=== PATIENT | male | born 1955 | race Caucasian/White ===

== ENCOUNTER → 2016-05-03 | Outpatient (CLI) | payer BC ==
[~2016-05-03] MED LIST: ASP81TEC PO; ATRV10T PO; CATHETER FLUSH 10 ML SYR IV PRN; FINA5TAB6 PO; GEMF600T3 PO; LISI20TA PO; METO-272 PO; MTF500T PO; OMEG1CAP74 PO; PNT40TEC PO; PRAS10TA6 PO; REGADENOSON 0.4 MG/5 ML SYR (LEXISCAN) IV ONE; SILO8CAP PO; meTOprolol 5 MG/5 ML (LOPRESSOR) VIAL ONE
[2016-05-03 12:54] VITALS: BP 159/98
--- NOTE | 2016-05-03 12:56 | ECHOCARDIOGRAPHY REPORT ---
PROCEDURE PHYSICIAN: MOHAMUD WAN DATE OF PROCEDURE: 05/03/2016 TWO DIMENSIONAL ECHOCARDIOGRAM REPORT PRIMARY PHYSICIAN: OTHER PHYSICIAN: REFERRING PHYSICIAN: Dr. Chelsie Lucia ORDERING PHYSICIAN: INDICATION FOR THE PROCEDURE: Congestive heart failure. MEASUREMENTS DERIVED VALUES LV DIAMETER (LAX) NORMALS NORMALS Diastolic 4.9 (3.6-5.2) Eject. Fract. 40 to 45% (60%+/-6%) Systolic (2.3-3.9) Diastolic Vol. % Shortening (0.22-0.42) Systolic Vol. Aortic Root IVS THICKNESS Diastolic 1.3 (0.6-1.1) LVPW THICKNESS Diastolic 1.3 (0.6-1.1) LA DIAMETER Systolic 4.0 (2.1-3.7) FINDINGS: 1. The left ventricle is prominent. There is mild diffuse left ventricular hypokinesia more pronounced at the anterior wall, anterior septum. Systolic function is reduced. Estimated ejection fraction 40 to 45%, improvement compared to the study of 2014. 2. The left atrium is in the upper normal limit in size. No clot or thrombus were seen within the left atrium. 3. The right atrium and right ventricle are normal in size. No clot or thrombus were seen within the right side. 4. Mitral valve is normal in morphology with mild mitral regurgitation noted by color Doppler flow. No mitral valve prolapse. No mitral valve stenosis. 5. Aortic valve is trileaflet with normal opening and closing pattern. No significant aortic stenosis or regurgitation was seen. 6. Tricuspid valve is normal in morphology with mild tricuspid regurgitation noted by color Doppler flow. Doppler across tricuspid valve estimated pulmonary artery pressure of 23+ right atrial pressure. 7. Pulmonic valve is functioning normally. 8. No pericardial effusion. CONCLUSION: 1. Slightly prominent left ventricle with mild diffuse left ventricular hypokinesia more pronounced at the anterior wall, anterior septum. Systolic function is reduced. Estimated ejection fraction 40 to 45%, improvement compared to the study of 2014. 2. Mild mitral and tricuspid regurgitation. 3. Estimated pulmonary artery pressure of 30 mmHg. Job ID: [id number] Dictated Date: 05/03/2016 11:59:52 Plasterer Spray Gun Date: 05/03/2016 12:51:11 / venu
--- NOTE | 2016-05-03 21:00 | STRESS TEST ---
PROCEDURE PHYSICIAN: MOHAMUD WAN DATE OF PROCEDURE: 05/03/2016 LEXISCAN MYOVIEW STRESS TEST REPORT REFERRING PHYSICIAN: Dr. Chelsie Lucia. INDICATION FOR THE PROCEDURE: Coronary artery disease. BASELINE HEART RATE: 100 BASELINE BLOOD PRESSURE: 159/98 BASELINE EKG: Sinus rhythm with no ischemic changes. SUMMARY: The patient was injected with 10.6 mCi of technetium 99 Myoview and the resting images were obtained. Then the patient received 0.4 mg of Lexiscan followed by 29.3 mCi of technetium 99 Myoview. Throughout the test, there were no EKG changes. The resting and stress images were reviewed and compared in the short axis, horizontal long axis, and vertical long axis views. Review of the images showed diaphragmatic attenuation affecting the quality of the images. There is mild apical thinning and decreased uptake at the true apex, and inferoapical segment. No significant ischemia was noted. SSS is 4, SDS 3, TID value 1.01. On the gated images, the left ventricle appeared to be dilated with end-diastolic volume 136 mL end-systolic volume 89 mL, mild diffuse left ventricular hypokinesia with calculated ejection fraction 34%. CONCLUSION: 1. The patient tolerated Lexiscan well. 2. Apical thinning with diaphragmatic attenuation affecting the quality of the images. Overall, there is no significant ischemia or infarction on SPECT images. 3. Prominent left ventricle with diffuse left ventricular hypokinesia. Calculated ejection fraction 34%. Job ID: [id number] Dictated Date: 05/03/2016 16:54:38 Time Analysis Clerk Date: 05/03/2016 20:56:46 / ema
== END ==
LOC: CARD 09:41
PROVIDERS: ATTEND Physician Assistant
DX: I25.10 Atherosclerotic heart disease of native coronary artery without angina pectoris (principal); I10 Essential (primary) hypertension; E78.2 Mixed hyperlipidemia; E11.9 Type 2 diabetes mellitus without complications
CPT/HCPCS: 78452; 93017; 93306

== ENCOUNTER 2016-06-20 06:43 | Outpatient (CLI) | payer BC ==
[~2016-06-20] VITALS: Ht 193 cm; Wt 111.1 kg
[~2016-06-20 06:43] MED LIST changes: -CATHETER FLUSH 10 ML SYR IV PRN; -REGADENOSON 0.4 MG/5 ML SYR (LEXISCAN) IV ONE; -meTOprolol 5 MG/5 ML (LOPRESSOR) VIAL ONE
[2016-06-20] MEDS ORDERED: SITA1TAB6 PO (12:00)
[2016-06-20] MEDS ORDERED: HYDR25TA4 PO (12:00)
== END 2016-06-20 12:02 ==
LOC: PREOP 06:43
PROVIDERS: ATTEND Surgery
DX: Z01.818 Encounter for other preprocedural examination (principal); K92.1 Melena

== ENCOUNTER 2016-06-22 07:18 | Day surgery (SDC) | payer BC ==
[~2016-06-22] VITALS: Ht 193 cm; Wt 111.1 kg
[~2016-06-22 07:18] MED LIST changes: +HYDR25TA4 PO; +SITA1TAB6 PO
[2016-06-22] MEDS ORDERED: LACTATED RINGERS 1,000 ML IV STA (07:31)
[2016-06-22] MEDS ORDERED: MIDAZOLAM 2 MG/2 ML (VERSED) VIAL ONE ×2 (07:34→07:35)
[2016-06-22] MEDS ORDERED: PROPOFOL INJECTION 50 ML IV ONE (07:35)
[2016-06-22 07:57] VITALS: BP 136/74
--- NOTE | 2016-06-22 08:54 | Progress Note-Pre Operative ---
Pre-Operative Progress Note H&P Reviewed The H&P was reviewed, patient examined and no changes noted. Date H&P Reviewed: June 22, 2016 Time H&P Reviewed: 08:51 Pre-Operative Diagnosis: Rectal bleed KASSY DURAN DO June 22, 2016 08:54
--- NOTE | 2016-06-22 09:23 | Progress Note-Post Operative ---
Post-Operative Progess Note Surgeon (s)/Statistician Applied (s) Surgeon KASSY DURAN DO Statistician Applied: none Pre-Operative Diagnosis Rectal bleed Post-Operative Diagnosis Rectal mass Rectal bleed Diverticula Internal Hemorrhoids Procedure & Operative Findings Date of Procedure 06/22/16 Procedure Performed/Findings as above Anesthesia Type IV by HEEL GOUGER Estimated Blood Loss Estimated blood loss (mL): scant Specimens/Packing Specimens Removed biopsy from rectal mass Packing: none KASSY DURAN DO June 22, 2016 09:23
--- NOTE | 2016-06-22 09:25 | Endoscopy Discharge Instruct ---
Endo Procedure/Findings Findings 1.: Other Findings (Rectal mass) 2.: Diverticulosis 3.: Internal Hemorrhoids Discharge Instructions - Activity: You might feel a little sleepy until tomorrow. This is due to the medicine you received to relax you. Until tomorrow, you should: NOT drive a car, operate machinery or power tools. NOT drink any alcoholic beverages. NOT make any important decisions or sign importortant papers. Do not return to work until tomorrow, unless otherwise instructed. Resume previous activities tomorrow. Diet: Start by taking liquids. If you tolerate liquids, advance to solid food. Make appointment for one week, Notify Physician - If you experience excessive bleeding, unusual abdominal pain, fever, or chest pain, contact your doctor immediately. [phone] Follow-Up: - I have received and understand the above instructions and will call my doctor if I have any further questions. Patient Signature Date Nurse Signature Other (Relationship) KASSY DURAN DO June 22, 2016 09:25
[2016-06-22 09:40] VITALS: BP 118/74
[2016-06-22 10:10] VITALS: BP 118/78
[2016-06-22 10:25] VITALS: BP 118/78
--- NOTE | 2016-06-22 12:48 | OPERATIVE REPORT ---
DATE OF SERVICE: 06/22/2016 PREOPERATIVE DIAGNOSIS: Rectal bleed. POSTOPERATIVE DIAGNOSES: 1. Rectal mass. 2. Rectal bleed. 3. Diverticula. 4. Internal hemorrhoids. PROCEDURE: Colonoscopy with hot biopsy. SURGEON: Dr. Salazar HONEY PROCESSOR: None. ANESTHESIA: IV sedation by AGENT LICENSING CLERK. SPECIMEN: Biopsy from rectal mass. BLOOD LOSS: Scant. FLUIDS: Per anesthesia. POSTOPERATIVE CONDITION: Stable. INDICATIONS FOR PROCEDURE: The patient is a 60-year-old male who has been having a little bit of rectal bleeding and needed a workup. FINDINGS: The patient had a rectal mass in about 6 cm from the anal verge. He also had some diverticula and some small internal hemorrhoids. PROCEDURE NOTE: After informed consent was obtained, the patient was brought to the endoscopy suite and placed in the bed in the left lateral decubitus position. He was administered IV sedation and his vitals were monitored by the AGENT LICENSING CLERK the entire time. The scope was inserted. Immediately upon entry noted a rectal mass, took a picture of this and then pushed through into the sigmoid, saw some diverticula, took a picture of this and then pushed all the way to about 150 cm, able to go all the way to the cecum, took a picture of the appendiceal orifice, noted the ileocecal valve and slowly I withdrew the scope insufflating to look circumferentially at the more[place], looking at the cecum, then up the ascending colon to the hepatic flexure, then down the transverse colon to the splenic flexure and then down the descending colon, into the sigmoid and finally into the rectum. I elected to do some hot biopsies of this mass. I did about 3 or 4 biopsies and then retroflexed in the rectal vault, very minimal internal hemorrhoids. This mass felt like it was about 6 cm from the anal verge. It was probably about 4 or 5 cm long, but the base was only about 2 or 3 cm. Did feel like it was kind of deep though; like it went deep into wall of intestine. The scope was removed. The patient tolerated the procedure and he was transferred to the recovery room in stable condition. Job ID: [id number] DocumentID: [id number] Dictated Date: 06/22/2016 09:19:43 Bill Adjuster Date: 06/22/2016 12:48:25 Dictated By: DO BETTY HOLLINGSWORTH
== END 2016-06-22 10:25 | disposition home or self-care (01) ==
LOC: ENDO 07:18
PROVIDERS: ATTEND Surgery
DX: C20 Malignant neoplasm of rectum (principal); K57.30 Diverticulosis of large intestine without perforation or abscess without bleeding; K64.8 Other hemorrhoids; E11.9 Type 2 diabetes mellitus without complications; I10 Essential (primary) hypertension; I25.10 Atherosclerotic heart disease of native coronary artery without angina pectoris; J44.9 Chronic obstructive pulmonary disease, unspecified; Z79.84 Long term (current) use of oral hypoglycemic drugs; Z79.899 Other long term (current) drug therapy
CPT/HCPCS: 82962

== ENCOUNTER → 2016-06-28 | Outpatient (CLI) | payer BC ==
[~2016-06-28] MED LIST changes: +CATHETER FLUSH 10 ML SYR IV PRN; +IOHEXOL 350 MG/ML 100 ML (OMNIPAQUE 350) VIAL IV ONE; +NS 100 ML (IVPB) BAG IV ONE
--- NOTE | 2016-06-28 09:26 | Diagnostic Imaging Report ---
PROCEDURE: CT chest, abdomen, and pelvis with contrast. TECHNIQUE: Multiple contiguous axial images were obtained through the chest, abdomen, and pelvis after the administration of intravenous contrast. INDICATION: Colon cancer. 100 mL of Omnipaque 350 is administered intravenously. FINDINGS: CT chest: There is a pacemaker in the anterior left chest wall with a right ventricular lead. There is suggestion of coronary artery stents. The heart size is not enlarged. No pericardial or pleural effusion. Lymph nodes at the upper limits of normal measuring 9 mm in the right paratracheal and 8 mm in the aortopulmonary window stations are seen. Mildly enlarged lymph node in the right hilum measuring 1.3 cm is noted. There are associated calcified granulomas, however, in the right hilum. No axillary lymphadenopathy seen. The lungs demonstrate a calcified granuloma in the right upper lobe. No pulmonary consolidation, mass, or suspicious nodules. The osseous structures demonstrate mild degenerative changes. CT abdomen and pelvis: There is diffuse thickening in the proximal stomach involving mostly the gastric body and fundus of uncertain etiology. Incidental gastric contraction during the scan is possible versus gastritis. The liver demonstrates punctate calcifications. No hepatic mass is identified. Calcified granulomas in the spleen are also noted. The spleen is mildly enlarged. The pancreas, the adrenal glands, and the gallbladder appear unremarkable. The kidneys have symmetric enhancement and contrast excretion. There is no hydronephrosis. The abdominal aorta is normal in caliber. No para-aortic significantly enlarged lymph node is seen. There is diverticulosis mostly involving the sigmoid colon. No diverticulitis. There is thickening within the mid/ lower rectum involving approximately 5 cm long segment suggestive of rectal cancer presumably correlating with the provided history. There is no obvious extension into the perirectal fat or enlarged adjacent or other pelvic lymph nodes. The tumor distal end is at the level of the levator ani muscle. The tumor does not appear to extend into the sphincter mechanism. It is about 5 cm above the anal verge. No extension to the adjacent organs. No bowel obstruction. No free fluid or fluid collection in the abdomen or pelvis. The osseous structures demonstrate degenerative changes in the lower lumbar spine and fusion of the right SI joint. Mild/ moderate degenerative changes in the hip joints also seen. IMPRESSION: CT chest: No evidence of metastasis. CT abdomen and pelvis: There is a tumor involving the lower rectum terminating at the level of the levator ani muscle. No evidence of extension into the mesorectal fat or adjacent organs. No evidence of metastasis. Dictated by: Dictated on workstation # [id number]
== END ==
LOC: RAD 07:20
PROVIDERS: ATTEND Surgery
DX: C20 Malignant neoplasm of rectum (principal)
CPT/HCPCS: 71260; 74177

== ENCOUNTER 2016-09-12 08:08 | Outpatient (RCR) | payer BC ==
[2016-07-13 10:35] LABS: BASOPHILS % (AUTO) 0 % (0-10); EOSINOPHILS # (AUTO) 0.1 10^3/uL (0.0-0.3); EOSINOPHILS % (AUTO) 1 % (0-10); LYMPHOCYTES # (AUTO) 2.2 X 10^3 (1.0-4.0); LYMPHOCYTES % (AUTO) 23 % (12-44); MEAN CORPUSCULAR HEMOGLOBIN 29 PG (25-34); MEAN CORPUSCULAR HGB CONC 35 G/DL (32-36); MEAN CORPUSCULAR VOLUME 84 FL (80-99); MEAN PLATELET VOLUME 9.6 FL (7.4-10.4); MONOCYTES # (AUTO) 0.5 X 10^3 (0.0-1.0); MONOCYTES % (AUTO) 5 % (0-12); NEUTROPHILS # (AUTO) 6.9 X 10^3 (1.8-7.8); NEUTROPHILS % (AUTO) 71 % (42-75); PLATELET COUNT 176 10^3/uL (130-400); RED CELL DISTRIBUTION WIDTH 13.2 % (10.0-14.5); WHITE BLOOD COUNT 9.7 10^3/uL (4.3-11.0)
[2016-07-13 11:12] LABS: ALANINE AMINOTRANSFERASE 35 U/L (0-55); ALBUMIN 4.3 G/DL (3.2-4.5); ANION GAP 10 MMOL/L (5-14); ASPARTATE AMINO TRANSFERASE 23 U/L (5-34); BILIRUBIN,TOTAL 0.7 MG/DL (0.1-1.0); BLOOD UREA NITROGEN 18 MG/DL (7-18); BUN/CREATININE RATIO 19; CALCIUM 9.8 MG/DL (8.5-10.1); CARBON DIOXIDE 27 MMOL/L (21-32); CHLORIDE 100 MMOL/L (98-107); CREATININE SERUM 0.96 MG/DL (0.60-1.30); GFR ESTIMATED > 60; GLUCOSE 190 MG/DL (70-105); POTASSIUM 4.4 MMOL/L (3.6-5.0); SODIUM 137 MMOL/L (135-145); TOTAL PROTEIN 7.8 G/DL (6.4-8.2)
[2016-08-24 08:48] LABS: BASOPHILS % (AUTO) 0 % (0-10); EOSINOPHILS # (AUTO) 0.1 10^3/uL (0.0-0.3); EOSINOPHILS % (AUTO) 1 % (0-10); LYMPHOCYTES # (AUTO) 0.9 X 10^3 (1.0-4.0); LYMPHOCYTES % (AUTO) 23 % (12-44); MEAN CORPUSCULAR HEMOGLOBIN 29 PG (25-34); MEAN CORPUSCULAR HGB CONC 35 G/DL (32-36); MEAN CORPUSCULAR VOLUME 85 FL (80-99); MEAN PLATELET VOLUME 8.9 FL (7.4-10.4); MONOCYTES # (AUTO) 0.3 X 10^3 (0.0-1.0); MONOCYTES % (AUTO) 7 % (0-12); NEUTROPHILS # (AUTO) 2.5 X 10^3 (1.8-7.8); NEUTROPHILS % (AUTO) 68 % (42-75); PLATELET COUNT 87 10^3/uL (130-400); RED BLOOD COUNT 4.52 10^6/uL (4.35-5.85); RED CELL DISTRIBUTION WIDTH 14.2 % (10.0-14.5); WHITE BLOOD COUNT 3.6 10^3/uL (4.3-11.0)
[2016-08-24 09:31] LABS: ALANINE AMINOTRANSFERASE 39 U/L (0-55); ALBUMIN 3.8 GM/DL (3.2-4.5); ANION GAP 11 MMOL/L (5-14); ASPARTATE AMINO TRANSFERASE 26 U/L (5-34); BILIRUBIN,TOTAL 0.7 MG/DL (0.1-1.0); BLOOD UREA NITROGEN 15 MG/DL (7-18); BUN/CREATININE RATIO 17; CARBON DIOXIDE 23 MMOL/L (21-32); CHLORIDE 101 MMOL/L (98-107); GFR ESTIMATED > 60; GLUCOSE 308 MG/DL (70-105); POTASSIUM 4.2 MMOL/L (3.6-5.0); SODIUM 135 MMOL/L (135-145); TOTAL PROTEIN 6.9 GM/DL (6.4-8.2)
[2016-08-31 08:59] LABS: BASOPHILS % (AUTO) 0 % (0-10); EOSINOPHILS % (AUTO) 1 % (0-10); LYMPHOCYTES # (AUTO) 0.7 X 10^3 (1.0-4.0); LYMPHOCYTES % (AUTO) 17 % (12-44); MEAN CORPUSCULAR HEMOGLOBIN 30 PG (25-34); MEAN CORPUSCULAR HGB CONC 35 G/DL (32-36); MEAN CORPUSCULAR VOLUME 86 FL (80-99); MEAN PLATELET VOLUME 9.1 FL (7.4-10.4); MONOCYTES # (AUTO) 0.4 X 10^3 (0.0-1.0); MONOCYTES % (AUTO) 8 % (0-12); NEUTROPHILS # (AUTO) 3.1 X 10^3 (1.8-7.8); NEUTROPHILS % (AUTO) 74 % (42-75); PLATELET COUNT 101 10^3/uL (130-400); RED BLOOD COUNT 4.44 10^6/uL (4.35-5.85); RED CELL DISTRIBUTION WIDTH 14.9 % (10.0-14.5); WHITE BLOOD COUNT 4.2 10^3/uL (4.3-11.0)
[2016-08-31 09:25] LABS: ANION GAP 14 MMOL/L (5-14); BLOOD UREA NITROGEN 19 MG/DL (7-18); BUN/CREATININE RATIO 20; CALCIUM 9.1 MG/DL (8.5-10.1); CARBON DIOXIDE 22 MMOL/L (21-32); CHLORIDE 99 MMOL/L (98-107); CREATININE SERUM 0.93 MG/DL (0.60-1.30); GFR ESTIMATED > 60; GLUCOSE 329 MG/DL (70-105); POTASSIUM 4.2 MMOL/L (3.6-5.0); SODIUM 135 MMOL/L (135-145)
[2016-09-07 08:48] LABS: BASOPHILS % (AUTO) 0 % (0-10); EOSINOPHILS # (AUTO) 0.1 10^3/uL (0.0-0.3); EOSINOPHILS % (AUTO) 1 % (0-10); LYMPHOCYTES # (AUTO) 0.7 X 10^3 (1.0-4.0); LYMPHOCYTES % (AUTO) 17 % (12-44); MEAN CORPUSCULAR HEMOGLOBIN 31 PG (25-34); MEAN CORPUSCULAR HGB CONC 36 G/DL (32-36); MEAN CORPUSCULAR VOLUME 86 FL (80-99); MEAN PLATELET VOLUME 8.8 FL (7.4-10.4); MONOCYTES # (AUTO) 0.4 X 10^3 (0.0-1.0); MONOCYTES % (AUTO) 9 % (0-12); NEUTROPHILS # (AUTO) 3.1 X 10^3 (1.8-7.8); NEUTROPHILS % (AUTO) 72 % (42-75); PLATELET COUNT 127 10^3/uL (130-400); RED BLOOD COUNT 4.44 10^6/uL (4.35-5.85); WHITE BLOOD COUNT 4.3 10^3/uL (4.3-11.0)
[2016-09-07 09:33] LABS: ANION GAP 10 MMOL/L (5-14); BLOOD UREA NITROGEN 18 MG/DL (7-18); BUN/CREATININE RATIO 20; CALCIUM 9.3 MG/DL (8.5-10.1); CARBON DIOXIDE 24 MMOL/L (21-32); CHLORIDE 101 MMOL/L (98-107); CREATININE SERUM 0.88 MG/DL (0.60-1.30); GFR ESTIMATED > 60; GLUCOSE 327 MG/DL (70-105); POTASSIUM 4.4 MMOL/L (3.6-5.0); SODIUM 135 MMOL/L (135-145)
[~2016-09-12 08:08] MED LIST changes: -CATHETER FLUSH 10 ML SYR IV PRN; -IOHEXOL 350 MG/ML 100 ML (OMNIPAQUE 350) VIAL IV ONE; -NS 100 ML (IVPB) BAG IV ONE
== END 2016-10-11 | disposition home or self-care (01) ==
LOC: ONC 08:08
PROVIDERS: ATTEND Internal Medicine Hematology & Oncology
DX: Z51.0 Encounter for antineoplastic radiation therapy (principal); C20 Malignant neoplasm of rectum; E11.9 Type 2 diabetes mellitus without complications; I10 Essential (primary) hypertension; I25.10 Atherosclerotic heart disease of native coronary artery without angina pectoris; J44.9 Chronic obstructive pulmonary disease, unspecified; Z79.84 Long term (current) use of oral hypoglycemic drugs; Z79.899 Other long term (current) drug therapy
CPT/HCPCS: 36415; 77300; 77301; 77334; 77336; 77338; 77386; 77470; 80048; 80053; 82378; 85025; 99213; 99214

== ENCOUNTER 2016-11-21 17:08 | Emergency (ER) | payer BC ==
[~2016-11-21] VITALS: Ht 190.5 cm; Wt 107.5 kg
--- OUTSIDE RECORDS SUMMARY | 2016-11-21 17:13 | XMS REPORT | Clinical Summary ---
Author Author [facility] Organization [facility] Address Unknown Phone Unavailable Care Team Providers Care Production Tester Name Role Phone PCP Unavailable Source Comments Some departments are not documenting in the electronic medical record. If you do not see the information that you expected, contact Release of Information in the Health Information Management department at [phone] for further assistance in locating additional records.[facility] Allergies Active Allergy Reactions Severity Noted Date Comments Atorvastatin MUSCLE PAIN 12/11/2012 Current Medications Prescription Sig. Disp. Refills Start End Date Status Date silodosin(+) (RAPAFLO) 8 Take 8 mg by mouth daily. Active mg capsule prasugrel (EFFIENT) 10 mg Take 10 mg by mouth Active tab tablet daily. Pantoprazole (PROTONIX) Take by mouth. Active 40 mg grps Aspirin 81 mg tab Take 1 Tab by mouth Active daily. lisinopril (PRINIVIL; Take 20 mg by mouth twice Active ZESTRIL) 20 mg tablet daily. metFORMIN (GLUCOPHAGE) Take 500 mg by mouth Active 500 mg tablet daily. gemfibrozil (LOPID) 600 Take 600 mg by mouth Active mg tablet daily. Sitagliptin-Metformin Take 1 Tab by mouth Active (JANUMET) 50-1,000 mg tab daily. metoprolol XL (TOPROL XL) Take 3.5 Tabs by mouth 90 Tab 07/09/19 Active 100 mg tablet daily. 14 Active Problems Problem Noted Date Cardiomyopathy, ischemic 12/23/2012 Overview: EF 30% 12/23/12 ICD implanted ICD (implantable cardiac defibrillator), dual, in situ 12/23/2012 Overview: 12/23/12 dual-chamber ICD implant for primary prevention of SCD DM2 (diabetes mellitus, type 2) (HCC) 12/23/2012 Overview: Metformin Ischemic cardiomyopathy 12/23/2012 CAD (coronary artery disease) 12/06/2012 Overview: A. 08/19/12. Abnormal Myoview Treadmill Stress Test, [facility]. Left ventricular hypokinesis, EF 22%. Document sent to OP medical records to be scanned to patient record. B. 08/27/12. [facility], ANA MARÍA to LAD. C. 12/03/12. Echocardiogram-EF 30% Dilated LV with diffuse LV hypokinesia, anterior wall, anterior septum. Mild mitral and tricuspid regurgitation. Insufficient doppler signal to evaluate pulmonary artery pressure. COPD (chronic obstructive pulmonary disease) ([facility]) 12/06/2012 CHF (congestive heart failure) ([facility]) 12/06/2012 SADA (obstructive sleep apnea) 12/06/2012 S/P coronary artery stent placement 12/06/2012 Overview: 08/27/12. [facility], [address] [place], [place]. 95% proximal LAD stenosis. Successful balloon angioplasty and ANA MARÍA placed. Dilated cardiomyopathy, EF 30%. Document sent to OP medical records to be scanned to patient record. Social History Tobacco Use Types Packs/Day Years Used Date Never Assessed Smokeless Tobacco: Never Used Alcohol Use Drinks/Week oz/Week Comments No Sex Assigned at Date Recorded Not on file Last Filed Vital Signs Vital Sign Reading Time Taken Blood Pressure 160/100 07/08/2013 10:44 AM CDT Pulse 77 07/08/2013 10:33 AM CDT Temperature 36.3 C (97.4 F) 12/24/2012 8:20 AM MBA INTERN Respiratory Rate - - Oxygen Saturation 96% 12/24/2012 8:20 AM MBA INTERN Inhaled Oxygen - - Concentration Weight 116.3 kg (256 lb 8 oz) 07/08/2013 10:33 AM CDT Height 193 cm (6' 4") 07/08/2013 10:33 AM CDT Body Mass Index 31.22 07/08/2013 10:33 AM CDT Plan of Treatment Health Maintenance Due Date Last Done Comments HEPATITIS C SCREENING 1953 PHYSICAL (COMPREHENSIVE) 1960 EXAM PERTUSSIS VACCINE 1964 TETANUS VACCINE 1970 COLORECTAL CANCER 09/09/2003 SCREENING SHINGLES VACCINE 2013 INFLUENZA VACCINE 09/05/2016 Results Not on filefrom Last 3 Months
--- OUTSIDE RECORDS SUMMARY | 2016-11-21 17:14 | XMS REPORT | Continuity of Care Document ---
Author Author [facility] Organization [facility] Address Unknown Phone Unavailable Allergies Active Description Code Type Severity Reaction Onset Reported/Identified Relationship to Patient Clinical Status Yes NKANo Known Allergies NKA Miscellaneous Allergy Unknown N/ A 03/07/2005 Medications Problems Date Dx Coded Attending Type Code Diagnosis Diagnosed By 09/03/2014 MALLORY CASIANO DO Ot 715.36 09/03/2014 MALLORY CASIANO DO Ot V57.1 09/04/2014 MALLORY CASIANO DO Ot 715.36 LOC OSTEOARTH NOS-L/LEG 09/04/2014 MALLORY CASIANO DO Ot V57.1 PHYSICAL THERAPY NEC 10/14/2014 SHERYL WASHINGTON, KAI K Ot 272.4 10/14/2014 SHERYL PA, KAI K Ot 401.9 10/14/2014 SHERYL PA, KAI K Ot 414.00 10/14/2014 SHERYL PA, KAI K Ot 424.0 10/14/2014 SHERYL PA, KAI K Ot 428.0 10/14/2014 SHERYL PA, KAI K Ot 496 10/14/2014 SHERYL PA, KAI K Ot 250.00 10/14/2014 SHERYL PA, KAI K Ot 272.4 10/14/2014 SHERYL PA, KAI K Ot 278.00 10/14/2014 SHERYL PA, KAI K Ot 327.23 10/14/2014 SHERYL PA, KAI K Ot 401.9 10/14/2014 SHERYL PA, KAI K Ot 414.00 10/14/2014 SHERYL PA, KAI K Ot 428.0 10/14/2014 SHERYL PA, KAI K Ot 496 10/14/2014 SHERYL PA, KAI K Ot 786.05 10/14/2014 KAI HAGER Ot V85.31 10/14/2014 SAVAGE NIEVES, MOHAMUD Jaquez Ot 272.4 10/14/2014 SAVAGE NIEVES, MOHAMUD Jaquez Ot 401.9 10/14/2014 SAVAGE NIEVES, MOHAMUD Jaquez Ot 414.00 10/14/2014 SAVAGE NIEVES, MOHAMUD Jaquez Ot 428.0 10/14/2014 SAVAGE NIEVES, MOHAMUD Jaquez Ot 793.5 10/14/2014 SAVAGE NIEVES, MOHAMUD Jaquez Ot 272.4 10/14/2014 SAVAGE NIEVES, MOHAMUD Jaquez Ot 397.0 10/14/2014 SAVAGE NIEVES, MOHAMUD Jaquez Ot 401.9 10/14/2014 SAVAGE NIEVES, MOHAMUD Jaquez Ot 414.00 10/14/2014 SAVAGE NIEVES, MOHAMUD Jaquez Ot 424.0 10/14/2014 SAVAGE NIEVES, MOHAMUD Jaquez Ot 428.0 10/29/2014 SAVAGE NIEVES, MOHAMUD Jaquez Ot 272.4 10/29/2014 SAVAGE NIEVES, MOHAMUD Jaquez Ot 401.9 10/29/2014 SAVAGE NIEVES, MOHAMUD Jaquez Ot 414.00 10/29/2014 SAVAGE NIEVES, MOHAMUD Jaquez Ot 786.05 01/04/2016 KAI HAGER Ot 272.4 HYPERLIPIDEMIA NEC/NOS 01/04/2016 KAI HAGER Ot 401.9 HYPERTENSION NOS 01/04/2016 KAI HAGER Ot 414.00 CORON ATHEROSCLER NOS TYPE VESSEL, NATIV 01/04/2016 KAI HAGER Ot 424.0 MITRAL VALVE DISORDER 01/04/2016 KAI HAGER Ot 428.0 CONGESTIVE HEART FAILURE NOS 01/04/2016 KAI HAGER Ot 496 CHR AIRWAY OBSTRUCT NEC 01/04/2016 KAI HAGER Ot 250.00 DIAB LEELA WO COMPL, TYPE II OR UNSPEC TY 01/04/2016 KAI HAGER Ot 272.4 HYPERLIPIDEMIA NEC/NOS 01/04/2016 KAI HAGER Ot 278.00 OBESITY, NOS 01/04/2016 KAI HAGER Ot 327.23 OBSTRUCTIVE SLEEP APNEA (ADULT ) (PEDIATR 01/04/2016 KAI HAGER Ot 401.9 HYPERTENSION NOS 01/04/2016 KAI HAGER Ot 414.00 CORON ATHEROSCLER NOS TYPE VESSEL, NATIV 01/04/2016 KAI HAGER Ot 428.0 CONGESTIVE HEART FAILURE NOS 01/04/2016 KAI HAGER Ot 496 CHR AIRWAY OBSTRUCT NEC 01/04/2016 KAI HAGER Ot 786.05 SHORTNESS OF BREATH 01/04/2016 KAI HAGER Ot V85.31 BODY MASS INDEX 31.0-31.9, ADULT 01/04/2016 MOHAMUD WAN MD Ot 272.4 HYPERLIPIDEMIA NEC/NOS 01/04/2016 MOHAMUD WAN MD Ot 401.9 HYPERTENSION NOS 01/04/2016 MOHAMUD WAN MD Ot 414.00 CORON ATHEROSCLER NOS TYPE VESSEL, NATIV 01/04/2016 MOHAMUD WAN MD Ot 428.0 CONGESTIVE HEART FAILURE NOS 01/04/2016 MOHAMUD WAN MD Ot 793.5 NOSP (ABN) FINDINGS ON RADIOLOGICAL OT 01/04/2016 MOHAMUD WAN MD Ot 272.4 HYPERLIPIDEMIA NEC/NOS 01/04/2016 MOHAMUD WAN MD J Ot 397.0 TRICUSPID VALVE DISEASE 01/04/2016 MOHAMUD WAN MD J Ot 401.9 HYPERTENSION NOS 01/04/2016 MOHAUMD WAN MD J Ot 414.00 CORON ATHEROSCLER NOS TYPE VESSEL, NATIV 01/04/2016 MOHAMUD WAN MD J Ot 424.0 MITRAL VALVE DISORDER 01/04/2016 MOHAMUD WAN MD J Ot 428.0 CONGESTIVE HEART FAILURE NOS 01/04/2016 MOHAMUD WAN MD Ot 272.4 HYPERLIPIDEMIA NEC/NOS 01/04/2016 MOHAMUD WAN MD J Ot 401.9 HYPERTENSION NOS 01/04/2016 MOHAMUD WAN MD J Ot 414.00 CORON ATHEROSCLER NOS TYPE VESSEL, NATIV 01/04/2016 MOHAMUD WAN MD Ot 786.05 SHORTNESS OF BREATH 04/19/2016 KAI HAGER Ot 272.4 HYPERLIPIDEMIA NEC/NOS 04/19/2016 KAI HAGER Ot 401.9 HYPERTENSION NOS 04/19/2016 SHERYL WASHINGTON KAI K Ot 414.00 CORON ATHEROSCLER NOS TYPE VESSEL, NATIV 04/19/2016 SHERYL WASHINGTON KAI K Ot 424.0 MITRAL VALVE DISORDER 04/19/2016 SHERYL WASHINGTON KAI K Ot 428.0 CONGESTIVE HEART FAILURE NOS 04/19/2016 SHERYL WASHINGTON KAI K Ot 496 CHR AIRWAY OBSTRUCT NEC 04/19/2016 SHERYL WASHINGTON KAI K Ot 250.00 DIAB LEELA WO COMPL, TYPE II OR UNSPEC TY 04/19/2016 SHERYL WASHINGTON KAI K Ot 272.4 HYPERLIPIDEMIA NEC/NOS 04/19/2016 SHERYL WASHINGTON KAI K Ot 278.00 OBESITY, NOS 04/19/2016 SHERYL WASHINGTON KAI K Ot 327.23 OBSTRUCTIVE SLEEP APNEA (ADULT ) (PEDIATR 04/19/2016 SHERYL WASHINGTON KAI K Ot 401.9 HYPERTENSION NOS 04/19/2016 SHERYL WASHINGTON KAI K Ot 414.00 CORON ATHEROSCLER NOS TYPE VESSEL, NATIV 04/19/2016 SHERYL WASHINGTON KAI K Ot 428.0 CONGESTIVE HEART FAILURE NOS 04/19/2016 SHERYL WASHINGTON KAI K Ot 496 CHR AIRWAY OBSTRUCT NEC 04/19/2016 SHERYL WASHINGTON KAI K Ot 786.05 SHORTNESS OF BREATH 04/19/2016 SHERYL WASHINGTON KAI [employer] Ot V85.31 BODY MASS INDEX 31.0-31.9, ADULT 04/19/2016 MOHAMUD WAN MD Ot 272.4 HYPERLIPIDEMIA NEC/NOS 04/19/2016 MOHAMUD WAN MD Ot 401.9 HYPERTENSION NOS 04/19/2016 MOHAMUD WAN MD Ot 414.00 CORON ATHEROSCLER NOS TYPE VESSEL, NATIV 04/19/2016 MOHAMUD WAN MD Ot 428.0 CONGESTIVE HEART FAILURE NOS 04/19/2016 MOHAMUD WAN MD Ot 793.5 NOSP (ABN) FINDINGS ON RADIOLOGICAL OT 04/19/2016 MOHAMUD WAN MD Ot 272.4 HYPERLIPIDEMIA NEC/NOS 04/19/2016 MOHAMUD WAN MD Ot 397.0 TRICUSPID VALVE DISEASE 04/19/2016 MOHAMUD WAN MD Ot 401.9 HYPERTENSION NOS 04/19/2016 MOHAMUD WAN MD Ot 414.00 CORON ATHEROSCLER NOS TYPE VESSEL, NATIV 04/19/2016 MOHAMUD WAN MD Ot 424.0 MITRAL VALVE DISORDER 04/19/2016 MOHAMUD WAN MD Ot 428.0 CONGESTIVE HEART FAILURE NOS 04/19/2016 MOHAMUD WAN MD Ot 272.4 HYPERLIPIDEMIA NEC/NOS 04/19/2016 MOHAMUD WAN MD Ot 401.9 HYPERTENSION NOS 04/19/2016 MOHAMUD WAN MD Ot 414.00 CORON ATHEROSCLER NOS TYPE VESSEL, NATIV 04/19/2016 MOHAMUD WAN MD Ot 786.05 SHORTNESS OF BREATH 05/04/2016 KAI HAGER Ot E11.9 TYPE 2 DIABETES MELLITUS WITHOUT COMPLIC 05/04/2016 KAI HAGER Ot E78.2 MIXED HYPERLIPIDEMIA 05/04/2016 KAI HAGER Ot I10 ESSENTIAL (PRIMARY) HYPERTENSION 05/04/2016 KAI HAGER Ot I25.10 ATHSCL HEART DISEASE OF [place] CORONARY 05/19/2016 KAI HAGER Ot E11.9 TYPE 2 DIABETES MELLITUS WITHOUT COMPLIC 05/19/2016 KAI HAGER Ot E78.2 MIXED HYPERLIPIDEMIA 05/19/2016 KAI HAGER Ot I10 ESSENTIAL (PRIMARY) HYPERTENSION 05/19/2016 KAI HAGER Ot I25.10 ATHSCL HEART DISEASE OF [place] CORONARY 06/20/2016 KASSY DURAN DO Ot K92.1 MELENA 06/20/2016 KASSY DURAN DO Ot Z01.818 ENCOUNTER FOR OTHER PREPROCEDURAL EXAMIN 06/22/2016 KASSY DURAN DO Ot C20 MALIGNANT NEOPLASM OF RECTUM 06/22/2016 KASSY DURAN DO, Ot E11.9 TYPE 2 DIABETES MELLITUS WITHOUT COMPLIC 06/22/2016 KASSY DURAN DO Ot I10 ESSENTIAL (PRIMARY) HYPERTENSION 06/22/2016 KASSY DURAN DO Ot I25.10 ATHSCL HEART DISEASE OF [place] CORONARY 06/22/2016 KASSY DURAN DO, Ot J44.9 CHRONIC OBSTRUCTIVE PULMONARY DISEASE, U 06/22/2016 KARUNA DURAN DOIC B Ot K57.30 DVRTCLOS OF LG INT W/O PERFORATION OR AB 06/22/2016 KARUNA DURAN DOIC B Ot K64.8 OTHER HEMORRHOIDS 06/22/2016 KARUNA DURAN DOIC B Ot Z79.84 JAIL (CURRENT) USE OF ORAL HYPOGLYC 06/22/2016 KARUNA DURNA DOIC B Ot Z79.899 OTHER RADIO BROADCASTER (CURRENT) DRUG THERAPY 06/26/2016 RENEE APARICIO KASSY B Ot C20 MALIGNANT NEOPLASM OF RECTUM 06/26/2016 RENEE APARICIO KASSY B Ot E11.9 TYPE 2 DIABETES MELLITUS WITHOUT COMPLIC 06/26/2016 RENEE DO, KASSY B Ot I10 ESSENTIAL (PRIMARY) HYPERTENSION 06/26/2016 KARUNA DURAN DOIC B Ot I25.10 ATHSCL HEART DISEASE OF [place] CORONARY 06/26/2016 RENEE APARICIO KASSY B Ot J44.9 CHRONIC OBSTRUCTIVE PULMONARY DISEASE, U 06/26/2016 KARUNA DURAN DOIC B Ot K57.30 DVRTCLOS OF LG INT W/O PERFORATION OR AB 06/26/2016 KARUNA DURAN DOIC B Ot K64.8 OTHER HEMORRHOIDS 06/26/2016 KARUNA DURAN DOIC B Ot Z79.84 RADIO BROADCASTER (CURRENT) USE OF ORAL HYPOGLYC 06/26/2016 KARUNA DURAN DOIC B Ot Z79.899 OTHER RADIO BROADCASTER (CURRENT) DRUG THERAPY 06/28/2016 KAI HAGER Ot E11.9 TYPE 2 DIABETES MELLITUS WITHOUT COMPLIC 06/28/2016 KAI HAGER Ot E78.2 MIXED HYPERLIPIDEMIA 06/28/2016 KAI HAGER Ot I10 ESSENTIAL (PRIMARY) HYPERTENSION 06/28/2016 KAI HAGER Ot I25.10 ATHSCL HEART DISEASE OF [place] CORONARY 07/10/2016 KARUNA DURAN DOIC B Ot C20 MALIGNANT NEOPLASM OF RECTUM 07/14/2016 ADELAIDE AGUAYO Ot C20 MALIGNANT NEOPLASM OF RECTUM 07/14/2016 ADELAIDE AGUAYO Ot E11.9 TYPE 2 DIABETES MELLITUS WITHOUT COMPLIC 07/14/2016 ADELAIDE AGUAYO Ot I10 ESSENTIAL (PRIMARY) HYPERTENSION 07/14/2016 DEDESIMEON LACYAN N Ot I25.10 ATHSCL HEART DISEASE OF [place] CORONARY 07/14/2016 DEDESIMEONAN N Ot J44.9 CHRONIC OBSTRUCTIVE PULMONARY DISEASE, U 07/14/2016 DEDESIMEONAN N Ot Z79.84 JAIL (CURRENT) USE OF ORAL HYPOGLYC 07/14/2016 DEDE BOBAN N Ot Z79.899 OTHER JAIL (CURRENT) DRUG THERAPY 08/23/2016 DEDE BOBAN N Ot C20 MALIGNANT NEOPLASM OF RECTUM 08/23/2016 DEDE, BOBAN N Ot E11.9 TYPE 2 DIABETES MELLITUS WITHOUT COMPLIC 08/23/2016 DEDE, BOBAN N Ot I10 ESSENTIAL (PRIMARY) HYPERTENSION 08/23/2016 DEDE BOBAN N Ot I25.10 ATHSCL HEART DISEASE OF [place] CORONARY 08/23/2016 DEDE BOBAN N Ot J44.9 CHRONIC OBSTRUCTIVE PULMONARY DISEASE, U 08/23/2016 DEDE BOBAN N Ot Z79.84 JAIL (CURRENT) USE OF ORAL HYPOGLYC 08/23/2016 DEDE BOBAN N Ot Z79.899 OTHER RADIO BROADCASTER (CURRENT) DRUG THERAPY 09/26/2016 DEDE BOBAN N Ot C20 MALIGNANT NEOPLASM OF RECTUM 09/26/2016 DEDE BOBAN N Ot E11.9 TYPE 2 DIABETES MELLITUS WITHOUT COMPLIC 09/26/2016 DEDE BOBAN N Ot I10 ESSENTIAL (PRIMARY) HYPERTENSION 09/26/2016 DEDE BOBAN N Ot I25.10 ATHSCL HEART DISEASE OF [place] CORONARY 09/26/2016 DEDESIMEONAN N Ot J44.9 CHRONIC OBSTRUCTIVE PULMONARY DISEASE, U 09/26/2016 DEDESIMEONAN N Ot Z79.84 JAIL (CURRENT) USE OF ORAL HYPOGLYC 09/26/2016 DEDE BOBAN N Ot Z79.899 OTHER RADIO BROADCASTER (CURRENT) DRUG THERAPY 10/11/2016 DEDE SIMEONAN N Ot C20 MALIGNANT NEOPLASM OF RECTUM 10/11/2016 DEDE BOBAN N Ot E11.9 TYPE 2 DIABETES MELLITUS WITHOUT COMPLIC 10/11/2016 DEDE BOBAN N Ot I10 ESSENTIAL (PRIMARY) HYPERTENSION 10/11/2016 DEDE BOBAN N Ot I25.10 ATHSCL HEART DISEASE OF [place] CORONARY 10/11/2016 ADELAIDE AGUAYO Ot J44.9 CHRONIC OBSTRUCTIVE PULMONARY DISEASE, U 10/11/2016 ADELAIDE AGUAYO Ot Z51.0 ENCOUNTER FOR ANTINEOPLASTIC RADIATION T 10/11/2016 ADELAIDE AGUAYO Ot Z79.84 RADIO BROADCASTER (CURRENT) USE OF ORAL HYPOGLYC 10/11/2016 ADELAIDE AGUAYO Ot Z79.899 OTHER RADIO BROADCASTER (CURRENT) DRUG THERAPY Procedures Results Test Result Range Capillary blood glucose measurement by glucometer (mass/volume) - 06/22/16 07: 41 Capillary blood glucose measurement by glucometer (mass/volume) 137 mg/dL 70-110 Encounters ACCT No. Visit Date/Time Discharge Status Pt. Type Provider Facility Loc./Unit Complaint [id number] 10/12/2016 00:13:00 2016 23:59:59 CLS Preadmit ADELAIDE AGUAYO Shubham [facility] ONC [id number] 09/12/2016 08:08:00 2016 00:01:00 DIS Outpatient ADELAIDE AGUAYO Shubham [facility] ONC [id number] 06/28/2016 07:20:00 2016 23:59:59 CLS Outpatient KASSY DURAN DO [facility] RAD COLON CA [id number] 06/22/2016 07:18:00 2016 10:25:00 DIS Outpatient KASSY DURAN DO [facility] ENDO BLOOD IN STOOLS [id number] 06/20/2016 06:43:00 2016 12:02:00 DIS Outpatient KASSY DURAN DO [facility] PREOP COLONOSCOPY [id number] 05/03/2016 09:41:00 2016 23:59:59 CLS Outpatient KAI HAGER [facility] CARD CAD,HTN,HLP,NIDDM [id number] 10/14/2014 09:06:00 2014 23:59:59 CLS Outpatient SAVAGE NIEVES, MOHAMUD Jaquez [facility] CARD CAD,HTN,HYPERLIPADEMA,SOA [id number] 09/04/2014 15:15:00 2014 15:51:00 DIS Outpatient MALLORY CASIANO DO [facility] REHAB DJD PATELLOFEMORAL JOINT B KNEE [id number] 10/15/2013 09:03:00 2013 23:59:59 CLS Outpatient MOHAMUD WAN MD [facility] CARD CHF,CAD,HTN,HLP [id number] 07/25/2013 08:24:00 2013 23:59:59 CLS Outpatient MOHAMUD WAN MD [facility] RAD HTN,CHF,CAD,HLP [id number] 04/30/2013 07:37:00 2013 23:59:59 CLS Outpatient KAI HAGER [facility] RAD CAD,CHF,COPD [id number] 04/29/2013 10:50:00 2013 23:59:59 CLS Outpatient KAI HAGER [facility] CARD CAD,CHF,COPD [id number] 12/03/2012 10:27:00 2012 23:59:59 CLS Outpatient [id number] 10/25/2012 11:59:00 2012 09:15:00 DIS Outpatient [id number] 10/21/2012 08:42:00 2012 23:59:59 CLS Outpatient [id number] 08/27/2012 10:43:00 2012 12:30:00 DIS Outpatient [id number] 08/19/2012 07:32:00 2012 23:59:59 CLS Outpatient [id number] 08/14/2012 07:47:00 2012 23:59:59 CLS Outpatient
[2016-11-21 17:31] LABS: BILIRUBIN,URINE NEGATIVE (NEGATIVE); KETONES,URINE NEGATIVE (NEGATIVE); LEUKOCYTE ESTERASE ,URINE NEGATIVE (NEGATIVE); NITRITE,URINE NEGATIVE (NEGATIVE); PH,URINE 5 (5-9); PROTEIN,URINE NEGATIVE (NEGATIVE); UROBILINOGEN,URINE NORMAL (NORMAL)
--- NOTE | 2016-11-21 17:35 | ED GU-Male ---
General Chief Complaint: -Male Stated Complaint: POST SURG DIFFICULTY URINATING Source: patient Exam Limitations: no limitations History of Present Illness Time seen by provider: 17:10 Initial Comments Here with report of urinary retention. Postop day 5 diverting colostomy due to colorectal cancer. Had Norton catheter for a few days and then had it out before discharge yesterday. States he is able to urinate on his own but was difficult. After getting home he's had increasing difficulty and has not been unable to get urine stream today. Complaining of suprapubic fullness. Denies fevers, chills, nausea, vomiting or problems with the colostomy bag. Timing/Duration: yesterday, getting worse Severity/Quality: moderate, cramping, other (fullness) Location: suprapubic Radiation: none Activities at Onset: none Associated Symptoms: abdominal pain, dysuria, No fever/chills, No lower back pain, No nausea/vomiting, No urinary frequency Allergies and Home Medications Allergies Coded Allergies: No Known Allergies (Verified Allergy, Unknown, 03/07/05) Home Medications Aspirin 81 Mg Tabec, 81 MG PO DAILY, (Reported) Atorvastatin Calcium 10 Mg Tablet, 10 MG PO DAILY, (Reported) Gemfibrozil 600 Mg Tablet, 600 MG PO DAILY, (Reported) Hydrochlorothiazide 25 Mg Tablet, 25 MG PO DAILY, (Reported) Lisinopril 20 Mg Tablet, 20 MG PO DAILY, (Reported) Metformin Hcl 500 Mg Tablet, 500 MG PO BID WITH MEALS, (Reported) Metoprolol Succinate 50 Mg Tab.sr.24h, 50 MG PO DAILY, (Reported) Pantoprazole Sodium 40 Mg Tablet.dr, 40 MG PO DAILY, (Reported) Sitagliptin Phos/Metformin HCl 1 Each Tablet, 1 EACH PO DAILY, (Reported) Constitutional: see HPI, No chills, No fever Respiratory: no symptoms reported Cardiovascular: no symptoms reported Gastrointestinal: see HPI Genitourinary: see HPI Musculoskeletal: no symptoms reported All Other Systemes Reviewed Negative Unless Noted: Yes Past Rpbjdle-Ogxyvk-Ictibz Hx Patient Social History Alcohol Use: Denies Use Recreational Drug Use: No Smoking Status: Never a Smoker Recent Foreign Travel: No Contact w/Someone Who Travel: No Recent Hopitalizations: No Seasonal Allergies Seasonal Allergies: No Surgeries History of Surgeries: Yes Surgeries: Abdominal, Appendectomy, Bowel Surgery, Coronary Stent, Pacemaker Respiratory History of Respiratory Disorde: Yes Respiratory Disorders: Sleep Apnea Currently Using CPAP: No (unable to tolerate) Currently Using BIPAP: No Cardiovascular History of Cardiac Disorders: Yes Cardiac Disorders: Coronary Artery Disease, Hypertension Cancer History of Cancer: Yes Cancer: Colon Reviewed Nursing Assessment Reviewed/Agree w Nursing PMH: Yes Family Medical History Significant Family History: No Pertinent Family Hx Physical Exam Vital Signs Vital Sign - Last 12Hours 11/21/16 17:20 Temp 98.9 Pulse 72 Resp 16 B/P (MAP) 148/83 Pulse Ox 98 Capillary Refill : General Appearance: WD/WN, no apparent distress HEENT: PERRL/EOMI, pharynx normal Neck: full range of motion, supple Cardiovascular: regular rate, rhythm, no murmur Respiratory: lungs clear, normal breath sounds Gastrointestinal: soft, tenderness (suprapubic with suprapubic fullness noted) Male: normal genitalia Back: normal inspection, no CVA tenderness, no vertebral tenderness Neurologic/Psychiatric: alert, oriented x 3 Skin: normal color, warm/dry Progress/Results/Core Measures Results/Orders Lab Results Laboratory Tests Test 11/21/16 17:25 Range/Units Urine Color YELLOW Urine Clarity CLEAR Urine pH 5 5-9 Urine Specific [place] 1.010 L 1.016-1.022 Urine Protein NEGATIVE NEGATIVE Urine Glucose (UA) NEGATIVE NEGATIVE Urine Ketones NEGATIVE NEGATIVE Urine Nitrite NEGATIVE NEGATIVE Urine Bilirubin NEGATIVE NEGATIVE Urine Urobilinogen NORMAL NORMAL MG/DL Urine Leukocyte Esterase NEGATIVE NEGATIVE Urine RBC (Auto) 1+ H NEGATIVE Urine RBC 0-2 /HPF Urine WBC NONE /HPF Urine Squamous Epithelial Cells RARE /HPF Urine Crystals NONE /LPF Urine Bacteria NONE /HPF Urine Casts NONE /LPF Urine Mucus NEGATIVE /LPF Urine Culture Indicated NO My Orders Orders - NARAYAN AMEZCUA MD Ua Culture If Indicated (11/21/16 17:27) Catheter(Urinary) Insert & Ass 03,15 (11/21/16 17:29) Vital Signs/I&O Vital Sign - Last 12Hours 11/21/16 17:20 Temp 98.9 Pulse 72 Resp 16 B/P (MAP) 148/83 Pulse Ox 98 Progress Note : Progress Note Seen and evaluated. Norton catheter placed by nursing. Did get good urine flow after placement of catheter. Sample sent. No UTI noted. Patient little better afterwards. Discharged home with return precautions. We will keep the Norton in place for a few days. He has follow-up with Dr. Lee on . Patient verbalize understanding instructions and agreement with plan. Departure Impression Impression: Primary Impression: Urinary retention Disposition: HOME, SELF-CARE Condition: Stable Departure-Patient Inst. Decision time for Depature: 17:37 Referrals: SYED LEE DO (PCP/Family) Primary Care Physician CAM MENDOZA MD Patient Instructions: Norton Catheter, Male, Urinary Retention (DC) Add. Discharge Instructions: All discharge instructions reviewed with patient and/or family. Voiced understanding. Follow-up with your Dr. in a few days for recheck and further evaluation. You may follow-up with the urologist as well. Continue home medications as directed. Follow-up with your surgeon for recheck and further evaluation as indicated. Return for worsening, fever, vomiting, weakness, breathing problems or other concerns as needed. Copy Copies To 1: SYED LEE TIMOTHY D MD Nov 21, 2016 17:35
[2016-11-21 17:40] LABS: SQUAMOUS EPITHELIAL CELL,UR RARE /HPF
[2016-11-21 17:57] VITALS: BP 148/83
== END 2016-11-21 17:57 ==
LOC: EDUNIT# 17:08 → ER 17:10
DX: R33.9 Retention of urine, unspecified (principal); C18.9 Malignant neoplasm of colon, unspecified; Z93.3 Colostomy status; Z95.0 Presence of cardiac pacemaker; Z95.5 Presence of coronary angioplasty implant and graft; I25.10 Atherosclerotic heart disease of native coronary artery without angina pectoris; I10 Essential (primary) hypertension
CPT/HCPCS: 51702; 81000

== ENCOUNTER 2016-12-29 08:25 | Emergency (ER) | payer BC ==
[~2016-12-29] VITALS: Ht 193 cm; Wt 103.0 kg
--- OUTSIDE RECORDS SUMMARY | 2016-12-29 08:30 | XMS REPORT | Clinical Summary ---
Author Author [facility] Organization [facility] Address Unknown Phone Unavailable Care Team Providers Care Manager Small Business Name Role Phone PCP Unavailable Source Comments Some departments are not documenting in the electronic medical record. If you do not see the information that you expected, contact Release of Information in the Health Information Management department at [phone] for further assistance in locating additional records.[facility] Allergies Active Allergy Reactions Severity Noted Date [...] 08/19/12. Abnormal Myoview Treadmill Stress Test, [facility]. Left ventricular hypokinesis, EF 22%. Document sent to OP medical records to be scanned to patient record. B. 08/27/12. [facility], ANA MARÍA to LAD. C. 12/03/12. Echocardiogram-EF 30% Dilated LV with diffuse LV hypokinesia, anterior wall, anterior septum. Mild mitral and tricuspid regurgitation. Insufficient doppler signal to evaluate pulmonary artery pressure. COPD (chronic obstructive pulmonary disease) ([facility]) 12/06/2012 CHF (congestive heart failure) ([facility]) 12/06/2012 SADA (obstructive sleep apnea) 12/06/2012 S/P coronary artery stent placement 12/06/2012 Overview: 08/27/12. [facility], [place], [place]. 95% proximal LAD stenosis. 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
[2016-12-29] MEDS ORDERED: TAMS0.4C98 PO (08:54)
[2016-12-29] MEDS ORDERED: ONDANSETRON 4 MG/2 ML (SDV) Z0FRAN IVP ONE ×2 (09:00→11:30)
[2016-12-29] MEDS ORDERED: fentaNYL INJECTION 100 MCG/2 ML AMP IVP STA (09:11)
[2016-12-29 09:56] LABS: BASOPHILS % (AUTO) 0 % (0-10); EOSINOPHILS # (AUTO) 0.1 10^3/uL (0.0-0.3); EOSINOPHILS % (AUTO) 1 % (0-10); LYMPHOCYTES # (AUTO) 0.6 X 10^3 (1.0-4.0); LYMPHOCYTES % (AUTO) 9 % (12-44); MEAN CORPUSCULAR HEMOGLOBIN 30 PG (25-34); MEAN CORPUSCULAR HGB CONC 34 G/DL (32-36); MEAN CORPUSCULAR VOLUME 88 FL (80-99); MEAN PLATELET VOLUME 8.8 FL (7.4-10.4); MONOCYTES # (AUTO) 0.3 X 10^3 (0.0-1.0); MONOCYTES % (AUTO) 4 % (0-12); NEUTROPHILS # (AUTO) 5.2 X 10^3 (1.8-7.8); NEUTROPHILS % (AUTO) 86 % (42-75); PLATELET COUNT 127 10^3/uL (130-400); RED BLOOD COUNT 3.62 10^6/uL (4.35-5.85); RED CELL DISTRIBUTION WIDTH 12.8 % (10.0-14.5); WHITE BLOOD COUNT 6.1 10^3/uL (4.3-11.0)
[2016-12-29 10:22] LABS: ALBUMIN 4.1 GM/DL (3.2-4.5); BILIRUBIN,TOTAL 0.3 MG/DL (0.1-1.0); CALCIUM 9.8 MG/DL (8.5-10.1); CREATININE SERUM 1.31 MG/DL (0.60-1.30); TOTAL PROTEIN 7.6 GM/DL (6.4-8.2)
--- NOTE | 2016-12-29 10:25 | Diagnostic Imaging Report ---
Indication: Abdominal pain. Findings: Heart size is normal. Lungs are clear. Pacemaker overlies the left hemithorax. Bowel gas pattern is nonspecific. There is no free air. There are no abnormal abdominal calcifications. Impression: No acute cardiopulmonary abnormality. Nonspecific bowel gas pattern. Dictated by: Dictated on workstation # [id number]
[2016-12-29 10:29] LABS: BAND NEUTROPHILS 1 %; BASOPHILS % (MANUAL) 1 %; EOSINOPHILS % (MANUAL) 0 %; LYMPHOCYTES % (MANUAL) 11 %; NEUTROPHILS % (MANUAL) 83 %; POIKILOCYTOSIS SLIGHT; REACTIVE LYMPHOCYTES 1 %; STOMATOCYTES SLIGHT
[2016-12-29 10:30] LABS: ROULEAUX SLIGHT
--- NOTE | 2016-12-29 10:40 | Diagnostic Imaging Report ---
PROCEDURE: CT abdomen and pelvis without contrast. TECHNIQUE: Multiple contiguous axial images were obtained through the abdomen and pelvis without the use of intravenous contrast. INDICATION: Abdominal pain. COMPARISON: 11/29/2016. FINDINGS: Evaluation of the abdominal viscera is mildly limited without contrast. Lower chest: The lung bases are clear. No pericardial or pleural effusion. Peritoneum: No free intraperitoneal air. The presacral soft tissue thickening and low-attenuation fluid has decreased in size. This is greatest along the posterior left hemipelvic sidewall with the collection now measuring 3.0 x 2.8 cm (previously 5.9 x 3.0 cm). No new intraperitoneal fluid collection. Liver and biliary system: Unenhanced liver is normal. The gallbladder is normal. No biliary duct dilation. Spleen and Pancreas: Spleen is normal. Unenhanced pancreas is grossly normal. Adrenals: Normal. tract: No renal or ureteral calculi. No obstructive uropathy. Prostate is not enlarged. GI tract: Stomach is partially distended with fluid and food debris. No bowel obstruction. Right lower quadrant ostomy is in place. There are surgical changes from rectal resection with reanastomosis. Appendix is absent. Vasculature and Lymph nodes: Normal caliber aorta with atherosclerotic plaquing. No abdominal or pelvic lymphadenopathy. Musculoskeletal: No concerning osseous lesion. IMPRESSION: 1. No bowel obstruction. Right lower quadrant ostomy in place without parastomal hernia. 2. The presacral fluid and thickening has decreased compatible with resolving post treatment change. 3. No urinary tract calculi or obstructive uropathy. Dictated by: Dictated on workstation # [id number]
[2016-12-29 11:23] LABS: BILIRUBIN,URINE NEGATIVE (NEGATIVE); KETONES,URINE NEGATIVE (NEGATIVE); LEUKOCYTE ESTERASE ,URINE NEGATIVE (NEGATIVE); NITRITE,URINE NEGATIVE (NEGATIVE); PH,URINE 5 (5-9); PROTEIN,URINE 1+ (NEGATIVE); UROBILINOGEN,URINE NORMAL (NORMAL)
[2016-12-29] MEDS ORDERED: HYOSCYAMINE 0.125 MG (LEVSIN) TAB PO ONE (11:30)
[2016-12-29] MEDS ORDERED: fentaNYL INJECTION 100 MCG/2 ML AMP IVP ONE (11:30)
[2016-12-29 11:49] LABS: SQUAMOUS EPITHELIAL CELL,UR 0-2 /HPF; URIC ACID CRYSTALS,URINE MODERATE /LPF; WBC,URINE 0-2 /HPF
[2016-12-29] MEDS ORDERED: LACTATED RINGERS 1,000 ML IV ONE (12:00)
[2016-12-29] MEDS ORDERED: ONDA4TAB8 PO (13:01)
[2016-12-29] MEDS ORDERED: DICY10CA59 PO (13:01)
[2016-12-29] MEDS ORDERED: TRAM-42 PO (13:01)
[2016-12-29] MEDS ORDERED: HYOS0.1283 SL (13:01)
--- NOTE | 2016-12-29 13:01 | ED Abdominal Pain ---
General Chief Complaint: Abdominal/GI Problems Stated Complaint: ELIOSTOMY BLOCKED POSSIBLY Nursing Triage Note: c/o abd pain. Onset 6 hours ago. Hx of ileostomy secondary to colon cancer. Sepsis Screen: No Definite Risk Allergies and Home Medications Allergies Coded Allergies: No Known Allergies (Verified Allergy, Unknown, 03/07/05) Home Medications Aspirin 81 Mg Tabec, 81 MG PO DAILY, (Reported) Atorvastatin Calcium 10 Mg Tablet, 10 MG PO DAILY, (Reported) Gemfibrozil 600 Mg Tablet, 600 MG PO DAILY, (Reported) Hydrochlorothiazide 25 Mg Tablet, 25 MG PO DAILY, (Reported) Lisinopril 20 Mg Tablet, 20 MG PO DAILY, (Reported) Metformin Hcl 500 Mg Tablet, 500 MG PO BID WITH MEALS, (Reported) Metoprolol Succinate 50 Mg Tab.sr.24h, 50 MG PO DAILY, (Reported) Pantoprazole Sodium 40 Mg Tablet.dr, 40 MG PO DAILY, (Reported) Sitagliptin Phos/Metformin HCl 1 Each Tablet, 1 EACH PO DAILY, (Reported) Tamsulosin HCl 0.4 Mg Cap, 0.4 MG PO DAILY, (Reported) Past Yfmceti-Qsocyx-[id number] Hx Patient Social History Alcohol Use: Denies Use Recreational Drug Use: No Smoking Status: Never a Smoker 2nd Hand Smoke Exposure: No Recent Foreign Travel: No Contact w/Someone Who Travel: No Recent Infectious Disease Expo: No Recent Hopitalizations: No Seasonal Allergies Seasonal Allergies: No Surgeries History of Surgeries: Yes Surgeries: Abdominal, Appendectomy, Bowel Surgery, Coronary Stent, Pacemaker Respiratory History of Respiratory Disorde: Yes Respiratory Disorders: Sleep Apnea Currently Using CPAP: No (unable to tolerate) Currently Using BIPAP: No Cardiovascular History of Cardiac Disorders: Yes Cardiac Disorders: Coronary Artery Disease, Hypertension Neurological History of Neurological Disord: No Gastrointestinal History of Gastrointestinal Di: No (rectal bleeding) Musculoskeletal History of Musculoskeletal Dis: No Endocrine History of Endocrine Disorders: Yes Cancer History of Cancer: Yes Cancer: Colon Psychosocial History of Psychiatric Problem: No Integumentary History of Skin or Integumenta: No Blood Transfusions History of Blood Disorders: No Family Medical History Significant Family History: No Pertinent Family Hx Physical Exam Vital Signs VS - Last 72 Hours, by Label 12/29/16 12/29/16 12/29/16 08:41 09:40 12:14 Temp 96.8 96.8 96.8 Pulse 100 Resp 20 B/P (MAP) 138/78 O2 Delivery Room Air Capillary Refill : Less Than 3 Seconds Progress/Results/Core Measures Results/Orders Lab Results Laboratory Tests Test 12/29/16 09:45 12/29/16 11:15 Range/Units White Blood Count 6.1 4.3-11.0 10^3/uL Red Blood Count 3.62 L 4.35-5.85 10^6/uL Hemoglobin 10.7 L 13.3-17.7 G/DL Hematocrit 32 L 40-54 % Mean Corpuscular Volume 88 80-99 FL Mean Corpuscular Hemoglobin 30 25-34 PG Mean Corpuscular Hemoglobin Concent 34 32-36 G/DL Red Cell Distribution Width 12.8 10.0-14.5 % Platelet Count 127 L 130-400 10^3/uL Mean Platelet Volume 8.8 7.4-10.4 FL Neutrophils (%) (Auto) 86 H 42-75 % Lymphocytes (%) (Auto) 9 L 12-44 % Monocytes (%) (Auto) 4 0-12 % Eosinophils (%) (Auto) 1 0-10 % Basophils (%) (Auto) 0 0-10 % Neutrophils # (Auto) 5.2 1.8-7.8 X 10^3 Lymphocytes # (Auto) 0.6 L 1.0-4.0 X 10^3 Monocytes # (Auto) 0.3 0.0-1.0 X 10^3 Eosinophils # (Auto) 0.1 0.0-0.3 10^3/uL Basophils # (Auto) 0.0 0.0-0.1 10^3/uL Neutrophils % (Manual) 83 % Lymphocytes % (Manual) 11 % Monocytes % (Manual) 3 % Eosinophils % (Manual) 0 % Basophils % (Manual) 1 % Band Neutrophils 1 % Reactive Lymphocytes 1 % Toxic Granulation 2+ Clumped Platelets SLIGHT Poikilocytosis SLIGHT Stomatocytes SLIGHT Elliptocytes SLIGHT Rouleau SLIGHT Sodium Level 138 135-145 MMOL/L Potassium Level 5.0 3.6-5.0 MMOL/L Chloride Level 105 98-107 MMOL/L Carbon Dioxide Level 22 21-32 MMOL/L Anion Gap 11 5-14 MMOL/L Blood Urea Nitrogen 25 H 7-18 MG/DL Creatinine 1.31 H 0.60-1.30 MG/DL Estimat Glomerular Filtration Rate 55 BUN/Creatinine Ratio 19 Glucose Level 204 H 70-105 MG/DL Calcium Level 9.8 8.5-10.1 MG/DL Total Bilirubin 0.3 0.1-1.0 MG/DL Aspartate Amino Transf (AST/SGOT) 27 5-34 U/L Alanine Aminotransferase (ALT/SGPT) 44 0-55 U/L Alkaline Phosphatase 159 H 40-136 U/L Total Protein 7.6 6.4-8.2 GM/DL Albumin 4.1 3.2-4.5 GM/DL Amylase Level 60 25-125 U/L Lipase 35 8-78 U/L Urine Color YELLOW Urine Clarity CLEAR Urine pH 5 5-9 Urine Specific [place] 1.025 H 1.016-1.022 Urine Protein 1+ H NEGATIVE Urine Glucose (UA) 2+ H NEGATIVE Urine Ketones NEGATIVE NEGATIVE Urine Nitrite NEGATIVE NEGATIVE Urine Bilirubin NEGATIVE NEGATIVE Urine Urobilinogen NORMAL NORMAL MG/DL Urine Leukocyte Esterase NEGATIVE NEGATIVE Urine RBC (Auto) NEGATIVE NEGATIVE Urine RBC RARE /HPF Urine WBC 0-2 /HPF Urine Squamous Epithelial Cells 0-2 /HPF Urine Renal Epithelial Cells NONE /HPF Urine Crystals PRESENT H /LPF Urine Uric Acid Crystals MODERATE H /LPF Urine Bacteria TRACE /HPF Urine Casts PRESENT /LPF Urine Hyaline Casts 10-25 H /LPF Urine Mucus SMALL H /LPF Urine Culture Indicated NO My Orders Orders - MELONY BETANCOURT DO Saline Lock/Iv-Start (12/29/16 08:57) Amylase (12/29/16 08:57) Cbc With Automated Diff (12/29/16 08:57) Comprehensive Metabolic Panel (12/29/16 08:57) Lipase (12/29/16 08:57) Ua Culture If Indicated (12/29/16 08:57) Ct Abdomen/Pelvis Wo (12/29/16 08:57) Ondansetron Injection (Zofran Injectio (12/29/16 09:00) Acute Abd Series (12/29/16 08:57) Fentanyl Injection (Sublimaze Injection (12/29/16 09:11) Manual Differential (12/29/16 09:45) Fentanyl Injection (Sublimaze Injection (12/29/16 11:30) Hyoscyamine Sl Tablet (Levsin Sl Tablet) (12/29/16 11:30) Ondansetron Injection (Zofran Injectio (12/29/16 11:30) Saline Lock/Iv-Start (12/29/16 12:00) Lactated Ringers (Lr 1000 Ml Iv Solution (12/29/16 12:00) Medications Given in ED Current Medications Medications Dose Ordered Sig/Marie Route Start Time Stop Time Status Last Admin Dose Admin Fentanyl Citrate 50 mcg ONCE ONCE IVP 12/29/16 11:30 12/29/16 11:31 DC 12/29/16 12:14 50 MCG Hyoscyamine Sulfate 0.25 mg ONCE ONCE PO 12/29/16 11:30 12/29/16 11:31 DC 12/29/16 11:49 0.25 MG Lactated Ringer's 1,000 ml @ 0 mls/hr Q0M ONCE IV 12/29/16 12:00 12/29/16 12:01 DC 12/29/16 12:14 0 MLS/HR Ondansetron HCl 4 mg ONCE ONCE IVP 12/29/16 09:00 12/29/16 09:01 DC 12/29/16 09:40 4 MG Ondansetron HCl 4 mg ONCE ONCE IVP 12/29/16 11:30 12/29/16 11:31 DC 12/29/16 12:14 4 MG Vital Signs/I&O Vital Sign - Last 12Hours 12/29/16 12/29/16 12/29/16 08:41 09:40 12:14 Temp 96.8 96.8 96.8 Pulse 100 Resp 20 B/P (MAP) 138/78 O2 Delivery Room Air Blood Pressure Mean: 98 Departure Impression Impression: Primary Impression: ABDOMINAL PAIN Additional Impressions: S/P ileostomy Colorectal cancer Dehydration Anemia Disposition: 01 HOME, SELF-CARE Condition: Improved Departure-Patient Inst. Referrals: SYED LEE DO (PCP/Family) Primary Care Physician Patient Instructions: Acute Abdomen (Belly Pain), Adult (DC), Anemia Caused by Low Iron, Adult (DC), Anemia of Chronic Disease (DC), Dehydration, Adult (DC) Add. Discharge Instructions: CLEAR LIQUIDS TODAY, NO FOOD TODAY--WATER, BROTH, JELLO, GATORADE TOMORROW IF YOU ARE BETTER, ADD BRATS DIET TO CLEAR LIQUIDS--BANANAS, RICE, APPLESAUCE, TOAST, SALTINES FOLLOW UP WITH YOUR ON SUNDAY FOR FURTHER CARE RETURN TO ER IF WORSE All discharge instructions reviewed with patient and/or family. Voiced understanding. Scripts Tramadol HCl (Ultram) 50 Mg Tablet 50 MG PO Q4H, #20 TAB Prov: MELONY BETANCOURT DO 12/29/16 Dicyclomine HCl (Bentyl) 10 Mg Capsule 10 MG PO Q6H Y for ABDOMINAL PAIN, #15 CAP Prov: MELONY BETANCOURT DO 12/29/16 Ondansetron (Zofran Odt) 4 Mg Tab.rapdis 4 MG PO Q4H for Nausea/Vomiting, #10 TAB Prov: MELONY BETANCOURT DO 12/29/16 Hyoscyamine Sulfate (Levsin-Sl) 0.125 Mg Tab.subl 1-2 TAB SL Q4H for Abdominal Pain, #15 TAB Prov: MELONY BETANCOURT DO 12/29/16 MELONY BETANCOURT DO Dec 29, 2016 13:01
[2016-12-29 13:50] VITALS: BP 132/70
== END 2016-12-29 13:49 | disposition home or self-care (01) ==
LOC: EDUNIT# 08:25 → ER 08:26
DX: C18.9 Malignant neoplasm of colon, unspecified (principal); E86.0 Dehydration; D64.9 Anemia, unspecified; G47.30 Sleep apnea, unspecified; I25.10 Atherosclerotic heart disease of native coronary artery without angina pectoris; I10 Essential (primary) hypertension; Z87.19 Personal history of other diseases of the digestive system; Z93.2 Ileostomy status; Z79.82 Long term (current) use of aspirin; Z79.84 Long term (current) use of oral hypoglycemic drugs; Z90.89 Acquired absence of other organs; Z95.5 Presence of coronary angioplasty implant and graft; Z95.0 Presence of cardiac pacemaker
CPT/HCPCS: 36415; 74022; 74176; 80053; 81000; 82150; 83690; 85007; 85027

== ENCOUNTER 2017-01-01 06:42 | Emergency (ER) | payer BC ==
[~2017-01-01] VITALS: Ht 193 cm; Wt 103.0 kg
[~2017-01-01 06:42] MED LIST changes: +DICY10CA59 PO; +HYOS0.1283 SL; +ONDA4TAB8 PO; +TAMS0.4C98 PO; +TRAM-42 PO
[2017-01-01] MEDS ORDERED: NS IV 1000 ML 1,000 ML IV ONE (06:55)
[2017-01-01] MEDS ORDERED: ONDANSETRON 4 MG/2 ML (SDV) Z0FRAN IVP ONE (07:00)
[2017-01-01] MEDS ORDERED: fentaNYL INJECTION 100 MCG/2 ML AMP IVP ONE ×3 (07:00→09:30)
--- NOTE | 2017-01-01 07:13 | ED Abdominal Pain ---
General Chief Complaint: Abdominal/GI Problems Stated Complaint: GALLBLADDER ISSUES Nursing Triage Note: PT TO ED 5 W/ FOR C/O ABD PAIN RADIATING THROUGH TO BACK. DOES REPORT NAUSEA, DENIES VOMITING. REPORTS RECENT HX OF COLORECTAL CA W/ ORAL CHEMO TX. STATES WAS SEEN X3 DAYS AGO FOR SAME C/O ET TREATED IN THIS ED. REPORTED IMPROVED SYMPTOMS AT THAT TIME BUT SYMPTOMS RETURNED AFTER EATING FRIED CHICKEN FROM [facility]. NO OTHER C/O VOICED Sepsis Screen: No Definite Risk Source of Information: Patient Exam Limitations: No Limitations History of Present Illness Time Seen By Provider: 06:43 Initial Comments This 61 year old gentleman presents to the ER with generalized abdominal pain since 19:00. He has history of colon resection and ileostomy November 16 in [place] for treatment of colorectal cancer. He has had chemotherapy in the past and anticipate starting chemotherapy again this week. He was seen in this ER on December 29 for abdominal pain. Evaluation at that time included x-rays, labs, and CT imaging. No specific cause for his pain was identified. Symptoms eventually resolved but then rebounded last night. Patient is suspicious that his pain is partially due to eating fried chicken yesterday afternoon, and he wonders about his gallbladder. He had not eaten any solids on December 29 or . He reports normal ostomy output. He has had nausea without vomiting. Urine has been darker than usual. He has chills without fever. The oral medications he had been prescribed were not helpful for his pain last night. Pain seems to be constant. He has been nothing by mouth since 02:00 and his last medication use was also 02:00. Allergies and Home Medications Allergies Coded Allergies: No Known Allergies (Verified Allergy, Unknown, 03/07/05) Home Medications Aspirin 81 Mg Tabec, 81 MG PO DAILY, (Reported) Atorvastatin Calcium 10 Mg Tablet, 10 MG PO DAILY, (Reported) Dicyclomine HCl 10 Mg Capsule, 10 MG PO Q6H PRN for ABDOMINAL PAIN, #15 Prescribed by: MELONY BETANCOURT on 12/29/16 1301 Gemfibrozil 600 Mg Tablet, 600 MG PO DAILY, (Reported) Hydrochlorothiazide 25 Mg Tablet, 25 MG PO DAILY, (Reported) Hyoscyamine Sulfate 0.125 Mg Tab.subl, 1-2 TAB SL Q4H, #15 Prescribed by: MELONY BETANCOURT on 12/29/16 1301 Lisinopril 20 Mg Tablet, 20 MG PO DAILY, (Reported) Metformin Hcl 500 Mg Tablet, 500 MG PO BID WITH MEALS, (Reported) Metoprolol Succinate 50 Mg Tab.sr.24h, 50 MG PO DAILY, (Reported) Ondansetron 4 Mg Tab.rapdis, 4 MG PO Q4H, #10 Prescribed by: MELONY BETANCOURT on 12/29/16 1301 Pantoprazole Sodium 40 Mg Tablet.dr, 40 MG PO DAILY, (Reported) Sitagliptin Phos/Metformin HCl 1 Each Tablet, 1 EACH PO DAILY, (Reported) Tamsulosin HCl 0.4 Mg Cap, 0.4 MG PO DAILY, (Reported) Tramadol HCl 50 Mg Tablet, 50 MG PO Q4H, #20 Prescribed by: MELONY BETANCOURT on 12/29/16 1301 Review of Systems Constitutional: see HPI EENTM: No Symptoms Reported Respiratory: No Symptoms Reported Cardiovascular: No Symptoms Reported Gastrointestinal: See HPI Genitourinary: See HPI Musculoskeletal: no symptoms reported Skin: no symptoms reported Psychiatric/Neurological: No Symptoms Reported Endocrine: No Symptoms Reported Past Mtaikhe-Dogwyi-Njvhud Hx Patient Social History Alcohol Use: Denies Use Recreational Drug Use: No Smoking Status: Never a Smoker 2nd Hand Smoke Exposure: No Recent Foreign Travel: No Contact w/Someone Who Travel: No Recent Infectious Disease Expo: No Recent Hopitalizations: No Physical Abuse: No Sexual Abuse: No Mistreated: No Fear: No Seasonal Allergies Seasonal Allergies: No Surgeries History of Surgeries: Yes (ILEOSTOMY, PARTIAL COLON REMOVAL) Surgeries: Abdominal, Appendectomy, Bowel Surgery, Coronary Stent, Pacemaker Respiratory History of Respiratory Disorde: Yes Respiratory Disorders: Sleep Apnea Currently Using CPAP: No (unable to tolerate) Currently Using BIPAP: No Cardiovascular History of Cardiac Disorders: Yes (PACEMAKER/DEFIB, CHF, STENT ) Cardiac Disorders: Coronary Artery Disease, High Cholesterol, Hypertension Neurological History of Neurological Disord: No Reproductive System Hx Reproductive Disorders: No Genitourinary History of Genitourinary Disor: Yes (urinary retention) Gastrointestinal History of Gastrointestinal Di: Yes (rectal bleeding) Musculoskeletal History of Musculoskeletal Dis: Yes Musculoskeletal Disorders: Arthritis Endocrine History of Endocrine Disorders: Yes Endocrine Disorders: Diabetes, Non-Insulin dep Cancer History of Cancer: Yes Cancer: Rectal, Colon Psychosocial History of Psychiatric Problem: No Suicide Risk Score: 0 Integumentary History of Skin or Integumenta: No Blood Transfusions History of Blood Disorders: No Family Medical History Significant Family History: No Pertinent Family Hx Physical Exam Vital Signs VS - Last 72 Hours, by Label 01/01/17 06:47 Temp 97.7 Pulse 90 Resp 20 B/P (MAP) 180/98 Pulse Ox 100 O2 Delivery Room Air Capillary Refill : Less Than 3 Seconds General Appearance: WD/WN, no apparent distress HEENT: PERRL/EOMI, normal ENT inspection, other (oropharynx dry) Neck: normal inspection Respiratory: lungs clear, normal breath sounds, no respiratory distress, no accessory muscle use Cardiovascular: regular rate, rhythm, no edema, no murmur Gastrointestinal: normal bowel sounds, soft, No distended, No guarding, No rebound, tenderness (generalized the most intense in the periumbilical region. No focal tenderness in the right upper quadrant), other (normal-appearing ostomy ) Extremities: normal inspection, no pedal edema Neurologic/Psychiatric: charter representative II-XII nml as tested, no motor/sensory deficits, alert, normal mood/affect, oriented x 3 Skin: normal color, warm/dry Progress/Results/Core Measures Results/Orders Lab Results Laboratory Tests Test 01/01/17 07:05 01/01/17 07:08 01/01/17 08:18 Range/Units White Blood Count 6.3 4.3-11.0 10^3/uL Red Blood Count 3.62 L 4.35-5.85 10^6/uL Hemoglobin 10.6 L 13.3-17.7 G/DL Hematocrit 31 L 40-54 % Mean Corpuscular Volume 86 80-99 FL Mean Corpuscular Hemoglobin 29 25-34 PG Mean Corpuscular Hemoglobin Concent 34 32-36 G/DL Red Cell Distribution Width 12.8 10.0-14.5 % Platelet Count 123 L 130-400 10^3/uL Mean Platelet Volume 9.2 7.4-10.4 FL Neutrophils (%) (Auto) 87 H 42-75 % Lymphocytes (%) (Auto) 7 L 12-44 % Monocytes (%) (Auto) 6 0-12 % Eosinophils (%) (Auto) 0 0-10 % Basophils (%) (Auto) 0 0-10 % Neutrophils # (Auto) 5.5 1.8-7.8 X 10^3 Lymphocytes # (Auto) 0.4 L 1.0-4.0 X 10^3 Monocytes # (Auto) 0.4 0.0-1.0 X 10^3 Eosinophils # (Auto) 0.0 0.0-0.3 10^3/uL Basophils # (Auto) 0.0 0.0-0.1 10^3/uL Neutrophils % (Manual) 86 % Lymphocytes % (Manual) 5 % Monocytes % (Manual) 8 % Eosinophils % (Manual) 1 % Basophils % (Manual) 0 % Band Neutrophils 0 % Blood Morphology Comment NORMAL Sodium Level 130 L 135-145 MMOL/L Potassium Level 4.6 3.6-5.0 MMOL/L Chloride Level 96 L 98-107 MMOL/L Carbon Dioxide Level 23 21-32 MMOL/L Anion Gap 11 5-14 MMOL/L Blood Urea Nitrogen 24 H 7-18 MG/DL Creatinine 1.19 0.60-1.30 MG/DL Estimat Glomerular Filtration Rate > 60 BUN/Creatinine Ratio 20 Glucose Level 231 H 70-105 MG/DL Calcium Level 9.2 8.5-10.1 MG/DL Total Bilirubin 1.2 H 0.1-1.0 MG/DL Aspartate Amino Transf (AST/SGOT) 44 H 5-34 U/L Alanine Aminotransferase (ALT/SGPT) 111 H 0-55 U/L Alkaline Phosphatase 206 H 40-136 U/L Lactate Dehydrogenase 140 125-220 U/L Troponin I < 0.30 <0.30 NG/ML C-Reactive Protein High Sensitivity 6.83 H 0.00-0.50 MG/DL Total Protein 7.7 6.4-8.2 GM/DL Albumin 3.8 3.2-4.5 GM/DL Lipase 16 8-78 U/L Urine Color YELLOW Urine Clarity CLEAR Urine pH 5 5-9 Urine Specific [place] 1.020 1.016-1.022 Urine Protein NEGATIVE NEGATIVE Urine Glucose (UA) 2+ H NEGATIVE Urine Ketones NEGATIVE NEGATIVE Urine Nitrite NEGATIVE NEGATIVE Urine Bilirubin NEGATIVE NEGATIVE Urine Urobilinogen NORMAL NORMAL MG/DL Urine Leukocyte Esterase NEGATIVE NEGATIVE Urine RBC (Auto) NEGATIVE NEGATIVE Urine RBC NONE /HPF Urine WBC NONE /HPF Urine Squamous Epithelial Cells NONE /HPF Urine Crystals PRESENT H /LPF Urine Uric Acid Crystals LARGE H /LPF Urine Bacteria NEGATIVE /HPF Urine Casts NONE /LPF Urine Mucus NEGATIVE /LPF Urine Culture Indicated NO My Orders Orders - LUPE BRANDT MD Cbc With Automated Diff (01/01/17 06:55) Comprehensive Metabolic Panel (01/01/17 06:55) Hs C Reactive Protein (01/01/17 06:55) Ua Culture If Indicated (01/01/17 06:55) Saline Lock/Iv-Start (01/01/17 06:55) Ns Iv 1000 Ml (Sodium Chloride 0.9%) (01/01/17 06:55) Abdomen, Flat & Upright/Decub (01/01/17 06:55) Ondansetron Injection (Zofran Injectio (01/01/17 07:00) Fentanyl Injection (Sublimaze Injection (01/01/17 07:00) LDH (01/01/17 07:06) Manual Differential (01/01/17 07:05) Fentanyl Injection (Sublimaze Injection (01/01/17 08:00) Lipase (01/01/17 07:49) Us Gallbladder [id number] (01/01/17 08:03) Fentanyl Injection (Sublimaze Injection (01/01/17 09:30) Oxycodone/Apap 5/325mg Tablet (Percocet (01/01/17 09:30) Ekg Tracing (01/01/17 10:40) Monitor-Rhythm Ecg Trace Only (01/01/17 10:40) Troponin I (01/01/17 10:40) Medications Given in ED Current Medications Medications Dose Ordered Sig/Marie Route Start Time Stop Time Status Last Admin Dose Admin Fentanyl Citrate 75 mcg ONCE ONCE IVP 01/01/17 07:00 01/01/17 07:01 DC 01/01/17 07:10 75 MCG Fentanyl Citrate 75 mcg ONCE ONCE IVP 01/01/17 09:30 01/01/17 09:31 DC 01/01/17 09:28 75 MCG Fentanyl Citrate 100 mcg ONCE ONCE IVP 01/01/17 08:00 01/01/17 08:01 DC 01/01/17 07:54 100 MCG Ondansetron HCl 4 mg ONCE ONCE IVP 01/01/17 07:00 01/01/17 07:01 DC 01/01/17 07:08 4 MG Oxycodone/ Acetaminophen 2 tab ONCE ONCE PO 01/01/17 09:30 01/01/17 09:31 DC 01/01/17 09:29 2 TAB Sodium Chloride 1,000 ml @ 0 mls/hr Q0M ONCE IV 01/01/17 06:55 01/01/17 06:57 DC 01/01/17 07:10 1,000 MLS/HR Vital Signs/I&O Vital Sign - Last 12Hours 01/01/17 06:47 Temp 97.7 Pulse 90 Resp 20 B/P (MAP) 180/98 Pulse Ox 100 O2 Delivery Room Air Blood Pressure Mean: 125 Progress Note #1: Time: 07:20 Progress Note Patient was seen and examined. Workup is underway. Patient received Zofran and fentanyl for treatment of symptoms. IV fluids are infusing. Progress Note #2: Time: 08:04 Progress Note Fentanyl was initially effective for pain. However, pain rebounded and a second dose was required. Patient was reexamined and now found to have tenderness in the right upper quadrant and right flank. Gallbladder ultrasound has been ordered. UA is still pending. Labs have been reviewed. Transaminases are elevated above his prior. Lipase was added for additional evaluation. X-ray interpretation is pending. Progress Note #3: Time: 09:23 Progress Note Patient's pain is rebounding again. Case was reviewed with Dr. Mills including results of today's workup. Gallstones are likely etiology for his symptoms. Outpatient management was recommended with a recommendation to have cholecystectomy when his anastomosis is performed. Patient states this is not anticipated for another 6 months and he is hesitant to wait that long to dress his gallbladder. For now, we will provide another dose of fentanyl and some oral Percocet. If this does not control his pain within one hour, we will consider other options. Progress Note #4: Time: 10:41 Progress Note Abdominal pain is significantly improved. He is tolerating oral water. However , he now states he has had some chest pain over the past couple of days, none today. He does have a history of coronary artery disease. A troponin and EKG have been ordered. Progress Note #5: Time: 11:18 Progress Note EKG and troponin were okay. Pain is well controlled at this time. Plan again reviewed with patient and his . ECG Initial ECG Impression Date: Jan 01, 2017 Initial ECG Impression Time: 10:48 Initial ECG Rate: 85 Initial ECG Rhythm: Normal Sinus Initial ECG Intervals: Normal Comment Normal sinus rhythm with a PAC. No ST elevation or depression. No abnormal intervals or axis deviation. There is some artifact in V1 and V2. Diagnostic Imaging Diagonstic Imaging: Xray Plain Films/CT/US/NM/MRI: abdomen, pelvis Comments KUB and upright abdominal x-rays reviewed by me and report reviewed. See report below: NAME: HAI DOLL [facility] REC#: [id number] PT STATUS: REG ER : 1955 PHYSICIAN: LUPE BRANDT MD ADMIT DATE: 01/01/17/ER Draft Date of Exam:01/01/17 ABDOMEN, FLAT & UPRIGHT/DECUB INDICATION: Lower abdominal pain radiating to the back. Nausea.. TECHNIQUE: Supine and upright view of the abdomen at 7:59 AM. CORRELATION STUDY: 12/29/2016. FINDINGS: A few gas-filled loops of small bowel are noted in the left mid abdomen. There is gas within the colon. No findings to suggest a high degree bowel obstruction. There are surgical changes with a suture line in the midline of the pelvis. No free intraperitoneal air. No evidence for large fecal impaction. A few air/fluid levels are noted. IMPRESSION: Nonobstructive appearing bowel gas pattern. A mild ileus pattern is not excluded. Dictated on workstation # [id number] Dict: 01/01/17 0750 Trans: 01/01/17 0842 [id number] Interpreted by: SHANELLE ROSS DO Diagonstic Imaging: Ultrasound Plain Films/CT/US/NM/MRI: abdomen Comments Gallbladder ultrasound report reviewed. See report below: NAME: HAI DOLL [facility] REC#: [id number] PT STATUS: REG ER : 1955 PHYSICIAN: LUPE BRANDT MD ADMIT DATE: 01/01/17/ER Draft Date of Exam:01/01/17 US GALLBLADDER [id number] PROCEDURE: US Gallbladder. TECHNIQUE: Multiple real-time grayscale images were obtained over the right upper quadrant in various projections. INDICATION: Abdominal pain. COMPARISON: None. FINDINGS: There is diffuse hepatic steatosis. No focal hepatic mass is seen. There is no biliary dilatation demonstrated although the common bile duct is not well seen. Doppler imaging demonstrates normal hepatopetal flow in the main portal vein. There are multiple stones in the gallbladder. These are somewhat immobile seen within the gallbladder neck. No gallbladder wall thickening or pericholecystic fluid is seen. There is no sonographic Miguel sign. The pancreas is not well demonstrated. The right kidney measures 12.5 cm in length and appears normal. There is no ascites. IMPRESSION: 1. Cholelithiasis without evidence of cholecystitis. 2. Diffuse hepatic steatosis. 3. No additional abnormality is demonstrated. The pancreas and common bile duct are not well seen. Dictated on workstation # [id number] Dict: 01/01/17 0854 Trans: 01/01/17 0859 [id number] Interpreted by: BROOKLYN BLAKE DO Departure Impression Impression: Primary Impression: Generalized abdominal pain Additional Impressions: Cholelithiasis Qualified Codes: K80.20 - Calculus of gallbladder without cholecystitis without obstruction Chest pain Qualified Codes: R07.9 - Chest pain, unspecified Disposition: 01 HOME, SELF-CARE Condition: Improved Departure-Patient Inst. Decision time for Depature: 11:18 Referrals: SYED LEE DO (PCP/Family) Primary Care Physician Patient Instructions: Gallstones (DC), Acute Abdomen (Belly Pain), Adult (DC) Add. Discharge Instructions: Consume primarily a clear liquid diet today. Gradually advance your diet with small quantities of bland food as tolerated. Eat and extremely low-fat diet restricting fats, oils, and grease. Contact your surgeon in [place] as soon as possible to discuss a plan regarding your gallstones. Follow-up with your primary care provider and your oncologist as soon as possible. Return to the ER if symptoms worsen. Use your pain medicine and nausea medicine as prescribed. It is advisable to take a stool softener such as Colace once or twice daily while using narcotic pain medicine. All discharge instructions reviewed with patient and/or family. Voiced understanding. Scripts Oxycodone HCl/Acetaminophen (Percocet 5-325 mg Tablet) 1 Each Tablet 1-2 EACH PO Q4H Y for PAIN-MODERATE TO SEVERE, #20 TAB Prov: LUPE BRANDT MD 01/01/17 Ondansetron (Zofran Odt) 4 Mg Tab.rapdis 4 MG SL Q4H Y for NAUSEA/VOMITING-1ST LINE, #10 TAB 1 Refill Prov: LUPE BRANDT MD 01/01/17 Copy Copies To 1: SYED LEE JOSHUA T MD Jan 01, 2017 07:13
[2017-01-01 07:20] LABS: BASOPHILS % (AUTO) 0 % (0-10); EOSINOPHILS % (AUTO) 0 % (0-10); LYMPHOCYTES # (AUTO) 0.4 X 10^3 (1.0-4.0); LYMPHOCYTES % (AUTO) 7 % (12-44); MEAN CORPUSCULAR HEMOGLOBIN 29 PG (25-34); MEAN CORPUSCULAR HGB CONC 34 G/DL (32-36); MEAN CORPUSCULAR VOLUME 86 FL (80-99); MEAN PLATELET VOLUME 9.2 FL (7.4-10.4); MONOCYTES # (AUTO) 0.4 X 10^3 (0.0-1.0); MONOCYTES % (AUTO) 6 % (0-12); NEUTROPHILS # (AUTO) 5.5 X 10^3 (1.8-7.8); NEUTROPHILS % (AUTO) 87 % (42-75); PLATELET COUNT 123 10^3/uL (130-400); RED BLOOD COUNT 3.62 10^6/uL (4.35-5.85); RED CELL DISTRIBUTION WIDTH 12.8 % (10.0-14.5); WHITE BLOOD COUNT 6.3 10^3/uL (4.3-11.0)
[2017-01-01 07:32] LABS: ALANINE AMINOTRANSFERASE 111 U/L (0-55); ALBUMIN 3.8 GM/DL (3.2-4.5); ANION GAP 11 MMOL/L (5-14); ASPARTATE AMINO TRANSFERASE 44 U/L (5-34); BILIRUBIN,TOTAL 1.2 MG/DL (0.1-1.0); BLOOD UREA NITROGEN 24 MG/DL (7-18); BUN/CREATININE RATIO 20; CALCIUM 9.2 MG/DL (8.5-10.1); CARBON DIOXIDE 23 MMOL/L (21-32); CHLORIDE 96 MMOL/L (98-107); CREATININE SERUM 1.19 MG/DL (0.60-1.30); GFR ESTIMATED > 60; GLUCOSE 231 MG/DL (70-105); LACTATE DEHYDROGENASE 140 U/L (125-220); POTASSIUM 4.6 MMOL/L (3.6-5.0); SODIUM 130 MMOL/L (135-145); TOTAL PROTEIN 7.7 GM/DL (6.4-8.2); hs C REACTIVE PROTEIN 6.83 MG/DL (0.00-0.50)
[2017-01-01 07:41] LABS: BAND NEUTROPHILS 0 %; BASOPHILS % (MANUAL) 0 %; EOSINOPHILS % (MANUAL) 1 %; LYMPHOCYTES % (MANUAL) 5 %; NEUTROPHILS % (MANUAL) 86 %
[2017-01-01 08:24] LABS: BILIRUBIN,URINE NEGATIVE (NEGATIVE); KETONES,URINE NEGATIVE (NEGATIVE); LEUKOCYTE ESTERASE ,URINE NEGATIVE (NEGATIVE); NITRITE,URINE NEGATIVE (NEGATIVE); PH,URINE 5 (5-9); PROTEIN,URINE NEGATIVE (NEGATIVE); UROBILINOGEN,URINE NORMAL (NORMAL)
--- NOTE | 2017-01-01 08:43 | Diagnostic Imaging Report ---
INDICATION: Lower abdominal pain radiating to the back. Nausea.. TECHNIQUE: Supine and upright view of the abdomen at 7:59 AM. CORRELATION STUDY: 12/29/2016. FINDINGS: A few gas-filled loops of small bowel are noted in the left mid abdomen. There is gas within the colon. No findings to suggest a high degree bowel obstruction. There are surgical changes with a suture line in the midline of the pelvis. No free intraperitoneal air. No evidence for large fecal impaction. A few air/fluid levels are noted. IMPRESSION: Nonobstructive appearing bowel gas pattern. A mild ileus pattern is not excluded. Dictated by: Dictated on workstation # [id number]
[2017-01-01 08:55] LABS: URIC ACID CRYSTALS,URINE LARGE /LPF
--- NOTE | 2017-01-01 09:00 | Diagnostic Imaging Report ---
PROCEDURE: US Gallbladder. TECHNIQUE: Multiple real-time grayscale images were obtained over the right upper quadrant in various projections. INDICATION: Abdominal pain. COMPARISON: None. FINDINGS: There is diffuse hepatic steatosis. No focal hepatic mass is seen. There is no biliary dilatation demonstrated although the common bile duct is not well seen. Doppler imaging demonstrates normal hepatopetal flow in the main portal vein. There are multiple stones in the gallbladder. These are somewhat immobile seen within the gallbladder neck. No gallbladder wall thickening or pericholecystic fluid is seen. There is no sonographic Miguel sign. The pancreas is not well demonstrated. The right kidney measures 12.5 cm in length and appears normal. There is no ascites. IMPRESSION: 1. Cholelithiasis without evidence of cholecystitis. 2. Diffuse hepatic steatosis. 3. No additional abnormality is demonstrated. The pancreas and common bile duct are not well seen. Dictated by: Dictated on workstation # [id number]
[2017-01-01] MEDS ORDERED: oxyCODONE/APAP 5/325MG (PERCOCET 5) TABLET PO ONE (09:30)
[2017-01-01] MEDS ORDERED: OXYC-197 PO (11:21)
[2017-01-01] MEDS ORDERED: ONDA4TAB8 SL (11:21)
[2017-01-01 11:29] VITALS: BP 156/86
== END 2017-01-01 11:32 | disposition home or self-care (01) ==
LOC: EDUNIT# 06:42 → ER 06:44
DX: K80.20 Calculus of gallbladder without cholecystitis without obstruction (principal); C19 Malignant neoplasm of rectosigmoid junction; G47.30 Sleep apnea, unspecified; I25.10 Atherosclerotic heart disease of native coronary artery without angina pectoris; I11.0 Hypertensive heart disease with heart failure; I50.9 Heart failure, unspecified; E78.00 Pure hypercholesterolemia, unspecified; E11.9 Type 2 diabetes mellitus without complications; Z87.19 Personal history of other diseases of the digestive system; Z93.2 Ileostomy status; Z79.82 Long term (current) use of aspirin; Z79.84 Long term (current) use of oral hypoglycemic drugs; Z95.5 Presence of coronary angioplasty implant and graft; Z95.810 Presence of automatic (implantable) cardiac defibrillator
CPT/HCPCS: 36415; 74020; 76705; 80053; 81000; 83615; 83690; 84484; 85007; 85027; 86141; 93005; 96361; 96374; 96375; 96376

== ENCOUNTER → 2017-02-08 | Outpatient (CLI) | payer BC ==
[~2017-02-08] MED LIST changes: +ONDA4TAB8 SL; +OXYC-197 PO
[2017-02-08 11:13] LABS: BASOPHILS % (AUTO) 0 % (0-10); EOSINOPHILS # (AUTO) 0.2 10^3/uL (0.0-0.3); EOSINOPHILS % (AUTO) 2 % (0-10); HEMATOCRIT 30 % (40-54); HEMOGLOBIN 11.5 G/DL (13.3-17.7); LYMPHOCYTES % (AUTO) 15 % (12-44); MEAN CORPUSCULAR HEMOGLOBIN 29 PG (25-34); MEAN CORPUSCULAR HGB CONC 38 G/DL (32-36); MEAN CORPUSCULAR VOLUME 76 FL (80-99); MEAN PLATELET VOLUME 8.7 FL (7.4-10.4); MONOCYTES # (AUTO) 0.4 X 10^3 (0.0-1.0); MONOCYTES % (AUTO) 6 % (0-12); NEUTROPHILS # (AUTO) 5.1 X 10^3 (1.8-7.8); NEUTROPHILS % (AUTO) 77 % (42-75); PLATELET COUNT 150 10^3/uL (130-400); RED BLOOD COUNT 3.98 10^6/uL (4.35-5.85); RED CELL DISTRIBUTION WIDTH 14.5 % (10.0-14.5); WHITE BLOOD COUNT 6.6 10^3/uL (4.3-11.0)
[2017-02-08 11:45] LABS: ALBUMIN 4.2 GM/DL (3.2-4.5); BILIRUBIN,TOTAL 0.6 MG/DL (0.1-1.0); CALCIUM 9.8 MG/DL (8.5-10.1); CREATININE SERUM 1.31 MG/DL (0.60-1.30); TOTAL PROTEIN 7.6 GM/DL (6.4-8.2)
[2017-02-08 11:59] LABS: CHOLESTEROL 148 MG/DL (< 200); HDL CHOLESTEROL 37 MG/DL (40-60); TRIGLYCERIDES 211 MG/DL (<150); VLDL CHOLESTEROL 42 MG/DL (5-40)
== END ==
LOC: LAB 10:57
PROVIDERS: ATTEND Internal Medicine
DX: Z00.00 Encounter for general adult medical examination without abnormal findings (principal); E78.00 Pure hypercholesterolemia, unspecified; E78.1 Pure hyperglyceridemia; E11.9 Type 2 diabetes mellitus without complications
CPT/HCPCS: 36415; 80053; 80061; 82378; 83036; 85025

== ENCOUNTER 2017-02-14 05:39 | Outpatient (CLI) | payer BC ==
[~2017-02-14] VITALS: Ht 193 cm; Wt 103.0 kg
[2017-02-14] MEDS ORDERED: ASPI-999 PO (13:44)
[2017-02-14] MEDS ORDERED: PANT40TA3 PO (13:44)
[2017-02-14] MEDS ORDERED: GLIP2.5T15 PO (13:44)
[2017-02-14] MEDS ORDERED: METO200T48 PO (13:44)
[2017-02-14] MEDS ORDERED: METF500T4 PO (13:44)
== END 2017-02-14 15:22 ==
LOC: PREOP 05:39
PROVIDERS: ATTEND Surgery
DX: Z01.818 Encounter for other preprocedural examination (principal); C20 Malignant neoplasm of rectum

== ENCOUNTER 2017-02-15 08:41 | Day surgery (SDC) | payer BC ==
[~2017-02-15] VITALS: Ht 193 cm; Wt 103.0 kg
[~2017-02-15 08:41] MED LIST changes: +ASPI-999 PO; +GLIP2.5T15 PO; +METF500T4 PO; +METO200T48 PO; +PANT40TA3 PO
[2017-02-15] MEDS ORDERED: ceFAZolin 2 GM/NS 50 ML IV ONE (09:15)
[2017-02-15 09:38] VITALS: BP 139/82
[2017-02-15] MEDS ORDERED: ceFAZolin 2 GM/50 ML NS 50 ML IV ONE (09:45)
[2017-02-15] MEDS ORDERED: LACTATED RINGERS 1,000 ML IV PRN (09:53)
[2017-02-15] MEDS ORDERED: 0.9% SODIUM CHLORIDE PF INJ 20 ML VIAL ONE (10:59)
[2017-02-15] MEDS ORDERED: HEParin (CENTRAL IV FLUSH) 500 UNIT/5 ML SYR ONE (10:59)
[2017-02-15] MEDS ORDERED: LIDOCAINE/EPI 1%-1:200,000 (XYLOCAINE) 10 ML VIAL ONE (10:59)
--- NOTE | 2017-02-15 11:43 | Progress Note-Pre Operative ---
Pre-Operative Progress Note H&P Reviewed The H&P was reviewed, patient examined and no changes noted. Time Seen by Provider: 11:37 Date H&P Reviewed: Feb 15, 2017 Time H&P Reviewed: 11:42 Pre-Operative Diagnosis: Colon CA, Venous insufficiency KASSY DURAN DO Feb 15, 2017 11:43
[2017-02-15] MEDS ORDERED: MIDAZOLAM 2 MG/2 ML (VERSED) VIAL ONE (12:01)
[2017-02-15] MEDS ORDERED: PROPOFOL INJECTION 50 ML IV ONE (12:01)
[2017-02-15] MEDS ORDERED: fentaNYL INJECTION 100 MCG/2 ML AMP ONE (12:02)
[2017-02-15 13:15] VITALS: BP 110/77
--- NOTE | 2017-02-15 13:15 | Progress Note-Post Operative ---
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
--- NOTE | 2017-02-15 13:17 | Discharge Inst-Surgical ---
Discharge Inst-Surgical Depart Medication/Instructions New, Converted or Re-Newed RX: Other (No Rx given) Patient Instructions Follow up Appt: Make appointment for 1 week. Instructions: No lifting greater than 10 pounds. No strenuous activity. May shower in 24 hours, no tub bath or soaking. Use incentive spirometer at home as directed. No Smoking Skin/Wound Care: May remove bandages. You need to leave the white strips over incision on they will fall off on their own. Symptoms to Report: Appetite Changes, Extremity Discoloration, Numbness/Tingling, Swelling Increased , Bleeding Excessive, Eyesight Changes, Pain Increased, Urine Color Change, Constipation(Persistent), Fever over 101 degree F, Pain/Pressure in chest, Urinating Difficulty, Cough Up/Vomit Blood, Heart Beat Irreg/Pounding, Pain/ Pressure in jaw, Cramps in feet or legs, Lightheadedness, Pain/Pressure in shoulder, Diarrhea(Persistent), Memory Changes Suddenly, Questions/Concerns, Weight gain consecutive days, Dizziness/Fainting, Nausea/Vomiting, Shortness of Breath, Weight gain over 2 pounds If questions or concerns contact your physician Or seek help at emergency department. Activity Activity as Tolerated: Yes Activity Instructions: Avoid Stress to Incision Diet Discharge Diet: No Restrictions Diet After 24 Hours: Clear Liquid if Nauseous If Any Problems/Questions/Issu: Contact Your Physician, Go to Emergency Room Skin/Wound Care Infection Signs and Symptoms: Increased Redness, Increased Drainage, Increased Swelling, Temperature Above 101 F Bathing Instructions: Shower Stitches/Marj/Dermabond Dis: KASSY Kemp DO Feb 15, 2017 13:17
--- NOTE | 2017-02-15 13:22 | Diagnostic Imaging Report ---
INDICATION: Undergoing port placement. TECHNIQUE: 2 intraoperative fluoroscopic images, right upper chest. CORRELATION STUDY: None FINDINGS: Fluoroscopy utilized by Dr. Salazar for placement of a right-sided Infusaport catheter. Two intraprocedure images demonstrate a right subclavian Infusaport catheter to be present. The tip cannot be well identified on this examination but appears to be likely over the lower SVC. Additional left-sided pacemaker is present. Mediastinum does appear to be prominent. Fluoroscopic time: 15 seconds IMPRESSION: 1. Fluoroscopy utilized for placement of a right subclavian port. If further assessment is desired, a post procedure chest radiograph recommended. Dictated by: Dictated on workstation # [id number]
[2017-02-15 13:45] VITALS: BP 111/78
[2017-02-15 14:10] VITALS: BP 111/78
--- OUTSIDE RECORDS SUMMARY | 2017-02-15 20:11 | XMS REPORT | Clinical Summary ---
Author Author [facility] Organization [facility] Address Unknown Phone Unavailable Care Team Providers Care Senior Environmental Technician Name Role Phone PCP Unavailable Source Comments Some departments are not documenting in the electronic medical record. If you do not see the information that you expected, contact Release of Information in the Health Information Management department at [phone] for further assistance in locating additional records.[facility] Allergies Active Allergy Reactions Severity Noted Date [...] 08/19/12. Abnormal Myoview Treadmill Stress Test, Via [facility]. Left ventricular hypokinesis, EF 22%. Document sent to OP medical records to be scanned to patient record. B. 08/27/12. [facility], AN [place]A to LAD. C. 12/03/12. Echocardiogram-EF 30% Dilated LV with diffuse LV hypokinesia, anterior wall, anterior septum. Mild mitral and tricuspid regurgitation. Insufficient doppler signal to evaluate pulmonary artery pressure. COPD (chronic obstructive pulmonary disease) ([facility]) 12/06/2012 CHF (congestive heart failure) ([facility]) 12/06/2012 SADA (obstructive sleep apnea) 12/06/2012 S/P coronary artery stent placement 12/06/2012 Overview: 08/27/12. [facility], [place], [place]. 95% proximal LAD stenosis. 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
--- OUTSIDE RECORDS SUMMARY | 2017-02-15 20:12 | XMS REPORT | Continuity of Care Document ---
Author Author [facility] Organization [facility] Address Unknown Phone Unavailable Allergies Active Description Code Type Severity Reaction Onset Reported/Identified Relationship to Patient Clinical Status Yes NKANo Known Allergies NKA Miscellaneous Allergy Unknown N/A 03/07/2005 Yes No Known Drug Allergies [id number] Drug Allergy Unknown N/A 02/14/2017 Medications There is no data. Problems Date Dx Coded Attending Type Code Diagnosis Diagnosed By 09/03/2014 MALLORY CASIANO DO Ot 715.36 09/03/2014 MALLORY CASIANO DO Ot V57.1 09/04/2014 MALLORY CASIANO DO Ot 715.36 LOC OSTEOARTH NOS-L/LEG 09/04/2014 MALLORY CASIANO DO Ot V57.1 PHYSICAL THERAPY NEC 10/14/2014 KAI HAGER Ot 272.4 10/14/2014 KAI HAGER Ot 401.9 10/14/2014 KAI HAGER Ot 414.00 10/14/2014 KAI HAGER Ot 424.0 10/14/2014 KAI HAGER Ot 428.0 10/14/2014 KAI HAGER Ot 496 10/14/2014 SHERYL PA, KAI K Ot 250.00 10/14/2014 KAI HAGER K Ot 272.4 10/14/2014 SHERYL PAKAI Ot 278.00 10/14/2014 KAI HAGER Ot 327.23 10/14/2014 KAI HAGER K Ot 401.9 10/14/2014 KAI HAGER Ot 414.00 10/14/2014 SHERYL PAKAI Ot 428.0 10/14/2014 KAI HAGER Ot 496 10/14/2014 KAI HAGER Ot 786.05 10/14/2014 KAI HAGER Ot V85.31 10/14/2014 SAVAGE NIEVES, MOHAMUD Jaquez Ot 272.4 10/14/2014 SAVAGE NIEVES, MOHAMUD Jaquez Ot 401.9 10/14/2014 SAVAGE NIEVES, MOHAMUD J Ot 414.00 10/14/2014 SAVAGE NIEVES, MOHAMUD J Ot 428.0 10/14/2014 SAVAGE NIEVES, MOHAMUD J Ot 793.5 10/14/2014 SAVAGE NIEVES, MOHAMUD J Ot 272.4 10/14/2014 SAVAGE NIEVES, MOHAMUD J Ot 397.0 10/14/2014 SAVAGE NIEVES, MOHAMUD J Ot 401.9 10/14/2014 SAVAGE NIEVES, MOHAMUD J Ot 414.00 10/14/2014 SAVAGE NIEVES, MOHAMUD J Ot 424.0 10/14/2014 SAVAGE NIEVES, MOHAMUD Jaquez Ot 428.0 10/29/2014 SAVAGE NIEVES, MOHAMUD Jaquez Ot 272.4 10/29/2014 SAVAGE NIEVES, MOHAMUD J Ot 401.9 10/29/2014 SAVAGE NIEVES, MOHAMUD J Ot 414.00 10/29/2014 SAVAGE NIEVES, MOHAMUD Jaquez [...] KAI HAGER Ot 327.23 OBSTRUCTIVE SLEEP APNEA (ADULT) (PEDIATR 01/04/2016 KAI HAGER Ot 401.9 HYPERTENSION [...] MD Ot 401.9 HYPERTENSION NOS 01/04/2016 MOHAMUD WNA MD Ot 414.00 CORON ATHEROSCLER NOS TYPE VESSEL, NATIV 01/04/2016 MOHAMUD WAN MD Ot 428.0 CONGESTIVE HEART FAILURE NOS 01/04/2016 MOHAMUD WAN MD Ot 793.5 NOSP (ABN) FINDINGS ON RADIOLOGICAL OT 01/04/2016 MOHAMUD WAN MD Ot 272.4 HYPERLIPIDEMIA NEC/NOS 01/04/2016 MOHAMUD WAN MD Ot 397.0 TRICUSPID VALVE DISEASE 01/04/2016 MOHAMUD WAN MD Ot 401.9 HYPERTENSION NOS 01/04/2016 MOHAMUD WAN MD Ot 414.00 CORON ATHEROSCLER NOS TYPE VESSEL, NATIV 01/04/2016 MOHAMUD WAN MD Ot 424.0 MITRAL VALVE DISORDER 01/04/2016 MOHAMUD WAN MD Ot 428.0 CONGESTIVE HEART FAILURE NOS 01/04/2016 MOHAMUD WAN MD Ot 272.4 HYPERLIPIDEMIA NEC/NOS 01/04/2016 MOHAMUD WAN MD Ot 401.9 HYPERTENSION NOS 01/04/2016 MOHAMUD WAN MD Ot 414.00 CORON ATHEROSCLER NOS TYPE VESSEL, NATIV 01/04/2016 MOHAMUD WAN MD Ot 786.05 SHORTNESS OF BREATH 04/19/2016 MARTINEZ-HUI PA, KAI K Ot 272.4 HYPERLIPIDEMIA NEC/NOS 04/19/2016 KAI HAGER Ot 401.9 HYPERTENSION NOS 04/19/2016 SHERYL [place] KAI K Ot 414.00 CORON ATHEROSCLER NOS TYPE VESSEL, NATIV 04/19/2016 KAI HAGER Ot 424.0 MITRAL VALVE DISORDER 04/19/2016 KAI HAGER K Ot 428.0 CONGESTIVE HEART FAILURE NOS 04/19/2016 SHERYL [place] KAI K Ot 496 CHR AIRWAY OBSTRUCT NEC 04/19/2016 KAI HAGER Ot 250.00 DIAB LEELA WO COMPL, TYPE II OR UNSPEC TY 04/19/2016 SHERYL [place] KAI K Ot 272.4 HYPERLIPIDEMIA NEC/NOS 04/19/2016 SHERYL [place] KAI K Ot 278.00 OBESITY, NOS 04/19/2016 SHERYL [place] KAI K Ot 327.23 OBSTRUCTIVE SLEEP APNEA (ADULT) (PEDIATR 04/19/2016 KAI HAGER Ot 401.9 HYPERTENSION NOS 04/19/2016 KAI HAGER Ot 414.00 CORON ATHEROSCLER NOS TYPE VESSEL, NATIV 04/19/2016 KAI HAGER Ot 428.0 CONGESTIVE HEART FAILURE NOS 04/19/2016 SHREYL [place] KAI K Ot 496 CHR AIRWAY OBSTRUCT NEC 04/19/2016 SHERYL [place] KAI K Ot 786.05 SHORTNESS OF BREATH 04/19/2016 SHERYL [place] KAI K Ot V85.31 BODY MASS INDEX 31.0-31.9, ADULT 04/19/2016 SAVAGE NIEVES, MOHAMUD Jaquez Ot 272.4 HYPERLIPIDEMIA NEC/NOS 04/19/2016 SAVAGE NIEVES, MOHAMUD J Ot 401.9 HYPERTENSION NOS 04/19/2016 SAVAGE NIEVES, MOHAMUD J Ot 414.00 CORON ATHEROSCLER NOS TYPE VESSEL, NATIV 04/19/2016 SAVAGE NIEVES, MOHAMUD J Ot 428.0 CONGESTIVE HEART FAILURE NOS 04/19/2016 [...] HAGER Ot I25.10 ATHSCL HEART DISEASE OF [place] CORONARY 05/19/2016 KAI HAGER Ot E11.9 TYPE 2 DIABETES MELLITUS WITHOUT COMPLIC 05/19/2016 KAI HAGER Ot E78.2 MIXED HYPERLIPIDEMIA 05/19/2016 KAI HAGER Ot I10 ESSENTIAL (PRIMARY) HYPERTENSION 05/19/2016 KAI HAGER Ot I25.10 ATHSCL HEART DISEASE OF [place] CORONARY 06/20/2016 KASSY DURAN DO Ot K92.1 MELENA 06/20/2016 KASSY DURAN DO, Ot Z01.818 ENCOUNTER FOR OTHER PREPROCEDURAL EXAMIN 06/22/2016 KASSY DURAN DO Ot C20 MALIGNANT NEOPLASM OF RECTUM 06/22/2016 KASSY DURAN DO Ot E11.9 TYPE 2 DIABETES MELLITUS WITHOUT COMPLIC 06/22/2016 KASSY DURAN DO Ot I10 ESSENTIAL (PRIMARY) HYPERTENSION 06/22/2016 DELMAN DO, KASSY B Ot I25.10 ATHSCL HEART DISEASE OF [place] CORONARY 06/22/2016 RENEE APARICIO KASSY B Ot J44.9 CHRONIC OBSTRUCTIVE PULMONARY DISEASE, U 06/22/2016 KARUNA DURAN DOIC B Ot K57.30 DVRTCLOS OF LG INT W/O PERFORATION OR AB 06/22/2016 RENEE APARICIO KASSY B Ot K64.8 OTHER HEMORRHOIDS 06/22/2016 RENEE APARICIO KASSY B Ot Z79.84 DETENTION (CURRENT) USE OF ORAL HYPOGLYC 06/22/2016 RENEE DO, KASSY B Ot Z79.899 OTHER AUTHORIZATION REPRESENTATIVE (CURRENT) DRUG THERAPY 06/26/2016 RENEE DO, KASSY B Ot C20 MALIGNANT NEOPLASM OF RECTUM 06/26/2016 RENEE DO KASSY B Ot E11.9 TYPE 2 DIABETES MELLITUS WITHOUT COMPLIC 06/26/2016 RENEE DO, KASSY B Ot I10 ESSENTIAL (PRIMARY) HYPERTENSION 06/26/2016 RENEE DO KASSY B Ot I25.10 ATHSCL HEART DISEASE OF [place] CORONARY 06/26/2016 RENEE APARICIOKARUNAIC B Ot J44.9 CHRONIC OBSTRUCTIVE PULMONARY DISEASE, U 06/26/2016 RENEE APARICIO, KASSY B Ot K57.30 DVRTCLOS OF LG INT W/O PERFORATION OR AB 06/26/2016 RENEE APARICIO KASSY B Ot K64.8 OTHER HEMORRHOIDS 06/26/2016 RENEE APARICIO KASSY B Ot Z79.84 DETENTION (CURRENT) USE OF ORAL HYPOGLYC 06/26/2016 RENEE APARICIO KASSY B Ot Z79.899 OTHER AUTHORIZATION REPRESENTATIVE (CURRENT) DRUG THERAPY 06/28/2016 KAI HAGER Ot E11.9 TYPE 2 DIABETES MELLITUS WITHOUT COMPLIC 06/28/2016 KAI HAGER Ot E78.2 MIXED HYPERLIPIDEMIA 06/28/2016 KAI HAGER Ot I10 ESSENTIAL (PRIMARY) HYPERTENSION 06/28/2016 KAI HAGER Ot I25.10 ATHSCL HEART DISEASE OF [place] CORONARY 07/10/2016 KARUNA DURAN DOIC B Ot C20 MALIGNANT NEOPLASM OF RECTUM 07/14/2016 ADELAIDE AGUAYO Ot C20 MALIGNANT NEOPLASM OF RECTUM 07/14/2016 DEDE, BOBAN N Ot E11.9 TYPE 2 DIABETES MELLITUS WITHOUT COMPLIC 07/14/2016 DEDE BOBAN N Ot I10 ESSENTIAL (PRIMARY) HYPERTENSION 07/14/2016 DEDE SIMEONAN N Ot I25.10 ATHSCL HEART DISEASE OF [place] CORONARY 07/14/2016 DEDESIMEON LACYAN N Ot J44.9 CHRONIC OBSTRUCTIVE PULMONARY DISEASE, U 07/14/2016 DEDESIMEONAN N Ot Z79.84 AUTHORIZATION REPRESENTATIVE (CURRENT) USE OF ORAL HYPOGLYC 07/14/2016 DEDE SIMEONAN N Ot Z79.899 OTHER DETENTION (CURRENT) DRUG THERAPY 08/23/2016 DEDE, SIMEONAN N Ot C20 MALIGNANT NEOPLASM OF RECTUM 08/23/2016 DEDE SIMEONAN N Ot E11.9 TYPE 2 DIABETES MELLITUS WITHOUT COMPLIC 08/23/2016 DEDE BOBAN N Ot I10 ESSENTIAL (PRIMARY) HYPERTENSION 08/23/2016 DEDE BOBAN N Ot I25.10 ATHSCL HEART DISEASE OF [place] CORONARY 08/23/2016 DEDE, ADELAIDE N Ot J44.9 CHRONIC OBSTRUCTIVE PULMONARY DISEASE, U 08/23/2016 DEED SIMEONAN N Ot Z79.84 AUTHORIZATION REPRESENTATIVE (CURRENT) USE OF ORAL HYPOGLYC 08/23/2016 DEDE BOBAN N Ot Z79.899 OTHER DETENTION (CURRENT) DRUG THERAPY 09/26/2016 DEDE, SIMEONAN N Ot C20 MALIGNANT NEOPLASM OF RECTUM 09/26/2016 DEDESIMEONAN N Ot E11.9 TYPE 2 DIABETES MELLITUS WITHOUT COMPLIC 09/26/2016 DEDE BOBAN N Ot I10 ESSENTIAL (PRIMARY) HYPERTENSION 09/26/2016 DEDEADELAIDE N Ot I25.10 ATHSCL HEART DISEASE OF [place] CORONARY 09/26/2016 DEDE SIMEONAN N Ot J44.9 CHRONIC OBSTRUCTIVE PULMONARY DISEASE, U 09/26/2016 DEDE BOBAN N Ot Z79.84 AUTHORIZATION REPRESENTATIVE (CURRENT) USE OF ORAL HYPOGLYC 09/26/2016 DEDE BOBAN N Ot Z79.899 OTHER DETENTION (CURRENT) DRUG THERAPY 10/11/2016 SIMEON AGUAYOAN N Ot C20 MALIGNANT NEOPLASM OF RECTUM 10/11/2016 DEDE BOBAN N Ot E11.9 TYPE 2 DIABETES MELLITUS WITHOUT COMPLIC 10/11/2016 DEDE BOBAN N Ot I10 ESSENTIAL (PRIMARY) HYPERTENSION 10/11/2016 DEDE, BOBAN N Ot I25.10 ATHSCL HEART DISEASE OF [place] CORONARY 10/11/2016 ADELAIDE AGUAYO Ot J44.9 CHRONIC OBSTRUCTIVE PULMONARY DISEASE, U 10/11/2016 ADELAIDE AGUAYO Ot Z51.0 ENCOUNTER FOR ANTINEOPLASTIC RADIATION T 10/11/2016 ADELAIDE AGUAYO N Ot Z79.84 DETENTION (CURRENT) USE OF ORAL HYPOGLYC 10/11/2016 ADELAIDE AGUAYO N Ot Z79.899 OTHER AUTHORIZATION REPRESENTATIVE (CURRENT) DRUG THERAPY 11/21/2016 NARAYAN AMEZCUA MD Ot C18.9 MALIGNANT NEOPLASM OF COLON, UNSPECIFIED 11/21/2016 NARAYAN AMEZCUA MD Ot I10 ESSENTIAL (PRIMARY) HYPERTENSION 11/21/2016 NARAYAN AMEZCUA MD Ot I25.10 ATHSCL HEART DISEASE OF [place] CORONARY 11/21/2016 NARAYAN AMEZCUA MD Ot R33.9 RETENTION OF URINE, UNSPECIFIED 11/21/2016 NARAYAN AMEZCUA MD Ot Z93.3 COLOSTOMY STATUS 11/21/2016 NARAYAN AMEZCUA MD Ot Z95.0 PRESENCE OF CARDIAC PACEMAKER 11/21/2016 NARAYAN AMEZCUA MD Ot Z95.5 PRESENCE OF CORONARY ANGIOPLASTY IMPLANT 11/23/2016 ADELAIDE AGUAYO Ot C20 MALIGNANT NEOPLASM OF RECTUM 11/23/2016 ADELAIDE AGUAYO Ot E11.9 TYPE 2 DIABETES MELLITUS WITHOUT COMPLIC 11/23/2016 ADELAIDE AGUAYO N Ot I10 ESSENTIAL (PRIMARY) HYPERTENSION 11/23/2016 ADELAIDE AGUAYO Ot I25.10 ATHSCL HEART DISEASE OF [place] CORONARY 11/23/2016 ADELAIDE AGUAYO Ot J44.9 CHRONIC OBSTRUCTIVE PULMONARY DISEASE, U 11/23/2016 ADELAIDE AGUAYO N Ot Z79.84 DETENTION (CURRENT) USE OF ORAL HYPOGLYC 11/23/2016 ADELAIDE AGUAYO N Ot Z79.899 OTHER DETENTION (CURRENT) DRUG THERAPY 11/23/2016 ADELAIDE AGUAYO N Ot C20 MALIGNANT NEOPLASM OF RECTUM 11/23/2016 ADELAIDE AGUAYO N Ot E11.9 TYPE 2 DIABETES MELLITUS WITHOUT COMPLIC 11/23/2016 ADELAIDE AGUAYO N Ot I10 ESSENTIAL (PRIMARY) HYPERTENSION 11/23/2016 ADELAIDE AGUAYO N Ot I25.10 ATHSCL HEART DISEASE OF [place] CORONARY 11/23/2016 DEDE ADELAIDE N Ot J44.9 CHRONIC OBSTRUCTIVE PULMONARY DISEASE, U 11/23/2016 DEDE ADELAIDE N Ot Z79.84 AUTHORIZATION REPRESENTATIVE (CURRENT) USE OF ORAL HYPOGLYC 11/23/2016 DEDE, BOBAN N Ot Z79.899 OTHER AUTHORIZATION REPRESENTATIVE (CURRENT) DRUG THERAPY 11/23/2016 DEDE, ADELAIDE N Ot C20 MALIGNANT NEOPLASM OF RECTUM 11/23/2016 DEDEADELAIDE N Ot E11.9 TYPE 2 DIABETES MELLITUS WITHOUT COMPLIC 11/23/2016 DEDE BOBKYLE N Ot I10 ESSENTIAL (PRIMARY) HYPERTENSION 11/23/2016 DEDEADELAIDE N Ot I25.10 ATHSCL HEART DISEASE OF [place] CORONARY 11/23/2016 DEDEADELAIDE N Ot J44.9 CHRONIC OBSTRUCTIVE PULMONARY DISEASE, U 11/23/2016 DEDEADELAIDE N Ot Z79.84 DETENTION (CURRENT) USE OF ORAL HYPOGLYC 11/23/2016 ADELAIDE AGUAYO N Ot Z79.899 OTHER AUTHORIZATION REPRESENTATIVE (CURRENT) DRUG THERAPY 11/23/2016 KAI HAGER Ot E11.9 TYPE 2 DIABETES MELLITUS WITHOUT COMPLIC 11/23/2016 KAI HAGER Ot E78.2 MIXED HYPERLIPIDEMIA 11/23/2016 KAI HAGER Ot I10 ESSENTIAL (PRIMARY) HYPERTENSION 11/23/2016 KAI HAGER Ot I25.10 ATHSCL HEART DISEASE OF [place] CORONARY 11/23/2016 KASSY DURAN DO Ot C20 MALIGNANT NEOPLASM OF RECTUM 11/23/2016 DEDEADELAIDE N Ot C20 MALIGNANT NEOPLASM OF RECTUM 11/23/2016 DEDEADELAIDE N Ot E11.9 TYPE 2 DIABETES MELLITUS WITHOUT COMPLIC 11/23/2016 DEDE BOBKYLE N Ot I10 ESSENTIAL (PRIMARY) HYPERTENSION 11/23/2016 DEDE BOBKYLE N Ot I25.10 ATHSCL HEART DISEASE OF [place] CORONARY 11/23/2016 DEDEADELAIDE N Ot J44.9 CHRONIC OBSTRUCTIVE PULMONARY DISEASE, U 11/23/2016 DEDEADELAIDE N Ot Z79.84 AUTHORIZATION REPRESENTATIVE (CURRENT) USE OF ORAL HYPOGLYC 11/23/2016 DEDE BOBAN N Ot Z79.899 OTHER AUTHORIZATION REPRESENTATIVE (CURRENT) DRUG THERAPY 12/12/2016 DEDE, ADELAIDE N Ot C20 MALIGNANT NEOPLASM OF RECTUM 12/12/2016 DEDEADELAIDE N Ot E11.9 TYPE 2 DIABETES MELLITUS WITHOUT COMPLIC 12/12/2016 DEDEADELAIDE N Ot I10 ESSENTIAL (PRIMARY) HYPERTENSION 12/12/2016 DEDEADELAIDE N Ot I25.10 ATHSCL HEART DISEASE OF [place] CORONARY 12/12/2016 ADELAIDE AGUAYO N Ot J44.9 CHRONIC OBSTRUCTIVE PULMONARY DISEASE, U 12/12/2016 DEDEADELAIDE N Ot Z79.84 DETENTION (CURRENT) USE OF ORAL HYPOGLYC 12/12/2016 ADELAIDE AGUAYO N Ot Z79.899 OTHER AUTHORIZATION REPRESENTATIVE (CURRENT) DRUG THERAPY 12/12/2016 KAI HAGER Ot E11.9 TYPE 2 DIABETES MELLITUS WITHOUT COMPLIC 12/12/2016 KAI HAGER Ot E78.2 MIXED HYPERLIPIDEMIA 12/12/2016 KAI HAGER Ot I10 ESSENTIAL (PRIMARY) HYPERTENSION 12/12/2016 KAI HAGER Ot I25.10 ATHSCL HEART DISEASE OF [place] CORONARY 12/12/2016 KASSY DURAN DO Ot C20 MALIGNANT NEOPLASM OF RECTUM 12/12/2016 ADELAIDE AGUAYO Ot C20 MALIGNANT NEOPLASM OF RECTUM 12/12/2016 ADELAIDE AGUAYO N Ot E11.9 TYPE 2 DIABETES MELLITUS WITHOUT COMPLIC 12/12/2016 ADELAIDE AGUAYO N Ot I10 ESSENTIAL (PRIMARY) HYPERTENSION 12/12/2016 ADELAIDE AGUAYO N Ot I25.10 ATHSCL HEART DISEASE OF [place] CORONARY 12/12/2016 DEDEADELAIDE N Ot J44.9 CHRONIC OBSTRUCTIVE PULMONARY DISEASE, U 12/12/2016 DEDEADELAIDE N Ot Z79.84 DETENTION (CURRENT) USE OF ORAL HYPOGLYC 12/12/2016 ADELAIDE AGUAYO N Ot Z79.899 OTHER DETENTION (CURRENT) DRUG THERAPY 12/22/2016 DEDEADELAIDE N Ot C20 MALIGNANT NEOPLASM OF RECTUM 12/22/2016 DEDEADELAIDE N Ot E11.9 TYPE 2 DIABETES MELLITUS WITHOUT COMPLIC 12/22/2016 DEDEADELAIDE N Ot I10 ESSENTIAL (PRIMARY) HYPERTENSION 12/22/2016 ADELAIDE AGUAYO Ot I25.10 ATHSCL HEART DISEASE OF [place] CORONARY 12/22/2016 ADELAIDE AGUAYO Ot J44.9 CHRONIC OBSTRUCTIVE PULMONARY DISEASE, U 12/22/2016 ADELAIDE AGUAYO Ot Z79.84 DETENTION (CURRENT) USE OF ORAL HYPOGLYC 12/22/2016 ADELAIDE AGUAYO Ot Z79.899 OTHER AUTHORIZATION REPRESENTATIVE (CURRENT) DRUG THERAPY 12/27/2016 KAI HAGER Ot E11.9 TYPE 2 DIABETES MELLITUS WITHOUT COMPLIC 12/27/2016 KAI HAGER Ot E78.2 MIXED HYPERLIPIDEMIA 12/27/2016 KAI HAGER Ot I10 ESSENTIAL (PRIMARY) HYPERTENSION 12/27/2016 KAI HAGER Ot I25.10 ATHSCL HEART DISEASE OF [place] CORONARY 12/27/2016 RENEE APARICIO, KASSY B Ot C20 MALIGNANT NEOPLASM OF RECTUM 12/27/2016 ADELAIDE AGUAYO Ot C20 MALIGNANT NEOPLASM OF RECTUM 12/27/2016 ADELAIDE AGUAYO Ot E11.9 TYPE 2 DIABETES MELLITUS WITHOUT COMPLIC 12/27/2016 ADELAIDE AGUAYO Ot I10 ESSENTIAL (PRIMARY) HYPERTENSION 12/27/2016 ADELAIDE AGUAYO Ot I25.10 ATHSCL HEART DISEASE OF [place] CORONARY 12/27/2016 ADELAIDE AGUAYO Ot J44.9 CHRONIC OBSTRUCTIVE PULMONARY DISEASE, U 12/27/2016 ADELAIDE AGUAYO Ot Z79.84 AUTHORIZATION REPRESENTATIVE (CURRENT) USE OF ORAL HYPOGLYC 12/27/2016 ADELAIDE AGUAYO Ot Z79.899 OTHER DETENTION (CURRENT) DRUG THERAPY 12/29/2016 KAI HAGER Ot E11.9 TYPE 2 DIABETES MELLITUS WITHOUT COMPLIC 12/29/2016 KAI HAGER Ot E78.2 MIXED HYPERLIPIDEMIA 12/29/2016 KAI HAGER Ot I10 ESSENTIAL (PRIMARY) HYPERTENSION 12/29/2016 KAI HAGER Ot I25.10 ATHSCL HEART DISEASE OF [place] CORONARY 12/29/2016 DELMAN DO, KASSY B Ot C20 MALIGNANT NEOPLASM OF RECTUM 12/29/2016 ADELAIDE AGUAYO Ot C20 MALIGNANT NEOPLASM OF RECTUM 12/29/2016 ADELAIDE AGUAYO Shubham Ot E11.9 TYPE 2 DIABETES MELLITUS WITHOUT COMPLIC 12/29/2016 ADELAIDE AGUAYO Shubham Ot I10 ESSENTIAL (PRIMARY) HYPERTENSION 12/29/2016 ADELAIDE AGUAYO Shubham Ot I25.10 ATHSCL HEART DISEASE OF [place] CORONARY 12/29/2016 ADELAIDE AGUAYO Shubham Ot J44.9 CHRONIC OBSTRUCTIVE PULMONARY DISEASE, U 12/29/2016 ADELAIDE AGUAYO Shubham Ot Z79.84 AUTHORIZATION REPRESENTATIVE (CURRENT) USE OF ORAL HYPOGLYC 12/29/2016 ADELAIDE AGUAYO Shubham Ot Z79.899 OTHER AUTHORIZATION REPRESENTATIVE (CURRENT) DRUG THERAPY 12/29/2016 ASIA DO, MELONY K Ot C18.9 MALIGNANT NEOPLASM OF COLON, UNSPECIFIED 12/29/2016 ASIA DO, MELONY K Ot D64.9 ANEMIA, UNSPECIFIED 12/29/2016 ASIA DO, MELONY K Ot E86.0 DEHYDRATION 12/29/2016 ASIA DO MELONY K Ot G47.30 SLEEP APNEA, UNSPECIFIED 12/29/2016 ASIA DO, MELONY K Ot I10 ESSENTIAL (PRIMARY) HYPERTENSION 12/29/2016 ASIA DO, MELONY K Ot I25.10 ATHSCL HEART DISEASE OF [place] CORONARY 12/29/2016 ASIA DO MELONY K Ot R10.9 UNSPECIFIED ABDOMINAL PAIN 12/29/2016 ASIA DO MELONY K Ot Z79.82 DETENTION (CURRENT) USE OF ASPIRIN 12/29/2016 ASIA DO MELONY K Ot Z79.84 DETENTION (CURRENT) USE OF ORAL HYPOGLYC 12/29/2016 ASIA DO MELONY K Ot Z87.19 PERSONAL HISTORY OF OTHER DISEASES OF TH 12/29/2016 ASIA DO, MELONY K Ot Z90.89 ACQUIRED ABSENCE OF OTHER ORGANS 12/29/2016 ASIA DO, MELONY K Ot Z93.2 ILEOSTOMY STATUS 12/29/2016 ASIA DO, MELONY K Ot Z95.0 PRESENCE OF CARDIAC PACEMAKER 12/29/2016 ASIA DO, MELONY K Ot Z95.5 PRESENCE OF CORONARY ANGIOPLASTY IMPLANT 01/01/2017 ASIA DO, MELONY K Ot C18.9 MALIGNANT NEOPLASM OF COLON, UNSPECIFIED 01/01/2017 ASIA DO, MELONY K Ot D64.9 ANEMIA, UNSPECIFIED 01/01/2017 ASIA DO, MELONY K Ot E86.0 DEHYDRATION 01/01/2017 MELONY BETANCOURT DO Ot G47.30 SLEEP APNEA, UNSPECIFIED 01/01/2017 MELONY BETANCOURT DO Ot I10 ESSENTIAL (PRIMARY) HYPERTENSION 01/01/2017 MELONY BETANCOURT DO Ot I25.10 ATHSCL HEART DISEASE OF [place] CORONARY 01/01/2017 MELONY BETANCOURT DO Ot R10.9 UNSPECIFIED ABDOMINAL PAIN 01/01/2017 MELONY BETANCOURT DO Ot Z79.82 DETENTION (CURRENT) USE OF ASPIRIN 01/01/2017 MELONY BETANCOURT DO Ot Z79.84 DETENTION (CURRENT) USE OF ORAL HYPOGLYC 01/01/2017 MELONY BETANCOURT DO Ot Z87.19 PERSONAL HISTORY OF OTHER DISEASES OF TH 01/01/2017 MELONY BETANCOURT DO Ot Z90.89 ACQUIRED ABSENCE OF OTHER ORGANS 01/01/2017 MELONY BETANCOURT DO Ot Z93.2 ILEOSTOMY STATUS 01/01/2017 MELONY BETANCOURT DO Ot Z95.0 PRESENCE OF CARDIAC PACEMAKER 01/01/2017 ASIA APARICIO MELONY Boyd Ot Z95.5 PRESENCE OF CORONARY ANGIOPLASTY IMPLANT 01/01/2017 LUPE BRANDT MD Ot 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 MALIGNANT NEOPLASM OF RECTOSIGMOID JUNCT 01/01/2017 LUPE BRANDT MD Ot E11.9 TYPE 2 DIABETES MELLITUS WITHOUT COMPLIC 01/01/2017 LUPE BRANDT MD Ot E78.00 PURE HYPERCHOLESTEROLEMIA, UNSPECIFIED 01/01/2017 LUPE BRANDT MD, Ot G47.30 SLEEP APNEA, UNSPECIFIED 01/01/2017 LUPE BRANDT MD Ot I11.0 HYPERTENSIVE HEART DISEASE WITH HEART FA 01/01/2017 LUPE BRANDT MD, Ot I25.10 ATHSCL HEART DISEASE OF [place] CORONARY 01/01/2017 LUPE BRANDT MD Ot I50.9 HEART FAILURE, UNSPECIFIED 01/01/2017 LUPE BRANDT MD, Ot K80.20 CALCULUS OF GALLBLADDER W/O CHOLECYSTITI 01/01/2017 LUPE BRANDT MD Ot R10.84 GENERALIZED ABDOMINAL PAIN 01/01/2017 LUPE BRANDT MD, Ot Z79.82 AUTHORIZATION REPRESENTATIVE (CURRENT) USE OF ASPIRIN 01/01/2017 LUPE BRANDT MD, Ot Z79.84 DETENTION (CURRENT) USE OF ORAL HYPOGLYC 01/01/2017 LUPE BRANDT MD, Ot Z87.19 PERSONAL HISTORY OF OTHER DISEASES OF 01/01/2017 LUPE BRANDT MD, Ot Z93.2 ILEOSTOMY STATUS 01/01/2017 LUPE BRANDT MD, Ot Z95.5 PRESENCE OF CORONARY ANGIOPLASTY IMPLANT 01/01/2017 LUPE BRANDT MD, Ot Z95.810 PRESENCE OF AUTOMATIC (IMPLANTABLE) CARD 01/07/2017 LUPE BRANDT MD, Ot C19 MALIGNANT NEOPLASM OF RECTOSIGMOID JUNCT 01/07/2017 LUPE BRANDT MD Ot E11.9 TYPE 2 DIABETES MELLITUS WITHOUT COMPLIC 01/07/2017 LUPE BRANDT MD, Ot E78.00 PURE HYPERCHOLESTEROLEMIA, UNSPECIFIED 01/07/2017 LUPE BRANDT MD, Ot G47.30 SLEEP APNEA, UNSPECIFIED 01/07/2017 LUPE BRANDT MD, Ot I11.0 HYPERTENSIVE HEART DISEASE WITH HEART FA 01/07/2017 LUPE BRANDT MD, Ot I25.10 ATHSCL HEART DISEASE OF [place] CORONARY 01/07/2017 LUPE BRANDT MD, Ot I50.9 HEART FAILURE, UNSPECIFIED 01/07/2017 LUPE BRANDT MD Ot K80.20 CALCULUS OF GALLBLADDER W/O CHOLECYSTITI 01/07/2017 LUPE BRANDT MD, Ot R10.84 GENERALIZED ABDOMINAL PAIN 01/07/2017 LUPE BRANDT MD, Ot Z79.82 AUTHORIZATION REPRESENTATIVE (CURRENT) USE OF ASPIRIN 01/07/2017 LUPE BRANDT MD, Ot Z79.84 AUTHORIZATION REPRESENTATIVE (CURRENT) USE OF ORAL HYPOGLYC 01/07/2017 LUPE BRANDT MD, Ot Z87.19 PERSONAL HISTORY OF OTHER DISEASES OF 01/07/2017 LUPE BRANDT MD, Ot Z93.2 ILEOSTOMY STATUS 01/07/2017 KARLY NIEVES LUPE Eduardo Ot Z95.5 PRESENCE OF CORONARY ANGIOPLASTY IMPLANT 01/07/2017 LUPE BRANDT MD Ot Z95.810 PRESENCE OF AUTOMATIC (IMPLANTABLE) CARD 01/08/2017 KAI HAGER Ot E11.9 TYPE 2 DIABETES MELLITUS WITHOUT COMPLIC 01/08/2017 KAI HAGER Ot E78.2 MIXED HYPERLIPIDEMIA 01/08/2017 KAI HAGER Ot I10 ESSENTIAL (PRIMARY) HYPERTENSION 01/08/2017 KAI HAGER Ot I25.10 ATHSCL HEART DISEASE OF [place] CORONARY 01/08/2017 KASSY DURAN DO Ot C20 MALIGNANT NEOPLASM OF RECTUM 01/08/2017 ADELAIDE AGUAYO Ot C20 MALIGNANT NEOPLASM OF RECTUM 01/08/2017 ADELAIDE AGUAYO Ot E11.9 TYPE 2 DIABETES MELLITUS WITHOUT COMPLIC 01/08/2017 ADELAIDE AGUAYO N Ot I10 ESSENTIAL (PRIMARY) HYPERTENSION 01/08/2017 ADELAIDE AGUAYO Ot I25.10 ATHSCL HEART DISEASE OF [place] CORONARY 01/08/2017 DEDEADELAIDE LACY N Ot J44.9 CHRONIC OBSTRUCTIVE PULMONARY DISEASE, U 01/08/2017 DEDEADELAIDE LACY N Ot Z79.84 DETENTION (CURRENT) USE OF ORAL HYPOGLYC 01/08/2017 DEDEADELAIDE N Ot Z79.899 OTHER DETENTION (CURRENT) DRUG THERAPY 01/18/2017 DEDEADELAIDE LACY N Ot C20 MALIGNANT NEOPLASM OF RECTUM 01/18/2017 ADELAIDE AGUAYO N Ot E11.9 TYPE 2 DIABETES MELLITUS WITHOUT COMPLIC 01/18/2017 DEDEADELAIDE N Ot I10 ESSENTIAL (PRIMARY) HYPERTENSION 01/18/2017 DEDEADELAIDE LACY N Ot I25.10 ATHSCL HEART DISEASE OF [place] CORONARY 01/18/2017 ADELAIDE AGUAYO N Ot J44.9 CHRONIC OBSTRUCTIVE PULMONARY DISEASE, U 01/18/2017 DEDEADELAIDE N Ot Z79.84 DETENTION (CURRENT) USE OF ORAL HYPOGLYC 01/18/2017 ADELAIDE AGUAYO N Ot Z79.899 OTHER DETENTION (CURRENT) DRUG THERAPY 01/18/2017 KAI HAGER Ot E11.9 TYPE 2 DIABETES MELLITUS WITHOUT COMPLIC 01/18/2017 KAI HAGER Ot E78.2 MIXED HYPERLIPIDEMIA 01/18/2017 KAI HAGER Ot I10 ESSENTIAL (PRIMARY) HYPERTENSION 01/18/2017 KAI HAGER Ot I25.10 ATHSCL HEART DISEASE OF [place] CORONARY 01/18/2017 KASSY DURAN DO B Ot C20 MALIGNANT NEOPLASM OF RECTUM 01/18/2017 DEDEADELAIDE N Ot C20 MALIGNANT NEOPLASM OF RECTUM 01/18/2017 DEDE, BOBKYLE N Ot E11.9 TYPE 2 DIABETES MELLITUS WITHOUT COMPLIC 01/18/2017 DEDE BOBAN N Ot I10 ESSENTIAL (PRIMARY) HYPERTENSION 01/18/2017 DEDEADELAIDE N Ot I25.10 ATHSCL HEART DISEASE OF [place] CORONARY 01/18/2017 DEDE BOBAN N Ot J44.9 CHRONIC OBSTRUCTIVE PULMONARY DISEASE, U 01/18/2017 DEDE, BOBAN N Ot Z79.84 DETENTION (CURRENT) USE OF ORAL HYPOGLYC 01/18/2017 DEDE BOBAN N Ot Z79.899 OTHER DETENTION (CURRENT) DRUG THERAPY 02/09/2017 DEDE BOBKYLE N Ot C20 MALIGNANT NEOPLASM OF RECTUM 02/09/2017 DEDE BOBAN N Ot E11.9 TYPE 2 DIABETES MELLITUS WITHOUT COMPLIC 02/09/2017 DEDE, BOBAN N Ot I10 ESSENTIAL (PRIMARY) HYPERTENSION 02/09/2017 DEDE BOBAN N Ot I25.10 ATHSCL HEART DISEASE OF [place] CORONARY 02/09/2017 DEDE, SIMEONAN N Ot J44.9 CHRONIC OBSTRUCTIVE PULMONARY DISEASE, U 02/09/2017 DEDE BOBAN N Ot Z79.84 AUTHORIZATION REPRESENTATIVE (CURRENT) USE OF ORAL HYPOGLYC 02/09/2017 DEDE BOBAN N Ot Z79.899 OTHER DETENTION (CURRENT) DRUG THERAPY 02/09/2017 LEE DO SYED Ot E11.9 TYPE 2 DIABETES MELLITUS WITHOUT COMPLIC 02/09/2017 JESUS APARICIO SYED Ot E78.00 PURE HYPERCHOLESTEROLEMIA, UNSPECIFIED 02/09/2017 LEE DO SYED Ot E78.1 PURE HYPERGLYCERIDEMIA 02/09/2017 LEEDREW APARICIO SYED Ot Z00.00 ENCNTR FOR GENERAL ADULT MEDICAL EXAM W/ 02/13/2017 KAI HAGER Ot E11.9 TYPE 2 DIABETES MELLITUS WITHOUT COMPLIC 02/13/2017 KAI HAGER Ot E78.2 MIXED HYPERLIPIDEMIA 02/13/2017 KAI HAGER Ot I10 ESSENTIAL (PRIMARY) HYPERTENSION 02/13/2017 KAI HAGER Ot I25.10 ATHSCL HEART DISEASE OF [place] CORONARY 02/13/2017 KASSY DURAN DO Ot C20 MALIGNANT NEOPLASM OF RECTUM 02/13/2017 ADELAIDE AGUAYO Ot C20 MALIGNANT NEOPLASM OF RECTUM 02/13/2017 ADELAIDE AGUAYO Ot E11.9 TYPE 2 DIABETES MELLITUS WITHOUT COMPLIC 02/13/2017 ADELAIDE AGUAYO Ot I10 ESSENTIAL (PRIMARY) HYPERTENSION 02/13/2017 ADELAIDE AGUAYO Ot I25.10 ATHSCL HEART DISEASE OF [place] CORONARY 02/13/2017 ADELAIDE AGUAYO Ot J44.9 CHRONIC OBSTRUCTIVE PULMONARY DISEASE, U 02/13/2017 ADELAIDE AGUAYO Ot Z79.84 AUTHORIZATION REPRESENTATIVE (CURRENT) USE OF ORAL HYPOGLYC 02/13/2017 ADELAIDE AGUAYO Ot Z79.899 OTHER AUTHORIZATION REPRESENTATIVE (CURRENT) DRUG THERAPY 02/13/2017 JESUS APARICIO SYED Ot E11.9 TYPE 2 DIABETES MELLITUS WITHOUT COMPLIC 02/13/2017 JESUS DO SYED Ot E78.00 PURE HYPERCHOLESTEROLEMIA, UNSPECIFIED 02/13/2017 JESUS DO SYED Ot E78.1 PURE HYPERGLYCERIDEMIA 02/13/2017 JESUS APARICIO SYED Ot Z00.00 ENCNTR FOR GENERAL ADULT MEDICAL EXAM W/ 02/14/2017 JESUS APARICIO SYED Ot E11.9 TYPE 2 DIABETES MELLITUS WITHOUT COMPLIC 02/14/2017 JESUS APARICIO SYED Ot E78.00 PURE HYPERCHOLESTEROLEMIA, UNSPECIFIED 02/14/2017 LEE DO SYED Ot E78.1 PURE HYPERGLYCERIDEMIA 02/14/2017 JESUS APARICIO SYED Ot Z00.00 ENCNTR FOR GENERAL ADULT MEDICAL EXAM W/ Procedures There is no data. Results Test Result Range Capillary blood glucose measurement by glucometer (mass/volume) - 06/22/16 07: 41 Capillary blood glucose measurement by glucometer (mass/volume) 137 mg/dL 70-110 Complete urinalysis with reflex to culture - 11/21/16 17:25 Urine color determination YELLOW NRG Urine clarity determination CLEAR NRG Urine pH measurement by test strip 5 5-9 Specific gravity of urine by test strip 1.010 1.016- 1.022 Urine protein assay by test strip, semi-quantitative NEGATIVE NEGATIVE Urine glucose detection by automated test strip NEGATIVE NEGATIVE Erythrocytes detection in urine sediment by light microscopy 1+ NEGATIVE Urine ketones detection by automated test strip NEGATIVE NEGATIVE Urine nitrite detection by test strip NEGATIVE NEGATIVE Urine total bilirubin detection by test strip NEGATIVE NEGATIVE Urine urobilinogen measurement by automated test strip (mass/volume) NORMAL NORMAL Urine leukocyte esterase detection by dipstick NEGATIVE NEGATIVE Automated urine sediment erythrocyte count by microscopy (number/high power field) [HPF] NRG Automated urine sediment leukocyte count by microscopy (number/high power field ) NONE NRG Bacteria detection in urine sediment by light microscopy NONE NRG Squamous epithelial cells detection in urine sediment by light microscopy RARE NRG Crystals detection in urine sediment by light microscopy NONE NRG Casts detection in urine sediment by light microscopy NONE NRG Mucus detection in urine sediment by light microscopy NEGATIVE NRG Complete urinalysis with reflex to culture NO NRG Complete blood count (CBC) with automated white blood cell (WBC) differential - 12/29/16 09:45 Blood leukocytes automated count (number/volume) 6.1 10*3/uL 4.3-11.0 Blood erythrocytes automated count (number/volume) 3.62 10*6/uL 4.35-5.85 Venous blood hemoglobin measurement (mass/volume) 10.7 g/dL 13.3-17.7 Blood hematocrit (volume fraction) 32 % 40-54 Automated erythrocyte mean corpuscular volume 88 [foz_us] 80-99 Automated erythrocyte mean corpuscular hemoglobin (mass per erythrocyte) 30 pg 25-34 Automated erythrocyte mean corpuscular hemoglobin concentration measurement ( mass/volume) 34 g/dL 32-36 Automated erythrocyte distribution width ratio 12.8 % 10.0-14.5 Automated blood platelet count (count/volume) 127 10*3/uL 130-400 Automated blood platelet mean volume measurement 8.8 [foz_us] 7.4-10.4 Automated blood neutrophils/100 leukocytes 86 % 42-75 Automated blood lymphocytes/100 leukocytes 9 % 12-44 Blood monocytes/100 leukocytes 4 % 0-12 Automated blood eosinophils/100 leukocytes 1 % 0-10 Automated blood basophils/100 leukocytes 0 % 0-10 Blood neutrophils automated count (number/volume) 5.2 10*3 1.8-7.8 Blood lymphocytes automated count (number/volume) 0.6 10*3 1.0-4.0 Blood monocytes automated count (number/volume) 0.3 10*3 0.0-1.0 Automated eosinophil count 0.1 10*3/uL 0.0-0.3 Automated blood basophil count (count/volume) 0.0 10*3/uL 0.0-0.1 Comprehensive metabolic panel - 12/29/16 09:45 Serum or plasma sodium measurement (moles/volume) 138 mmol/L 135-145 Serum or plasma potassium measurement (moles/volume) 5.0 mmol/L 3.6-5.0 Serum or plasma chloride measurement (moles/volume) 105 mmol/L 98-107 Carbon dioxide 22 mmol/L 21-32 Serum or plasma anion gap determination (moles/volume) 11 mmol/L 5-14 Serum or plasma urea nitrogen measurement (mass/volume) 25 mg/dL 7-18 Serum or plasma creatinine measurement (mass/volume) 1.31 mg/dL 0.60-1.30 Serum or plasma urea nitrogen/creatinine mass ratio 19 NRG Serum or plasma creatinine measurement with calculation of estimated glomerular filtration rate 55 NRG Serum or plasma glucose measurement (mass/volume) 204 mg/dL 70-105 Serum or plasma calcium measurement (mass/volume) 9.8 mg/dL 8.5-10.1 Serum or plasma total bilirubin measurement (mass/volume) 0.3 mg/dL 0.1-1.0 Serum or plasma alkaline phosphatase measurement (enzymatic activity/volume) 159 U/L 40-136 Serum or plasma aspartate aminotransferase measurement (enzymatic activity/ volume) 27 U/L 5-34 Serum or plasma alanine aminotransferase measurement (enzymatic activity/volume ) 44 U/L 0-55 Serum or plasma protein measurement (mass/volume) 7.6 g/dL 6.4-8.2 Serum or plasma albumin measurement (mass/volume) 4.1 g/dL 3.2-4.5 Serum or plasma amylase measurement (enzymatic activity/volume) - 12/29/16 09: 45 Serum or plasma amylase measurement (enzymatic activity/volume) 60 U /L 25-125 Lipase - 12/29/16 09:45 Lipase 35 U/L 8-78 Blood manual differential performed detection - 12/29/16 09:45 Blood monocytes/100 leukocytes 3 % NRG Manual blood segmented neutrophils/100 leukocytes 83 % NRG Blood band neutrophils/100 leukocytes 1 % NRG Manual blood lymphocytes/100 leukocytes 11 % NRG Manual eosinophils/100 leukocytes in nose 0 % NRG Manual blood basophils/100 leukocytes 1 % NRG Blood lymphocytes variant/100 leukocytes 1 % NRG Blood ovalocytes detection by light microscopy SLIGHT NRG Blood toxic granules detection by light microscopy 2+ NRG Blood poikilocytosis detection by light microscopy SLIGHT NRG Blood rouleaux detection by light microscopy SLIGHT NRG Blood stomatocytes detection by light microscopy SLIGHT NRG Blood platelet clump detection by light microscopy SLIGHT NRG Complete urinalysis with reflex to culture - 12/29/16 11:15 Urine color determination YELLOW NRG Urine clarity determination CLEAR NRG Urine pH measurement by test strip 5 5-9 Specific gravity of urine by test strip 1.025 1.016- 1.022 Urine protein assay by test strip, semi-quantitative 1+ NEGATIVE Urine glucose detection by automated test strip 2+ NEGATIVE Erythrocytes detection in urine sediment by light microscopy NEGATIVE NEGATIVE Urine ketones detection by automated test strip NEGATIVE NEGATIVE Urine nitrite detection by test strip NEGATIVE NEGATIVE Urine total bilirubin detection by test strip NEGATIVE NEGATIVE Urine urobilinogen measurement by automated test strip (mass/volume) NORMAL NORMAL Urine leukocyte esterase detection by dipstick NEGATIVE NEGATIVE Automated urine sediment erythrocyte count by microscopy (number/high power field) RARE NRG Automated urine sediment leukocyte count by microscopy (number/high power field ) [HPF] NRG Bacteria detection in urine sediment by light microscopy TRACE NRG Squamous epithelial cells detection in urine sediment by light microscopy 0-2 NRG Crystals detection in urine sediment by light microscopy PRESENT NRG Casts detection in urine sediment by light microscopy PRESENT NRG Mucus detection in urine sediment by light microscopy SMALL NRG Complete urinalysis with reflex to culture NO NRG Hyaline casts detection in urine sediment by light microscopy 10-25 NRG Renal epithelial cells detection in urine sediment by light microscopy NONE NRG Uric acid crystals detection in urine sediment by light microscopy MODERATE NRG Complete blood count (CBC) with automated white blood cell (WBC) differential - 01/01/17 07:05 Blood leukocytes automated count (number/volume) 6.3 10*3/uL 4.3-11.0 Blood erythrocytes automated count (number/volume) 3.62 10*6/uL 4.35-5.85 Venous blood hemoglobin measurement (mass/volume) 10.6 g/dL 13.3-17.7 Blood hematocrit (volume fraction) 31 % 40-54 Automated erythrocyte mean corpuscular volume 86 [foz_us] 80-99 Automated erythrocyte mean corpuscular hemoglobin (mass per erythrocyte) 29 pg 25-34 Automated erythrocyte mean corpuscular hemoglobin concentration measurement ( mass/volume) 34 g/dL 32-36 Automated erythrocyte distribution width ratio 12.8 % 10.0-14.5 Automated blood platelet count (count/volume) 123 10*3/uL 130-400 Automated blood platelet mean volume measurement 9.2 [foz_us] 7.4-10.4 Automated blood neutrophils/100 leukocytes 87 % 42-75 Automated blood lymphocytes/100 leukocytes 7 % 12-44 Blood monocytes/100 leukocytes 6 % 0-12 Automated blood eosinophils/100 leukocytes 0 % 0-10 Automated blood basophils/100 leukocytes 0 % 0-10 Blood neutrophils automated count (number/volume) 5.5 10*3 1.8-7.8 Blood lymphocytes automated count (number/volume) 0.4 10*3 1.0-4.0 Blood monocytes automated count (number/volume) 0.4 10*3 0.0-1.0 Automated eosinophil count 0.0 10*3/uL 0.0-0.3 Automated blood basophil count (count/volume) 0.0 10*3/uL 0.0-0.1 Comprehensive metabolic panel - 01/01/17 07:05 Serum or plasma sodium measurement (moles/volume) 130 mmol/L 135-145 Serum or plasma potassium measurement (moles/volume) 4.6 mmol/L 3.6-5.0 Serum or plasma chloride measurement (moles/volume) 96 mmol/L 98-107 Carbon dioxide 23 mmol/L 21-32 Serum or plasma anion gap determination (moles/volume) 11 mmol/L 5-14 Serum or plasma urea nitrogen measurement (mass/volume) 24 mg/dL 7-18 Serum or plasma creatinine measurement (mass/volume) 1.19 mg/dL 0.60-1.30 Serum or plasma urea nitrogen/creatinine mass ratio 20 NRG Serum or plasma creatinine measurement with calculation of estimated glomerular filtration rate > NRG Serum or plasma glucose measurement (mass/volume) 231 mg/dL 70-105 Serum or plasma calcium measurement (mass/volume) 9.2 mg/dL 8.5-10.1 Serum or plasma total bilirubin measurement (mass/volume) 1.2 mg/dL 0.1-1.0 Serum or plasma alkaline phosphatase measurement (enzymatic activity/volume) 206 U/L 40-136 Serum or plasma aspartate aminotransferase measurement (enzymatic activity/ volume) 44 U/L 5-34 Serum or plasma alanine aminotransferase measurement (enzymatic activity/volume ) 111 U/L 0-55 Serum or plasma protein measurement (mass/volume) 7.7 g/dL 6.4-8.2 Serum or plasma albumin measurement (mass/volume) 3.8 g/dL 3.2-4.5 Lactate dehydrogenase 1 [enzymatic activity/volume] in serum or plasma - 07:05 Lactate dehydrogenase 1 [enzymatic activity/volume] in serum or plasma 140 U/L 125-220 Serum or plasma C reactive protein measurement (mass/volume) - 01/01/17 07:05 Serum or plasma C reactive protein measurement (mass/volume) 6.83 mg /dL 0.00-0.50 Blood manual differential performed detection - 01/01/17 07:05 Blood monocytes/100 leukocytes 8 % NRG Manual blood segmented neutrophils/100 leukocytes 86 % NRG Blood band neutrophils/100 leukocytes 0 % NRG Manual blood lymphocytes/100 leukocytes 5 % NRG Manual eosinophils/100 leukocytes in nose 1 % NRG Manual blood basophils/100 leukocytes 0 % NRG Blood erythrocyte morphology finding identification NORMAL NRG Serum or plasma troponin i.cardiac measurement (mass/volume) - 01/01/17 07:05 Serum or plasma troponin i.cardiac measurement (mass/volume) < ng/ mL <0.30 Lipase - 01/01/17 07:08 Lipase 16 U/L 8-78 Complete urinalysis with reflex to culture - 01/01/17 08:18 Urine color determination YELLOW NRG Urine clarity determination CLEAR NRG Urine pH measurement by test strip 5 5-9 Specific gravity of urine by test strip 1.020 1.016- 1.022 Urine protein assay by test strip, semi-quantitative NEGATIVE NEGATIVE Urine glucose detection by automated test strip 2+ NEGATIVE Erythrocytes detection in urine sediment by light microscopy NEGATIVE NEGATIVE Urine ketones detection by automated test strip NEGATIVE NEGATIVE Urine nitrite detection by test strip NEGATIVE NEGATIVE Urine total bilirubin detection by test strip NEGATIVE NEGATIVE Urine urobilinogen measurement by automated test strip (mass/volume) NORMAL NORMAL Urine leukocyte esterase detection by dipstick NEGATIVE NEGATIVE Automated urine sediment erythrocyte count by microscopy (number/high power field) NONE NRG Automated urine sediment leukocyte count by microscopy (number/high power field ) NONE NRG Bacteria detection in urine sediment by light microscopy NEGATIVE NRG Squamous epithelial cells detection in urine sediment by light microscopy NONE NRG Crystals detection in urine sediment by light microscopy PRESENT NRG Casts detection in urine sediment by light microscopy NONE NRG Mucus detection in urine sediment by light microscopy NEGATIVE NRG Complete urinalysis with reflex to culture NO NRG Uric acid crystals detection in urine sediment by light microscopy LARGE NRG Hemoglobin A1c - 02/08/17 11:00 Hemoglobin A1c 7.0 % 4.5-6.2 Lipid 1996 panel - 02/08/17 11:00 Serum or plasma triglyceride measurement (mass/volume) 211 mg/dL <150 Serum or plasma cholesterol measurement (mass/volume) 148 mg/dL < 200 Serum or plasma cholesterol in HDL measurement (mass/volume) 37 mg/ dL 40-60 Cholesterol in LDL [mass/volume] in serum or plasma by direct assay 78 mg/dL 1-129 Serum or plasma cholesterol in VLDL measurement (mass/volume) 42 mg/ dL 5-40 Capillary blood glucose measurement by glucometer (mass/volume) - 02/15/17 08: 59 Capillary blood glucose measurement by glucometer (mass/volume) 179 mg/dL 70-110 Encounters ACCT No. Visit Date/Time Discharge Status Pt. Type Provider Facility Loc./Unit Complaint [id number] 02/14/2017 05:39:00 02/14/2017 15:22:00 DIS Outpatient KASSY DURAN DO [facility] PREOP RECTAL CANCER [id number] 02/08/2017 10:57:00 02/08/2017 23:59:59 CLS Outpatient SYED LEE DO [facility] LAB [id number] 02/08/2017 10:52:00 02/08/2017 23:59:59 CLS Outpatient ADELAIDE AGUAYO [facility] ONC [id number] 01/01/2017 06:44:00 01/01/2017 11:32:00 DIS Emergency KARLY NIEVES, LUPE Jayce [facility] ER GALLBLADDER ISSUES [id number] 12/29/2016 08:26:00 12/29/2016 13:49:00 DIS Emergency MELONY BETANCOURT DO [facility] ER ELIOSTOMY BLOCKED POSSIBLY [id number] 11/21/2016 17:10:00 11/21/2016 17:57:00 DIS Emergency GOLDIE NIEVES, NARAYAN Ruby [facility] ER POST SURG DIFFICULTY URINATING [id number] 09/12/2016 08:08:00 10/11/2016 00:01:00 DIS Outpatient DEDE ADELAIDE Shubham [facility] ONC [id number] 06/28/2016 07:20:00 06/28/2016 23:59:59 CLS Outpatient KASSY DURAN DO [facility] RAD COLON CA [id number] 06/22/2016 07:18:00 06/22/2016 10:25:00 DIS Outpatient KASSY DURAN DO [facility] ENDO BLOOD IN STOOLS [id number] 06/20/2016 06:43:00 06/20/2016 12:02:00 DIS Outpatient KASSY DURAN DO [facility] PREOP COLONOSCOPY [id number] 05/03/2016 09:41:00 05/03/2016 23:59:59 CLS Outpatient KAI HAGER [facility] CARD CAD,HTN,HLP, NIDDM [id number] 10/14/2014 09:06:00 10/14/2014 23:59:59 CLS Outpatient MOHAMUD WAN MD [facility] CARD CAD,HTN,HYPERLIPADEMA, SOA [id number] 09/04/2014 15:15:00 09/04/2014 15:51:00 DIS Outpatient MALLORY CASIANO DO [facility] REHAB DJD PATELLOFEMORAL JOINT B KNEE [id number] 10/15/2013 09:03:00 10/15/2013 23:59:59 CLS Outpatient MOHAMUD WAN MD [facility] CARD CHF,CAD,HTN,HLP [id number] 07/25/2013 08:24:00 07/25/2013 23:59:59 CLS Outpatient SAVAGE NIEVES, MOHAMUD Jaquez [facility] RAD HTN,CHF,CAD,HLP [id number] 04/30/2013 07:37:00 04/30/2013 23:59:59 CLS Outpatient KAI HAGER [facility] RAD CAD,CHF,COPD [id number] 04/29/2013 10:50:00 04/29/2013 23:59:59 CLS Outpatient KAI HAGER [facility] CARD CAD,CHF, COPD [id number] 12/03/2012 10:27:00 12/03/2012 23:59:59 CLS Outpatient [id number] 10/25/2012 11:59:00 11/04/2012 09:15:00 DIS Outpatient [id number] 10/21/2012 08:42:00 10/21/2012 23:59:59 CLS Outpatient [id number] 08/27/2012 10:43:00 08/28/2012 12:30:00 DIS Outpatient [id number] 08/19/2012 07:32:00 08/19/2012 23:59:59 CLS Outpatient [id number] 08/14/2012 07:47:00 08/14/2012 23:59:59 CLS Outpatient [id number] 02/15/2017 10:15:00 KASSY Tejada DO [facility] RECTAL CANCER
--- NOTE | 2017-02-17 01:28 | OPERATIVE REPORT ---
DATE OF SERVICE: 02/15/2017 PREOPERATIVE DIAGNOSES: 1. Colon cancer. 2. Venous insufficiency. POSTOPERATIVE DIAGNOSES: 1. Colon cancer. 2. Venous insufficiency. PROCEDURE PERFORMED: Port placement with fluoroscopy. SURGEON: Amado Salazar DO. QUARRY BOSS: None. ANESTHESIA: IV sedation by METAL PRECISION MACHINE ASSEMBLER. BLOOD LOSS: Scant. SPECIMENS: None. FLUIDS: Per Anesthesia. POSTOPERATIVE CONDITION: Stable. INDICATION FOR PROCEDURE: The patient is a 61-year-old male, who unfortunately has colon cancer and now need THE chemotherapy fci and he has a little bit of venous insufficiency, once again the port was placed. He does not need multiple IVs and/or PICC line which hangs out. FINDINGS: The patient had a Port-A-Cath placed, right anterior chest wall, right subclavian vein without any difficulty. PROCEDURE NOTE: After informed consent was obtained, the patient was brought to the operating room, placed on the operating table in supine position. He was sterilely prepped and draped in normal fashion. Local lidocaine was used to infiltrate the skin in the right anterior chest wall and then towards the clavicle. The patient was placed slight Trendelenburg and then able to advance the 18-gauge fine needle under negative inspiration and cannulated the subclavian vein on the first attempt with good flash of blood, removed the syringe and then placed a guidewire down the needle using the Seldinger technique, it went in easily, checked with fluoroscopy, it went down into the superior vena cava, removed the needle and then made an incision in right anterior chest wall #11 blade down through the skin into the subcutaneous tissue, then deepened down to subcutaneous tissue with Bovie electrocautery down to the fascia of the pectoralis major muscle and then created a pocket bluntly. Next, I made a stab incision at the guidewire using a #11 blade and then tunneled the catheter from the stab incision into the pocket just created. Then over the guidewire using the Seldinger technique, placed the dilator, it went in easily, checked with fluoroscopy, it was in good position. Removed the inner portion of the dilator as well as the guidewire and then placed the catheter down the dilator using the Seldinger technique, it went in easily, checked with fluoroscopy, it was in good position. Removed the dilator and then backed up the catheter just a little bit. Then cut the catheter, attached it to the port and then attached the locking mechanism. Placed the port in the pocket previously created on the right anterior chest wall, sutured this in place to the pectoralis major fascia with a 3-0 Prolene suture. Then accessed the port with the Estevez needle, good flash of blood and then easily flushed with saline and then flushed with 2 mL of heparinized saline. Then, closed this incision and then checked with fluoroscopy, again catheter appeared to be in good position. There were no kinks or severe angles to the catheter and the port. Then closed the incision closing the subcutaneous tissue with 3-0 Vicryl, 2 interrupted sutures and closed the skin with 4-0 undyed Monocryl with 3 interrupted subcuticular stitches and closed the stab incision with a single interrupted 4-0 undyed Monocryl subcuticular stitch. Area was cleaned and dried. Dermabond was placed as well as bandage. The patient was then transferred to recovery room in stable condition. Sponge, instrument and needle count correct at the end of the case. Job ID: [id number] DocumentID: [id number] Dictated Date: 02/16/2017 15:46:44 Science Analyst Date: 02/17/2017 01:27:52 Dictated By: AMADO SALAZAR DO
== END 2017-02-15 12:10 | disposition home or self-care (01) ==
LOC: SDC 08:41
PROVIDERS: ATTEND Surgery
DX: C20 Malignant neoplasm of rectum (principal); I87.2 Venous insufficiency (chronic) (peripheral); I25.10 Atherosclerotic heart disease of native coronary artery without angina pectoris; I11.0 Hypertensive heart disease with heart failure; I50.9 Heart failure, unspecified; J44.9 Chronic obstructive pulmonary disease, unspecified; E78.5 Hyperlipidemia, unspecified; E11.9 Type 2 diabetes mellitus without complications; G47.33 Obstructive sleep apnea (adult) (pediatric); Z79.84 Long term (current) use of oral hypoglycemic drugs; Z79.899 Other long term (current) drug therapy; Z95.0 Presence of cardiac pacemaker; Z95.5 Presence of coronary angioplasty implant and graft
CPT/HCPCS: 82962; 87081

== ENCOUNTER 2017-03-06 15:00 | Inpatient (IN) | payer BC ==
[~2017-03-06] VITALS: Ht 193 cm; Wt 101.9 kg
[~2017-03-06 15:00] MED LIST changes: -AMLO5TAB2 PO; -CAPE500T14 PO; -GLYB2.5T4 PO; -LISI40TA PO; -ONDA4TAB11 PO; -TAMS0.4C2 PO
[2017-03-06] MEDS ORDERED: KETOROLAC 30 MG/ML VIAL IVP PRN (15:45)
[2017-03-06] MEDS ORDERED: morphine INJ 10 MG/ML 1ML (SYR OR VIAL) IVP PRN (15:45)
[2017-03-06] MEDS ORDERED: ENOXAPARIN 40 MG/0.4 ML (LOVENOX) SYR SC SCH ×2 (15:45→17:00)
[2017-03-06 16:09] VITALS: BP 123/67
--- OUTSIDE RECORDS SUMMARY | 2017-03-06 16:18 | XMS REPORT | Clinical Summary ---
Author Author [facility] Organization [facility] Address Unknown Phone Unavailable Care Team Providers Care Hot Cell Technician Name Role Phone Sara Tee Unavailable Unavailable Viraj Calles MD PCP Enriqueta Martino RN Unavailable Unavailable Source Comments Some departments are not documenting in the electronic medical record. If you do not see the information that you expected, contact Release of Information in the Health Information Management department at [phone] for further assistance in locating additional records.[facility] Allergies Active Allergy Reactions Severity Noted Date [...] of SCD DM2 (diabetes mellitus, type 2) ([facility]) 12/23/2012 Overview: Metformin Ischemic cardiomyopathy 12/23/2012 CAD (coronary artery disease) 12/06/2012 Overview: A. 08/19/12. Abnormal Myoview Treadmill Stress Test, [facility]. Left ventricular hypokinesis, EF 22%. Document sent to OP medical records to be scanned to patient record. B. 08/27/12. [facility] [place], ANA MARÍA to LAD. C. 12/03/12. Echocardiogram-EF 30% Dilated LV with diffuse LV hypokinesia, anterior wall, anterior septum. Mild mitral and tricuspid regurgitation. Insufficient doppler signal to evaluate pulmonary artery pressure. COPD (chronic obstructive pulmonary disease) ([facility]) 12/06/2012 CHF (congestive heart failure) ([facility]) 12/06/2012 SADA (obstructive sleep apnea) 12/06/2012 S/P coronary artery stent placement 12/06/2012 Overview: 08/27/12. [facility] [place], [address] [place], [place]. 95% proximal LAD stenosis. Successful balloon [...] 36.3 C (97.4 F) 12/24/2012 8:20 AM [facility] Respiratory Rate - - Oxygen Saturation 96% 12/24/2012 8:20 AM [facility] Inhaled Oxygen - - Concentration Weight 116.3 [...]
--- OUTSIDE RECORDS SUMMARY | 2017-03-06 16:20 | XMS REPORT | Continuity of Care Document ---
Author Author [facility] Organization [facility] Address Unknown Phone Unavailable Allergies Active Description Code Type Severity Reaction Onset Reported/Identified Relationship to Patient Clinical Status Yes NKANo Known Allergies NKA Miscellaneous Allergy Unknown N/A 03/07/2005 Yes No Known Drug Allergies [id number] Drug Allergy Unknown N/A 02/14/2017 Medications There [...] MOHAMUD Jaquez Ot 272.4 10/14/2014 SAVAGE NIEVES, OMHAMUD Jaquez Ot 401.9 10/14/2014 SAVAGE NIEVES, MOHAMUD [...] COMPL, TYPE II OR UNSPEC TY 04/19/2016 SHEYRL [place] KAI K Ot 272.4 HYPERLIPIDEMIA NEC/NOS [...] HAGER Ot I25.10 ATHSCL HEART DISEASE OF [place] CORONARY 05/19/2016 KAI HAGER Ot E11.9 TYPE 2 DIABETES MELLITUS WITHOUT COMPLIC 05/19/2016 KAI HAGER Ot E78.2 MIXED HYPERLIPIDEMIA 05/19/2016 KAI HAGER Ot I10 ESSENTIAL (PRIMARY) HYPERTENSION 05/19/2016 KAI HAGER Ot I25.10 ATHSCL HEART DISEASE OF [place] CORONARY 06/20/2016 KASSY DURAN DO Ot K92.1 MELENA 06/20/2016 KASSY DURAN DO, Ot Z01.818 ENCOUNTER FOR OTHER PREPROCEDURAL EXAMIN 06/22/2016 KASSY DURAN DO Ot C20 MALIGNANT NEOPLASM OF RECTUM 06/22/2016 KASSY DURAN DO Ot E11.9 TYPE 2 DIABETES MELLITUS WITHOUT COMPLIC 06/22/2016 KASSY DURAN DO Ot I10 ESSENTIAL (PRIMARY) HYPERTENSION 06/22/2016 DELMAN DO, KASSY B Ot I25.10 ATHSCL HEART DISEASE OF [place] CORONARY 06/22/2016 RENEE APARICIO KASSY B Ot J44.9 CHRONIC OBSTRUCTIVE PULMONARY DISEASE, U 06/22/2016 KARUNA DURAN DOIC B Ot K57.30 DVRTCLOS OF LG INT W/O PERFORATION OR AB 06/22/2016 RENEE APARICIO KASSY B Ot K64.8 OTHER HEMORRHOIDS 06/22/2016 RENEE APARICIO KASSY B Ot Z79.84 JAIL (CURRENT) USE OF ORAL HYPOGLYC 06/22/2016 RENEE DO, KASSY B Ot Z79.899 OTHER PATIENT OFFICE REP (CURRENT) DRUG THERAPY 06/26/2016 RENEE DO, KASSY B Ot C20 MALIGNANT NEOPLASM OF RECTUM 06/26/2016 RENEE DO KASSY B Ot E11.9 TYPE 2 DIABETES MELLITUS WITHOUT COMPLIC 06/26/2016 RENEE DO, KASSY B Ot I10 ESSENTIAL (PRIMARY) HYPERTENSION 06/26/2016 RENEE DO KASSY B Ot I25.10 ATHSCL HEART DISEASE OF [place] CORONARY 06/26/2016 RENEE APARICIOKARUNAIC B Ot J44.9 CHRONIC OBSTRUCTIVE PULMONARY DISEASE, U 06/26/2016 RENEE APARICIO, KASSY B Ot K57.30 DVRTCLOS OF LG INT W/O PERFORATION OR AB 06/26/2016 RENEE APARICIO KASSY B Ot K64.8 OTHER HEMORRHOIDS 06/26/2016 RENEE APARICIO KASSY B Ot Z79.84 JAIL (CURRENT) USE OF ORAL HYPOGLYC 06/26/2016 RENEE APARICIO KASSY B Ot Z79.899 OTHER PATIENT OFFICE REP (CURRENT) DRUG THERAPY 06/28/2016 KAI HAGER Ot E11.9 TYPE 2 DIABETES MELLITUS WITHOUT COMPLIC 06/28/2016 KAI HAGER Ot E78.2 MIXED HYPERLIPIDEMIA 06/28/2016 KAI HAGER Ot I10 ESSENTIAL (PRIMARY) HYPERTENSION 06/28/2016 KAI HAGER Ot I25.10 ATHSCL HEART DISEASE OF [place] CORONARY 07/10/2016 KARUNA DURAN DOIC B Ot C20 MALIGNANT NEOPLASM OF RECTUM 07/14/2016 A[place] AGUAYO Ot C20 MALIGNANT NEOPLASM OF RECTUM 07/14/2016 DEDE, BOBAN N Ot E11.9 TYPE 2 DIABETES MELLITUS WITHOUT COMPLIC 07/14/2016 DEDE BOBAN N Ot I10 ESSENTIAL (PRIMARY) HYPERTENSION 07/14/2016 DDEE SIMEONAN N Ot I25.10 ATHSCL HEART DISEASE OF [place] CORONARY 07/14/2016 DEDESIMEON LACYAN N Ot J44.9 CHRONIC OBSTRUCTIVE PULMONARY DISEASE, U 07/14/2016 DEDESIMEONAN N Ot Z79.84 PATIENT OFFICE REP (CURRENT) USE OF ORAL HYPOGLYC 07/14/2016 DEDE SIMEONAN N Ot Z79.899 OTHER JAIL (CURRENT) DRUG THERAPY 08/23/2016 DEDE, SIMEONAN N Ot C20 MALIGNANT NEOPLASM OF RECTUM 08/23/2016 DEDE SIMEONAN N Ot E11.9 TYPE 2 DIABETES MELLITUS WITHOUT COMPLIC 08/23/2016 DEDE BOBAN N Ot I10 ESSENTIAL (PRIMARY) HYPERTENSION 08/23/2016 DEDE BOBAN N Ot I25.10 ATHSCL HEART DISEASE OF [place] CORONARY 08/23/2016 DEDE, ADELAIDE N Ot J44.9 CHRONIC OBSTRUCTIVE PULMONARY DISEASE, U 08/23/2016 DEDE SIMEONAN N Ot Z79.84 PATIENT OFFICE REP (CURRENT) USE OF ORAL HYPOGLYC 08/23/2016 DEDE BOBAN N Ot Z79.899 OTHER JAIL (CURRENT) DRUG THERAPY 09/26/2016 DEDE, SIMEONAN N Ot C20 MALIGNANT NEOPLASM OF RECTUM 09/26/2016 DEDESIMEONAN N Ot E11.9 TYPE 2 DIABETES MELLITUS WITHOUT COMPLIC 09/26/2016 DEDE BOBAN N Ot I10 ESSENTIAL (PRIMARY) HYPERTENSION 09/26/2016 DEDEADELAIDE N Ot I25.10 ATHSCL HEART DISEASE OF [place] CORONARY 09/26/2016 DEDE SIMEONAN N Ot J44.9 CHRONIC OBSTRUCTIVE PULMONARY DISEASE, U 09/26/2016 DEDE BOBAN N Ot Z79.84 PATIENT OFFICE REP (CURRENT) USE OF ORAL HYPOGLYC 09/26/2016 DEDE BOBAN N Ot Z79.899 OTHER JAIL (CURRENT) DRUG THERAPY 10/11/2016 SIMEON AGUAYOAN N Ot C20 MALIGNANT NEOPLASM OF RECTUM 10/11/2016 DEDE BOBAN N Ot E11.9 TYPE 2 DIABETES MELLITUS WITHOUT COMPLIC 10/11/2016 DEDE BOBAN N Ot I10 ESSENTIAL (PRIMARY) HYPERTENSION 10/11/2016 DEDE, BOBAN N Ot I25.10 ATHSCL HEART DISEASE OF [place] CORONARY 10/11/2016 [place] AGUAYO Ot J44.9 CHRONIC OBSTRUCTIVE PULMONARY DISEASE, U 10/11/2016 [place] AGUAYO Ot Z51.0 ENCOUNTER FOR ANTINEOPLASTIC RADIATION T 10/11/2016 [place] AGUAYO N Ot Z79.84 JAIL (CURRENT) USE OF ORAL HYPOGLYC 10/11/2016 [place] AGUAYO N Ot Z79.899 OTHER PATIENT OFFICE REP (CURRENT) DRUG THERAPY 11/21/2016 NARAYAN AMEZCUA MD Ot C18.9 MALIGNANT NEOPLASM OF COLON, UNSPECIFIED 11/21/2016 NARAYAN AMEZCUA MD Ot I10 ESSENTIAL (PRIMARY) HYPERTENSION 11/21/2016 NARAYAN AMEZCUA MD Ot I25.10 ATHSCL HEART DISEASE OF [place] CORONARY 11/21/2016 NARAYAN AMEZCUA MD Ot R33.9 [...] AGUAYO Ot I25.10 ATHSCL HEART DISEASE OF [place] CORONARY 11/23/2016 [place] AGUAYO Ot J44.9 CHRONIC OBSTRUCTIVE PULMONARY DISEASE, U 11/23/2016 [place] AGUAYO N Ot Z79.84 JAIL (CURRENT) USE OF ORAL HYPOGLYC 11/23/2016 [place] AGUAYO N Ot Z79.899 OTHER JAIL (CURRENT) DRUG THERAPY 11/23/2016 [place] AGUAYO N Ot C20 MALIGNANT NEOPLASM OF RECTUM 11/23/2016 [place] AGUAYO N Ot E11.9 TYPE 2 DIABETES MELLITUS WITHOUT COMPLIC 11/23/2016 [place] AGUAYO N Ot I10 ESSENTIAL (PRIMARY) HYPERTENSION 11/23/2016 [place] AGUAYO N Ot I25.10 ATHSCL HEART DISEASE OF [place] CORONARY 11/23/2016 DEDE ADELAIDE N Ot J44.9 CHRONIC OBSTRUCTIVE PULMONARY DISEASE, U 11/23/2016 DEDE [place] N Ot Z79.84 PATIENT OFFICE REP (CURRENT) USE OF ORAL HYPOGLYC 11/23/2016 DEDE, BOBAN N Ot Z79.899 OTHER PATIENT OFFICE REP (CURRENT) DRUG THERAPY 11/23/2016 DEDE, [place] N Ot C20 MALIGNANT NEOPLASM OF RECTUM 11/23/2016 DEDEADELAIDE N Ot E11.9 TYPE 2 DIABETES MELLITUS WITHOUT COMPLIC 11/23/2016 DEDE BOBKYLE N Ot I10 ESSENTIAL (PRIMARY) HYPERTENSION 11/23/2016 DEDEADELAIDE N Ot I25.10 ATHSCL HEART DISEASE OF [place] CORONARY 11/23/2016 DEDEADELAIDE N Ot J44.9 CHRONIC OBSTRUCTIVE PULMONARY DISEASE, U 11/23/2016 DEDEADELAIDE N Ot Z79.84 JAIL (CURRENT) USE OF ORAL HYPOGLYC 11/23/2016 [place] AGUAYO N Ot Z79.899 OTHER PATIENT OFFICE REP (CURRENT) DRUG THERAPY 11/23/2016 KAI HAGER Ot E11.9 TYPE 2 DIABETES MELLITUS WITHOUT COMPLIC 11/23/2016 KAI HAGER Ot E78.2 MIXED HYPERLIPIDEMIA 11/23/2016 KAI HAGER Ot I10 ESSENTIAL (PRIMARY) HYPERTENSION 11/23/2016 KAI HAGER Ot I25.10 ATHSCL HEART DISEASE OF [place] CORONARY 11/23/2016 KASSY DURAN DO Ot C20 MALIGNANT NEOPLASM OF RECTUM 11/23/2016 DEDEADELAIDE N Ot C20 MALIGNANT NEOPLASM OF RECTUM 11/23/2016 DEDEADELAIDE N Ot E11.9 TYPE 2 DIABETES MELLITUS WITHOUT COMPLIC 11/23/2016 DEDE BOBKYLE N Ot I10 ESSENTIAL (PRIMARY) HYPERTENSION 11/23/2016 EDDE BOBKYLE N Ot I25.10 ATHSCL HEART DISEASE OF [place] CORONARY 11/23/2016 DEDEADELAIDE N Ot J44.9 CHRONIC OBSTRUCTIVE PULMONARY DISEASE, U 11/23/2016 DEDEADELAIDE N Ot Z79.84 PATIENT OFFICE REP (CURRENT) USE OF ORAL HYPOGLYC 11/23/2016 DEDE BOBAN N Ot Z79.899 OTHER PATIENT OFFICE REP (CURRENT) DRUG THERAPY 12/12/2016 DEDE, A[place] N Ot C20 MALIGNANT NEOPLASM OF RECTUM 12/12/2016 DEDEADELAIDE N Ot E11.9 TYPE 2 DIABETES MELLITUS WITHOUT COMPLIC 12/12/2016 DEDEADELAIDE N Ot I10 ESSENTIAL (PRIMARY) HYPERTENSION 12/12/2016 DEDEADELAIDE N Ot I25.10 ATHSCL HEART DISEASE OF [place] CORONARY 12/12/2016 A[place] AGUAYO N Ot J44.9 CHRONIC OBSTRUCTIVE PULMONARY DISEASE, U 12/12/2016 DEDEADELAIDE N Ot Z79.84 JAIL (CURRENT) USE OF ORAL HYPOGLYC 12/12/2016 A[place]LA[place] AGUAYO N Ot Z79.899 OTHER PATIENT OFFICE REP (CURRENT) DRUG THERAPY 12/12/2016 KAI HAGER Ot E11.9 TYPE 2 DIABETES MELLITUS WITHOUT COMPLIC 12/12/2016 KAI HAGER Ot E78.2 MIXED HYPERLIPIDEMIA 12/12/2016 KAI HAGER Ot I10 ESSENTIAL (PRIMARY) HYPERTENSION 12/12/2016 KAI HAGER Ot I25.10 ATHSCL HEART DISEASE OF [place] CORONARY 12/12/2016 KASSY DURAN DO Ot C20 MALIGNANT NEOPLASM OF RECTUM 12/12/2016 ADELAIDE AGUAYO Ot C20 MALIGNANT NEOPLASM OF RECTUM 12/12/2016 A[place]LA[place] AGUAYO N Ot E11.9 TYPE 2 DIABETES MELLITUS WITHOUT COMPLIC 12/12/2016 A[place] AGUAYO N Ot I10 ESSENTIAL (PRIMARY) HYPERTENSION 12/12/2016 A[place] AGUAYO N Ot I25.10 ATHSCL HEART DISEASE OF [place] CORONARY 12/12/2016 DEDEADELAIDE N Ot J44.9 CHRONIC OBSTRUCTIVE PULMONARY DISEASE, U 12/12/2016 DEDEADELAIDE N Ot Z79.84 JAIL (CURRENT) USE OF ORAL HYPOGLYC 12/12/2016 ADELA[place] AGUAYO N Ot Z79.899 OTHER JAIL (CURRENT) DRUG THERAPY 12/22/2016 DEDEADELAIDE N Ot C20 MALIGNANT NEOPLASM OF RECTUM 12/22/2016 DEDEADELAIDE N Ot E11.9 TYPE 2 DIABETES MELLITUS WITHOUT COMPLIC 12/22/2016 DEDEADELAIDE N Ot I10 ESSENTIAL (PRIMARY) HYPERTENSION 12/22/2016 A[place]LAIDE AGUAYO Ot I25.10 ATHSCL HEART DISEASE OF [place] CORONARY 12/22/2016 ADELAIDE AGUAYO Ot J44.9 CHRONIC OBSTRUCTIVE PULMONARY DISEASE, U 12/22/2016 ADELAIDE AGUAYO Ot Z79.84 JAIL (CURRENT) USE OF ORAL HYPOGLYC 12/22/2016 ADELAIDE AGUAYO Ot Z79.899 OTHER PATIENT OFFICE REP (CURRENT) DRUG THERAPY 12/27/2016 KAI HAGER Ot E11.9 TYPE 2 DIABETES MELLITUS WITHOUT COMPLIC 12/27/2016 KAI HAGER Ot E78.2 MIXED HYPERLIPIDEMIA 12/27/2016 KAI HAGER Ot I10 ESSENTIAL (PRIMARY) HYPERTENSION 12/27/2016 KAI HAGER Ot I25.10 ATHSCL HEART DISEASE OF [place] CORONARY 12/27/2016 RENEE APARICIO, KASSY B Ot C20 MALIGNANT NEOPLASM OF RECTUM 12/27/2016 ADELA[place] AGUAYO Ot C20 MALIGNANT NEOPLASM OF RECTUM 12/27/2016 A[place] AGUAYO Ot E11.9 TYPE 2 DIABETES MELLITUS WITHOUT COMPLIC 12/27/2016 A[place] AGUAYO Ot I10 ESSENTIAL (PRIMARY) HYPERTENSION 12/27/2016 ADELAIDE AGUAYO Ot I25.10 ATHSCL HEART DISEASE OF [place] CORONARY 12/27/2016 ADELAIDE AGUAYO Ot J44.9 CHRONIC OBSTRUCTIVE PULMONARY DISEASE, U 12/27/2016 ADELAIDE AGUAYO Ot Z79.84 PATIENT OFFICE REP (CURRENT) USE OF ORAL HYPOGLYC 12/27/2016 ADELAIDE AGUAYO Ot Z79.899 OTHER JAIL (CURRENT) DRUG THERAPY 12/29/2016 KAI HAGER Ot E11.9 TYPE 2 DIABETES MELLITUS WITHOUT COMPLIC 12/29/2016 KAI HAGER Ot E78.2 MIXED HYPERLIPIDEMIA 12/29/2016 KAI HAGER Ot I10 ESSENTIAL (PRIMARY) HYPERTENSION 12/29/2016 KAI HAGER Ot I25.10 ATHSCL HEART DISEASE OF [place] CORONARY 12/29/2016 DELMAN DO, KASSY B Ot C20 MALIGNANT NEOPLASM OF RECTUM 12/29/2016 A[place]LA[place] AGUAYO Ot C20 MALIGNANT NEOPLASM OF RECTUM 12/29/2016 [place] AGUAYO Shubham Ot E11.9 TYPE 2 DIABETES MELLITUS WITHOUT COMPLIC 12/29/2016 [place] AGUAYO Shubham Ot I10 ESSENTIAL (PRIMARY) HYPERTENSION 12/29/2016 [place] AGUAYO Shubham Ot I25.10 ATHSCL HEART DISEASE OF [place] CORONARY 12/29/2016 [place] AGUAYO Shubham Ot J44.9 CHRONIC OBSTRUCTIVE PULMONARY DISEASE, U 12/29/2016 A[place] AGUAYO Shubham Ot Z79.84 PATIENT OFFICE REP (CURRENT) USE OF ORAL HYPOGLYC 12/29/2016 A[place]LA[place] AGUAYO Shubham Ot Z79.899 OTHER PATIENT OFFICE REP (CURRENT) DRUG THERAPY 12/29/2016 ASIA DO, MELONY K Ot C18.9 MALIGNANT NEOPLASM OF COLON, UNSPECIFIED 12/29/2016 ASIA DO, MELONY K Ot D64.9 ANEMIA, UNSPECIFIED 12/29/2016 ASIA DO, MELONY K Ot E86.0 DEHYDRATION 12/29/2016 ASIA DO MELONY K Ot G47.30 SLEEP APNEA, UNSPECIFIED 12/29/2016 ASIA DO, MELONY K Ot I10 ESSENTIAL (PRIMARY) HYPERTENSION 12/29/2016 ASIA DO, MELONY K Ot I25.10 ATHSCL HEART DISEASE OF [place] CORONARY 12/29/2016 ASIA DO MELONY K Ot R10.9 UNSPECIFIED ABDOMINAL PAIN 12/29/2016 ASIA DO MELONY K Ot Z79.82 PATIENT OFFICE REP (CURRENT) USE OF ASPIRIN 12/29/2016 ASIA DO MELONY K Ot Z79.84 JAIL (CURRENT) USE OF ORAL HYPOGLYC 12/29/2016 ASIA [...] DO Ot I25.10 ATHSCL HEART DISEASE OF [place] CORONARY 01/01/2017 MELONY BETANCOURT DO Ot R10.9 UNSPECIFIED ABDOMINAL PAIN 01/01/2017 MELONY BETANCOURT DO Ot Z79.82 JAIL (CURRENT) USE OF ASPIRIN 01/01/2017 MELONY BETANCOURT DO Ot Z79.84 JAIL (CURRENT) USE OF ORAL HYPOGLYC 01/01/2017 MELONY [...] MD, Ot I25.10 ATHSCL HEART DISEASE OF [place] CORONARY 01/01/2017 LUPE BRANDT MD Ot I50.9 HEART FAILURE, UNSPECIFIED 01/01/2017 LUPE BRANDT MD, Ot K80.20 CALCULUS OF GALLBLADDER W/O CHOLECYSTITI 01/01/2017 LUPE BRANDT MD Ot R10.84 GENERALIZED ABDOMINAL PAIN 01/01/2017 LUPE BRANDT MD, Ot Z79.82 PATIENT OFFICE REP (CURRENT) USE OF ASPIRIN 01/01/2017 LUPE BRANDT MD, Ot Z79.84 JAIL (CURRENT) USE OF ORAL HYPOGLYC 01/01/2017 LUPE [...] MD, Ot I25.10 ATHSCL HEART DISEASE OF [place] CORONARY 01/07/2017 LUPE BRANDT MD, Ot I50.9 HEART FAILURE, UNSPECIFIED 01/07/2017 LUPE BRANDT MD Ot K80.20 CALCULUS OF GALLBLADDER W/O CHOLECYSTITI 01/07/2017 LUPE BRANDT MD, Ot R10.84 GENERALIZED ABDOMINAL PAIN 01/07/2017 LUPE BRANDT MD, Ot Z79.82 PATIENT OFFICE REP (CURRENT) USE OF ASPIRIN 01/07/2017 LUPE BRANDT MD, Ot Z79.84 PATIENT OFFICE REP (CURRENT) USE OF ORAL HYPOGLYC 01/07/2017 LUPE [...] HAGER Ot I25.10 ATHSCL HEART DISEASE OF [place] CORONARY 01/08/2017 KASSY DURAN DO Ot C20 MALIGNANT NEOPLASM OF RECTUM 01/08/2017 ADELAIDE AGUAYO Ot C20 MALIGNANT NEOPLASM OF RECTUM 01/08/2017 [place] AGUAYO Ot E11.9 TYPE 2 DIABETES MELLITUS WITHOUT COMPLIC 01/08/2017 [place] AGUAYO N Ot I10 ESSENTIAL (PRIMARY) HYPERTENSION 01/08/2017 [place] AGUAYO Ot I25.10 ATHSCL HEART DISEASE OF [place] CORONARY 01/08/2017 DEDEADELAIDE LACY N Ot J44.9 CHRONIC OBSTRUCTIVE PULMONARY DISEASE, U 01/08/2017 DEDEADELAIDE LACY N Ot Z79.84 JAIL (CURRENT) USE OF ORAL HYPOGLYC 01/08/2017 DEDEADELAIDE N Ot Z79.899 OTHER JAIL (CURRENT) DRUG THERAPY 01/18/2017 DEDEADELAIDE LACY N Ot C20 MALIGNANT NEOPLASM OF RECTUM 01/18/2017 A[place] AGUAYO N Ot E11.9 TYPE 2 DIABETES MELLITUS WITHOUT COMPLIC 01/18/2017 DEDEADELAIDE N Ot I10 ESSENTIAL (PRIMARY) HYPERTENSION 01/18/2017 DEDEADELAIDE LACY N Ot I25.10 ATHSCL HEART DISEASE OF [place] CORONARY 01/18/2017 A[place] AGUAYO N Ot J44.9 CHRONIC OBSTRUCTIVE PULMONARY DISEASE, U 01/18/2017 DEDEADELAIDE N Ot Z79.84 JAIL (CURRENT) USE OF ORAL HYPOGLYC 01/18/2017 [place] AGUAYO N Ot Z79.899 OTHER JAIL (CURRENT) DRUG THERAPY 01/18/2017 KAI HAGER Ot E11.9 TYPE 2 DIABETES MELLITUS WITHOUT COMPLIC 01/18/2017 KAI HAGER Ot E78.2 MIXED HYPERLIPIDEMIA 01/18/2017 KAI HAGER Ot I10 ESSENTIAL (PRIMARY) HYPERTENSION 01/18/2017 KAI HAGER Ot I25.10 ATHSCL HEART DISEASE OF [place] CORONARY 01/18/2017 KASSY DURAN DO B Ot C20 MALIGNANT NEOPLASM OF RECTUM 01/18/2017 DEDEADELAIDE N Ot C20 MALIGNANT NEOPLASM OF RECTUM 01/18/2017 DEDE, BOBKYLE N Ot E11.9 TYPE 2 DIABETES MELLITUS WITHOUT COMPLIC 01/18/2017 DEDE BOBAN N Ot I10 ESSENTIAL (PRIMARY) HYPERTENSION 01/18/2017 DEDEADELAIDE N Ot I25.10 ATHSCL HEART DISEASE OF [place] CORONARY 01/18/2017 DEDE BOBAN N Ot J44.9 CHRONIC OBSTRUCTIVE PULMONARY DISEASE, U 01/18/2017 DEDE, BOBAN N Ot Z79.84 JAIL (CURRENT) USE OF ORAL HYPOGLYC 01/18/2017 DEDE BOBAN N Ot Z79.899 OTHER JAIL (CURRENT) DRUG THERAPY 02/09/2017 DEDE BOBKYLE N Ot C20 MALIGNANT NEOPLASM OF RECTUM 02/09/2017 DEDE BOBAN N Ot E11.9 TYPE 2 DIABETES MELLITUS WITHOUT COMPLIC 02/09/2017 DEDE, BOBAN N Ot I10 ESSENTIAL (PRIMARY) HYPERTENSION 02/09/2017 DEDE BOBAN N Ot I25.10 ATHSCL HEART DISEASE OF [place] CORONARY 02/09/2017 DEDE, SIMEONAN N Ot J44.9 CHRONIC OBSTRUCTIVE PULMONARY DISEASE, U 02/09/2017 DEDE BOBAN N Ot Z79.84 PATIENT OFFICE REP (CURRENT) USE OF ORAL HYPOGLYC 02/09/2017 DEDE BOBAN N Ot Z79.899 OTHER JAIL (CURRENT) DRUG THERAPY 02/09/2017 LEE DO SYED [...] HAGER Ot I25.10 ATHSCL HEART DISEASE OF [place] CORONARY 02/13/2017 DELMAN DO, KASSY B Ot C20 MALIGNANT NEOPLASM OF RECTUM 02/13/2017 ADELAIDE AGUAYO Ot C20 MALIGNANT NEOPLASM OF RECTUM 02/13/2017 ADELAIDE AGUAYO Ot E11.9 TYPE 2 DIABETES MELLITUS WITHOUT COMPLIC 02/13/2017 ADELAIDE AGUAYO Ot I10 ESSENTIAL (PRIMARY) HYPERTENSION 02/13/2017 ADELAIDE AGUAYO Ot I25.10 ATHSCL HEART DISEASE OF [place] CORONARY 02/13/2017 ADELAIDE AGUAYO Ot J44.9 CHRONIC OBSTRUCTIVE PULMONARY DISEASE, U 02/13/2017 ADELAIDE AGUAYO Ot Z79.84 PATIENT OFFICE REP (CURRENT) USE OF ORAL HYPOGLYC 02/13/2017 ADELAIDE AGUAYO Ot Z79.899 OTHER PATIENT OFFICE REP (CURRENT) DRUG THERAPY 02/13/2017 LEE DO, SYED Ot E11.9 TYPE 2 DIABETES MELLITUS WITHOUT COMPLIC 02/13/2017 LEE DO, SYED Ot E78.00 PURE HYPERCHOLESTEROLEMIA, UNSPECIFIED 02/13/2017 LEE DO, SYED Ot E78.1 PURE HYPERGLYCERIDEMIA 02/13/2017 LEE DO, SYED Ot Z00.00 ENCNTR FOR GENERAL ADULT MEDICAL EXAM W02/14/2017 LEE DO, SYED Ot E11.9 TYPE 2 DIABETES MELLITUS WITHOUT COMPLIC 02/14/2017 LEE DO, SYED Ot E78.00 PURE HYPERCHOLESTEROLEMIA, UNSPECIFIED 02/14/2017 LEE DO, SYED Ot E78.1 PURE HYPERGLYCERIDEMIA 02/14/2017 LEE DO, SYED Ot Z00.00 ENCNTR FOR GENERAL ADULT MEDICAL EXAM W02/15/2017 DELMAN DO, KASSY B Ot C20 MALIGNANT NEOPLASM OF RECTUM 02/15/2017 DELMAN DO, KASSY B Ot E11.9 TYPE 2 DIABETES MELLITUS WITHOUT COMPLIC 02/15/2017 DELMAN DO, KASSY B Ot E78.5 HYPERLIPIDEMIA, UNSPECIFIED 02/15/2017 KARUNA DURAN DOIC B Ot G47.33 OBSTRUCTIVE SLEEP APNEA (ADULT) (PEDIATR 02/15/2017 KARUNA DURAN DOIC B Ot I11.0 HYPERTENSIVE HEART DISEASE WITH HEART FA 02/15/2017 KARUNA DURAN DOIC B Ot I25.10 ATHSCL HEART DISEASE OF [place] CORONARY 02/15/2017 KARUNA DURAN DOIC B Ot I50.9 HEART FAILURE, UNSPECIFIED 02/15/2017 KARUNA DURAN DOIC B Ot I87.2 VENOUS INSUFFICIENCY (CHRONIC) (PERIPHER 02/15/2017 KARUNA DURAN DOIC B Ot J44.9 CHRONIC OBSTRUCTIVE PULMONARY DISEASE, U 02/15/2017 KASSY DURAN DO B Ot Z79.84 PATIENT OFFICE REP (CURRENT) USE OF ORAL HYPOGLYC 02/15/2017 KARUNA DURAN DOIC B Ot Z79.899 OTHER JAIL (CURRENT) DRUG THERAPY 02/15/2017 KASSY DURAN DO B Ot Z95.0 PRESENCE OF CARDIAC PACEMAKER 02/15/2017 KASSY DURAN DO B Ot Z95.5 PRESENCE OF CORONARY ANGIOPLASTY IMPLANT 02/15/2017 KAI HAGER Ot E11.9 TYPE 2 DIABETES MELLITUS WITHOUT COMPLIC 02/15/2017 KAI HAGER Ot E78.2 MIXED HYPERLIPIDEMIA 02/15/2017 KAI HAGER Ot I10 ESSENTIAL (PRIMARY) HYPERTENSION 02/15/2017 KAI HAGER Ot I25.10 ATHSCL HEART DISEASE OF [place] CORONARY 02/15/2017 KARUNA DURAN DOIC B Ot C20 MALIGNANT NEOPLASM OF RECTUM 02/15/2017 ADELAIDE AGUAYO Ot C20 MALIGNANT NEOPLASM OF RECTUM 02/15/2017 ADELAIDE AGUAYO Ot E11.9 TYPE 2 DIABETES MELLITUS WITHOUT COMPLIC 02/15/2017 ADELAIDE AGUAYO Ot I10 ESSENTIAL (PRIMARY) HYPERTENSION 02/15/2017 ADELAIDE AGUAYO Ot I25.10 ATHSCL HEART DISEASE OF [place] CORONARY 02/15/2017 ADELAIDE AGUAYO N Ot J44.9 CHRONIC OBSTRUCTIVE PULMONARY DISEASE, U 02/15/2017 ADELAIDE AGUAYO Ot Z79.84 PATIENT OFFICE REP (CURRENT) USE OF ORAL HYPOGLYC 02/15/2017 ADELAIDE AGUAYO Ot Z79.899 OTHER PATIENT OFFICE REP (CURRENT) DRUG THERAPY 02/15/2017 LEE DO, SYED Ot E11.9 TYPE 2 DIABETES MELLITUS WITHOUT COMPLIC 02/15/2017 LEE DO, SYED Ot E78.00 PURE HYPERCHOLESTEROLEMIA, UNSPECIFIED 02/15/2017 LEE DO, SYED Ot E78.1 PURE HYPERGLYCERIDEMIA 02/15/2017 LEE DO, SYED Ot Z00.00 ENCNTR FOR GENERAL ADULT MEDICAL EXAM W/ 02/19/2017 KARUNA DURAN DOIC B Ot C20 MALIGNANT NEOPLASM OF RECTUM 02/19/2017 RENEE DOKARUNAIC B Ot E11.9 TYPE 2 DIABETES MELLITUS WITHOUT COMPLIC 02/19/2017 RENEE DOKARUNAIC B Ot E78.5 HYPERLIPIDEMIA, UNSPECIFIED 02/19/2017 KARUNA DURAN DOIC B Ot G47.33 OBSTRUCTIVE SLEEP APNEA (ADULT) (PEDIATR 02/19/2017 KARUNA DURAN DOIC B Ot I11.0 HYPERTENSIVE HEART DISEASE WITH HEART FA 02/19/2017 KASSY DURAN DO B Ot I25.10 ATHSCL HEART DISEASE OF [place] CORONARY 02/19/2017 KARUNA DURAN DOIC B Ot I50.9 HEART FAILURE, UNSPECIFIED 02/19/2017 KARUNA DURAN DOIC B Ot I87.2 VENOUS INSUFFICIENCY (CHRONIC) (PERIPHER 02/19/2017 KARUNA DURAN DOIC B Ot J44.9 CHRONIC OBSTRUCTIVE PULMONARY DISEASE, U 02/19/2017 KARUNA DURAN DOIC B Ot Z79.84 PATIENT OFFICE REP (CURRENT) USE OF ORAL HYPOGLYC 02/19/2017 KASSY DURAN DO B Ot Z79.899 OTHER PATIENT OFFICE REP (CURRENT) DRUG THERAPY 02/19/2017 KARUNA DURAN DOIC B Ot Z95.0 PRESENCE OF CARDIAC PACEMAKER 02/19/2017 KARUNA DURAN DOIC B Ot Z95.5 PRESENCE OF CORONARY ANGIOPLASTY IMPLANT 02/19/2017 ADELAIDE AGUAYO Ot C20 MALIGNANT NEOPLASM OF RECTUM 02/19/2017 ADELAIDE AGUAYO Ot E11.9 TYPE 2 DIABETES MELLITUS WITHOUT COMPLIC 02/19/2017 ADELAIDE AGUAYO Ot I10 ESSENTIAL (PRIMARY) HYPERTENSION 02/19/2017 ADELAIDE AGUAYO Ot I25.10 ATHSCL HEART DISEASE OF [place] CORONARY 02/19/2017 ADELAIDE AGUAYO Ot J44.9 CHRONIC OBSTRUCTIVE PULMONARY DISEASE, U 02/19/2017 ADELAIDE AGUAYO Ot Z79.84 JAIL (CURRENT) USE OF ORAL HYPOGLYC 02/19/2017 ADELAIDE AGUAYO Ot Z79.899 OTHER JAIL (CURRENT) DRUG THERAPY 02/19/2017 ADELAIDE AGUAYO Ot C20 MALIGNANT NEOPLASM OF RECTUM 02/19/2017 ADELAIDE AGUAYO Ot E11.9 TYPE 2 DIABETES MELLITUS WITHOUT COMPLIC 02/19/2017 ADELAIDE AGUAYO Ot I10 ESSENTIAL (PRIMARY) HYPERTENSION 02/19/2017 ADELAIDE AGUAYO Ot I25.10 ATHSCL HEART DISEASE OF [place] CORONARY 02/19/2017 ADELAIDE AGUAYO Ot J44.9 CHRONIC OBSTRUCTIVE PULMONARY DISEASE, U 02/19/2017 ADELAIDE GAUAYO Ot Z79.84 JAIL (CURRENT) USE OF ORAL HYPOGLYC 02/19/2017 ADELAIDE AGUAYO Ot Z79.899 OTHER PATIENT OFFICE REP (CURRENT) DRUG THERAPY 02/22/2017 SYED LEE DO Ot E11.9 TYPE 2 DIABETES MELLITUS WITHOUT COMPLIC 02/22/2017 JESUS APARICIO SYED Ot E78.00 PURE HYPERCHOLESTEROLEMIA, UNSPECIFIED 02/22/2017 JESUS DO SYED Ot E78.1 PURE HYPERGLYCERIDEMIA 02/22/2017 SYED LEE DO Ot Z00.00 ENCNTR FOR GENERAL ADULT MEDICAL [...] measurement by glucometer (mass/volume) 179 mg/dL 70-110 Methicillin resistant Staphylococcus aureus (MRSA) screening culture - 09:00 Methicillin resistant Staphylococcus aureus (MRSA) screening culture NEG NRG Encounters ACCT No. Visit Date/Time Discharge Status Pt. Type Provider Facility Loc./Unit Complaint [id number] 02/28/2017 14:16:00 02/28/2017 23:59:59 CLS Outpatient DEDE ADELAIDE Jalloh [facility] ONC [id number] 02/15/2017 08:41:00 02/15/2017 12:10:00 DIS Outpatient KASSY DURAN DO [facility] SDC RECTAL CANCER [id number] 02/14/2017 05:39:00 02/14/2017 15:22:00 DIS Outpatient KASSY DURAN DO [facility] PREOP RECTAL CANCER [id number] 02/08/2017 10:57:00 02/08/2017 23:59:59 CLS Outpatient SYED LEE DO [facility] LAB [id number] 01/01/2017 06:44:00 01/01/2017 11:32:00 DIS Emergency LUPE BRANDT MD [facility] ER GALLBLADDER ISSUES [id number] 12/29/2016 08:26:00 12/29/2016 13:49:00 DIS Emergency MELONY BETANCOURT DO [facility] ER ELIOSTOMY BLOCKED POSSIBLY [id number] 11/21/2016 17:10:00 11/21/2016 17:57:00 DIS Emergency NARAYAN AMEZCUA MD [facility] ER POST SURG DIFFICULTY URINATING [id number] 09/12/2016 08:08:00 10/11/2016 00:01:00 DIS Outpatient ADELAIDE AGUAYO [facility] ONC [id number] 06/28/2016 07:20:00 06/28/2016 23:59:59 CLS Outpatient KASSY DURAN DO [facility] RAD COLON CA [id number] 06/22/2016 07:18:00 06/22/2016 10:25:00 DIS Outpatient KASSY DURAN DO [facility] ENDO BLOOD IN STOOLS [id number] 06/20/2016 06:43:00 06/20/2016 12:02:00 DIS Outpatient KASSY DURAN DO [facility] PREOP COLONOSCOPY [id number] 05/03/2016 09:41:00 05/03/2016 23:59:59 CLS Outpatient KAI HAGER [facility] CARD CAD,HTN,HLP, NIDDM [id number] 10/14/2014 09:06:00 10/14/2014 23:59:59 CLS Outpatient MOHAMUD WAN MD [facility] CARD CAD,HTN,HYPERLIPADEMA, SOA [id number] 09/04/2014 15:15:00 09/04/2014 15:51:00 DIS Outpatient MALLORY CASIANO DO [facility] REHAB DJD PATELLOFEMORAL JOINT B KNEE [id number] 10/15/2013 09:03:00 10/15/2013 23:59:59 CLS Outpatient MOHAMUD WAN MD [facility] CARD CHF,CAD,HTN,HLP [id number] 07/25/2013 08:24:00 07/25/2013 23:59:59 CLS Outpatient MOHAMUD WAN MD [facility] RAD HTN,CHF,CAD,HLP [id number] 04/30/2013 07:37:00 04/30/2013 23:59:59 CLS Outpatient KAI HAGER [facility] RAD CAD,CHF,COPD [id number] 04/29/2013 10:50:00 04/29/2013 23:59:59 CLS Outpatient KAI HAGER [facility] CARD CAD,CHF, COPD [id number] 12/03/2012 10:27:00 12/03/2012 23:59:59 CLS Outpatient [id number] 10/25/2012 11:59:00 11/04/2012 09:15:00 DIS Outpatient [id number] 10/21/2012 08:42:00 10/21/2012 23:59:59 CLS Outpatient [id number] 08/27/2012 10:43:00 08/28/2012 12:30:00 DIS Outpatient [id number] 08/19/2012 07:32:00 08/19/2012 23:59:59 CLS Outpatient [id number] 08/14/2012 07:47:00 08/14/2012 23:59:59 CLS Outpatient
[2017-03-06] MEDS ORDERED: CAPE500T14 PO (16:31)
[2017-03-06] MEDS ORDERED: ONDA4TAB11 PO (16:31)
[2017-03-06] MEDS ORDERED: GLYB2.5T4 PO (16:31)
[2017-03-06] MEDS ORDERED: TAMS0.4C2 PO (16:31)
[2017-03-06] MEDS ORDERED: LISI40TA PO (16:31)
[2017-03-06] MEDS ORDERED: AMLO5TAB2 PO (16:31)
[2017-03-06] MEDS: NS IV 1000 ML 1,000 ML IV SCH (16:42)
[2017-03-06] MEDS ORDERED: CATHETER FLUSH 10 ML SYR IV PRN (17:00)
[2017-03-06] MEDS ORDERED: INFLUENZA TRIvalent 2017-2018 0.5 ML/45 MCG SYR IM ONE (18:30)
[2017-03-06 20:11] VITALS: BP 128/70
[2017-03-07 00:38] VITALS: BP 137/69
[2017-03-07] MEDS: NS IV 1000 ML 1,000 ML IV SCH ×2 (02:47→11:50)
[2017-03-07 04:05] VITALS: BP 113/73
[2017-03-07 08:00] VITALS: BP 126/63
--- NOTE | 2017-03-07 08:25 | Diagnostic Imaging Report ---
Indication: Left-sided flank pain. Time of exam 7:28 AM The bowel gas pattern is nonobstructed. No free air is identified. No definite radiopaque urinary tract calculi are seen. Impression: No acute abnormality is detected. Dictated by: Dictated on workstation # [id number]
--- NOTE | 2017-03-07 10:02 | Short Stay Summary-Hospitalist ---
HPI History of Present Illness: HPI/Chief Complaint CC: New onset kidney stones HPI: This is a 61 yoWM clinic pt of [facility] with hx of rectal cancer, status post resection in [place] and is undergoing chemo. Pt presented to Dr. Goncalves's office with severe abdominal pain. CT obtained revealing kidney stones, so was admitted for pain control and urology consult. Pt Interview: RN was in the room during interview: Pt had KUB today and Dr. Salazar is okay with everything. Dr. Salazar is okay with the pt seeing him out-pt. Pt was informed that I will be in contact with Dr. Salazar if he is needing abx. Pt confirms having enough pain meds at home. Pt states he sees Dr. Cadet next week to start his next round of chemo. Physical exam stable. Lungs sound perfect. Pt denies pain and denies having had kidney stones before. Pt states he was drinking tomato juice when the pain started yesterday. Pt states he has been able to urinate. RN states the pt had about 16 mg of Morphine yesterday before he left the cancer center. Pt confirms [facility] as pharmacy. Pt asked if he will continue to get kidney stones. This was discussed and I informed the pt that Dr. Salazar will check into this more. Source: patient, family Exam Limitations: no limitations Date Seen 03/07/17 Time Seen by Provider: 09:45 Attending Physician Tae Camejo MD PCP Chelsie Lee DO Referring Physician Date of Admission Mar 06, 2017 at 16:00 Home Medications & Allergies Home Medications Reviewed patient Home Medication Reconciliation Form Allergies Allergies Coded Allergies No Known Drug Allergies (Unverified02/14/17) Past Relicji-Uxdnic-Hhtkvh Hx Patient Social History Marrital Status: Employed/Student: retired Smoking Status: Never a Smoker 2nd Hand Smoke Exposure: No Recent Foreign Travel: No Contact w/other who traveled: No Recent Hopitalizations: Yes (Dec-GALLBLADDER, NOV 29 BLADDER INFECTION) Recent Infectious Disease Expo: No Immunizations Up To Date Pediatric: No Seasonal Allergies Seasonal Allergies: No Surgeries Yes (ILEOSTOMY/COLECTOMY 11/16/16 IN [place] FOR RECTAL CANCER) Abdominal, Appendectomy, Bowel Surgery, Cardiac, Coronary Stent, Gallbladder, Pacemaker Respiratory Yes Asthma Currently Using CPAP: No (unable to tolerate) Currently Using BIPAP: No Cardiovascular Yes (CARDIAC CATH--STENT) Coronary Artery Disease, High Cholesterol, Hypertension Neurological Yes Neuropathy Reproductive System Hx Reproductive Disorders: No Sexually Transmitted Disease: No HIV/AIDS: No Genitourinary Yes (urinary retention following colon surgery) Bladder Infection, Kidney Stones Gastrointestinal Yes (RECTAL CANCER--S/P COLECTOMY AND ILEOSTOMY) Musculoskeletal Yes Arthritis Endocrine History of Endocrine Disorders: Yes Endocrine Disorders: Diabetes, Non-Insulin dep Are Your Blood Sugars Over 250: No HEENT History of HEENT Disorders: No Loss of Vision: Bilateral Hearing Impairment: Denies Cancer Yes Rectal, Colon Did You Recieve Any Treatments: Yes Type of Treatment: Chemotherapy, Radiation, Surgical Intervention Psychosocial History of Psychiatric Problem: No Integumentary History of Skin or Integumenta: No Blood Transfusions History of Blood Disorders: No Adverse Reaction to a Blood Tr: No (N/A) Family Medical History Significant Family History: No Pertinent Family Hx Family Hx: Alzheimer's disease 19 FATHER ( at 89) 19 MOTHER ( 93) Review of Systems Constitutional: see HPI EENTM: no symptoms reported Respiratory: no symptoms reported Cardiovascular: no symptoms reported Gastrointestinal: nausea, vomiting Genitourinary: no symptoms reported Musculoskeletal: back pain Skin: no symptoms reported Psychiatric/Neurological: No Symptoms Reported All Other Systems Reviewed Negative Unless Noted: Yes Physical Exam Physical Exam Vital Signs Vital Sign - Last 12Hours 03/06/17 03/07/17 16:09 08:00 Temp 98.0 Pulse 94 Resp 18 B/P (MAP) 123/67 (85) Pulse Ox 96 O2 Delivery Room Air O2 Flow Rate 0.00 Capillary Refill : General Appearance: No Apparent Distress, WD/WN, Chronically ill, Obese Eyes: Bilateral Eye Normal Inspection, Bilateral Eye PERRL HEENT: PERRL/EOMI, Normal ENT Inspection, Pharynx Normal Neck: Full Range of Motion, Normal Inspection, Non Tender, Supple, Carotid Bruit Respiratory: Chest Non Tender, Lungs Clear, Normal Breath Sounds, No Accessory Muscle Use, No Respiratory Distress Cardiovascular: Regular Rate, Rhythm, No Edema, No Gallop, No JVD, No Murmur, Normal Peripheral Pulses Gastrointestinal: Normal Bowel Sounds, No Organomegaly, No Pulsatile Mass, Non Tender, Soft Back: Normal Inspection, No CVA Tenderness, No Vertebral Tenderness Extremity: Normal Capillary Refill, Normal Inspection, Normal Range of Motion, Non Tender, No Calf Tenderness, No Pedal Edema Neurologic/Psychiatric: Alert, Oriented x3, No Motor/Sensory Deficits, Normal Mood/Affect Skin: Normal Color, Warm/Dry Lymphatic: No Adenopathy Short Stay Diagnosis Discharge Diagnosis-Short Stay Admission Diagnosis Severe renal colic refractory to pain medication requiring admission to hospital New onset kidney stones Congestive heart failure Pacemaker defibrillator managed by Dr. Ravi Recent rectal carcinoma status post resection with colostomy bag in [place] undergoing chemotherapy by Dr. Villalba Diabetes mellitus Chronic renal insufficiency mild creatinine 1.35 normal baseline Hypertension but recent orthostasis so minimizing blood pressure medicine Hyperlipidemia Final Discharge Diagnosis Severe renal colic refractory to pain medication requiring admission to hospital now resolved all awaiting passage of kidney stones sent to lab for analysis New onset kidney stones Congestive heart failure Pacemaker defibrillator managed by Dr. Ravi Recent rectal carcinoma status post resection with colostomy bag in [place] undergoing chemotherapy by Dr. Villalba Diabetes mellitus Chronic renal insufficiency mild creatinine 1.35 normal baseline Hypertension but recent orthostasis so minimizing blood pressure medicine Hyperlipidemia Conclusion Plan Plan: Follow up with Dr. Salazar in [address] Salazar if pt needs abx upon DC but he stated not necessary prior to DC so no abx was sent in Keep scheduled appointments with cancer center [facility] in meantime and call me office in 2 weeks with BP log Clinical Quality Measures DVT/VTE Risk/Contraindication: Risk Factor Score Per Nursin RFS Level Per Nursing on Admit: 4+=Very High CHELSIE LEE DO Mar 07, 2017 10:01
[2017-03-07] MEDS ORDERED: CAPECITABINE 1500 MG PO SCH (11:00)
[2017-03-07] MEDS ORDERED: ONDANSETRON 4 MG (ZOFRAN) ORAL DISSOLVE TAB PO PRN (11:00)
[2017-03-07 11:27] VITALS: BP 126/63
--- NOTE | 2017-03-07 13:52 | CONSULTATION REPORT ---
DATE OF SERVICE: ATTENDING PHYSICIAN: Dr. Khari Camejo. SUMMARY: A 61-year-old white man admitted with left-sided pain and was found to have a small stone at the left UVJ. Overnight, the patient passed a couple of stones and became free of pain. He also has some stone in the kidney. IMPRESSION: Left ureteral stone probably passed. PLAN: I had a discussion with the patient and his , told them that the only way to make sure that was a stone that was in the ureter, we either repeat noncontrast CT or do ureteroscopy, which will be really invasive at this point and expensive. I think just observing the patient is best at this time. He can go home if he wishes so and we are going to feed him this morning. Job ID: [id number] DocumentID: [id number] Dictated Date: 03/07/2017 10:16:51 Director Of Health Education Date: 03/07/2017 13:51:56 Dictated By: CAM MENDOZA MD
[2017-03-07] MEDS ORDERED: glyBURIDE 2.5 MG (MICRONASE) TAB PO SCH (16:30)
[2017-03-07] MEDS ORDERED: ASPIRIN 81 MG CHEW (CHILDREN'S ASA) PO SCH (21:00)
[2017-03-07] MEDS ORDERED: metFORMIN 500 MG (GLUCOPHAGE) TAB PO SCH (21:00)
[2017-03-08] MEDS ORDERED: sitaGLIPtin/METFORMIN 50/1000 MG (JANUMET) NON FORM PO SCH (09:00)
[2017-03-08] MEDS ORDERED: HYDROCHLOROTHIAZIDE 25 MG (HCTZ) TAB PO SCH (09:00)
[2017-03-08] MEDS ORDERED: NON-FORMULARY MEDICATION 1 EA EA (Lisinopril 40 MG) PO SCH (09:00)
[2017-03-08] MEDS ORDERED: PANTOPRAZOLE 40 MG (PROTONIX) TAB PO SCH (09:00)
[2017-03-08] MEDS ORDERED: NON-FORMULARY MEDICATION 1 EA EA (Metoprolol Succinate 200 MG) PO SCH (09:00)
[2017-03-08] MEDS ORDERED: TAMSULOSIN 0.4 MG (FLOMAX) CAP PO SCH (09:00)
== END 2017-03-07 11:50 | disposition home or self-care (01) | DRG 694 ==
LOC: 4TH 16:00
PROVIDERS: ADMIT Internal Medicine; ATTEND Internal Medicine
DX: N20.2 Calculus of kidney with calculus of ureter (principal); C20 Malignant neoplasm of rectum; I13.0 Hypertensive heart and chronic kidney disease with heart failure and stage 1 through stage 4 chronic kidney disease, or unspecified chronic kidney disease; I50.9 Heart failure, unspecified; N18.9 Chronic kidney disease, unspecified; I25.10 Atherosclerotic heart disease of native coronary artery without angina pectoris; E78.5 Hyperlipidemia, unspecified; E11.43 Type 2 diabetes mellitus with diabetic autonomic (poly)neuropathy; Z95.0 Presence of cardiac pacemaker; Z93.3 Colostomy status
CPT/HCPCS: 74019

== ENCOUNTER → 2017-03-06 | Outpatient (CLI) | payer BC ==
[~2017-03-06] MED LIST changes: +AMLO5TAB2 PO; +CAPE500T14 PO; +GLYB2.5T4 PO; +LISI40TA PO; +ONDA4TAB11 PO; +TAMS0.4C2 PO
--- NOTE | 2017-03-06 14:41 | Diagnostic Imaging Report ---
PROCEDURE: CT abdomen and pelvis without contrast. TECHNIQUE: Multiple contiguous axial images were obtained through the abdomen and pelvis without the use of intravenous contrast. INDICATION: Severe left lower quadrant pain. COMPARISON: Comparison is made with prior CT from 12/29/2016. FINDINGS: The lung bases are clear. No discrete liver mass is identified. The pancreas and spleen are unremarkable. No adrenal mass is detected. There are several nonobstructing calculi within the left kidney. There is a left-sided hydroureteronephrosis. The dilated left ureter is traced into the pelvis to the urinary bladder. There is a tiny calcific density near the UVJ approximately 2 mm in size, suggestive of a small calculus. There is mild stranding in the left hemipelvis. The area of soft tissue thickening in the left posterolateral pelvis continues to show improvement when compared with prior exam. No recurrent or residual pelvic fluid collection is identified. The bladder is unremarkable. Aorta is calcified but nonaneurysmal. The bowel loops appear nonobstructed. Right lower quadrant ostomy is again noted. IMPRESSION: Nonobstructing left renal calculi. There is moderate left hydroureteronephrosis, trace to the urinary bladder. There appears to be a tiny left UVJ calculus present. No other significant abnormality is seen. Report given to Dr. Goncalves & faxed at 2:47 p.m. 03/06/2017/rob Dictated by: Dictated on workstation # [id number]
== END ==
LOC: RAD 14:09
PROVIDERS: ATTEND Internal Medicine Hematology & Oncology
DX: N13.2 Hydronephrosis with renal and ureteral calculous obstruction (principal); M54.5 Low back pain; R11.10 Vomiting, unspecified
CPT/HCPCS: 74176

== ENCOUNTER 2017-03-14 08:46 | Outpatient (RCR) | payer BC ==
[2017-02-21 14:39] LABS: EOSINOPHILS % (AUTO) 1 % (0-10); HEMATOCRIT 34 % (40-54); HEMOGLOBIN 11.8 G/DL (13.3-17.7); LYMPHOCYTES % (AUTO) 16 % (12-44); MEAN CORPUSCULAR HEMOGLOBIN 30 PG (25-34); MEAN CORPUSCULAR HGB CONC 35 G/DL (32-36); MEAN CORPUSCULAR VOLUME 85 FL (80-99); MEAN PLATELET VOLUME 9.3 FL (7.4-10.4); MONOCYTES % (AUTO) 6 % (0-12); NEUTROPHILS % (AUTO) 77 % (42-75); PLATELET COUNT 162 10^3/uL (130-400); RED BLOOD COUNT 3.97 10^6/uL (4.35-5.85); RED CELL DISTRIBUTION WIDTH 14.4 % (10.0-14.5); WHITE BLOOD COUNT 6.1 10^3/uL (4.3-11.0)
[2017-02-21 14:40] LABS: BASOPHILS % (AUTO) 0 % (0-10); EOSINOPHILS # (AUTO) 0.1 10^3/uL (0.0-0.3); MONOCYTES # (AUTO) 0.4 X 10^3 (0.0-1.0); NEUTROPHILS # (AUTO) 4.7 X 10^3 (1.8-7.8)
[2017-02-21 15:03] LABS: BILIRUBIN,TOTAL 0.4 MG/DL (0.1-1.0); CALCIUM 9.3 MG/DL (8.5-10.1); CREATININE SERUM 1.51 MG/DL (0.60-1.30); POTASSIUM 4.9 MMOL/L (3.6-5.0); TOTAL PROTEIN 7.3 GM/DL (6.4-8.2)
[2017-02-28 15:00] LABS: BASOPHILS % (AUTO) 0 % (0-10); EOSINOPHILS # (AUTO) 0.1 10^3/uL (0.0-0.3); EOSINOPHILS % (AUTO) 1 % (0-10); HEMATOCRIT 34 % (40-54); HEMOGLOBIN 12.1 G/DL (13.3-17.7); LYMPHOCYTES # (AUTO) 0.9 X 10^3 (1.0-4.0); LYMPHOCYTES % (AUTO) 14 % (12-44); MEAN CORPUSCULAR HEMOGLOBIN 30 PG (25-34); MEAN CORPUSCULAR HGB CONC 36 G/DL (32-36); MEAN CORPUSCULAR VOLUME 85 FL (80-99); MEAN PLATELET VOLUME 9.3 FL (7.4-10.4); MONOCYTES # (AUTO) 0.4 X 10^3 (0.0-1.0); MONOCYTES % (AUTO) 5 % (0-12); NEUTROPHILS # (AUTO) 5.5 X 10^3 (1.8-7.8); NEUTROPHILS % (AUTO) 80 % (42-75); PLATELET COUNT 161 10^3/uL (130-400); RED BLOOD COUNT 4.02 10^6/uL (4.35-5.85); RED CELL DISTRIBUTION WIDTH 13.9 % (10.0-14.5); WHITE BLOOD COUNT 6.8 10^3/uL (4.3-11.0)
[2017-02-28 15:15] LABS: CALCIUM 9.2 MG/DL (8.5-10.1); CREATININE SERUM 1.42 MG/DL (0.60-1.30); POTASSIUM 4.8 MMOL/L (3.6-5.0)
[2017-03-06 13:23] LABS: BASOPHILS % (AUTO) 0 % (0-10); EOSINOPHILS # (AUTO) 0.1 10^3/uL (0.0-0.3); EOSINOPHILS % (AUTO) 1 % (0-10); HEMATOCRIT 34 % (40-54); HEMOGLOBIN 12.1 G/DL (13.3-17.7); LYMPHOCYTES # (AUTO) 1.7 X 10^3 (1.0-4.0); LYMPHOCYTES % (AUTO) 19 % (12-44); MEAN CORPUSCULAR HEMOGLOBIN 31 PG (25-34); MEAN CORPUSCULAR HGB CONC 36 G/DL (32-36); MEAN CORPUSCULAR VOLUME 85 FL (80-99); MEAN PLATELET VOLUME 9.1 FL (7.4-10.4); MONOCYTES # (AUTO) 0.6 X 10^3 (0.0-1.0); MONOCYTES % (AUTO) 6 % (0-12); NEUTROPHILS # (AUTO) 6.7 X 10^3 (1.8-7.8); NEUTROPHILS % (AUTO) 74 % (42-75); PLATELET COUNT 177 10^3/uL (130-400); RED BLOOD COUNT 3.97 10^6/uL (4.35-5.85); RED CELL DISTRIBUTION WIDTH 14.3 % (10.0-14.5); WHITE BLOOD COUNT 9.1 10^3/uL (4.3-11.0)
[2017-03-06 13:29] LABS: BILIRUBIN,URINE NEGATIVE (NEGATIVE); CLARITY,URINE CLEAR; COLOR,URINE YELLOW; GLUCOSE, URINE (UA) 4+ (NEGATIVE); KETONES,URINE NEGATIVE (NEGATIVE); LEUKOCYTE ESTERASE ,URINE NEGATIVE (NEGATIVE); NITRITE,URINE NEGATIVE (NEGATIVE); PH,URINE 5 (5-9); PROTEIN,URINE NEGATIVE (NEGATIVE); UROBILINOGEN,URINE NORMAL (NORMAL)
[2017-03-06 13:38] LABS: BACTERIA,URINE NEGATIVE /HPF; SQUAMOUS EPITHELIAL CELL,UR RARE /HPF
[2017-03-06 13:39] LABS: CALCIUM 9.2 MG/DL (8.5-10.1); CREATININE SERUM 1.38 MG/DL (0.60-1.30); POTASSIUM 4.9 MMOL/L (3.6-5.0)
[~2017-03-14] VITALS: Ht 191.8 cm; Wt 102.1 kg
[~2017-03-14 08:46] MED LIST changes: +AMLO5TAB2 PO; +CAPE500T14 PO; +D5W 500 ML IV (CANCER CTR) 500 ML IV SCH; +FOSAPREPITANT DIMEGLUMINE 150 MG in NS (IVPB) CANCER CENTER ONLY 150 ML IV SCH; +GLYB2.5T4 PO; +LISI40TA PO; +NS IV 1000 ML (CANCER CTR) 1,000 ML ONE; +ONDA4TAB11 PO; +ONDANSETRON 8 MG, DEXAMETHASONE 4 MG/NS 50 ML IVPB (Cancer Ctr) IV ONE; +OXALIPLATIN 260 MG in D5W 250 ML IVPB (CANCER CTR) 250 ML IV SCH; +PALONOSETRON 0.25 MG, DEXAMETHASONE 10 MG/NS 50 ML IVPB IV PRN; +TAMS0.4C2 PO; +morphine INJ 4 MG/ML 1 ML (CANCER CTR) IV PRN
[2017-03-14 09:06] LABS: BASOPHILS % (AUTO) 0 % (0-10); EOSINOPHILS # (AUTO) 0.1 10^3/uL (0.0-0.3); EOSINOPHILS % (AUTO) 1 % (0-10); HEMATOCRIT 34 % (40-54); HEMOGLOBIN 11.9 G/DL (13.3-17.7); LYMPHOCYTES % (AUTO) 16 % (12-44); MEAN CORPUSCULAR HEMOGLOBIN 30 PG (25-34); MEAN CORPUSCULAR HGB CONC 35 G/DL (32-36); MEAN CORPUSCULAR VOLUME 87 FL (80-99); MONOCYTES # (AUTO) 0.6 X 10^3 (0.0-1.0); MONOCYTES % (AUTO) 9 % (0-12); NEUTROPHILS % (AUTO) 74 % (42-75); PLATELET COUNT 135 10^3/uL (130-400); RED BLOOD COUNT 3.95 10^6/uL (4.35-5.85); RED CELL DISTRIBUTION WIDTH 15.7 % (10.0-14.5); WHITE BLOOD COUNT 6.7 10^3/uL (4.3-11.0)
[2017-03-14 09:38] LABS: BILIRUBIN,TOTAL 0.5 MG/DL (0.1-1.0); CALCIUM 9.4 MG/DL (8.5-10.1); CREATININE SERUM 1.41 MG/DL (0.60-1.30); MAGNESIUM 1.5 MG/DL (1.8-2.4); POTASSIUM 4.7 MMOL/L (3.6-5.0); TOTAL PROTEIN 7.5 GM/DL (6.4-8.2)
[2017-03-14] MEDS ORDERED: D5W IV SCH (09:45)
[2017-03-14] MEDS ORDERED: OXALIPLATIN IV SCH (09:45)
== END 2017-03-21 | disposition home or self-care (01) ==
LOC: ONC 08:46
PROVIDERS: ATTEND Internal Medicine Hematology & Oncology
DX: Z51.11 Encounter for antineoplastic chemotherapy (principal); C20 Malignant neoplasm of rectum; E11.9 Type 2 diabetes mellitus without complications; I10 Essential (primary) hypertension; I25.10 Atherosclerotic heart disease of native coronary artery without angina pectoris; J44.9 Chronic obstructive pulmonary disease, unspecified; Z79.84 Long term (current) use of oral hypoglycemic drugs; Z79.899 Other long term (current) drug therapy
CPT/HCPCS: 36591; 80048; 80053; 81000; 83735; 85025; 96367; 96375; 96376; 96413; 96415; 99213

== ENCOUNTER → 2017-04-10 | Outpatient (CLI) | payer BC ==
[~2017-04-10] MED LIST changes: -D5W 500 ML IV (CANCER CTR) 500 ML IV SCH; -FOSAPREPITANT DIMEGLUMINE 150 MG in NS (IVPB) CANCER CENTER ONLY 150 ML IV SCH; -NS IV 1000 ML (CANCER CTR) 1,000 ML ONE; -ONDANSETRON 8 MG, DEXAMETHASONE 4 MG/NS 50 ML IVPB (Cancer Ctr) IV ONE; -OXALIPLATIN 260 MG in D5W 250 ML IVPB (CANCER CTR) 250 ML IV SCH; -PALONOSETRON 0.25 MG, DEXAMETHASONE 10 MG/NS 50 ML IVPB IV PRN; -morphine INJ 4 MG/ML 1 ML (CANCER CTR) IV PRN
== END ==
LOC: CARD 08:40
PROVIDERS: ATTEND Internal Medicine Cardiovascular Disease
DX: I25.10 Atherosclerotic heart disease of native coronary artery without angina pectoris (principal); I11.0 Hypertensive heart disease with heart failure; I50.22 Chronic systolic (congestive) heart failure; R07.89 Other chest pain; R06.09 Other forms of dyspnea
CPT/HCPCS: 93306

== ENCOUNTER 2017-04-27 14:00 | Inpatient (IN) | payer BC ==
[~2017-04-27] VITALS: Ht 193 cm; Wt 98.1 kg
--- OUTSIDE RECORDS SUMMARY | 2017-04-27 14:18 | XMS REPORT | Clinical Summary ---
Author Author [facility] Organization [facility] Address Unknown Phone Unavailable Care Team Providers Care Lab Asst Name Role Phone Sara Tee Unavailable Unavailable Viraj Calles MD PCP Enriqueta Martino RN Unavailable Unavailable Source Comments Some departments are not documenting in the electronic medical record. If you do not see the information that you expected, contact Release of Information in the Health Information Management department at [phone] for further assistance in locating additional records.[facility] Allergies Active Allergy Reactions Severity Noted [...] of SCD DM2 (diabetes mellitus, type 2) ([facility]) 12/23/2012 Overview: Metformin Ischemic cardiomyopathy 12/23/2012 CAD (coronary artery disease) 12/06/2012 Overview: A. 08/19/12. Abnormal Myoview Treadmill Stress Test, Via [facility]. Left ventricular hypokinesis, EF 22%. Document sent to OP medical records to be scanned to patient record. B. 08/27/12. [facility], ANA MARÍA to LAD. C. 12/03/12. Echocardiogram-EF 30% Dilated LV with diffuse LV hypokinesia, anterior wall, anterior septum. Mild mitral and tricuspid regurgitation. Insufficient doppler signal to evaluate pulmonary artery pressure. COPD (chronic obstructive pulmonary disease) ([facility]) 12/06/2012 CHF (congestive heart failure) ([facility]) 12/06/2012 SADA (obstructive sleep apnea) 12/06/2012 S/P coronary artery stent placement 12/06/2012 Overview: 08/27/12. [facility], [address] [place], [place]. 95% proximal LAD stenosis. 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
[2017-04-27] MEDS ORDERED: fentaNYL INJECTION 100 MCG/2 ML AMP IVP PRN (14:30)
[2017-04-27] MEDS ORDERED: VANCOMYCIN INJECTION 1,000 MG in NS (IVPB) 250 ML IV SCH (14:30)
[2017-04-27] MEDS ORDERED: ALPRAZolam 0.25 MG (XANAX) TAB PO PRN (14:30)
[2017-04-27] MEDS ORDERED: ONDANSETRON 4 MG/2 ML (SDV) Z0FRAN IVP PRN (14:30)
[2017-04-27] MEDS ORDERED: ACETAMINOPHEN 500 MG TAB (TYLENOL) PO PRN (14:30)
[2017-04-27] MEDS ORDERED: SILV25CR21 TOP (14:54)
[2017-04-27 15:10] LABS: BASOPHILS % (AUTO) 0 % (0-10); EOSINOPHILS # (AUTO) 0.1 10^3/uL (0.0-0.3); EOSINOPHILS % (AUTO) 1 % (0-10); HEMATOCRIT 28 % (40-54); HEMOGLOBIN 9.8 G/DL (13.3-17.7); LYMPHOCYTES # (AUTO) 0.7 X 10^3 (1.0-4.0); LYMPHOCYTES % (AUTO) 12 % (12-44); MEAN CORPUSCULAR HEMOGLOBIN 32 PG (25-34); MEAN CORPUSCULAR HGB CONC 35 G/DL (32-36); MEAN CORPUSCULAR VOLUME 92 FL (80-99); MEAN PLATELET VOLUME 8.7 FL (7.4-10.4); MONOCYTES # (AUTO) 0.4 X 10^3 (0.0-1.0); MONOCYTES % (AUTO) 6 % (0-12); NEUTROPHILS # (AUTO) 5.1 X 10^3 (1.8-7.8); NEUTROPHILS % (AUTO) 82 % (42-75); PLATELET COUNT 140 10^3/uL (130-400); RED BLOOD COUNT 3.05 10^6/uL (4.35-5.85); WHITE BLOOD COUNT 6.2 10^3/uL (4.3-11.0)
[2017-04-27] MEDS ORDERED: PIPERACILLIN SODIUM/TAZOBACTAM 4.5 GM in NS (IVPB) 100 ML IV NR (15:18)
[2017-04-27] MEDS: ENOXAPARIN 40 MG/0.4 ML (LOVENOX) SYR SC SCH (15:19)
[2017-04-27] MEDS: NS IV 1000 ML 1,000 ML IV SCH (15:19)
[2017-04-27 15:29] LABS: ALBUMIN 3.5 GM/DL (3.2-4.5); BILIRUBIN,TOTAL 0.5 MG/DL (0.1-1.0); CALCIUM 8.8 MG/DL (8.5-10.1); CREATININE SERUM 1.27 MG/DL (0.60-1.30); ERYTHROCYTE SEDIMENTATION RATE 97 MM/HR (0-30); POTASSIUM 4.8 MMOL/L (3.6-5.0); TOTAL PROTEIN 6.6 GM/DL (6.4-8.2)
[2017-04-27] MEDS: VANCOMYCIN 1500 MG/NS 500 ML IVPB IV SCH ×2 (16:19)
[2017-04-27] MEDS: inSUlin ASPART (NovoLOG) 1 UNIT/0.01 ML (CHARGE PER UNIT) SC SCH ×2 (16:20→21:35)
[2017-04-27 16:37] VITALS: BP 121/66
--- NOTE | 2017-04-27 17:19 | Diagnostic Imaging Report ---
PROCEDURE: US Bilateral lower extremity arterial. TECHNIQUE: Multiple real-time grayscale images are obtained through both lower extremity arterial systems with color Doppler imaging and color Doppler spectral analysis. INDICATION: Right foot ulcer. FINDINGS: There are normal high resistive triphasic waveforms throughout both common femorals, superficial femorals, and popliteals. The femoropopliteal levels show normal velocities without evidence of hemodynamically significant stenosis. There is antegrade flow in the ankles bilaterally at the dorsalis pedis and posterior tibials; however, there is a monophasic waveform at the right ankle and biphasicity of the waveforms at the left ankle. IMPRESSION: No arterial obstruction or hemodynamically significant focal stenosis. Proximally and throughout the thigh normal high resistive waveforms are present. In the ankles, there are monophasic waveforms on the right and biphasic waveforms on the left. Dictated by: Dictated on workstation # [id number]
--- NOTE | 2017-04-27 17:20 | Wound Care Assessment ---
Wound Care Assessment Date Seen by Provider: Apr 27, 2017 Time Seen by Provider: 17:15 Chief Complaint Ulcer R great toe. HPI The patient is a 61 year old male with the acute onset of chills and rigors 48 hours ago, associated with increased redness and swelling the R great toe. He has had the wound for 2 weeks, has received debridement, completed a course of Bactrim, and received chemotherapy for colon cancer two weeks ago. He has erythema of the dorsal part of the great toe and lymphangitis streaking up the dorsal foot. He has been admitted for care and IV Zosyn and Vancomycin, awaiting culture results. Past Medical History: Admits Diabetes Type II, Admits Heart Disease, Admits Myocardial Infarction, Admits Peripheral Artery Disease, Admits Cancer, Treaments (Undergoing consolidation chemotherapy per Dr. 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 Review of Systems General: Chills, Malaise HEENT: No Head Aches, No Visual Changes Pulmonary: No Dyspnea, No Cough Cardiovascular: Edema, No: Chest Pain, Palpitations Gastrointestinal: Other (Gall bladder removed 6 months ago.), No: Nausea, Vomiting, Abdominal Pain Genitourinary: Dysuria, Retention (Hx post op), Other (States that he passed kidney stones last night.) Musculoskeletal: other (bilateral mild Charcot deformity of ankles.), foot pain Neurological: Weakness, Numbness Other systems endocrine -- Diabetes, on oral meds, does no routinely check blood glucose levels. Psych - denies problem Exam Vital Signs Date Time Temp Pulse Resp B/P (MAP) Pulse Ox O2 Delivery O2 Flow Rate FiO2 04/27/17 16:37 98.6 90 17 121/66 (84) 98 Room Air Capillary Refill : General Appearance: WD/WN, no apparent distress HEENT: normal ENT inspection Neck: full range of motion, normal inspection Cardiovascular: regular rate, rhythm, no gallop Respiratory: normal breath sounds, no respiratory distress, no accessory muscle use Gastrointestinal: normal bowel sounds, non tender, soft Extremities: normal range of motion, pedal edema (mild) Neurologic/Psychiatric: alert, normal mood/affect, oriented x 3, other ( diminished sensation in feet.) Skin: other Skin Character: erythema (dorsum of R great toe), lesion (Plantar, R great toe , ulcer, 0.8 x 1.2 x 1.3 cm, purulent drainage, probes to bone, deep space involvement) Results Laboratory Tests 04/27/17 14:48: White Blood Count 6.2, Red Blood Count 3.05L, Hemoglobin 9.8L, Hematocrit 28L, Mean Corpuscular Volume 92, Mean Corpuscular Hemoglobin 32, Mean Corpuscular Hemoglobin Concent 35, Red Cell Distribution Width 17.0H, Platelet Count 140, Mean Platelet Volume 8.7, Neutrophils (%) (Auto) 82H, Lymphocytes (%) (Auto) 12 , Monocytes (%) (Auto) 6, Eosinophils (%) (Auto) 1, Basophils (%) (Auto) 0, Neutrophils # (Auto) 5.1, Lymphocytes # (Auto) 0.7L, Monocytes # (Auto) 0.4, Eosinophils # (Auto) 0.1, Basophils # (Auto) 0.0, Erythrocyte Sedimentation Rate 97H, Sodium Level 134L, Potassium Level 4.8, Chloride Level 107, Carbon Dioxide Level 22, Anion Gap 5, Blood Urea Nitrogen 24H, Creatinine 1.27, Estimat Glomerular Filtration Rate 57, BUN/Creatinine Ratio 19, Glucose Level 204H, Lactic Acid Level 1.14, Calcium Level 8.8, Total Bilirubin 0.5, Aspartate Amino Transf (AST/SGOT) 27, Alanine Aminotransferase (ALT/SGPT) 36, Alkaline Phosphatase 142H, C-Reactive Protein High Sensitivity 6.03H, Total Protein 6.6, Albumin 3.5 04/27/17 15:28: Glucometer 185H Assessment/Plan/Dx 1. Diabetic foot ulcer, R great toe, Merida Grade 3, based on the presence of a deep space infection, with [id number] and lymphangitis. 2. Probable osteomyelitis of R great toe. 3. Peripheral arterial disease, with diminished pulses R foot. 4. Diabetic neuropathy. 5. Chronic renal failure, Stage 3. 6. CAD, previous [place], Hx of congestive heart failure. We will begin work-up for osteomyelitis and arterial insufficiency. There is pus expressible from the deep space of the wound, and it probes to bone. A culture of the deep space is taken. Begin Dakin's dressings. Plain films, review arterial studies. Not a candidate for MRI due to the presence of pacemaker. CECELIA MILLER MD Apr 27, 2017 17:20
--- NOTE | 2017-04-27 19:13 | Diagnostic Imaging Report ---
INDICATION: Infected, draining wound of the right great toe. Left foot ulcer. TECHNIQUE: Three views of the bilateral feet. CORRELATION STUDY: None. FINDINGS: Right foot: Surgical changes of the first metatarsal and proximal phalanx with fixation pins are present. There is deformity at the first MTP joint with joint space narrowing, marginal osteophyte formation and loss of the normal rounded configuration and contour. No acute bony abnormality. No bony destructive type change. Prominent calcaneal spur formation. Soft tissue swelling, particularly of the great toe. Left foot: There is marked deformity about the first MTP joint with the essentially absence of the joint. The expanded flattened appearance but the metatarsal head and proximal phalanx with large bulky osteophytes. Right-sided transverse line is noted. Plantar joint are narrowed. No definitive acute bony matter niels erosive type change. Prominent calcaneal spur formation. IMPRESSION: Negative acute abdomen about the foot. The prior surgical change the of the right great toe with markedly advanced and destructive appearance about the first MTP joint of the left foot. Dictated by: Dictated on workstation # [id number]
[2017-04-27 19:30] VITALS: BP 124/63
[2017-04-27] MEDS: DAKIN'S 1/4 STRENGTH (0.125%) 473 ML BTL TOP SCH (21:34)
[2017-04-27] MEDS: PIPERACILLIN SODIUM/TAZOBACTAM 4.5 GM in NS (IVPB) 100 ML IV SCH (21:48)
[2017-04-28] VITALS: BP 131/68
[2017-04-28] MEDS: NS IV 1000 ML 1,000 ML IV SCH ×3 (00:59→17:27)
[2017-04-28 03:53] VITALS: BP 131/61
[2017-04-28] MEDS: VANCOMYCIN 1500 MG/NS 500 ML IVPB IV SCH ×4 (04:28→16:16)
[2017-04-28 04:46] LABS: BASOPHILS % (AUTO) 0 % (0-10); EOSINOPHILS # (AUTO) 0.1 10^3/uL (0.0-0.3); EOSINOPHILS % (AUTO) 2 % (0-10); HEMATOCRIT 26 % (40-54); LYMPHOCYTES # (AUTO) 0.7 X 10^3 (1.0-4.0); LYMPHOCYTES % (AUTO) 15 % (12-44); MEAN CORPUSCULAR HEMOGLOBIN 32 PG (25-34); MEAN CORPUSCULAR HGB CONC 35 G/DL (32-36); MEAN CORPUSCULAR VOLUME 92 FL (80-99); MEAN PLATELET VOLUME 8.6 FL (7.4-10.4); MONOCYTES # (AUTO) 0.4 X 10^3 (0.0-1.0); MONOCYTES % (AUTO) 8 % (0-12); NEUTROPHILS # (AUTO) 3.5 X 10^3 (1.8-7.8); NEUTROPHILS % (AUTO) 74 % (42-75); PLATELET COUNT 125 10^3/uL (130-400); RED BLOOD COUNT 2.83 10^6/uL (4.35-5.85); RED CELL DISTRIBUTION WIDTH 16.5 % (10.0-14.5); WHITE BLOOD COUNT 4.8 10^3/uL (4.3-11.0)
[2017-04-28 05:02] LABS: ALBUMIN 3.3 GM/DL (3.2-4.5); BILIRUBIN,TOTAL 0.4 MG/DL (0.1-1.0); CALCIUM 8.8 MG/DL (8.5-10.1); CREATININE SERUM 1.23 MG/DL (0.60-1.30); POTASSIUM 4.5 MMOL/L (3.6-5.0); TOTAL PROTEIN 6.1 GM/DL (6.4-8.2)
[2017-04-28] MEDS: inSUlin ASPART (NovoLOG) 1 UNIT/0.01 ML (CHARGE PER UNIT) SC SCH ×4 (05:10→21:28)
[2017-04-28] MEDS: PIPERACILLIN SODIUM/TAZOBACTAM 4.5 GM in NS (IVPB) 100 ML IV SCH ×3 (06:58→21:46)
[2017-04-28 07:28] VITALS: BP 148/72
[2017-04-28] MEDS: DAKIN'S 1/4 STRENGTH (0.125%) 473 ML BTL TOP SCH ×2 (08:04→21:29)
[2017-04-28] MEDS ORDERED: DAKIN'S 1/4 STRENGTH (0.125%) 473 ML BTL TOP SCH (09:00)
[2017-04-28] MEDS ORDERED: ONDANSETRON 4 MG (ZOFRAN) ORAL DISSOLVE TAB PO PRN (10:30)
--- NOTE | 2017-04-28 11:05 | Wound Care Assessment ---
Wound Care Assessment Date Seen by Provider: Apr 28, 2017 Time Seen by Provider: 10:59 Chief Complaint Ulcer R great toe. HPI The patient is a 61 year old male with R great toe wound, with deep space infection that has been cultured. Plain films are negative. Arterial duplex shows no significant stenoses. Segmental pressures are pending. He is currently receiving IV Vancomycin and Zosyn. He states that the foot feels better today. No debridement today. Past Medical History: Admits Diabetes Type II, Admits Heart Disease, Admits Myocardial Infarction, Admits Peripheral Artery Disease Smoking Status: Never a Smoker Recreational Drug Use: No Alcohol Use: Denies Use Other Social Hx Retired, , with 2 children. Review of Systems General: No Chills Pulmonary: No Dyspnea Cardiovascular: No: Chest Pain Exam Vital Signs Date Time Temp Pulse Resp B/P (MAP) Pulse Ox O2 Delivery O2 Flow Rate FiO2 04/28/17 07:28 97.9 83 17 148/72 (97) 98 Room Air Capillary Refill : General Appearance: no apparent distress HEENT: normal ENT inspection Neck: normal inspection Cardiovascular: no edema (He is elevating his legs.) Respiratory: no respiratory distress Skin: other (R great toe -- 0.7 x 1.1 x 0.8 cm, base 100% slough, able to express pus from deep tissues.) Results Laboratory Tests 04/27/17 14:48: White Blood Count 6.2, Red Blood Count 3.05L, Hemoglobin 9.8L, Hematocrit 28L, Mean Corpuscular Volume 92, Mean Corpuscular Hemoglobin 32, Mean Corpuscular Hemoglobin Concent 35, Red Cell Distribution Width 17.0H, Platelet Count 140, Mean Platelet Volume 8.7, Neutrophils (%) (Auto) 82H, Lymphocytes (%) (Auto) 12 , Monocytes (%) (Auto) 6, Eosinophils (%) (Auto) 1, Basophils (%) (Auto) 0, Neutrophils # (Auto) 5.1, Lymphocytes # (Auto) 0.7L, Monocytes # (Auto) 0.4, Eosinophils # (Auto) 0.1, Basophils # (Auto) 0.0, Erythrocyte Sedimentation Rate 97H, Sodium Level 134L, Potassium Level 4.8, Chloride Level 107, Carbon Dioxide Level 22, Anion Gap 5, Blood Urea Nitrogen 24H, Creatinine 1.27, Estimat Glomerular Filtration Rate 57, BUN/Creatinine Ratio 19, Glucose Level 204H, Lactic Acid Level 1.14, Calcium Level 8.8, Total Bilirubin 0.5, Aspartate Amino Transf (AST/SGOT) 27, Alanine Aminotransferase (ALT/SGPT) 36, Alkaline Phosphatase 142H, C-Reactive Protein High Sensitivity 6.03H, Total Protein 6.6, Albumin 3.5 04/27/17 15:28: Glucometer 185H 04/27/17 20:15: Glucometer 135H 04/28/17 04:35: White Blood Count 4.8, Red Blood Count 2.83L, Hemoglobin 9.0L, Hematocrit 26L, Mean Corpuscular Volume 92, Mean Corpuscular Hemoglobin 32, Mean Corpuscular Hemoglobin Concent 35, Red Cell Distribution Width 16.5H, Platelet Count 125L, Mean Platelet Volume 8.6, Neutrophils (%) (Auto) 74, Lymphocytes (%) (Auto) 15, Monocytes (%) (Auto) 8, Eosinophils (%) (Auto) 2, Basophils (%) (Auto) 0, Neutrophils # (Auto) 3.5, Lymphocytes # (Auto) 0.7L, Monocytes # (Auto) 0.4, Eosinophils # (Auto) 0.1, Basophils # (Auto) 0.0, Sodium Level 138, Potassium Level 4.5, Chloride Level 110H, Carbon Dioxide Level 21, Anion Gap 7, Blood Urea Nitrogen 21H, Creatinine 1.23, Estimat Glomerular Filtration Rate 59, BUN/ Creatinine Ratio 17, Glucose Level 93, Calcium Level 8.8, Total Bilirubin 0.4, Aspartate Amino Transf (AST/SGOT) 23, Alanine Aminotransferase (ALT/SGPT) 30, Alkaline Phosphatase 134, Total Protein 6.1L, Albumin 3.3 04/28/17 05:48: Glucometer 90 Microbiology 04/27/17 Gram Stain - Final, Resulted 04/27/17 Wound Culture - Preliminary, Resulted Staphylococcus aureus Strep Or Related Genus Microbiology 04/27/17 Gram Stain - Final, Resulted 04/27/17 Wound Culture - Preliminary, Resulted Staphylococcus aureus Strep Or Related Genus Assessment/Plan/Dx 1. Diabetic foot ulcer, R great toe, Merida Grade 3, based on the presence of a deep space infection, with [id number] and lymphangitis. 2. Probable osteomyelitis of R great toe. 3. Peripheral arterial disease, with absent pulses R foot. 4. Diabetic neuropathy. 5. Chronic renal failure, Stage 3. 6. CAD, previous [place], Hx of congestive heart failure. Plan: Continue Zosyn/Vancomycin, await culture results. Segmental arterial pressures ordered; triple phase bone scan ordered. Not a candidate for MRI due to the presence of pacemaker. CECELIA MILLER MD Apr 28, 2017 11:05
[2017-04-28 11:30] VITALS: BP 155/73
--- NOTE | 2017-04-28 12:41 | History & Physical ---
History of Present Illness History of Present Illness Reason for visit/HPI CC: Right great toe DM ulcer with acute cellulitis HPI: This is a 61-year-old white male clinic patient of mine that I just saw Sunday for 2 month follow-up for his diabetes with a history of rectal carcinoma diagnosed last summer status post diverting colostomy after resection currently on chemotherapy by Dr. Villalba, CAD with ischemic cardiomyopathy managed by Dr. Ravi and diabetes mellitus, hypertension, hyperlipidemia along with renal insufficiency who presents to my walk-in clinic yesterday with complaints of worsened right toe pain with redness. I assessed the area and my clinic to have a diabetic ulcer that Dr. Briseno podiatry was managing but I told him if anything worsened he was reported in and that is what he did I assessed the right great toe to have acute cellulitis and in need of inpatient therapy. I consulted wound care Dr. Arvizu who graciously evaluated the patient and has initiated treatment and told me that it goes to the bone and bone scan will be completed on Sunday for presumed osteomyelitis. I reviewed all of his admission labs and noted he had not received chemotherapy on Sunday due to weakened state from a stoma issue that required which time admission 2 weeks prior. I have initiated empiric treatment with Zosyn and vancomycin Dr. Arvizu did obtain culture so that will be completed by Sunday along with bone scan results to evaluate if we need to have long-term IV antibiotics or short-term oral antibiotics. I updated the patient and his family regarding the plan and they were agreeable to all of the protocol set out. Date of Admission Apr 27, 2017 at 14:00 Date Seen by Provider: Apr 28, 2017 Time Seen by Provider: 11:00 I consulted on this patient on 04/28/17 12:36 Attending Physician Chelsie Lee DO Admitting Physician Chelsie Lee DO Consult Allergies and Home Medications Allergies Coded Allergies: No Known Drug Allergies (Unverified , 02/14/17) Home Medications Aspirin 81 Mg Tab.chew, 81 MG PO HS, (Reported) Capecitabine 500 Mg Tablet, PO UD, (Reported) TAKES 2 (500MG) TABS IN THE AM AND 3 (500MG) TABS IN PM X 2 WEEKS, THEN OFF 1 WEEK AND REPEAT. Glyburide 2.5 Mg Tablet, 2.5 MG PO BID, (Reported) Lisinopril 40 Mg Tablet, 40 MG PO DAILY, (Reported) Metoprolol Succinate 200 Mg Tab.er.24h, 200 MG PO HS, (Reported) Ondansetron 4 Mg Tab.rapdis, 4 MG PO Q4H PRN for NAUSEA/VOMITING-1ST LINE, ( Reported) Pantoprazole Sodium 40 Mg Tablet.dr, 40 MG PO DAILY, (Reported) Silver Sulfadiazine 25 Gm Cream..g., TOP BID, (Reported) APPLY TO TOE Tamsulosin HCl 0.4 Mg Cap.er.24h, 0.4 MG PO DAILY, (Reported) Patient Home Medication List Home Medication List Reviewed: Yes Past Fbmzljp-Wqohba-Jxbxuq Hx Past Med/Social Hx: Reviewed Nursing Past Med/Soc Hx, Reviewed and Corrections made Patient Social History Marrital Status: Employed/Student: retired ([employer] in [place]) Alcohol Use: Denies Use Recreational Drug Use: No Smoking Status: Never a Smoker 2nd Hand Smoke Exposure: No Physical Abuse Screen: No Sexual Abuse: No Recent Foreign Travel: No Contact w/other who traveled: No Recent Hopitalizations: Yes (Dec-GALLBLADDER, NOV 29 BLADDER INFECTION) Recent Infectious Disease Expo: No Immunizations Up To Date Pediatric: No Seasonal Allergies Seasonal Allergies: No Past Medical History Surgeries: Abdominal, Appendectomy, Bowel Surgery, Cardiac, Coronary Stent, Gallbladder, Pacemaker Respiratory: Asthma Currently Using CPAP: No (unable to tolerate) Currently Using BIPAP: No Cardiac: Coronary Artery Disease, High Cholesterol, Hypertension Neurological: Neuropathy Reproductive: No Sexually Transmitted Disease: No HIV/AIDS: No Genitourinary: Bladder Infection, Kidney Stones Musculoskeletal: Arthritis Endocrine: Diabetes, Non-Insulin dep Loss of Vision: Bilateral Hearing Impairment: Denies Cancer: Rectal, Colon Did You Recieve Any Treatments: Yes What Type of Treatment Did You: Chemotherapy, Radiation, Surgical Intervention Psychosocial: Depression Skin/Integumentary: Recent Skin Changes History of Blood Disorders: No Adverse Reaction to Blood Bergeron: No (N/A) Family History Reviewed and Corrections made Alzheimer's disease 19 FATHER ( at 89) 19 MOTHER ( 93) No Pertinent Family Hx, CAD Over 55 Years Old, Diabetes, Hypertension Constitutional: see HPI, chills, dizziness, fever, weakness EENTM: no symptoms reported Respiratory: no symptoms reported Cardiovascular: no symptoms reported Gastrointestinal: loss of appetite, nausea Genitourinary: no symptoms reported Musculoskeletal: joint pain (right foot) Skin: see HPI Psychiatric/Neurological: Depressed All Other Systems Reviewed Negative Unless Noted: Yes Physical Exam Vital Signs Vital Signs - First Documented 04/27/17 16:37 Temp 98.6 Pulse 90 Resp 17 B/P (MAP) 121/66 (84) Pulse Ox 98 O2 Delivery Room Air Capillary Refill : General Appearance: No Apparent Distress, WD/WN, Chronically ill Eyes: Bilateral Eye Normal Inspection, Bilateral Eye PERRL, Bilateral Eye EOMI HEENT: PERRL/EOMI, TMs Normal, Normal ENT Inspection, Pharynx Normal Neck: Full Range of Motion, Normal Inspection, Non Tender, Supple, Carotid Bruit Respiratory: Chest Non Tender, Lungs Clear, Normal Breath Sounds, No Accessory Muscle Use, No Respiratory Distress Cardiovascular: Regular Rate, Rhythm, No Edema, No Gallop, No JVD, No Murmur, Normal Peripheral Pulses Gastrointestinal: Normal Bowel Sounds, No Organomegaly, No Pulsatile Mass, Non Tender, Soft Back: Normal Inspection, No CVA Tenderness, No Vertebral Tenderness Extremity: Normal Capillary Refill, Normal Inspection, Normal Range of Motion, Non Tender, No Calf Tenderness, No Pedal Edema Neurologic/Psychiatric: Alert, Oriented x3, No Motor/Sensory Deficits, Normal Mood/Affect Skin: Normal Color, Warm/Dry, Other (right great toe with erythema and drainage on plantar surface proximal great toe) Lymphatic: No Adenopathy Assessment/Plan Assessment and Plan Assessment: Right great toe acute cellulitis with presumed osteomyelitis failed outpatient wound care placed on IV antibiotics empirically culture pending Rectal carcinoma s/p colostomy status and post radiation and currently on chemotherapy did not have chemotherapy on Sunday due to weakened state Stoma dysfunction status post [place] admission 2 weeks ago currently doing well Diabetes mellitus last hemoglobin A1c was 8.2 Peripheral vascular disease CAD previous stents Ischemic cardiomyopathy status post defibrillator pacemaker managed by Dr. Ravi History of kidney stones new onset 2018 managed by urology Hypertension Hyperlipidemia Plan: Empiric antibiotics until wound culture returns Home medications reconciled and restarted Monitor blood sugars Maintain gentle IV fluids Check labs in a.m. DVT prophylaxis with Lovenox Problems: (1) Cellulitis and abscess of foot Status: Acute Assessment & Plan: IV abx Zosyn and Vanc (2) Renal insufficiency Status: Chronic (3) Rectal carcinoma Status: Chronic (4) Colostomy in place Status: Chronic (5) Diabetes mellitus Status: Chronic (6) Hypertension Status: Chronic (7) Hyperlipidemia Status: Chronic (8) Renal stones Status: Chronic Admission Diagnosis Admission Status: Inpatient Order (span 2 midnights) Reason for Inpatient Admission: IV abx for presumed osteomyelitis and severe diabetes with cehmo for rectal carcinoma Clinical Quality Measures DVT/VTE Risk/Contraindication: Risk Factor Score Per Nursin RFS Level Per Nursing on Admit: 4+=Very High Problem Qualifiers (1) Diabetes mellitus: Diabetes mellitus type: type 2 Diabetes mellitus complication status: with circulatory complication Diabetes mellitus complication detail: with other circulatory complications 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
--- NOTE | 2017-04-28 12:51 | Diagnostic Imaging Report ---
INDICATION: Nonhealing infection of the right foot. Peripheral arterial disease. ABIs of the lower extremities was performed which shows an CHRISTINA of 1.48 on the right and 1.39 on the left. IMPRESSION: Normal ABIs. Dictated by: Dictated on workstation # [id number]
--- NOTE | 2017-04-28 13:54 | Consultation-Cardiology ---
HPI-Cardiology Cardiology Consultation: Date of Consultation 04/28/17 Date of Admission Attending Physician Chelsie Lucia DO Admitting Physician Chelsie Lucia DO Consulting Physician Paola MANZANARES MD HPI: Time Seen by Provider: 11:15 Chief Complaint: Nonhealing ulcer This is a 61-year-old patient of Dr. Lucia and Dr. Ravi. He has history of diabetes, rectal carcinoma with colostomy after resection and currently on chemotherapy. Patient has history of ischemic cardiomyopathy with most recent EF of 45 percent. Patient also has history of hypertension, hyperlipidemia, chronic kidney disease. Patient presented to Dr. Lucia's office with worsening right lower extremity pain and redness. Diabetic ulcer with acute cellulitis. Patient denies shortness of breath, chest pain, near-syncope, syncope, palpitation. Review of Systems-Cardiology Review of Systems Constitutional: As described under HPI Eyes: No As described under HPI, No no symptoms reported, No blindness, No blurred vision, No contact lenses, No drainage, No decreased acuity, No foreign body sensation, No glasses, No inflammation, No pain, No photophobia, No previous injury, No shadows, No tunnel vision, No other, No vision change Ears/Nose/Throat: No As described under HPI, No no symptoms reported, No chronic hearing loss, No epistaxis, No ear discharge, No ear pain, No loose teeth, No mouth pain, No mouth swelling, No nasal drainage, No nose pain, No recent hearing loss, No throat pain, No throat swelling, No ulcerations, No other Respiratory: No no symptoms reported, No As described under HPI, No cough, No orthopnea, No shortness of breath, No SOB with excertion, No SOB at rest, No stridor, No wheezing, No other Cardiovascular: No no symptoms reported, No As described under HPI, No chest pain, No edema, No irregular heart rate, No lightheadedness, No palpitations, No syncope, No other Gastrointestinal: No no symptoms reported, No As described under HPI, No abdomen distended, No abdominal pain, No blood streaked bowels, No constipation , No diarrhea, No difficulty swallowing, No nausea, No poor appetite, No poor fluid intake, No rectal bleeding, No vomiting, No other, No nausea/vomiting/ diarrhea, No stool coloration changes Genitourinary: No no symptoms reported, No As described under HPI, No burning, No dysuria, No discharge, No frequency, No flank pain, No hematuria, No incontinence, No pain, No urgency, No other, No urine frequency changes, No urine coloration changes Musculoskeletal: No no symptoms reported, No As describe under HPI, No back pain, No gout, No joint pain, No joint swelling, No muscle pain, No muscle stiffness, No neck pain, No other Skin: No no symptoms reported, No As described under HPI, No change in color, No change in hair/nails, No dryness, No lesions, No lumps, No rash, No other, No skin related problems, ulcerations, No rash on exposed areas, No ulcerations on exposed areas Psychiatric/Neurological: No no symptoms reported, No As described under HPI, No anxiety, No depression, No emotional problems, No headache, No numbness, No pre-existing deficit, No seizure, No tingling, No tremors, No weakness, No other , No focal weakness, No syncope Hematologic: No no symptoms reported, No As described under HPI, No anemia, No blood clots, No easy bleeding, No easy bruising, No swollen glands, No other, No bleeding abnormalities All Other Systems Reviewed Negative Unless Noted: Yes DAA-Lgucnb-Hsqlsf Hx Patient Social History Marrital Status: Employed/Student: retired ([employer] in [place]) Alcohol Use: Denies Use Recreational Drug Use: No Smoking Status: Never a Smoker 2nd Hand Smoke Exposure: No Recent Foreign Travel: No Recent Infectious Disease Expo: No Physical Abuse Screen: No Sexual Abuse: No Past Medical History PMH As described under Assessment. Family Medical History Family History: Alzheimer's disease 19 FATHER ( at 89) 19 MOTHER ( 93) Allergies and Home Medications Allergies Coded Allergies: No Known Drug Allergies (Unverified , 02/14/17) Home Medications Aspirin 81 Mg Tab.chew, 81 MG PO HS, (Reported) Capecitabine 500 Mg Tablet, PO UD, (Reported) TAKES 2 (500MG) TABS IN THE AM AND 3 (500MG) TABS IN PM X 2 WEEKS, THEN OFF 1 WEEK AND REPEAT. Glyburide 2.5 Mg Tablet, 2.5 MG PO BID, (Reported) Lisinopril 40 Mg Tablet, 40 MG PO DAILY, (Reported) Metoprolol Succinate 200 Mg Tab.er.24h, 200 MG PO HS, (Reported) Ondansetron 4 Mg Tab.rapdis, 4 MG PO Q4H PRN for NAUSEA/VOMITING-1ST LINE, ( Reported) Pantoprazole Sodium 40 Mg Tablet.dr, 40 MG PO DAILY, (Reported) Silver Sulfadiazine 25 Gm Cream..g., TOP BID, (Reported) APPLY TO TOE Tamsulosin HCl 0.4 Mg Cap.er.24h, 0.4 MG PO DAILY, (Reported) Patient Home Medication List Home Medication List Reviewed: Yes Physical Exam-Cardiology Physical Exam Vital Signs/I&O Vital Sign - Last 12Hours 04/28/17 04/28/17 04/28/17 11:30 16:19 20:00 Temp 96.7 97.0 97.3 Pulse 83 81 68 Resp 17 17 18 B/P (MAP) 155/73 (100) 155/74 (101) 157/79 (105) Pulse Ox 97 99 100 O2 Delivery Room Air Room Air Room Air Intake and Output 04/28/17 00:00 Intake Total 650 ml Balance 650 ml Capillary Refill : Constitutional: No appears stated age, AAO x 3, No apparent distress, No PERRL , No well-developed, No well-nourished, No other HEENT: PERRL, No normal ENT inspection, No TMs normal, No pharynx normal, No scleral icterus (R), No scleral icterus (L), No pale conjunctivae (R), No pale conjunctivae (L), No photophobia, No TM abnormal (R), No TM abnormal (L), No pharyngeal erythema, No tonsillar exudate, No other, No discharge, No EOMI, hearing is well preserved, No hard of hearing, oral hygience is good, No ulceration, No xanthelasmas are seen Neck: No non-tender, No full range of motion, No supple, No normal inspection, No carotid bruit, No limited range of motion, No lymphadenopathy (R), No lymphadenopathy (L), No tender lateral, No tender midline, No thyromegaly, No other, carotid pulses are 2 + bilaterally, No with good upstrokes Respiratory: No accessory muscle use, No respiratory distress, No chest tender , No chest expansion is symmetric, chest is bilaterally symmetric, No lungs clear to percussion, lungs clear to auscultation, No crackles, No rhonchi, No rales, No stridor, No wheezing, No pleural rub, No other Cardiovascular: regular rate-rhythm, No irregularly irregular, No extra beats, No parasternal heave is noted, No JVD, No edema, No bradycardia, No tachycardia , No point of maximal impulse, No cardiac thrills are palpable, S1 and S2, No gallop/S3, No gallop/S4, No diastolic murmur, No systolic murmur, No friction rub, No click, No other Gastrointestinal: No tender, No soft, No round, No distended, No pulsatile mass , No organomegaly, No guarding, No rebound, No tenderness, No hernia, No mass, No audible bowel sounds, No abnormal bowel sounds, No abdominal bruits, No spleenomegaly, No other Rectal: deferred Extremities: No normal range of motion, No non-tender, No normal inspection, No pedal edema, No calf tenderness, No normal capillary refill, No pelvis stable , No calf tenderness, No inflammation, No pedal edema, No slow capillary refill , No swelling, No other, No abrasion, No clubbing, No cyanosis, No ecchymosis, No laceration, No no lower extremity edema bilateral, No significant edema, No tenderness, wound (Right foot) Neurologic/Psychiatric: No 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 II-XII nml as tested, No no motor/sensory deficits, alert, normal mood/affect, oriented x 3, No abnormal cerebellar tests , No abnormal 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 II-XII, No abnormal gait, No aphasia, No EOM palsy, No facial droop, No motor weakness, No sensory deficit, No depressed affect, No disoriented x 3, No other, No grossly intact, No power is 5/5 both on sides Skin: No normal color, No warm/dry, No cyanosis, No cool, No diaphoresis, No damp, No ecchymosis, No jaundice, No mottled, No pallor, No rash, No tattoos/ piercings, No ulcerations, No rash on exposed areas, No ulcerations on exposed areas, No other Lymphatic: No no adenopathy, No axilla node tender (R), No axilla node tender ( L), No inguinal node tender (R), No inguinal node tender (L), No other Data Review Labs Laboratory Tests 04/28/17 04:35: White Blood Count 4.8, Red Blood Count 2.83L, Hemoglobin 9.0L, Hematocrit 26L, Mean Corpuscular Volume 92, Mean Corpuscular Hemoglobin 32, Mean Corpuscular Hemoglobin Concent 35, Red Cell Distribution Width 16.5H, Platelet Count 125L, Mean Platelet Volume 8.6, Neutrophils (%) (Auto) 74, Lymphocytes (%) (Auto) 15, Monocytes (%) (Auto) 8, Eosinophils (%) (Auto) 2, Basophils (%) (Auto) 0, Neutrophils # (Auto) 3.5, Lymphocytes # (Auto) 0.7L, Monocytes # (Auto) 0.4, Eosinophils # (Auto) 0.1, Basophils # (Auto) 0.0, Sodium Level 138, Potassium Level 4.5, Chloride Level 110H, Carbon Dioxide Level 21, Anion Gap 7, Blood Urea Nitrogen 21H, Creatinine 1.23, Estimat Glomerular Filtration Rate 59, BUN/ Creatinine Ratio 17, Glucose Level 93, Calcium Level 8.8, Total Bilirubin 0.4, Aspartate Amino Transf (AST/SGOT) 23, Alanine Aminotransferase (ALT/SGPT) 30, Alkaline Phosphatase 134, Total Protein 6.1L, Albumin 3.3 04/28/17 05:48: Glucometer 90 04/28/17 11:12: Glucometer 128H 04/28/17 15:20: Vancomycin Level Trough 16.3 04/28/17 16:45: Glucometer 144H 04/28/17 20:53: Glucometer 157H Microbiology 04/27/17 Blood Culture - Preliminary, Resulted No growth 04/27/17 Gram Stain - Final, Resulted 04/27/17 Wound Culture - Preliminary, Resulted Staphylococcus aureus Strep Or Related Genus A/P-Cardiology Assessment/Admission Diagnosis Right lower extremity nonhealing ulcer, Rule out PAD, Diabetes, History of rectal carcinoma, CAD, history of PCI to the LAD, Ischemic cardiomyopathy, Chronic systolic congestive heart failure, Chronic kidney disease stage III. Plan Right lower extremity nonhealing ulcer, infectious in origin on broad-spectrum antibiotics. Wound care as per Dr. Arvizu. Rule out PAD, supra normal bilateral CHRISTINA. Bilateral lower extremity arterial duplex does not show any significant large vessel stenosis. Distal disease cannot be ruled out. Diabetes, deferred to Dr. Lucia. History of rectal carcinoma, deferred to Dr. Carlos. CAD, history of PCI to the LAD, continue aspirin, beta yoav, MARQUITA inhibitor. Ischemic cardiomyopathy, continue beta yoav and MARQUITA inhibitor. Chronic systolic congestive heart failure, currently euvolemic and not in overt congestive heart failure. Thank you for your consultation. Please call me if you have any questions. Dean Manzanares MD, FACP, FACC, FSCAI, FHRS, CCDS Interventional Cardiology Cardiac Electrophysiology Vascular Medicine and Endovascular Interventions Clinical Quality Measures DVT/VTE Risk/Contraindication: Risk Factor Score Per Nursin RFS Level Per Nursing on Admit: 4+=Very High Paola MANZANARES MD Apr 28, 2017 1:54 pm
[2017-04-28] MEDS ORDERED: TROUGH ORDER-PHARMACY XX ONE (15:00)
[2017-04-28] MEDS: ENOXAPARIN 40 MG/0.4 ML (LOVENOX) SYR SC SCH (16:04)
[2017-04-28 16:19] VITALS: BP 155/74
[2017-04-28] MEDS: glyBURIDE 2.5 MG (MICRONASE) TAB PO SCH (17:27)
[2017-04-28 20:00] VITALS: BP 157/79
[2017-04-28] MEDS: meTOprolol SUCCINATE 100 MG (TOPROL XL) TAB PO SCH (21:29)
[2017-04-28] MEDS: ASPIRIN 81 MG CHEW (CHILDREN'S ASA) PO SCH (21:29)
[2017-04-29] VITALS: BP 137/65
[2017-04-29] MEDS: VANCOMYCIN 1500 MG/NS 500 ML IVPB IV SCH ×4 (03:56→15:23)
[2017-04-29 04:00] VITALS: BP 152/78
[2017-04-29] MEDS: NS IV 1000 ML 1,000 ML IV SCH (04:09)
[2017-04-29] MEDS: inSUlin ASPART (NovoLOG) 1 UNIT/0.01 ML (CHARGE PER UNIT) SC SCH ×4 (06:20→21:07)
[2017-04-29] MEDS: glyBURIDE 2.5 MG (MICRONASE) TAB PO SCH ×2 (06:24→19:15)
[2017-04-29] MEDS: PIPERACILLIN SODIUM/TAZOBACTAM 4.5 GM in NS (IVPB) 100 ML IV SCH ×3 (06:24→21:14)
[2017-04-29] MEDS: PANTOPRAZOLE 40 MG (PROTONIX) TAB PO SCH (07:41)
[2017-04-29] MEDS: lisINopril 40 MG (PRINIVIL) TABLET PO SCH (07:41)
[2017-04-29] MEDS: TAMSULOSIN 0.4 MG (FLOMAX) CAP PO SCH (07:41)
[2017-04-29] MEDS: DAKIN'S 1/4 STRENGTH (0.125%) 473 ML BTL TOP SCH ×2 (07:42→21:14)
[2017-04-29 08:49] LABS: BASOPHILS % (AUTO) 0 % (0-10); EOSINOPHILS # (AUTO) 0.1 10^3/uL (0.0-0.3); EOSINOPHILS % (AUTO) 2 % (0-10); HEMATOCRIT 25 % (40-54); HEMOGLOBIN 8.9 G/DL (13.3-17.7); LYMPHOCYTES # (AUTO) 0.7 X 10^3 (1.0-4.0); LYMPHOCYTES % (AUTO) 18 % (12-44); MEAN CORPUSCULAR HEMOGLOBIN 32 PG (25-34); MEAN CORPUSCULAR HGB CONC 35 G/DL (32-36); MEAN CORPUSCULAR VOLUME 92 FL (80-99); MEAN PLATELET VOLUME 8.6 FL (7.4-10.4); MONOCYTES # (AUTO) 0.3 X 10^3 (0.0-1.0); MONOCYTES % (AUTO) 7 % (0-12); NEUTROPHILS # (AUTO) 2.7 X 10^3 (1.8-7.8); NEUTROPHILS % (AUTO) 72 % (42-75); PLATELET COUNT 114 10^3/uL (130-400); RED BLOOD COUNT 2.76 10^6/uL (4.35-5.85); RED CELL DISTRIBUTION WIDTH 16.4 % (10.0-14.5); WHITE BLOOD COUNT 3.7 10^3/uL (4.3-11.0)
[2017-04-29 08:56] VITALS: BP 148/67
[2017-04-29 09:07] LABS: ALANINE AMINOTRANSFERASE 29 U/L (0-55); ALBUMIN 3.1 GM/DL (3.2-4.5); ALKALINE PHOSPHATASE 131 U/L (40-136); BILIRUBIN,TOTAL 0.4 MG/DL (0.1-1.0); BUN/CREATININE RATIO 15; CALCIUM 8.6 MG/DL (8.5-10.1); CARBON DIOXIDE 20 MMOL/L (21-32); CHLORIDE 114 MMOL/L (98-107); CREATININE SERUM 0.99 MG/DL (0.60-1.30); GFR ESTIMATED > 60; GLUCOSE 70 MG/DL (70-105); POTASSIUM 4.5 MMOL/L (3.6-5.0); SODIUM 141 MMOL/L (135-145); TOTAL PROTEIN 5.9 GM/DL (6.4-8.2)
--- NOTE | 2017-04-29 10:32 | Cardiology Progress Note ---
Cardiology SOAP Progress Note Subjective: No significant cardiac symptoms. Objective: I&O/Vital Signs Vital Sign - Last 12Hours 04/29/17 04/29/17 04/29/17 11:59 16:21 20:07 Temp 97.1 97.0 97.0 Pulse 82 71 62 Resp 14 18 18 B/P (MAP) 132/66 (88) 157/70 (99) 157/72 (100) Pulse Ox 100 99 98 O2 Delivery Room Air Room Air Room Air Intake and Output 04/29/17 00:00 Intake Total 1690 ml Balance 1690 ml Weight (Pounds): 216 Weight (Ounces): 6.0 Weight (Calculated Kilograms): [id number] Constitutional: No appears stated age, AAO x 3, No apparent distress, No PERRL , No well-developed, No well-nourished, No other Respiratory: No accessory muscle use, No respiratory distress, No chest tender , No chest expansion is symmetric, chest is bilaterally symmetric, No lungs clear to percussion, lungs clear to auscultation, No crackles, No rhonchi, No rales, No stridor, No wheezing, No pleural rub, No other Cardiovascular: regular rate-rhythm, No irregularly irregular, No extra beats, No parasternal heave is noted, No JVD, No edema, No bradycardia, No tachycardia , No point of maximal impulse, No cardiac thrills are palpable, S1 and S2, No gallop/S3, No gallop/S4, No diastolic murmur, No systolic murmur, No friction rub, No click, No other Gastrointestional: No tender, No soft, No round, No distended, No pulsatile mass, No organomegaly, No guarding, No rebound, No tenderness, No hernia, No mass, No audible bowel sounds, No abnormal bowel sounds, No abdominal bruits, No spleenomegaly, No other Extremities: No normal range of motion, No non-tender, No normal inspection, No pedal edema, No calf tenderness, No normal capillary refill, No pelvis stable , No calf tenderness, No inflammation, No pedal edema, No slow capillary refill , No swelling, No other, No abrasion, No clubbing, No cyanosis, No ecchymosis, No laceration, No no lower extremity edema bilateral, No significant edema, No tenderness, wound (Right foot) Neurologic/Psychiatric: No paedodontist II-XII nml as tested, No no motor/sensory deficits, alert, normal mood/affect, oriented x 3, No abnormal cerebellar tests , No abnormal paedodontist II-XII, No abnormal gait, No aphasia, No EOM palsy, No facial droop, No motor weakness, No sensory deficit, No depressed affect, No disoriented x 3, No other, No grossly intact, No power is 5/5 both on sides Skin: No normal color, No warm/dry, No cyanosis, No cool, No diaphoresis, No damp, No ecchymosis, No jaundice, No mottled, No pallor, No rash, No tattoos/ piercings, No ulcerations, No rash on exposed areas, No ulcerations on exposed areas, No other Results/Procedures: Labs Laboratory Tests 04/29/17 06:06: Glucometer 90 04/29/17 08:35: White Blood Count 3.7L, Red Blood Count 2.76L, Hemoglobin 8.9L, Hematocrit 25L, Mean Corpuscular Volume 92, Mean Corpuscular Hemoglobin 32, Mean Corpuscular Hemoglobin Concent 35, Red Cell Distribution Width 16.4H, Platelet Count 114L, Mean Platelet Volume 8.6, Neutrophils (%) (Auto) 72, Lymphocytes (%) (Auto) 18, Monocytes (%) (Auto) 7, Eosinophils (%) (Auto) 2, Basophils (%) (Auto) 0, Neutrophils # (Auto) 2.7, Lymphocytes # (Auto) 0.7L, Monocytes # (Auto) 0.3, Eosinophils # (Auto) 0.1, Basophils # (Auto) 0.0, Sodium Level 141, Potassium Level 4.5, Chloride Level 114H, Carbon Dioxide Level 20L, Anion Gap 7, Blood Urea Nitrogen 15, Creatinine 0.99, Estimat Glomerular Filtration Rate > 60, BUN/ Creatinine Ratio 15, Glucose Level 70, Calcium Level 8.6, Total Bilirubin 0.4, Aspartate Amino Transf (AST/SGOT) 24, Alanine Aminotransferase (ALT/SGPT) 29, Alkaline Phosphatase 131, Total Protein 5.9L, Albumin 3.1L 04/29/17 12:03: Glucometer 87 04/29/17 15:58: Glucometer 154H 04/29/17 21:05: Glucometer 81 Microbiology 04/27/17 Blood Culture - Preliminary, Resulted No growth 04/27/17 Gram Stain - Final, Resulted 04/27/17 Wound Culture - Preliminary, Resulted Staphylococcus aureus Viridans streptococcus A/P: Assessment/Dx: Right lower extremity nonhealing ulcer, Rule out PAD, Diabetes, History of rectal carcinoma, CAD, history of PCI to the LAD, Ischemic cardiomyopathy, Chronic systolic congestive heart failure, Chronic kidney disease stage III. Plan: Right lower extremity nonhealing ulcer, infectious in origin on broad-spectrum antibiotics. Wound care as per Dr. Arvizu. Rule out PAD, supra normal bilateral CHRISTINA. Bilateral lower extremity arterial duplex does not show any significant large vessel stenosis. Distal disease cannot be ruled out. Diabetes, deferred to Dr. Lucia. History of rectal carcinoma, deferred to Dr. Carlos. CAD, history of PCI to the LAD, continue aspirin, beta yoav, MARQUITA inhibitor. Ischemic cardiomyopathy, continue beta yoav and MARQUITA inhibitor. Chronic systolic congestive heart failure, currently euvolemic and not in overt congestive heart failure. Dr Ravi to follow from 04/30/2017 Thank you for your consultation. Please call me if you have any questions. Dean Manzanares MD, FACP, FACC, FSCAI, FHRS, CCDS Interventional Cardiology Cardiac Electrophysiology Vascular Medicine and Endovascular Interventions Focused Exam Evaluation Lactate Level Laboratory Tests 04/27/17 14:48: Lactic Acid Level 1.14 Paola MANZAANRES MD Apr 29, 2017 10:32 am
[2017-04-29 11:59] VITALS: BP 132/66
--- NOTE | 2017-04-29 13:00 | Progress Note-Standard ---
Standard Progress Note Progress Notes/Assess & Plan Date Seen 04/29/17 Time Seen by Provider: 11:30 Assess & Plan/Chief Complaint Patient doing much better and had a shower and feels well Eating and drinking so we'll Hep-Lock IV fluid Appreciate cardiology management Appears pulse on right dorsalis pedis is decreased but arterial ultrasound shows no significant blockages but likely calcification from diabetes is a factor Preliminary cultures from wound noted maintained on Zosyn and thank Bowels are moving with colostomy functioning well No pain is reported Checked meds and labs and imaging and cultures Complex case No fever, vital signs stable, pleasant, improved Regular rate and rhythm, clear to auscultation bilaterally No edema and much improved erythema of the right great toe and foot Laboratory Tests 04/29/17 08:35 Assessment: Right great toe cellulitis with diabetic foot ulcer Rectal carcinoma status post colostomy and radiation and chemotherapy under Dr. Villalba Renal insufficiency usual creatinine 1.5 Diabetes mellitus Hyperlipidemia Congestive heart failure status post pacemaker and defibrillator Neutropenia mild 3.7 today Anemia of cancer and renal disease Plan: Notify Dr. Villalba of admission for infection since he is on chemotherapy Appreciate cardiology and wound care management Bone scan tomorrow Has port so if needs IV antibiotics that will be seamless Discharge tomorrow or Sunday Labs Laboratory Tests 04/27/17 14:48 04/28/17 04:35 04/29/17 08:35 Focused Exam Evaluation Lactate Level Laboratory Tests 04/27/17 14:48: Lactic Acid Level 1.14 Diagnosis/Problems Diagnosis/Problems (1) Cellulitis and abscess of foot Status: Acute Assessment & Plan: IV abx Zosyn and Vanc (2) Renal insufficiency Status: Chronic Assessment & Plan: Improved on IV fluid (3) Rectal carcinoma Status: Chronic (4) Colostomy in place Status: Chronic (5) Diabetes mellitus Status: Chronic Qualifiers: Qualified Codes: E11.59 - Type 2 diabetes mellitus with other circulatory complications (6) Hypertension Status: Chronic Qualifiers: Qualified Codes: I10 - Essential (primary) hypertension (7) Hyperlipidemia Status: Chronic Qualifiers: Qualified Codes: E78.00 - Pure hypercholesterolemia, unspecified (8) Renal stones Status: Chronic SYED LEE DO Apr 29, 2017 13:00
[2017-04-29] MEDS: ENOXAPARIN 40 MG/0.4 ML (LOVENOX) SYR SC SCH (15:23)
[2017-04-29 16:21] VITALS: BP 157/70
[2017-04-29 20:07] VITALS: BP 157/72
[2017-04-29] MEDS: meTOprolol SUCCINATE 100 MG (TOPROL XL) TAB PO SCH (21:14)
[2017-04-29] MEDS: ASPIRIN 81 MG CHEW (CHILDREN'S ASA) PO SCH (21:14)
[2017-04-30] VITALS: BP 162/78
[2017-04-30 04:00] VITALS: BP 166/74
[2017-04-30] MEDS: VANCOMYCIN 1500 MG/NS 500 ML IVPB IV SCH ×2 (04:17)
[2017-04-30] MEDS: inSUlin ASPART (NovoLOG) 1 UNIT/0.01 ML (CHARGE PER UNIT) SC SCH ×4 (05:54→20:55)
[2017-04-30] MEDS: glyBURIDE 2.5 MG (MICRONASE) TAB PO SCH ×2 (05:54→16:35)
[2017-04-30 06:03] LABS: BASOPHILS % (AUTO) 0 % (0-10); EOSINOPHILS # (AUTO) 0.1 10^3/uL (0.0-0.3); EOSINOPHILS % (AUTO) 2 % (0-10); HEMATOCRIT 27 % (40-54); HEMOGLOBIN 9.2 G/DL (13.3-17.7); LYMPHOCYTES # (AUTO) 0.7 X 10^3 (1.0-4.0); LYMPHOCYTES % (AUTO) 16 % (12-44); MEAN CORPUSCULAR HEMOGLOBIN 32 PG (25-34); MEAN CORPUSCULAR HGB CONC 35 G/DL (32-36); MEAN CORPUSCULAR VOLUME 91 FL (80-99); MEAN PLATELET VOLUME 8.8 FL (7.4-10.4); MONOCYTES # (AUTO) 0.2 X 10^3 (0.0-1.0); MONOCYTES % (AUTO) 5 % (0-12); NEUTROPHILS # (AUTO) 3.4 X 10^3 (1.8-7.8); NEUTROPHILS % (AUTO) 77 % (42-75); PLATELET COUNT 130 10^3/uL (130-400); RED BLOOD COUNT 2.91 10^6/uL (4.35-5.85); RED CELL DISTRIBUTION WIDTH 16.3 % (10.0-14.5); WHITE BLOOD COUNT 4.4 10^3/uL (4.3-11.0)
[2017-04-30 06:20] LABS: ALANINE AMINOTRANSFERASE 26 U/L (0-55); ALBUMIN 3.3 GM/DL (3.2-4.5); ALKALINE PHOSPHATASE 121 U/L (40-136); BILIRUBIN,TOTAL 0.4 MG/DL (0.1-1.0); BUN/CREATININE RATIO 13; CALCIUM 8.9 MG/DL (8.5-10.1); CARBON DIOXIDE 22 MMOL/L (21-32); CHLORIDE 112 MMOL/L (98-107); CREATININE SERUM 1.04 MG/DL (0.60-1.30); GFR ESTIMATED > 60; GLUCOSE 65 MG/DL (70-105); POTASSIUM 4.3 MMOL/L (3.6-5.0); SODIUM 140 MMOL/L (135-145)
[2017-04-30] MEDS: PIPERACILLIN SODIUM/TAZOBACTAM 4.5 GM in NS (IVPB) 100 ML IV SCH (06:34)
[2017-04-30 08:00] VITALS: BP 149/70
[2017-04-30] MEDS: TAMSULOSIN 0.4 MG (FLOMAX) CAP PO SCH (08:31)
[2017-04-30] MEDS: PANTOPRAZOLE 40 MG (PROTONIX) TAB PO SCH (08:32)
[2017-04-30] MEDS: DAKIN'S 1/4 STRENGTH (0.125%) 473 ML BTL TOP SCH ×2 (08:32→20:04)
[2017-04-30] MEDS: lisINopril 40 MG (PRINIVIL) TABLET PO SCH (08:32)
[2017-04-30] MEDS ORDERED: CEFT2FRO2 IV (09:44)
--- NOTE | 2017-04-30 09:46 | Progress Note-Hospitalist ---
Subjective HPI/CC On Admission Date Seen by Provider: Apr 30, 2017 Time Seen by Provider: 09:30 Subjective/Events-last exam Patient doing much better and overall feels like he is on track Bone scan is scheduled for 1030 this morning IV Rocephin daily for 6 weeks or presumed osteomyelitis and arrangements are being made Eliquis will be prescribed given the fact of rectal carcinoma high risk for DVTs and he should be lying down supine with the foot above his heart so very high risk for DVT I do have a coupon for him All questions were answered Needs a handicap placard I updated Dr. Villalba regarding this event this past weekend and he will see him on Sunday and decide whether or not chemotherapy will be restarted at that time or later Colostomy is functioning well Checked meds and labs No fever, vital signs stable, pleasant, improved, at bedside Regular rate and rhythm, clear to all sedation bilaterally No edema Right great toe less erythema with dressing intact Laboratory Tests 04/30/17 05:45 Assessment: Right great toe diabetic ulcer with cellulitis with MSSA and strep viridans will be treated with Rocephin for 6 weeks after bone scan confirms presumed osteomyelitis Plan: Follow up on bone scan results that will be done today Set up Rocephin 1 g IV daily for 6 weeks for presumed osteomyelitis if bone scan is not consistent with osteomyelitis we'll shift to oral antibiotics Immobile state high risk for DVT consider rectal carcinoma so will initiate Eliquis low-dose twice daily Focused Exam Evaluation Lactate Level Laboratory Tests 04/27/17 14:48: Lactic Acid Level 1.14 Objective Exam Vital Signs Vital Signs Date Time Temp Pulse Resp B/P (MAP) Pulse Ox O2 Delivery O2 Flow Rate FiO2 04/27/17 16:37 98.6 90 17 121/66 (84) 98 Room Air Capillary Refill : General Appearance: No Apparent Distress, WD/WN Results/Procedures Lab Laboratory Tests 04/30/17 05:45 Patient resulted labs reviewed. Assessment/Plan Assessment and Plan Assess & Plan/Chief Complaint Patient doing much better and had a shower and feels well Eating and drinking so we'll Hep-Lock IV fluid Appreciate cardiology management Appears pulse on right dorsalis pedis is decreased but arterial ultrasound shows no significant blockages but likely calcification from diabetes is a factor Preliminary cultures from wound noted maintained on Zosyn and thank Bowels are moving with colostomy functioning well No pain is reported Checked meds and labs and imaging and cultures Complex case No fever, vital signs stable, pleasant, improved Regular rate and rhythm, clear to auscultation bilaterally No edema and much improved erythema of the right great toe and foot Laboratory Tests 04/29/17 08:35 Assessment: Right great toe cellulitis with diabetic foot ulcer Rectal carcinoma status post colostomy and radiation and chemotherapy under Dr. Villalba Renal insufficiency usual creatinine 1.5 Diabetes mellitus Hyperlipidemia Congestive heart failure status post pacemaker and defibrillator Neutropenia mild 3.7 today Anemia of cancer and renal disease Plan: Notify Dr. Villalba of admission for infection since he is on chemotherapy Appreciate cardiology and wound care management Bone scan tomorrow Has port so if needs IV antibiotics that will be seamless Discharge tomorrow or Sunday Diagnosis/Problems Diagnosis/Problems (1) Cellulitis and abscess of foot Status: Acute Assessment & Plan: IV abx Zosyn and Vanc (2) Renal insufficiency Status: Chronic Assessment & Plan: Improved on IV fluid (3) Rectal carcinoma Status: Chronic (4) Colostomy in place Status: Chronic (5) Diabetes mellitus Status: Chronic Qualifiers: Diabetes mellitus type: type 2 Diabetes mellitus complication status: with circulatory complication Diabetes mellitus complication detail: with other circulatory complications Diabetes mellitus halfway insulin use: without halfway use Qualified Codes: E11.59 - Type 2 diabetes mellitus with other circulatory complications (6) Hypertension Status: Chronic Qualifiers: Hypertension type: essential hypertension Qualified Codes: I10 - Essential (primary) hypertension (7) Hyperlipidemia Status: Chronic Qualifiers: Hyperlipidemia type: pure hypercholesterolemia Qualified Codes: E78.00 - Pure hypercholesterolemia, unspecified (8) Renal stones Status: Chronic (9) At risk for deep venous thrombosis Status: Acute Assessment & Plan: Eliquis 2.5mg Po BID while immobile Clinical Quality Measures Admission Status Admission Dx Assessment: Right great toe acute cellulitis with presumed osteomyelitis failed outpatient wound care placed on IV antibiotics empirically culture pending Rectal carcinoma s/p colostomy status and post radiation and currently on chemotherapy did not have chemotherapy on Sunday due to weakened state Stoma dysfunction status post [place] admission 2 weeks ago currently doing well Diabetes mellitus last hemoglobin A1c was 8.2 Peripheral vascular disease CAD previous stents Ischemic cardiomyopathy status post defibrillator pacemaker managed by Dr. Ravi History of kidney stones new onset 2017 managed by urology Hypertension Hyperlipidemia Plan: Empiric antibiotics until wound culture returns Home medications reconciled and restarted Monitor blood sugars Maintain gentle IV fluids Check labs in a.m. DVT prophylaxis with Lovenox DVT/VTE Risk/Contraindication: Risk Factor Score Per Nursin RFS Level Per Nursing on Admit: 4+=Very High SYED LEE DO Apr 30, 2017 09:46
[2017-04-30] MEDS ORDERED: APIX2.5T PO (09:48)
--- NOTE | 2017-04-30 10:28 | Cardiology Progress Note ---
Subjective Date Seen by Provider: Apr 30, 2017 Time Seen by Provider: 10:25 Subjective/Events-last exam Patient is in bed, feeling better, denied any chest pain or shortness of breath , events from admission reviewed Review of Systems General: No Chills, No Night Sweats, No Fatigue, No Malaise, No Appetite, No Other HEENT: No Head Aches, No Visual Changes, No Eye Pain, No Ear Pain, No Dysphasia , No Sinus Congestion, No Post Nasal Drip, No Sore Throat, No Other Pulmonary: No Dyspnea, No Cough, No Pleuritic Chest Pain, No Other Cardiovascular: No: Chest Pain, Palpitations, Orthopnea, Paroxysmal Noc. Dyspnea, Edema, Lt Headedness, Other Focused Exam Evaluation Lactate Level Laboratory Tests 04/27/17 14:48: Lactic Acid Level 1.14 Objective-Cardiology Exam Last Set of Vital Signs Vital Signs 04/30/17 08:00 Temp 97.9 Pulse 71 Resp 20 B/P (MAP) 149/70 (96) Pulse Ox 98 O2 Delivery Room Air Capillary Refill : I&O Intake and Output 04/30/17 00:00 Intake Total 2190 ml Output Total 300 ml Balance 1890 ml Intake Oral 2190 ml Output Stool Total 300 ml # Voids 7 # Bowel Movements 4 General: Alert, Oriented X3, Cooperative HEENT: Atraumatic, PERRLA Neck: Supple, No JVD, No Thyromegaly Lungs: Clear to Auscultation, Normal Air Movement Heart: Regular Rate, Normal S1, Normal S2, No Murmurs Abdomen: Normal Bowel Sounds, Soft, No Tenderness, No Hepatosplenomegaly, No Masses Extremities: No Clubbing, No Cyanosis, No Edema, Normal Pulses, No Tenderness/ Swelling Skin: No Rashes, No Breakdown, No Significant Lesion Neuro: Normal Gait, Normal Speech, Strength at 5/5 X4 Ext, Normal Tone, Sensation Intact Psych/Mental Status: Mental Status NL, Mood NL Results Lab Laboratory Tests 04/30/17 05:45 A/P-Cardiology Admission Diagnosis Nonhealing foot ulcers Coronary artery disease Diabetes mellitus Hypertension Hyperlipidemia Assessment/Plan Nonhealing foot ulcer on the right toe, workup showed normal CHRISTINA, arterial duplex was normal, patient has palpable percent was pedis pulse, probably small vessel disease, questionable osteomyelitis, receiving antibiotic and managed by primary care physician and Dr. Arvizu Coronary artery disease-cardiac catheterization on 08/27/2012 revealed 95 percent proximal LAD stenosis, successful balloon angioplasty and stent using a 3x20 mm Promus drug-eluting stent expanded to 3.15 mm with no residual stenosis , otherwise nonobstructive disease in the coronary system. Last stress test was done on May 03, 2016 showing apical thinning with diaphragmatic attenuation with no significant ischemia or infarction, tach at a ejection fraction 34 percent, on the echocardiogram patient had mild diffuse hypokinesia more pronounced at the anterior wall with ejection fraction 40-45 percent, pulmonary artery pressure of 30 mmHg. Continue to monitor. No changes are recommended Congestive heart failure, dilated cardiomyopathy with most recent EF 40-45 percent. chronic compensated left ventricular systolic dysfunction, ischemic cardiomyopathy. Continue on current medications and monitor Hypertension, continue to monitor blood pressure Hyperlipidemia, unable to tolerate statin or fiberate or Zetia secondary to muscle ache. Continue to monitor. Mild bilateral carotid stenosis, last ultrasound was done in September 2016, continue to monitor Diabetes mellitus, monitored and followed by primary care physician. 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 Villalba Diabetic nephropathy, continue to monitor renal function COPD/obstructive sleep apnea on C-PAP, currently controlled. Benign prostatic hypertrophy, ED Pedal edema-improved, continue to monitor. History of [place] spotted fever, in remission. Clinical Quality Measures DVT/VTE Risk/Contraindication: Risk Factor Score Per Nursin RFS Level Per Nursing on Admit: 4+=Very High MOHAMUD WAN MD Apr 30, 2017 10:28
[2017-04-30] MEDS ORDERED: CATHETER FLUSH 10 ML SYR IV PRN (10:30)
[2017-04-30] MEDS: cefTRIAXone INJECTION 2,000 MG in NS (IVPB) 100 ML IV SCH (12:09)
[2017-04-30 16:00] VITALS: BP 152/77
[2017-04-30] MEDS: ENOXAPARIN 40 MG/0.4 ML (LOVENOX) SYR SC SCH (16:29)
--- NOTE | 2017-04-30 16:40 | Diagnostic Imaging Report ---
INDICATION: Right great toe wound for three weeks. Patient is diabetic. TECHNIQUE: The patient was administered 27.1 mCi of technetium 99m MDP intravenously and dynamic flow, blood pool and delayed imaging over bilateral feet was performed. FINDINGS: Dynamic flow images demonstrates asymmetric increased blood flow to the right foot and in particular the region of the right great toe. Increased activity in the great toe during the blood pool images is noted as well. Delayed imaging demonstrates intense uptake in the right great toe in the region of the distal aspect of the proximal phalanx and entire distal phalanx. Features are concerning for osteomyelitis. There are degenerative changes at the MTP joint of the left foot. There are some mild areas of uptake in the ankle joint on the right, likely degenerative. IMPRESSION: Three-phase bone scan findings in the right great toe, suspicious for osteomyelitis, as described. Dictated by: Dictated on workstation # [id number]
[2017-04-30] MEDS: ASPIRIN 81 MG CHEW (CHILDREN'S ASA) PO SCH (20:04)
[2017-04-30] MEDS: meTOprolol SUCCINATE 100 MG (TOPROL XL) TAB PO SCH (20:04)
[2017-05-01 00:17] VITALS: BP 159/77
[2017-05-01] MEDS: inSUlin ASPART (NovoLOG) 1 UNIT/0.01 ML (CHARGE PER UNIT) SC SCH ×2 (05:52→11:15)
[2017-05-01] MEDS: glyBURIDE 2.5 MG (MICRONASE) TAB PO SCH (05:59)
[2017-05-01] MEDS ORDERED: APIX2.5T PO (07:55)
[2017-05-01 08:00] VITALS: BP 136/64
--- NOTE | 2017-05-01 08:02 | Discharge Summary-Hospitalist ---
Diagnosis/Chief Complaint Date of Admission Apr 27, 2017 at 14:00 Date of Discharge Discharge Date: May 01, 2017 Discharge Diagnosis Patient doing much better and had a shower and feels well Eating and drinking so we'll Hep-Lock IV fluid Appreciate cardiology management Appears pulse on right dorsalis pedis is decreased but arterial ultrasound shows no significant blockages but likely calcification from diabetes is a factor Preliminary cultures from wound noted maintained on Zosyn and thank Bowels are moving with colostomy functioning well No pain is reported Checked meds and labs and imaging and cultures Complex case No fever, vital signs stable, pleasant, improved Regular rate and rhythm, clear to auscultation bilaterally No edema and much improved erythema of the right great toe and foot Laboratory Tests 04/29/17 08:35 Assessment: Right great toe cellulitis with diabetic foot ulcer Rectal carcinoma status post colostomy and radiation and chemotherapy under Dr. Villalba Renal insufficiency usual creatinine 1.5 Diabetes mellitus Hyperlipidemia Congestive heart failure status post pacemaker and defibrillator Neutropenia mild 3.7 today Anemia of cancer and renal disease Plan: Notify Dr. Villalba of admission for infection since he is on chemotherapy Appreciate cardiology and wound care management Bone scan tomorrow Has port so if needs IV antibiotics that will be seamless Discharge tomorrow or Sunday (1) Osteomyelitis of toe of right foot Status: Acute Assessment & Plan: Be on Rocephin 2 g IV daily for 42 days (2) Cellulitis and abscess of foot Status: Acute Assessment & Plan: s/p IV abx Zosyn and Vanc and changed to Rocephin 2 grams IV daily for 42 days (3) Renal insufficiency Status: Resolved Assessment & Plan: Improved on IV fluid (4) Rectal carcinoma Status: Chronic (5) Colostomy in place Status: Chronic (6) Diabetes mellitus Status: Chronic (7) Hypertension Status: Chronic (8) Hyperlipidemia Status: Chronic (9) Renal stones Status: Chronic (10) At risk for deep venous thrombosis Status: Acute Assessment & Plan: Eliquis 2.5mg Po BID while immobile Discharge Summary Discharge Physical Exam Allergies: Coded Allergies: No Known Drug Allergies (Unverified , 02/14/17) Vitals & I&Os Vital Signs Date Time Temp Pulse Resp B/P (MAP) Pulse Ox O2 Delivery O2 Flow Rate FiO2 05/01/17 00:17 98.4 62 16 159/77 (104) 99 Room Air General Appearance: Alert, Oriented X3, Cooperative Respiratory: Clear to Auscultation Cardiovascular: Regular Rate Abdominal: Normal Bowel Sounds Neuro: Normal Gait, Normal Speech, Strength at 5/5 X4 Ext Psych/Mental Status: Mental Status NL Hospital Course Hospital course: Patient had an uneventful hospital course he was admitted placed on empiric antibiotics of vancomycin and Zosyn due to right great toe cellulitis and presumed osteomyelitis. Dr. Arvizu was consulted for wound care. Renal insufficiency due to dehydration resolved with gentle IV fluids. Cardiology was consulted due to ischemic cardiomyopathy and no changes were made. Arterial ultrasound did not show any profound blockages so no intervention was needed. I suspect calcification of the vessels due to diabetes. Wound culture returned revealing strep viridans and MSSA so Rocephin was initiated at 2 g IV daily and will continue that for 42 days since the nuclear bone scan confirmed osteomyelitis. He will see Dr. Arvizu and wound care reporting to Dr. Goncalves on Sunday although chemotherapy likely will be held due to acute infection. I will see the patient on Sunday with close follow -up. He'll maintain on Eliquis 2.5 MG twice daily for DVT prophylaxis due to immobile state and high risk for DVT due to rectal cancer. Labs (last 24 hrs) Laboratory Tests 04/30/17 11:24: Glucometer 140H 04/30/17 15:56: Glucometer 117H 04/30/17 20:53: Glucometer 185H 05/01/17 05:41: Glucometer 179H Microbiology 04/27/17 Blood Culture - Preliminary, Resulted No growth 04/27/17 Gram Stain - Final, Resulted 04/27/17 Wound Culture - Preliminary, Resulted Staphylococcus aureus Viridans streptococcus Probable Enterococcus Species Patient resulted labs reviewed. Pending Labs Laboratory Tests 05/01/17 05:41: Glucometer 179 Discussion & Recommendations Discharge Planning: >30 minutes discharge planning Discharge Home Medications: Active Scripts Active Eliquis (Apixaban) 2.5 Mg Tablet 2.5 Mg PO BID Ceftriaxone 2 gm Piggyback (Ceftriaxone Na/Dextrose,Iso) 2 Gm/50 Ml Froz.piggy 2 Gm IV DAILY 42 Days Reported Ssd (Silver Sulfadiazine) 25 Gm Cream..g. TOP BID APPLY TO TOE Tamsulosin HCl 0.4 Mg Cap.er.24h 0.4 Mg PO DAILY Capecitabine 500 Mg Tablet PO UD TAKES 2 (500MG) TABS IN THE AM AND 3 (500MG) TABS IN PM X 2 WEEKS, THEN OFF 1 WEEK AND REPEAT. Ondansetron Odt (Ondansetron) 4 Mg Tab.rapdis 4 Mg PO Q4H PRN Glyburide 2.5 Mg Tablet 2.5 Mg PO BID Lisinopril 40 Mg Tablet 40 Mg PO DAILY Pantoprazole Sodium 40 Mg Tablet.dr 40 Mg PO DAILY Aspirin 81 Mg Tab.chew 81 Mg PO HS Metoprolol Succinate 200 Mg Tab.er.24h 200 Mg PO HS Instructions to patient/family Please see electronic discharge instructions given to patient. Clinical Quality Measures Admission Status Admission Dx Assessment: Right great toe acute cellulitis with presumed osteomyelitis failed outpatient wound care placed on IV antibiotics empirically culture pending Rectal carcinoma s/p colostomy status and post radiation and currently on chemotherapy did not have chemotherapy on Sunday due to weakened state Stoma dysfunction status post [place] admission 2 weeks ago currently doing well Diabetes mellitus last hemoglobin A1c was 8.2 Peripheral vascular disease CAD previous stents Ischemic cardiomyopathy status post defibrillator pacemaker managed by Dr. Ravi History of kidney stones new onset 2017 managed by urology Hypertension Hyperlipidemia Plan: Empiric antibiotics until wound culture returns Home medications reconciled and restarted Monitor blood sugars Maintain gentle IV fluids Check labs in a.m. DVT prophylaxis with Lovenox DVT/VTE Risk/Contraindication: Risk Factor Score Per Nursin RFS Level Per Nursing on Admit: 4+=Very High Copy Copies To 1: ADELAIDE GONCALVES Copies To 2: CECELIA ARVIZU MD Problem Qualifiers (1) Diabetes mellitus: Diabetes mellitus type: type 2 Diabetes mellitus complication status: with circulatory complication Diabetes mellitus complication detail: with other circulatory complications Diabetes mellitus long term care administrator insulin use: without long term care administrator use Qualified Codes: E11.59 - Type 2 diabetes mellitus with other circulatory complications (2) Hypertension: Hypertension type: essential hypertension Qualified Codes: I10 - Essential ( primary) hypertension (3) Hyperlipidemia: Hyperlipidemia type: pure hypercholesterolemia Qualified Codes: E78.00 - Pure hypercholesterolemia, unspecified SYED LEE DO May 01, 2017 08:02
--- NOTE | 2017-05-01 08:10 | Cardiology Progress Note ---
Subjective Date Seen by Provider: May 01, 2017 Time Seen by Provider: 08:08 Subjective/Events-last exam Patient is sitting up in bed, no new complaint. Denies any CP or dyspnea. Is being discharged home today. Review of Systems General: No Night Sweats, No Fatigue, No Malaise HEENT: No Visual Changes, No Dysphasia Pulmonary: No Dyspnea, No Cough Cardiovascular: No: Chest Pain, Palpitations Gastrointestinal: No: Nausea, Vomiting, Abdominal Pain Genitourinary: No Dysuria, No Frequency Musculoskeletal: No: neck pain, back pain Neurological: No: Weakness, Numbness, Change in speech Objective-Cardiology Exam Last Set of Vital Signs Vital Signs 05/01/17 00:17 Temp 98.4 Pulse 62 Resp 16 B/P (MAP) 159/77 (104) Pulse Ox 99 O2 Delivery Room Air Capillary Refill : I&O Intake and Output 05/01/17 00:00 Intake Total 3520 ml Balance 3520 ml Intake Oral 2805 ml IV Total 715 ml # Voids 9 # Bowel Movements 4 General: Alert, Oriented X3, Cooperative HEENT: Atraumatic, PERRLA Neck: Supple, No JVD, No Thyromegaly Lungs: Clear to Auscultation Heart: Regular Rate Abdomen: Normal Bowel Sounds Extremities: No Clubbing, No Cyanosis, No Edema, Normal Pulses, No Tenderness/ Swelling Skin: No Rashes, No Breakdown, No Significant Lesion Neuro: Normal Gait, Normal Speech, Strength at 5/5 X4 Ext Psych/Mental Status: Mental Status NL A/P-Cardiology Admission Diagnosis Nonhealing foot ulcers Coronary artery disease Diabetes mellitus Hypertension Hyperlipidemia Assessment/Plan Nonhealing foot ulcer on the right toe, workup showed normal CHRISTINA, arterial duplex was normal, patient has palpable percent was pedis pulse, probably small vessel disease, NM bone scan suspicious for osteomyelitis. Patient being discharged home today with 6 wk outpatient IV antibiotics. Coronary artery disease-cardiac catheterization on 08/27/2012 revealed 95 percent proximal LAD stenosis, successful balloon angioplasty and stent using a 3x20 mm Promus drug-eluting stent expanded to 3.15 mm with no residual stenosis , otherwise nonobstructive disease in the coronary system. Last stress test was done on May 03, 2016 showing apical thinning with diaphragmatic attenuation with no significant ischemia or infarction, tach at a ejection fraction 34 percent, on the echocardiogram patient had mild diffuse hypokinesia more pronounced at the anterior wall with ejection fraction 40-45 percent, pulmonary artery pressure of 30 mmHg. Continue to monitor. No changes are recommended Congestive heart failure, dilated cardiomyopathy with most recent EF 40-45 percent. chronic compensated left ventricular systolic dysfunction, ischemic cardiomyopathy. Continue on current medications and monitor Hypertension, continue to monitor blood pressure Hyperlipidemia, unable to tolerate statin or fiberate or Zetia secondary to muscle ache. Continue to monitor. Mild bilateral carotid stenosis, last ultrasound was done in September 2016, continue to monitor Diabetes mellitus, monitored and followed by primary care physician. 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 Villalba Diabetic nephropathy, continue to monitor renal function COPD/obstructive sleep apnea on C-PAP, currently controlled. Benign prostatic hypertrophy, ED Pedal edema-improved, continue to monitor. History of [place] spotted fever, in remission. Clinical Quality Measures DVT/VTE Risk/Contraindication: Risk Factor Score Per Nursin RFS Level Per Nursing on Admit: 4+=Very High KAI SAUCEDO May 01, 2017 08:10
--- NOTE | 2017-05-01 08:16 | Cardiology Progress Note ---
Subjective Date Seen by Provider: May 01, 2017 Time Seen by Provider: 08:15 Subjective/Events-last exam Patient is laying down in bed, feeling better. Denied any chest pain, going home today Review of Systems General: No Chills, No Night Sweats, No Fatigue, No Malaise, No Appetite, No Other HEENT: No Head Aches, No Visual Changes, No Eye Pain, No Ear Pain, No Dysphasia , No Sinus Congestion, No Post Nasal Drip, No Sore Throat, No Other Pulmonary: No Dyspnea, No Cough, No Pleuritic Chest Pain, No Other Cardiovascular: No: Chest Pain, Palpitations, Orthopnea, Paroxysmal Noc. Dyspnea, Edema, Lt Headedness, Other Objective-Cardiology Exam Last Set of Vital Signs Vital Signs 05/01/17 00:17 Temp 98.4 Pulse 62 Resp 16 B/P (MAP) 159/77 (104) Pulse Ox 99 O2 Delivery Room Air Capillary Refill : I&O Intake and Output 05/01/17 00:00 Intake Total 3520 ml Balance 3520 ml Intake Oral 2805 ml IV Total 715 ml # Voids 9 # Bowel Movements 4 General: Alert, Oriented X3, Cooperative HEENT: Atraumatic, PERRLA Neck: Supple, No JVD, No Thyromegaly Lungs: Clear to Auscultation Heart: Regular Rate Abdomen: Normal Bowel Sounds Extremities: No Clubbing, No Cyanosis, No Edema, Normal Pulses, No Tenderness/ Swelling Skin: No Rashes, No Breakdown, No Significant Lesion Neuro: Normal Gait, Normal Speech, Strength at 5/5 X4 Ext Psych/Mental Status: Mental Status NL A/P-Cardiology Admission Diagnosis Nonhealing foot ulcers Coronary artery disease Diabetes mellitus Hypertension Hyperlipidemia Assessment/Plan Nonhealing foot ulcer on the right toe, workup showed normal CHRISTINA, arterial duplex was normal, patient has palpable percent was pedis pulse, probably small vessel disease, NM bone scan suspicious for osteomyelitis. Patient being discharged home today with 6 wk outpatient IV antibiotics. Coronary artery disease-cardiac catheterization on 08/27/2012 revealed 95 percent proximal LAD stenosis, successful balloon angioplasty and stent using a 3x20 mm Promus drug-eluting stent expanded to 3.15 mm with no residual stenosis , otherwise nonobstructive disease in the coronary system. Last stress test was done on May 03, 2016 showing apical thinning with diaphragmatic attenuation with no significant ischemia or infarction, tach at a ejection fraction 34 percent, on the echocardiogram patient had mild diffuse hypokinesia more pronounced at the anterior wall with ejection fraction 40-45 percent, pulmonary artery pressure of 30 mmHg. Continue to monitor. No changes are recommended Congestive heart failure, dilated cardiomyopathy with most recent EF 40-45 percent. chronic compensated left ventricular systolic dysfunction, ischemic cardiomyopathy. Maintained on Toprol and lisinopril. Continue on current medications and monitor Hypertension, continue to monitor blood pressure Hyperlipidemia, unable to tolerate statin or fiberate or Zetia secondary to muscle ache. Continue to monitor. Mild bilateral carotid stenosis, last ultrasound was done in September 2016, continue to monitor Diabetes mellitus, monitored and followed by primary care physician. 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 Villalba Diabetic nephropathy, continue to monitor renal function COPD/obstructive sleep apnea on C-PAP, currently controlled. Benign prostatic hypertrophy, ED Pedal edema-improved, continue to monitor. History of [place] spotted fever, in remission. Clinical Quality Measures DVT/VTE Risk/Contraindication: Risk Factor Score Per Nursin RFS Level Per Nursing on Admit: 4+=Very High MOHAMUD WAN MD May 01, 2017 08:16
[2017-05-01] MEDS: lisINopril 40 MG (PRINIVIL) TABLET PO SCH (09:23)
[2017-05-01] MEDS: TAMSULOSIN 0.4 MG (FLOMAX) CAP PO SCH (09:23)
[2017-05-01] MEDS: cefTRIAXone INJECTION 2,000 MG in NS (IVPB) 100 ML IV SCH (09:23)
[2017-05-01] MEDS: PANTOPRAZOLE 40 MG (PROTONIX) TAB PO SCH (09:23)
[2017-05-01] MEDS: DAKIN'S 1/4 STRENGTH (0.125%) 473 ML BTL TOP SCH (09:23)
== END 2017-05-01 14:00 | disposition home or self-care (01) | DRG 540 ==
LOC: 4TH 14:00
PROVIDERS: ADMIT Internal Medicine; ATTEND Internal Medicine
DX: M86.171 Other acute osteomyelitis, right ankle and foot (principal); L03.031 Cellulitis of right toe; E11.621 Type 2 diabetes mellitus with foot ulcer; E11.51 Type 2 diabetes mellitus with diabetic peripheral angiopathy without gangrene; L97.516 Non-pressure chronic ulcer of other part of right foot with bone involvement without evidence of necrosis; I13.0 Hypertensive heart and chronic kidney disease with heart failure and stage 1 through stage 4 chronic kidney disease, or unspecified chronic kidney disease; I50.22 Chronic systolic (congestive) heart failure; N18.3 Chronic kidney disease, stage 3 (moderate); E86.0 Dehydration; N28.9 Disorder of kidney and ureter, unspecified; I25.10 Atherosclerotic heart disease of native coronary artery without angina pectoris; I25.5 Ischemic cardiomyopathy; C20 Malignant neoplasm of rectum; E78.5 Hyperlipidemia, unspecified; D70.9 Neutropenia, unspecified; D63.0 Anemia in neoplastic disease; D63.1 Anemia in chronic kidney disease; B95.61 Methicillin susceptible Staphylococcus aureus infection as the cause of diseases classified elsewhere; B95.5 Unspecified streptococcus as the cause of diseases classified elsewhere; J44.9 Chronic obstructive pulmonary disease, unspecified; G47.33 Obstructive sleep apnea (adult) (pediatric); R60.0 Localized edema; N40.0 Benign prostatic hyperplasia without lower urinary tract symptoms; N52.9 Male erectile dysfunction, unspecified; I65.23 Occlusion and stenosis of bilateral carotid arteries; Z93.3 Colostomy status; Z95.810 Presence of automatic (implantable) cardiac defibrillator; Z87.442 Personal history of urinary calculi
CPT/HCPCS: 36415; 78315; 80053; 80202; 82962; 83605; 85025; 85652; 86141; 87040; 87070; 87186; 87205; 93005; 93923; 93925

== ENCOUNTER → 2017-05-02 | Outpatient (CLI) | payer BC ==
[~2017-05-02] MED LIST changes: +APIX2.5T PO; +CEFT2FRO2 IV; +SILV25CR21 TOP
== END ==
LOC: WOUNDCARE 12:30
PROVIDERS: ATTEND Surgery
DX: E11.621 Type 2 diabetes mellitus with foot ulcer (principal); L97.522 Non-pressure chronic ulcer of other part of left foot with fat layer exposed; M86.272 Subacute osteomyelitis, left ankle and foot; E11.42 Type 2 diabetes mellitus with diabetic polyneuropathy
CPT/HCPCS: 11042

== ENCOUNTER → 2017-05-09 | Outpatient (CLI) | payer BC | LOC: WOUNDCARE 09:26 | PROVIDERS: ATTEND Surgery | DX: E11.621 Type 2 diabetes mellitus with foot ulcer (principal); L97.522 Non-pressure chronic ulcer of other part of left foot with fat layer exposed; M86.272 Subacute osteomyelitis, left ankle and foot; E11.42 Type 2 diabetes mellitus with diabetic polyneuropathy | CPT/HCPCS: 11042 ==

== ENCOUNTER → 2017-05-11 | Outpatient (CLI) | payer BC | LOC: WOUNDCARE 10:41 | PROVIDERS: ATTEND Surgery | DX: E11.621 Type 2 diabetes mellitus with foot ulcer (principal); E11.42 Type 2 diabetes mellitus with diabetic polyneuropathy; L97.522 Non-pressure chronic ulcer of other part of left foot with fat layer exposed; M86.272 Subacute osteomyelitis, left ankle and foot | CPT/HCPCS: 29445 ==

== ENCOUNTER → 2017-05-16 | Outpatient (CLI) | payer BC | LOC: WOUNDCARE 09:23 | PROVIDERS: ATTEND Surgery | DX: E11.621 Type 2 diabetes mellitus with foot ulcer (principal); L97.512 Non-pressure chronic ulcer of other part of right foot with fat layer exposed; E11.42 Type 2 diabetes mellitus with diabetic polyneuropathy; M86.271 Subacute osteomyelitis, right ankle and foot | CPT/HCPCS: 11042 ==

== ENCOUNTER → 2017-05-23 | Outpatient (CLI) | payer BC ==
[~2017-05-23] MED LIST changes: +KETO10TA PO; +LINE600T7 PO; -METF500T4 PO; +METF500T5 PO; +NITR-65 PO; +OXYC-202 PO; +OXYC-529 PO
== END ==
LOC: WOUNDCARE 09:23
PROVIDERS: ATTEND Surgery
DX: E11.621 Type 2 diabetes mellitus with foot ulcer (principal); L97.512 Non-pressure chronic ulcer of other part of right foot with fat layer exposed; E11.42 Type 2 diabetes mellitus with diabetic polyneuropathy; M86.271 Subacute osteomyelitis, right ankle and foot
CPT/HCPCS: 11042

== ENCOUNTER → 2017-06-06 | Outpatient (CLI) | payer BC | LOC: WOUNDCARE 09:23 | PROVIDERS: ATTEND Surgery | DX: E11.621 Type 2 diabetes mellitus with foot ulcer (principal); L97.512 Non-pressure chronic ulcer of other part of right foot with fat layer exposed; E11.42 Type 2 diabetes mellitus with diabetic polyneuropathy; M86.271 Subacute osteomyelitis, right ankle and foot | CPT/HCPCS: 29445 ==

== ENCOUNTER 2017-06-08 09:28 | Inpatient (IN) | payer BC ==
[~2017-06-08] VITALS: Ht 190.5 cm; Wt 99.8 kg
[~2017-06-08 09:28] MED LIST changes: -KETO10TA PO; -LINE600T7 PO; -NITR-65 PO; -OXYC-202 PO; -OXYC-529 PO
[2017-06-08] MEDS ORDERED: fentaNYL INJECTION 100 MCG/2 ML AMP IVP STA (09:58)
[2017-06-08] MEDS ORDERED: NS IV 1000 ML 1,000 ML IV ONE ×2 (09:58→10:59)
[2017-06-08 10:04] LABS: BASOPHILS % (AUTO) 0 % (0-10); EOSINOPHILS # (AUTO) 0.1 10^3/uL (0.0-0.3); EOSINOPHILS % (AUTO) 1 % (0-10); HEMATOCRIT 34 % (40-54); HEMOGLOBIN 11.9 G/DL (13.3-17.7); LYMPHOCYTES # (AUTO) 0.8 X 10^3 (1.0-4.0); LYMPHOCYTES % (AUTO) 12 % (12-44); MEAN CORPUSCULAR HEMOGLOBIN 32 PG (25-34); MEAN CORPUSCULAR HGB CONC 35 G/DL (32-36); MEAN CORPUSCULAR VOLUME 90 FL (80-99); MEAN PLATELET VOLUME 9.2 FL (7.4-10.4); MONOCYTES # (AUTO) 0.4 X 10^3 (0.0-1.0); MONOCYTES % (AUTO) 6 % (0-12); NEUTROPHILS # (AUTO) 5.5 X 10^3 (1.8-7.8); NEUTROPHILS % (AUTO) 81 % (42-75); PLATELET COUNT 124 10^3/uL (130-400); RED BLOOD COUNT 3.78 10^6/uL (4.35-5.85); RED CELL DISTRIBUTION WIDTH 13.8 % (10.0-14.5); WHITE BLOOD COUNT 6.8 10^3/uL (4.3-11.0)
--- NOTE | 2017-06-08 10:11 | ED GU-Male ---
General Chief Complaint: Back Problems Stated Complaint: SYMPTOMS OF KIDNEY STONES Source: patient Exam Limitations: no limitations History of Present Illness Date Seen by Provider: June 08, 2017 Time Seen by Provider: 09:50 Initial Comments Here with report of symptoms of kidney stones. Has left flank pain which has improved since vomiting earlier today. He did take a Percocet earlier and that has helped. His past multiple multiple stones over the last weeks. Currently on IV antibiotics for osteomyelitis in the foot which is improving. He has 7 rounds of the left. Does have history of rectal cancer with history of chemotherapy and radiation therapy. He has diverting colostomy and port placed. Unsure why he is making stones so much now but is wondering if maybe it is the medications. Denies fever or chills. Did note some blood in his urine with passing stone yesterday. Timing/Duration: week, getting worse Severity/Quality: moderate Location: left flank Radiation: none Activities at Onset: none Modifying Factors: Worsens With Urinating; Improves With Vomiting Associated Symptoms: dysuria; No fever/chills; lower back pain, nausea/vomiting Allergies and Home Medications Allergies Coded Allergies: No Known Drug Allergies (Unverified , 02/14/17) Home Medications Apixaban 2.5 Mg Tablet, 2.5 MG PO BID Prescribed by: SYED LEE on 05/01/17 0755 Aspirin 81 Mg Tab.chew, 81 MG PO HS, (Reported) Ceftriaxone Na/Dextrose,Iso 2 Gm/50 Ml Froz.piggy, 2 GM IV DAILY Prescribed by: SYED LEE on 04/30/17 0944 Glyburide 2.5 Mg Tablet, 2.5 MG PO BID, (Reported) Lisinopril 40 Mg Tablet, 40 MG PO DAILY, (Reported) Metoprolol Succinate 200 Mg Tab.er.24h, 200 MG PO HS, (Reported) Ondansetron 4 Mg Tab.rapdis, 4 MG PO Q4H PRN for NAUSEA/VOMITING-1ST LINE, ( Reported) Pantoprazole Sodium 40 Mg Tablet.dr, 40 MG PO DAILY, (Reported) Silver Sulfadiazine 25 Gm Cream..g., TOP BID, (Reported) APPLY TO TOE Tamsulosin HCl 0.4 Mg Cap.er.24h, 0.4 MG PO DAILY, (Reported) Patient Home Medication List Home Medication List Reviewed: Yes Review of Systems Constitutional: see HPI EENTM: no symptoms reported Respiratory: No cough, No short of breath Cardiovascular: No chest pain, No palpitations Gastrointestinal: nausea, vomiting Genitourinary: flank pain, pain Musculoskeletal: no symptoms reported Skin: no symptoms reported All Other Systemes Reviewed Negative Unless Noted: Yes Past Jvntdgp-Ovpfjm-Hghkpz Hx Past Med/Social Hx: Reviewed Nursing Past Med/Soc Hx Patient Social History Alcohol Use: Denies Use Recreational Drug Use: No Smoking Status: Never a Smoker 2nd Hand Smoke Exposure: No Recent Foreign Travel: No Contact w/Someone Who Travel: No Recent Hopitalizations: Yes (Dec-GALLBLADDER, NOV 29 BLADDER INFECTION) Immunizations Up To Date PED Vaccines UTD: No Seasonal Allergies Seasonal Allergies: No Past Medical History Surgeries: Yes (ILEOSTOMY/COLECTOMY 11/16/16 IN [place] FOR RECTAL CANCER) Abdominal, Appendectomy, Bowel Surgery, Cardiac, Coronary Stent, Gallbladder, Pacemaker Respiratory: Yes Sleep Apnea Currently Using CPAP: No (unable to tolerate) Currently Using BIPAP: No Cardiac: Yes (CARDIAC CATH--STENT) Coronary Artery Disease, High Cholesterol, Hypertension Neurological: Yes Neuropathy Reproductive Disorders: No Sexually Transmitted Disease: No HIV/AIDS: No Genitourinary: Yes (urinary retention following colon surgery) Bladder Infection, Kidney Stones Gastrointestinal: Yes (RECTAL CANCER--S/P COLECTOMY AND ILEOSTOMY) Musculoskeletal: Yes Arthritis Endocrine: Yes Diabetes, Non-Insulin dep HEENT: No Loss of Vision: Bilateral Hearing Impairment: Denies Cancer: Yes Rectal, Colon Did You Recieve Any Treatments: Yes What Type of Treatment Did You: Chemotherapy, Radiation, Surgical Intervention Psychosocial: No Depression Integumentary: No Recent Skin Changes Blood Disorders: No Adverse Reaction/Blood Tranf: No (N/A) Family Medical History Reviewed Nursing Family Hx Alzheimer's disease 19 FATHER ( at 89) 19 MOTHER ( 93) No Pertinent Family Hx, CAD Over 55 Years Old, Diabetes, Hypertension Physical Exam Vital Signs Vital Signs - First Documented 06/08/17 09:45 Temp 98.1 Pulse 86 Resp 16 B/P (MAP) 143/90 (107) Pulse Ox 96 O2 Delivery Room Air Capillary Refill : General Appearance: WD/WN, no apparent distress Neck: full range of motion, supple Cardiovascular: regular rate, rhythm, no murmur Respiratory: lungs clear, normal breath sounds Gastrointestinal: non tender, soft Back: normal inspection, no CVA tenderness, no vertebral tenderness Neurologic/Psychiatric: alert, oriented x 3 Skin: normal color, warm/dry Progress/Results/Core Measures Suspected Sepsis SIRS Temperature: Pulse: Respiratory Rate: Laboratory Tests 06/08/17 09:48: White Blood Count 6.8 Blood Pressure / Mean: Laboratory Tests 06/08/17 09:48: Creatinine 2.04H, Platelet Count 124L, Total Bilirubin 0.4 Results/Orders Lab Results Laboratory Tests Test 06/08/17 09:48 06/08/17 10:20 Range/Units White Blood Count 6.8 4.3-11.0 10^3/uL Red Blood Count 3.78 L 4.35-5.85 10^6/uL Hemoglobin 11.9 L 13.3-17.7 G/DL Hematocrit 34 L 40-54 % Mean Corpuscular Volume 90 80-99 FL Mean Corpuscular Hemoglobin 32 25-34 PG Mean Corpuscular Hemoglobin Concent 35 32-36 G/DL Red Cell Distribution Width 13.8 10.0-14.5 % Platelet Count 124 L 130-400 10^3/uL Mean Platelet Volume 9.2 7.4-10.4 FL Neutrophils (%) (Auto) 81 H 42-75 % Lymphocytes (%) (Auto) 12 12-44 % Monocytes (%) (Auto) 6 0-12 % Eosinophils (%) (Auto) 1 0-10 % Basophils (%) (Auto) 0 0-10 % Neutrophils # (Auto) 5.5 1.8-7.8 X 10^3 Lymphocytes # (Auto) 0.8 L 1.0-4.0 X 10^3 Monocytes # (Auto) 0.4 0.0-1.0 X 10^3 Eosinophils # (Auto) 0.1 0.0-0.3 10^3/uL Basophils # (Auto) 0.0 0.0-0.1 10^3/uL Sodium Level 133 L 135-145 MMOL/L Potassium Level 4.5 3.6-5.0 MMOL/L Chloride Level 103 98-107 MMOL/L Carbon Dioxide Level 20 L 21-32 MMOL/L Anion Gap 10 5-14 MMOL/L Blood Urea Nitrogen 30 H 7-18 MG/DL Creatinine 2.04 H 0.60-1.30 MG/DL Estimat Glomerular Filtration Rate 33 BUN/Creatinine Ratio 15 Glucose Level 197 H 70-105 MG/DL Calcium Level 8.9 8.5-10.1 MG/DL Total Bilirubin 0.4 0.1-1.0 MG/DL Aspartate Amino Transf (AST/SGOT) 23 5-34 U/L Alanine Aminotransferase (ALT/SGPT) 26 0-55 U/L Alkaline Phosphatase 151 H 40-136 U/L C-Reactive Protein High Sensitivity 1.70 H 0.00-0.50 MG/DL Total Protein 7.0 6.4-8.2 GM/DL Albumin 4.1 3.2-4.5 GM/DL Urine Color YELLOW Urine Clarity CLEAR Urine pH 5 5-9 Urine Specific [place] 1.015 L 1.016-1.022 Urine Protein 1+ H NEGATIVE Urine Glucose (UA) 1+ H NEGATIVE Urine Ketones NEGATIVE NEGATIVE Urine Nitrite NEGATIVE NEGATIVE Urine Bilirubin NEGATIVE NEGATIVE Urine Urobilinogen NORMAL NORMAL MG/DL Urine Leukocyte Esterase NEGATIVE NEGATIVE Urine RBC (Auto) NEGATIVE NEGATIVE Urine RBC NONE /HPF Urine WBC NONE /HPF Urine Squamous Epithelial Cells NONE /HPF Urine Crystals NONE /LPF Urine Bacteria NEGATIVE /HPF Urine Casts NONE /LPF Urine Mucus NEGATIVE /LPF Urine Culture Indicated NO My Orders Orders - NARAYAN AMEZCUA MD Fentanyl Injection (Sublimaze Injection (06/08/17 09:58) Cbc With Automated Diff (06/08/17 09:58) Comprehensive Metabolic Panel (06/08/17 09:58) Hs C Reactive Protein (06/08/17 09:58) Ua Culture If Indicated (06/08/17 09:58) Ns Iv 1000 Ml (Sodium Chloride 0.9%) (06/08/17 09:58) Ct Abd/Pelvis Wo(Kidney Stone) (06/08/17 09:58) Saline Lock/Iv-Start (06/08/17 10:59) Ns Iv 1000 Ml (Sodium Chloride 0.9%) (06/08/17 10:59) Hydromorphone Injection (Dilaudid Inject (06/08/17 10:59) Ceftriaxone Injection (Rocephin Injectio (06/08/17 11:15) Hydromorphone Injection (Dilaudid Inject (06/08/17 12:00) Ondansetron Injection (Zofran Injectio (06/08/17 12:00) Medications Given in ED Current Medications Medications Dose Ordered Sig/Marie Route Start Time Stop Time Status Last Admin Dose Admin Ceftriaxone Sodium 2000 mg/ Sodium Chloride 100 ml @ 200 mls/hr ONCE ONCE IV 06/08/17 11:15 06/08/17 11:44 DC 06/08/17 11:15 200 MLS/HR Hydromorphone HCl 1 mg ONCE ONCE IV 06/08/17 12:00 06/08/17 12:01 DC 06/08/17 12:00 1 MG Ondansetron HCl 4 mg ONCE ONCE IVP 06/08/17 12:00 06/08/17 12:01 DC 06/08/17 12:00 4 MG Sodium Chloride 1,000 ml @ 0 mls/hr Q0M ONCE IV 06/08/17 09:58 06/08/17 10:00 DC 06/08/17 10:13 1,000 MLS/HR Sodium Chloride 1,000 ml @ 0 mls/hr Q0M ONCE IV 06/08/17 10:59 06/08/17 11:00 DC 06/08/17 11:17 1,000 MLS/HR Vital Signs/I&O 06/08/17 06/08/17 09:45 11:16 Temp 98.1 98.1 Pulse 86 Resp 16 B/P (MAP) 143/90 (107) Pulse Ox 96 O2 Delivery Room Air Capillary Refill : Progress Note : Progress Note Seen and evaluated. Fentanyl 75 g IV, normal saline 1 L bolus, UA, labs and CT abdomen and pelvis kidney stone protocol ordered. Monitor patient. 1100: CT results noted. Creatinine elevated. We will give another liter of normal saline as well as 1 mg of Dilaudid IV for increased pain. Patient is due to have his ceftriaxone 2 g IV and was fussing at that this morning. We will go ahead and give that now. Monitor patient. 1200: Patient required repeat dosing of Dilaudid for pain control and this has helped. Does have stone at the left UVJ. Patient was seen by Dr. Lee in the ER and she would like him admitted to [facility] pump. We'll write orders. 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 This will also allow for monitoring of his acute renal failure. Patient and family agree with plan. Diagnostic Imaging Diagonstic Imaging: CT Plain Films/CT/US/NM/MRI: abdomen, pelvis Comments NAME: HAI DOLL REC#: [id number] PT STATUS: REG ER : 1955 PHYSICIAN: NARAYAN AMEZCUA MD ADMIT DATE: 06/08/17/ER Draft Date of Exam:06/08/17 CT ABD/PELVIS WO(KIDNEY STONE) PROCEDURE: CT urinary tract, rule out kidney stone. TECHNIQUE: Multiple contiguous axial images were obtained through the abdomen and pelvis without the use of intravenous contrast. INDICATION: Kidney stones. Left flank pain. Hematuria. COMPARISON: 03/06/2017. FINDINGS: Included portions of the lung bases are clear. CT ABDOMEN: Since the previous exam, there has been interval migration of 3 mm calculus into the distal left ureter located at the UVJ. As a result, there is moderate proximal hydroureteronephrosis. Multiple other bilateral nonobstructive renal calculi are also identified bilaterally, left greater than right. No calculi seen along the course the right ureter. Additionally, there is no hydroureteronephrosis or other evidence of obstruction on the right. No focal renal mass type lesions are seen on this noncontrast exam. The spleen, liver, pancreas, and adrenal glands have an unremarkable noncontrast CT appearance. There is colonic diverticulosis, but no CT evidence of acute diverticulitis. Ostomy site is noted within the right lower abdominal quadrant. There is a herniated loop extending into the inferior margins of the ostia, but there is no evidence of strangulation or obstruction. Small bowel loops are nondistended. Normal appendix cannot be adequately identified, but there is no pericecal inflammation. There is no loculated fluid collection or free fluid, or free air within the abdomen. No abnormal mesenteric or retroperitoneal adenopathy is seen. There is moderate calcified aortic or arterial atherosclerosis. Bony structures show no acute abnormalities. CT PELVIS: Again, there is a small 3 mm calculus at the left UVJ. Urinary bladder is otherwise minimally distended and unopacified. There is no loculated fluid collection, free fluid, nor free air within the pelvis. No abnormal lymph nodes are identified. Bony structures show no acute abnormalities. IMPRESSION: 1. Interval migration of 3 mm calculus in the distal left ureter at the UVJ resulting in moderate proximal hydroureteronephrosis. 2. Multiple additional bilateral nonobstructive renal calculi, left greater than right. 3. Colonic diverticulosis, but no CT evidence of acute diverticulitis. Dictated on workstation # [id number] Dict: 06/08/17 1045 Trans: 06/08/17 1057 [facility] [id number] Interpreted by: CLARITA DAVIS MD Electronically signed by: Reviewed: Reviewed by Me Departure Communication (Admissions) Time/Spoke to Admitting Phy: 12:00 Impression Primary Impression: left ureteral stone Additional Impressions: Acute renal failure Qualified Codes: N17.9 - Acute kidney failure, unspecified Intractable pain Disposition: ADMITTED INPATIENT Condition: Stable Admissions Decision to Admit Reason: Admit from ER (General) Decision to Admit/Date: June 08, 2017 Time/Decision to Admit Time: 12:00 Departure-Patient Inst. Referrals: SYED LEE DO (PCP/Family) Primary Care Physician NARAYAN AMEZCUA MD June 08, 2017 10:11
[2017-06-08 10:23] LABS: ALBUMIN 4.1 GM/DL (3.2-4.5); BILIRUBIN,TOTAL 0.4 MG/DL (0.1-1.0); CALCIUM 8.9 MG/DL (8.5-10.1); CREATININE SERUM 2.04 MG/DL (0.60-1.30); POTASSIUM 4.5 MMOL/L (3.6-5.0)
[2017-06-08 10:33] LABS: BILIRUBIN,URINE NEGATIVE (NEGATIVE); CLARITY,URINE CLEAR; COLOR,URINE YELLOW; GLUCOSE, URINE (UA) 1+ (NEGATIVE); KETONES,URINE NEGATIVE (NEGATIVE); LEUKOCYTE ESTERASE ,URINE NEGATIVE (NEGATIVE); NITRITE,URINE NEGATIVE (NEGATIVE); PH,URINE 5 (5-9); PROTEIN,URINE 1+ (NEGATIVE); UROBILINOGEN,URINE NORMAL (NORMAL)
[2017-06-08 10:44] LABS: BACTERIA,URINE NEGATIVE /HPF
--- NOTE | 2017-06-08 10:57 | Diagnostic Imaging Report ---
PROCEDURE: CT urinary tract, rule out kidney stone. TECHNIQUE: Multiple contiguous axial images were obtained through the abdomen and pelvis without the use of intravenous contrast. INDICATION: Kidney stones. Left flank pain. Hematuria. COMPARISON: 03/06/2017. FINDINGS: Included portions of the lung bases are clear. CT ABDOMEN: Since the previous exam, there has been interval migration of 3 mm calculus into the distal left ureter located at the UVJ. As a result, there is moderate proximal hydroureteronephrosis. Multiple other bilateral nonobstructive renal calculi are also identified bilaterally, left greater than right. No calculi seen along the course the right ureter. Additionally, there is no hydroureteronephrosis or other evidence of obstruction on the right. No focal renal mass type lesions are seen on this noncontrast exam. The spleen, liver, pancreas, and adrenal glands have an unremarkable noncontrast CT appearance. There is colonic diverticulosis, but no CT evidence of acute diverticulitis. Ostomy site is noted within the right lower abdominal quadrant. There is a herniated loop extending into the inferior margins of the ostia, but there is no evidence of strangulation or obstruction. Small bowel loops are nondistended. Normal appendix cannot be adequately identified, but there is no pericecal inflammation. There is no loculated fluid collection or free fluid, or free air within the abdomen. No abnormal mesenteric or retroperitoneal adenopathy is seen. There is moderate calcified aortic or arterial atherosclerosis. Bony structures show no acute abnormalities. CT PELVIS: Again, there is a small 3 mm calculus at the left UVJ. Urinary bladder is otherwise minimally distended and unopacified. There is no loculated fluid collection, free fluid, nor free air within the pelvis. No abnormal lymph nodes are identified. Bony structures show no acute abnormalities. IMPRESSION: 1. Interval migration of 3 mm calculus in the distal left ureter at the UVJ resulting in moderate proximal hydroureteronephrosis. 2. Multiple additional bilateral nonobstructive renal calculi, left greater than right. 3. Colonic diverticulosis, but no CT evidence of acute diverticulitis. Dictated by: Dictated on workstation # [id number]
[2017-06-08] MEDS ORDERED: HYDROmorphone 2 MG/ML VIAL (DILAUDID) IVP STA (10:59)
[2017-06-08] MEDS ORDERED: cefTRIAXone INJECTION 2,000 MG in NS (IVPB) 100 ML IV ONE (11:15)
[2017-06-08] MEDS ORDERED: HYDROmorphone 1 MG/ML (DILAUDID) 1 ML SYRINGE IV ONE (12:00)
[2017-06-08] MEDS ORDERED: ONDANSETRON 4 MG/2 ML (SDV) Z0FRAN IVP ONE (12:00)
--- NOTE | 2017-06-08 13:29 | History & Physical-Hospitalist ---
History of Present Illness HPI/Chief Complaint CC: Severe right flank pain HPI: This is a 61-year-old white male clinic patient of [facility] that has had a very complex history since last fall including new diagnosis of rectal carcinoma status post resection with diverting colostomy set to have a colostomy takedown on 07/05/17 in addition to new onset kidney stones diagnosed a couple of months ago had never had a chance to follow-up with urology due to colostomy bag issues which required several trips to [place] and back in addition new-onset of right great toe diabetic ulcer managed by Dr. Mcdonald and fishing antibiotics of Rocephin 1 g daily for a total of 42 days who presented to the ER with complaints of severe flank pain found to have a creatinine of 2.0 and refractory pain requiring admission to the hospital. At this current time he reports nausea and the Dilaudid is helping with the pain. Source: patient Exam Limitations: no limitations Date Seen 06/08/17 Time Seen by Provider: 12:00 Attending Physician Chelsie Lucia DO PCP Chelsie Lucia DO Referring Physician Date of Admission June 08, 2017 at 12:30 Home Medications & Allergies Home Medications Reviewed patient Home Medication Reconciliation performed by pharmacy medication reconciliations certified hyperbaric technician and/or nursing. Patients Allergies have been reviewed. 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) Alcohol Use: Denies Use Recreational Drug Use: No Smoking Status: Never a Smoker 2nd Hand Smoke Exposure: No Recent Foreign Travel: No Contact w/other who traveled: No Recent Hopitalizations: Yes (Dec-GALLBLADDER, NOV 29 BLADDER INFECTION) Recent Infectious Disease Expo: No Immunizations Up To Date Tetanus Booster (TDap): Unknown Pediatric: No Seasonal Allergies Seasonal Allergies: No Past Medical History Surgeries: Abdominal, Appendectomy, Bowel Surgery, Cardiac, Coronary Stent, Gallbladder, Pacemaker Respiratory: Asthma Currently Using CPAP: No (unable to tolerate) Currently Using BIPAP: No Cardiac: Coronary Artery Disease, High Cholesterol, Hypertension Neurological: Neuropathy Reproductive: No Sexually Transmitted Disease: No HIV/AIDS: No Genitourinary: Bladder Infection, Kidney Stones Musculoskeletal: Arthritis Endocrine: Diabetes, Non-Insulin dep Loss of Vision: Bilateral Hearing Impairment: Denies Cancer: Rectal, Colon Did You Recieve Any Treatments: Yes What Type of Treatment Did You: Chemotherapy, Radiation, Surgical Intervention Psychosocial: Depression Skin/Integumentary: Recent Skin Changes History of Blood Disorders: No Adverse Reaction to Blood [place]: No (N/A) Family History Reviewed Nursing Family Hx Alzheimer's disease 19 FATHER ( at 89) 19 MOTHER ( 93) No Pertinent Family Hx, CAD Over 55 Years Old, Diabetes, Hypertension Review of Systems Constitutional: see HPI EENTM: no symptoms reported Respiratory: no symptoms reported Cardiovascular: no symptoms reported Gastrointestinal: loss of appetite, nausea Genitourinary: dysuria, frequency, hematuria, pain Musculoskeletal: back pain Skin: no symptoms reported Psychiatric/Neurological: No Symptoms Reported All Other Systems Reviewed Negative Unless Noted: Yes Physical Exam Physical Exam Vital Signs Vital Signs - First Documented 06/08/17 09:45 Temp 98.1 Pulse 86 Resp 16 B/P (MAP) 143/90 (107) Pulse Ox 96 O2 Delivery Room Air Capillary Refill : Less Than 3 Seconds General Appearance: WD/WN, Chronically ill, Moderate Distress (due to flank pain), Obese Eyes: Bilateral Eye Normal Inspection, Bilateral Eye PERRL HEENT: PERRL/EOMI, Normal ENT Inspection, Pharynx Normal Neck: Full Range of Motion, Normal Inspection, Non Tender, Supple, Carotid Bruit Respiratory: Chest Non Tender, Lungs Clear, Normal Breath Sounds, No Accessory Muscle Use, No Respiratory Distress Cardiovascular: Regular Rate, Rhythm, No Edema, No Gallop, No JVD, No Murmur, Normal Peripheral Pulses Gastrointestinal: Normal Bowel Sounds, No Organomegaly, No Pulsatile Mass, Non Tender, Soft Back: Normal Inspection, No CVA Tenderness, No Vertebral Tenderness Extremity: Normal Capillary Refill, Normal Inspection, Normal Range of Motion, Non Tender, No Calf Tenderness, No Pedal Edema, Other (right foot in simple cast ) Neurologic/Psychiatric: Alert, Oriented x3, No Motor/Sensory Deficits, Normal Mood/Affect Skin: Normal Color, Warm/Dry Lymphatic: No Adenopathy Results Results/Procedures Labs Laboratory Tests 06/08/17 09:48 06/09/17 06:27 Patient resulted labs reviewed. Assessment/Plan Admission Diagnosis Assessment: Severe and refractory flank pain due to kidney stone Acute renal failure on chronic renal insufficiency Osteomyelitis of the right great toe diabetic type CAD Ischemic cardiomyopathy Hypertension Hyperlipidemia Plan: Dilaudid RETORT COOLER IV fluids Home meds but hold lisinopril and add Norvasc for elevated blood pressure Continue Rocephin for completion of osteomyelitis the great toe now healed per wound care center Admission Status: Inpatient Order (span 2 midnights) Reason for Inpatient Admission: IV pain meds required along with monitoring of ARF in DM with rectal cancer Diagnosis/Problems Diagnosis/Problems (1) Acute flank pain Status: Acute (2) left ureteral stone Status: Acute (3) Renal failure (ARF), acute on chronic Status: Acute Qualifiers: Acute renal failure type: unspecified Chronic kidney disease stage: stage 3 (moderate) Qualified Codes: N17.9 - Acute kidney failure, unspecified; N18.3 - Chronic kidney disease, stage 3 (moderate) (4) Diabetes mellitus Status: Chronic Qualifiers: Diabetes mellitus type: type 2 Diabetes mellitus mcfp insulin use: without termite technician use Diabetes mellitus complication status: with neurologic complications Diabetes mellitus complication detail: with polyneuropathy Qualified Codes: E11.42 - Type 2 diabetes mellitus with diabetic polyneuropathy (5) Rectal cancer Status: Chronic (6) Renal stones Status: Chronic CHELSIE LUCIA DO June 08, 2017 13:29
[2017-06-08] MEDS ORDERED: HYDROmorphone 20 MG/NS 100 ML PCA IV PRN ×2 (14:00)
[2017-06-08] MEDS ORDERED: diphenhydrAMINE 50 MG/ML INJ (BENADRYL) IV PRN (14:00)
[2017-06-08] MEDS ORDERED: CATHETER FLUSH 10 ML SYR IV PRN (14:00)
[2017-06-08] MEDS ORDERED: ONDANSETRON 4 MG/2 ML (SDV) Z0FRAN IV PRN (14:00)
[2017-06-08] MEDS ORDERED: METOCLOPRAMIDE INJ 10 MG/2 ML (REGLAN) IV PRN (14:00)
[2017-06-08] MEDS ORDERED: NALOXONE 0.4 MG/ML 1 ML (NARCAN) VIAL IV PRN (14:00)
[2017-06-08] MEDS: NS IV 1000 ML 1,000 ML IV SCH ×2 (14:24→22:26)
[2017-06-08] MEDS ORDERED: ONDANSETRON 4 MG PO PRN (15:15)
[2017-06-08] MEDS ORDERED: ACETAMINOPHEN 500 MG TAB (TYLENOL) PO PRN (15:15)
[2017-06-08] MEDS ORDERED: ALPRAZolam 0.25 MG (XANAX) TAB PO PRN (15:15)
[2017-06-08] MEDS ORDERED: ONDANSETRON 4 MG/2 ML (SDV) Z0FRAN IVP PRN (15:15)
[2017-06-08] MEDS ORDERED: ONDANSETRON 4 MG (ZOFRAN) ORAL DISSOLVE TAB PO PRN (15:30)
[2017-06-08 15:43] VITALS: BP 154/72
[2017-06-08] MEDS ORDERED: amLODIPine 5 MG (NORVASC) TAB PO NR (16:00)
[2017-06-08] MEDS: inSUlin ASPART (NovoLOG) 1 UNIT/0.01 ML (CHARGE PER UNIT) SC SCH ×2 (16:53→20:41)
[2017-06-08 20:09] VITALS: BP 157/79
[2017-06-08] MEDS: DOCUSATE SODIUM 100 MG (COLACE) CAP PO SCH (20:40)
[2017-06-08] MEDS ORDERED: NON-FORMULARY MEDICATION 1 EA EA (Metoprolol Succinate 200 MG) PO SCH (21:00)
[2017-06-08] MEDS ORDERED: meTOprolol SUCCINATE 100 MG (TOPROL XL) TAB PO SCH (21:00)
[2017-06-08] MEDS ORDERED: ASPIRIN 81 MG CHEW (CHILDREN'S ASA) PO SCH (21:00)
[2017-06-09 00:22] VITALS: BP 161/78
[2017-06-09 04:40] VITALS: BP 134/75
[2017-06-09] MEDS: NS IV 1000 ML 1,000 ML IV SCH (06:20)
[2017-06-09] MEDS: inSUlin ASPART (NovoLOG) 1 UNIT/0.01 ML (CHARGE PER UNIT) SC SCH (06:21)
[2017-06-09] MEDS ORDERED: PANTOPRAZOLE 40 MG (PROTONIX) TAB PO SCH (07:00)
[2017-06-09 07:06] LABS: ALBUMIN 3.5 GM/DL (3.2-4.5); BILIRUBIN,TOTAL 0.9 MG/DL (0.1-1.0); CALCIUM 8.6 MG/DL (8.5-10.1); CREATININE SERUM 1.69 MG/DL (0.60-1.30); POTASSIUM 4.4 MMOL/L (3.6-5.0); TOTAL PROTEIN 6.2 GM/DL (6.4-8.2)
[2017-06-09 08:00] VITALS: BP 132/64
--- NOTE | 2017-06-09 08:06 | Discharge Summary-Hospitalist ---
Diagnosis/Chief Complaint Date of Admission June 08, 2017 at 12:30 Date of Discharge Discharge Diagnosis (1) left ureteral stone Status: Acute (2) Renal failure (ARF), acute on chronic Status: Acute (3) Acute flank pain Status: Acute (4) Renal stones Status: Chronic (5) Rectal cancer Status: Chronic (6) Diabetes mellitus Status: Chronic (7) Osteomyelitis of toe of right foot Status: Acute (8) Colostomy in place Status: Chronic (9) Hypertension Status: Chronic (10) Diabetes mellitus Status: Chronic (11) Hyperlipidemia Status: Chronic Discharge Summary Discharge Physical Exam Allergies: Coded Allergies: No Known Drug Allergies (Unverified , 02/14/17) Vitals & I&Os Vital Signs Date Time Temp Pulse Resp B/P (MAP) Pulse Ox O2 Delivery O2 Flow Rate FiO2 06/09/17 11:40 06/09/17 08:00 98.9 86 16 94 Room Air General Appearance: Alert, Oriented X3, Cooperative HEENT: Atraumatic, PERRLA Respiratory: Clear to Auscultation, Normal Air Movement Cardiovascular: Regular Rate, Normal S1, Normal S2 Psych/Mental Status: Mental Status NL, Mood NL Hospital Course Hospital course: Patient a brief Hospital course he was admitted placed on Dilaudid CARAMEL MAKER and IV fluids and overall did well throughout the day and night. At the time of discharge she was without pain and we will arrange for urology referral in order to try to prevent additional stones but CT scan noted multiple stones bilaterally left greater than right. He will continue Rocephin 1 g daily for an additional 7 days to complete a 42 days of that antibiotic for osteomyelitis of the right great toe that is now resolved for wound care management. Overall he was improved and was ready to go home. He does have hydrocodone's at home for pain. Labs (last 24 hrs) Laboratory Tests 06/08/17 20:09: Glucometer 72 06/09/17 05:38: Glucometer 97 06/09/17 06:27: Sodium Level 135, Potassium Level 4.4, Chloride Level 107, Carbon Dioxide Level 22, Anion Gap 6, Blood Urea Nitrogen 21H, Creatinine 1.69H, Estimat Glomerular Filtration Rate 41, BUN/Creatinine Ratio 12, Glucose Level 101, Calcium Level 8.6, Total Bilirubin 0.9, Aspartate Amino Transf (AST/SGOT) 26, Alanine Aminotransferase (ALT/SGPT) 24, Alkaline Phosphatase 122, Total Protein 6.2L, Albumin 3.5 Patient resulted labs reviewed. Pending Labs Discussion & Recommendations Discharge Planning: <30 minutes discharge planning Discharge Home Medications: Active Scripts Active Amlodipine Besylate 5 Mg Tablet 5 Mg PO DAILY Ceftriaxone 2 gm Piggyback (Ceftriaxone Na/Dextrose,Iso) 2 Gm/50 Ml Froz.piggy 2 Gm IV DAILY 42 Days Reported Ssd (Silver Sulfadiazine) 25 Gm Cream..g. TOP BID APPLY TO TOE Tamsulosin HCl 0.4 Mg Cap.er.24h 0.4 Mg PO DAILY Ondansetron Odt (Ondansetron) 4 Mg Tab.rapdis 4 Mg PO Q4H PRN Glyburide 2.5 Mg Tablet 2.5 Mg PO BID Pantoprazole Sodium 40 Mg Tablet.dr 40 Mg PO DAILY Aspirin 81 Mg Tab.chew 81 Mg PO HS Metoprolol Succinate 200 Mg Tab.er.24h 200 Mg PO HS Instructions to patient/family Please see electronic discharge instructions given to patient. Clinical Quality Measures DVT/VTE Risk/Contraindication: Risk Factor Score Per Nursin RFS Level Per Nursing on Admit: 3=High Problem Qualifiers (1) Renal failure (ARF), acute on chronic: Acute renal failure type: unspecified Chronic kidney disease stage: stage 3 ( moderate) Qualified Codes: N17.9 - Acute kidney failure, unspecified; N18.3 - Chronic kidney disease, stage 3 (moderate) (2) Diabetes mellitus: Diabetes mellitus type: type 2 Diabetes mellitus senior living insulin use: without senior living use Diabetes mellitus complication status: with neurologic complications Diabetes mellitus complication detail: with polyneuropathy Qualified Codes: E11.42 - Type 2 diabetes mellitus with diabetic polyneuropathy SYED LEE DO June 09, 2017 08:06
[2017-06-09] MEDS ORDERED: cefTRIAXone INJECTION 1,000 MG in NS (IVPB) 100 ML IV NR (08:15)
[2017-06-09] MEDS ORDERED: cefTRIAXone INJECTION 1,000 MG in NS (IVPB) 100 ML IV ONE (08:15)
[2017-06-09] MEDS ORDERED: SENNA W/DOCUSATE (SENOKOT S) TABLET PO SCH (09:00)
[2017-06-09] MEDS ORDERED: TAMSULOSIN 0.4 MG (FLOMAX) CAP PO SCH (09:00)
[2017-06-09] MEDS ORDERED: amLODIPine 5 MG (NORVASC) TAB PO SCH (09:00)
[2017-06-09] MEDS ORDERED: lisINopril 40 MG (PRINIVIL) TABLET PO SCH (09:00)
[2017-06-09] MEDS: DOCUSATE SODIUM 100 MG (COLACE) CAP PO SCH (09:04)
[2017-06-09] MEDS ORDERED: AMLO5TAB2 PO (10:52)
== END 2017-06-09 11:45 | disposition home or self-care (01) | DRG 694 ==
LOC: EDUNIT# 09:28 → ER 09:30 → 4TH 12:30
PROVIDERS: ADMIT Internal Medicine; ATTEND Internal Medicine
DX: N20.1 Calculus of ureter (principal); N17.9 Acute kidney failure, unspecified; N20.0 Calculus of kidney; C20 Malignant neoplasm of rectum; M86.671 Other chronic osteomyelitis, right ankle and foot; I12.9 Hypertensive chronic kidney disease with stage 1 through stage 4 chronic kidney disease, or unspecified chronic kidney disease; N18.9 Chronic kidney disease, unspecified; E11.42 Type 2 diabetes mellitus with diabetic polyneuropathy; I25.10 Atherosclerotic heart disease of native coronary artery without angina pectoris; I25.5 Ischemic cardiomyopathy; E78.5 Hyperlipidemia, unspecified; Z93.3 Colostomy status
CPT/HCPCS: 36415; 74176; 80053; 81000; 82962; 85025; 86141; 96361; 96365; 96375; 96376

== ENCOUNTER → 2017-06-13 | Outpatient (CLI) | payer BC ==
[~2017-06-13] MED LIST changes: +KETO10TA PO; +LINE600T7 PO; +NITR-65 PO; +OXYC-202 PO; +OXYC-529 PO
== END ==
LOC: WOUNDCARE 09:09
PROVIDERS: ATTEND Surgery
DX: E11.621 Type 2 diabetes mellitus with foot ulcer (principal); L97.512 Non-pressure chronic ulcer of other part of right foot with fat layer exposed
CPT/HCPCS: 99212

== ENCOUNTER → 2017-06-14 | Outpatient (CLI) | payer BC | LOC: LAB 09:37 | PROVIDERS: ATTEND Urology | DX: N20.9 Urinary calculus, unspecified (principal) | CPT/HCPCS: 88300 ==

== ENCOUNTER 2017-06-19 15:18 | Outpatient (RCR) | payer BC ==
[2017-03-28 15:31] LABS: BASOPHILS % (AUTO) 0 % (0-10); EOSINOPHILS # (AUTO) 0.1 10^3/uL (0.0-0.3); EOSINOPHILS % (AUTO) 1 % (0-10); HEMATOCRIT 31 % (40-54); HEMOGLOBIN 11.2 G/DL (13.3-17.7); LYMPHOCYTES # (AUTO) 0.8 X 10^3 (1.0-4.0); LYMPHOCYTES % (AUTO) 14 % (12-44); MEAN CORPUSCULAR HEMOGLOBIN 32 PG (25-34); MEAN CORPUSCULAR HGB CONC 36 G/DL (32-36); MEAN CORPUSCULAR VOLUME 89 FL (80-99); MEAN PLATELET VOLUME 8.5 FL (7.4-10.4); MONOCYTES # (AUTO) 0.4 X 10^3 (0.0-1.0); MONOCYTES % (AUTO) 6 % (0-12); NEUTROPHILS # (AUTO) 4.6 X 10^3 (1.8-7.8); NEUTROPHILS % (AUTO) 79 % (42-75); PLATELET COUNT 135 10^3/uL (130-400); RED BLOOD COUNT 3.52 10^6/uL (4.35-5.85); RED CELL DISTRIBUTION WIDTH 15.9 % (10.0-14.5); WHITE BLOOD COUNT 5.8 10^3/uL (4.3-11.0)
[2017-03-28 15:51] LABS: CREATININE SERUM 1.69 MG/DL (0.60-1.30); POTASSIUM 5.1 MMOL/L (3.6-5.0)
[2017-04-04 10:26] LABS: BASOPHILS % (AUTO) 0 % (0-10); EOSINOPHILS # (AUTO) 0.1 10^3/uL (0.0-0.3); EOSINOPHILS % (AUTO) 1 % (0-10); HEMATOCRIT 32 % (40-54); HEMOGLOBIN 11.2 G/DL (13.3-17.7); LYMPHOCYTES # (AUTO) 0.8 X 10^3 (1.0-4.0); LYMPHOCYTES % (AUTO) 19 % (12-44); MEAN CORPUSCULAR HEMOGLOBIN 32 PG (25-34); MEAN CORPUSCULAR HGB CONC 35 G/DL (32-36); MEAN CORPUSCULAR VOLUME 90 FL (80-99); MEAN PLATELET VOLUME 8.8 FL (7.4-10.4); MONOCYTES # (AUTO) 0.3 X 10^3 (0.0-1.0); MONOCYTES % (AUTO) 8 % (0-12); NEUTROPHILS # (AUTO) 3.1 X 10^3 (1.8-7.8); NEUTROPHILS % (AUTO) 72 % (42-75); PLATELET COUNT 123 10^3/uL (130-400); RED BLOOD COUNT 3.55 10^6/uL (4.35-5.85); RED CELL DISTRIBUTION WIDTH 17.3 % (10.0-14.5); WHITE BLOOD COUNT 4.3 10^3/uL (4.3-11.0)
[2017-04-04 10:45] LABS: ALBUMIN 3.9 GM/DL (3.2-4.5); BILIRUBIN,TOTAL 0.6 MG/DL (0.1-1.0); CALCIUM 9.2 MG/DL (8.5-10.1); CREATININE SERUM 1.26 MG/DL (0.60-1.30); POTASSIUM 4.8 MMOL/L (3.6-5.0); TOTAL PROTEIN 6.9 GM/DL (6.4-8.2)
[2017-04-11 15:37] LABS: BASOPHILS % (AUTO) 0 % (0-10); EOSINOPHILS # (AUTO) 0.1 10^3/uL (0.0-0.3); EOSINOPHILS % (AUTO) 2 % (0-10); HEMATOCRIT 34 % (40-54); LYMPHOCYTES % (AUTO) 18 % (12-44); MEAN CORPUSCULAR HEMOGLOBIN 32 PG (25-34); MEAN CORPUSCULAR HGB CONC 36 G/DL (32-36); MEAN CORPUSCULAR VOLUME 90 FL (80-99); MEAN PLATELET VOLUME 9.6 FL (7.4-10.4); MONOCYTES # (AUTO) 0.5 X 10^3 (0.0-1.0); MONOCYTES % (AUTO) 8 % (0-12); NEUTROPHILS # (AUTO) 4.1 X 10^3 (1.8-7.8); NEUTROPHILS % (AUTO) 72 % (42-75); PLATELET COUNT 110 10^3/uL (130-400); RED BLOOD COUNT 3.76 10^6/uL (4.35-5.85); RED CELL DISTRIBUTION WIDTH 16.8 % (10.0-14.5); WHITE BLOOD COUNT 5.7 10^3/uL (4.3-11.0)
[2017-04-11 15:59] LABS: BUN/CREATININE RATIO 18; CALCIUM 9.3 MG/DL (8.5-10.1); CARBON DIOXIDE 24 MMOL/L (21-32); CHLORIDE 107 MMOL/L (98-107); CREATININE SERUM 1.14 MG/DL (0.60-1.30); GFR ESTIMATED > 60; GLUCOSE 136 MG/DL (70-105); POTASSIUM 5.1 MMOL/L (3.6-5.0); SODIUM 137 MMOL/L (135-145)
[2017-04-18 15:22] LABS: BASOPHILS % (AUTO) 0 % (0-10); EOSINOPHILS # (AUTO) 0.1 10^3/uL (0.0-0.3); EOSINOPHILS % (AUTO) 1 % (0-10); HEMATOCRIT 35 % (40-54); HEMOGLOBIN 12.2 G/DL (13.3-17.7); LYMPHOCYTES # (AUTO) 1.6 X 10^3 (1.0-4.0); LYMPHOCYTES % (AUTO) 18 % (12-44); MEAN CORPUSCULAR HEMOGLOBIN 32 PG (25-34); MEAN CORPUSCULAR HGB CONC 35 G/DL (32-36); MEAN CORPUSCULAR VOLUME 92 FL (80-99); MEAN PLATELET VOLUME 8.9 FL (7.4-10.4); MONOCYTES # (AUTO) 0.7 X 10^3 (0.0-1.0); MONOCYTES % (AUTO) 8 % (0-12); NEUTROPHILS # (AUTO) 6.2 X 10^3 (1.8-7.8); NEUTROPHILS % (AUTO) 72 % (42-75); PLATELET COUNT 149 10^3/uL (130-400); RED BLOOD COUNT 3.79 10^6/uL (4.35-5.85); WHITE BLOOD COUNT 8.6 10^3/uL (4.3-11.0)
[2017-04-18 15:42] LABS: CALCIUM 9.1 MG/DL (8.5-10.1); CREATININE SERUM 1.66 MG/DL (0.60-1.30); POTASSIUM 4.6 MMOL/L (3.6-5.0)
[2017-04-25 12:01] LABS: BASOPHILS % (AUTO) 0 % (0-10); EOSINOPHILS # (AUTO) 0.1 10^3/uL (0.0-0.3); EOSINOPHILS % (AUTO) 1 % (0-10); HEMATOCRIT 32 % (40-54); HEMOGLOBIN 11.1 G/DL (13.3-17.7); LYMPHOCYTES % (AUTO) 16 % (12-44); MEAN CORPUSCULAR HEMOGLOBIN 33 PG (25-34); MEAN CORPUSCULAR HGB CONC 34 G/DL (32-36); MEAN CORPUSCULAR VOLUME 94 FL (80-99); MEAN PLATELET VOLUME 8.8 FL (7.4-10.4); MONOCYTES # (AUTO) 0.9 X 10^3 (0.0-1.0); MONOCYTES % (AUTO) 14 % (0-12); NEUTROPHILS # (AUTO) 4.5 X 10^3 (1.8-7.8); NEUTROPHILS % (AUTO) 69 % (42-75); PLATELET COUNT 149 10^3/uL (130-400); RED BLOOD COUNT 3.42 10^6/uL (4.35-5.85); RED CELL DISTRIBUTION WIDTH 17.9 % (10.0-14.5); WHITE BLOOD COUNT 6.5 10^3/uL (4.3-11.0)
[2017-04-25 12:19] LABS: ALBUMIN 3.9 GM/DL (3.2-4.5); CALCIUM 9.6 MG/DL (8.5-10.1); CREATININE SERUM 1.55 MG/DL (0.60-1.30); MAGNESIUM 1.8 MG/DL (1.8-2.4); POTASSIUM 5.1 MMOL/L (3.6-5.0); TOTAL PROTEIN 7.1 GM/DL (6.4-8.2)
[~2017-06-19] VITALS: Ht 191.8 cm; Wt 102.1 kg
[~2017-06-19 15:18] MED LIST changes: +D5W 500 ML IV (CANCER CTR) 500 ML IV SCH; +D5W IV SCH; +FOSAPREPITANT DIMEGLUMINE 150 MG in NS (IVPB) CANCER CENTER ONLY 150 ML IV SCH; -KETO10TA PO; -LINE600T7 PO; -NITR-65 PO; +NS IV 1000 ML (CANCER CTR) 1,000 ML ONE; +OXALIPLATIN 200 MG in D5W 250 ML IVPB (CANCER CTR) 250 ML IV SCH; +OXALIPLATIN IV SCH; -OXYC-202 PO; -OXYC-529 PO; +PALONOSETRON 0.25 MG, DEXAMETHASONE 10 MG/NS 50 ML IVPB IV PRN
== END 2017-06-26 | disposition home or self-care (01) ==
LOC: ONC 15:18
PROVIDERS: ATTEND Internal Medicine Hematology & Oncology
DX: Z51.11 Encounter for antineoplastic chemotherapy (principal); C20 Malignant neoplasm of rectum; E11.9 Type 2 diabetes mellitus without complications; I10 Essential (primary) hypertension; I25.10 Atherosclerotic heart disease of native coronary artery without angina pectoris; J44.9 Chronic obstructive pulmonary disease, unspecified; Z79.84 Long term (current) use of oral hypoglycemic drugs; Z79.899 Other long term (current) drug therapy
CPT/HCPCS: 36415; 36591; 80048; 80053; 83735; 85025; 96360; 96367; 96375; 96413; 96415; 99213

== ENCOUNTER → 2017-06-25 | Outpatient (CLI) | payer BC ==
[~2017-06-25] MED LIST changes: -D5W 500 ML IV (CANCER CTR) 500 ML IV SCH; -D5W IV SCH; -FOSAPREPITANT DIMEGLUMINE 150 MG in NS (IVPB) CANCER CENTER ONLY 150 ML IV SCH; +KETO10TA PO; +LINE600T7 PO; +NITR-65 PO; -NS IV 1000 ML (CANCER CTR) 1,000 ML ONE; -OXALIPLATIN 200 MG in D5W 250 ML IVPB (CANCER CTR) 250 ML IV SCH; -OXALIPLATIN IV SCH; +OXYC-202 PO; +OXYC-529 PO; -PALONOSETRON 0.25 MG, DEXAMETHASONE 10 MG/NS 50 ML IVPB IV PRN
== END ==
LOC: WOUNDCARE 10:10
PROVIDERS: ATTEND Surgery
DX: E11.621 Type 2 diabetes mellitus with foot ulcer (principal); L97.512 Non-pressure chronic ulcer of other part of right foot with fat layer exposed; E11.42 Type 2 diabetes mellitus with diabetic polyneuropathy
CPT/HCPCS: 29445

== ENCOUNTER → 2017-06-27 | Outpatient (CLI) | payer BC | LOC: WOUNDCARE 09:29 | PROVIDERS: ATTEND Surgery | DX: E11.621 Type 2 diabetes mellitus with foot ulcer (principal); E11.42 Type 2 diabetes mellitus with diabetic polyneuropathy; L97.512 Non-pressure chronic ulcer of other part of right foot with fat layer exposed | CPT/HCPCS: 11042 ==

== ENCOUNTER → 2017-07-04 | Outpatient (CLI) | payer BC | LOC: WOUNDCARE 08:13 | PROVIDERS: ATTEND Surgery | DX: E11.621 Type 2 diabetes mellitus with foot ulcer (principal); L97.512 Non-pressure chronic ulcer of other part of right foot with fat layer exposed; E11.42 Type 2 diabetes mellitus with diabetic polyneuropathy | CPT/HCPCS: 99212 ==

== ENCOUNTER 2017-07-08 13:28 | Inpatient (IN) | payer BC ==
[~2017-07-08] VITALS: Ht 190.5 cm; Wt 104.3 kg
[~2017-07-08 13:28] MED LIST changes: -KETO10TA PO; -LINE600T7 PO; -NITR-65 PO; -OXYC-202 PO; -OXYC-529 PO
--- OUTSIDE RECORDS SUMMARY | 2017-07-08 13:35 | XMS REPORT | Clinical Summary ---
Author Author [facility] Organization [facility] Address Unknown Phone Unavailable Care Team Providers Care Ecosystem Ecology Professor Name Role Phone Sara Tee Unavailable Unavailable Viraj Calles MD PCP Enriqueta Martino RN Unavailable Unavailable Source Comments Some departments are not documenting in the electronic medical record. If you do not see the information that you expected, contact Release of Information in the Health Information Management department at [phone] for further assistance in locating additional records.[facility] Allergies Active Allergy Reactions Severity Noted [...] of SCD DM2 (diabetes mellitus, type 2) ([facility]) 12/23/2012 Overview: Metformin Ischemic cardiomyopathy 12/23/2012 CAD (coronary artery disease) 12/06/2012 Overview: A. 08/19/12. Abnormal Myoview Treadmill Stress Test, [facility]. Left ventricular hypokinesis, EF 22%. Document sent to OP medical records to be scanned to patient record. B. 08/27/12. [facility], ANA MARÍA to LAD. C. 12/03/12. Echocardiogram-EF 30% Dilated LV with diffuse LV hypokinesia, anterior wall, anterior septum. Mild mitral and tricuspid regurgitation. Insufficient doppler signal to evaluate pulmonary artery pressure. COPD (chronic obstructive pulmonary disease) ([facility]) 12/06/2012 CHF (congestive heart failure) ([facility]) 12/06/2012 SADA (obstructive sleep apnea) 12/06/2012 S/P coronary artery stent placement 12/06/2012 Overview: 08/27/12. [facility], Via [place], [place]. 95% proximal LAD stenosis. 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
--- OUTSIDE RECORDS SUMMARY | 2017-07-08 13:35 | XMS REPORT | Referral Summary ---
Author Author [facility] Organization [facility] Address Unknown Phone Unavailable Care Team Providers Care Quality Improvement Consultant Name Role Phone Chelsie Lucia PCP Encounter VC Date(s): 01/02/17 - 01/09/17 [facility] [address] [place], [place] [address] Discharge Disposition: 01-Home or Self Care Attending Physician: Elian Joel MD Admitting Physician: Elian Joel MD Vital Signs No data available for this section Problem List Condition Effective Dates Status Health Status Informant Acute Active pain(Confirmed) At risk for Active falls(Confirmed)1 At risk for unstable Active blood glucose level(Confirmed)2 Bowel Active dysfunction(Confirme d)3 Diabetes(Confirmed) Active patient Hypertension(Confirm Active patient ed) Impaired skin Active integrity(Confirmed) 4 Rectal Active cancer(Confirmed) Urinary Active retention(Confirmed) 5 1This problem was added by Discern Expert. 2Problem added automatically by system based on initiation of At Risk for Unstable Blood Glucose Plan of Care 3Problem added automatically by system based on initiation of Bowel Dysfunction Plan of Care 4Problem added automatically by system based on initiation of Impaired Skin Integrity Plan of Care 5Problem added automatically by system based on initiation of Urinary Retention Plan of Care Allergies, Adverse Reactions, Alerts No Known Medication Allergies Medications amLODIPine 5 mg, Oral, Daily, 0 Refill(s) Start Date: 11/14/16 Status: Ordered aspirin 81 mg oral tablet 81 mg 1 tabs, Oral, Daily, 0 Refill(s) Start Date: 07/25/16 Status: Ordered dicyclomine 10 mg oral capsule 10 mg 1 caps, Oral, q6hr, 0 Refill(s) Start Date: 01/02/17 Status: Ordered Flomax 0.4 mg oral capsule 0.4 mg 1 caps, Oral, Daily, 0 Refill(s) Start Date: 01/02/17 Status: Ordered gabapentin 300 mg oral capsule 300 mg 1 caps, Oral, TID, # 42 tabs, 0 Refill(s), other reason (Rx) Start Date: 01/04/17 Stop Date: 01/18/17 Status: Ordered glyBURIDE 2.5 mg oral tablet 2.5 mg 1 tabs, Oral, BID, 0 Refill(s) Start Date: 07/25/16 Status: Ordered hydrochlorothiazide 25 mg, Oral, Daily, 0 Refill(s) Start Date: 07/25/16 Status: Ordered hyoscyamine 0.125 mg oral tablet 0.125 mg 1 tabs, Oral, q4hr, 0 Refill(s) Start Date: 01/02/17 Status: Ordered Janumet 50 mg-1000 mg oral tablet 1 tabs, Oral, Daily, # 60 tabs, 0 Refill(s) Start Date: 07/25/16 Status: Ordered lisinopril 40 mg oral tablet 40 mg 1 tabs, Oral, Daily, 0 Refill(s) Start Date: 07/25/16 Status: Ordered metFORMIN 500 mg oral tablet 500 mg 1 tabs, Oral, Daily, 0 Refill(s) Start Date: 07/25/16 Status: Ordered metoprolol succinate 200 mg oral tablet, extended release 200 mg 1 tabs, Oral, Daily, 0 Refill(s) Start Date: 07/25/16 Status: Ordered ondansetron 4 mg oral tablet 4 mg 1 tabs, Oral, q8hr, 0 Refill(s) Start Date: 01/02/17 Status: Ordered pantoprazole 40 mg oral delayed release tablet 40 mg 1 tabs, Oral, Daily, 0 Refill(s) Start Date: 07/25/16 Status: Ordered Percocet 5/325 oral tablet 1-2 tabs, Oral, q4hr, 0 Refill(s) Start Date: 01/02/17 Status: Ordered traMADol 50 mg oral tablet 50 mg 1 tabs, Oral, q4hr, 0 Refill(s) Start Date: 01/02/17 Status: Ordered Results No data available for this section Immunizations No data available for this section Procedures Procedure Date Related Diagnosis Body Site Cholecystectomy Laparoscopic1 01/02/17 Cholecystectomy; 01/02/17 Resection Colon Low Anterior Laparoscopic 11/16/16 Robotic2 Colonoscopy 06/22/16 Appendectomy Hand3 1auto-populated from documented surgical case 2auto-populated from documented surgical case 3cut an artery--right Social History Social History Type Response Smoking Status Never smoker entered on: 11/14/16 Assessment and Plan No data available for this section
--- OUTSIDE RECORDS SUMMARY | 2017-07-08 13:35 | XMS REPORT | Referral Summary ---
Author Author [facility] Organization [facility] Address Unknown Phone Unavailable Care Team Providers Care Stoneworker Name Role Phone Chelsie Lucia PCP Encounter VC Date(s): 01/16/17 - 01/16/17 [facility] [address] [place], [place] [address] Discharge Diagnosis: Rectal cancer Discharge Diagnosis: Acute cholecystitis Discharge Disposition: -Home or Self Care Attending Physician: Elian Joel MD Admitting Physician: Elian Joel MD Vital Signs Most recent to 1 oldest [Reference Range]: Peripheral Pulse 84 bpm Rate [60-100 bpm] (01/16/17 1:17 PM) Respiratory Rate 18 br/min [14-20 br/min] (01/16/17 1:17 PM) SpO2 98 % (01/16/17 1:17 PM) Problem List Condition Effective Dates Status Health [...] Related Diagnosis Body Site Cholecystectomy Laparoscopic1 01/02/17 Resection Colon Low Anterior Laparoscopic 11/16/16 Robotic2 Colonoscopy 06/22/16 Appendectomy Hand3 1auto-populated from documented surgical case 2auto-populated from documented surgical case 3cut an artery--right Social History Social History Type Response Smoking Status Never smoker entered on: 11/14/16 Assessment and Plan Extracted from: Title: Office Visit Note Author: Elian Joel MD Date: 01/16/17 Acute cholecystitis Ordered: Postoperative Est [id number] Rectal cancer He is recovering well from both of his recent operations. I think he will be ready for chemotherapy at the first of the year. After chemotherapy has been completed, will see him back for discussion of an ileostomy closure. All of his questions have been addressed. Ordered: Postoperative Est [id number]
--- OUTSIDE RECORDS SUMMARY | 2017-07-08 13:35 | XMS REPORT | Referral Summary ---
Author Author [facility] Organization [facility] Address Unknown Phone Unavailable Care Team Providers Care Mechanical Design Engineer Name Role Phone Chelsie Lucia PCP Encounter VC Date(s): 11/16/16 - 11/20/16 [facility] [address] [place] [address] [phone] Discharge Disposition: 01-Home or Self Care Attending Physician: Elian Joel MD Admitting Physician: Elian Joel MD Vital Signs Most recent to 1 oldest [Reference Range]: Temperature Oral 36.4 degC [35.8-37.3 degC] (11/20/16 10:01 AM) Temperature Skin 37.1 degC [36-37 degC] *HI* (11/16/16 7:30 AM) Temperature Temporal 36.6 degC Artery [36.3-37.8 (11/16/16 2:00 PM) degC] Peripheral Pulse 112 bpm Rate [60-100 bpm] *HI* (11/20/16 10:01 AM) Heart Rate Monitored 81 bpm [60-100 bpm] (11/16/16 2:00 PM) Respiratory Rate 18 br/min [14-20 br/min] (11/20/16 10:01 AM) Blood Pressure 145/77 mmHg [90-140/60-90 mmHg] *HI* (11/20/16 10:01 AM) Mean Arterial 87 mmHg Pressure, Cuff (11/16/16 2:00 PM) SpO2 98 % (11/20/16 10:01 AM) Problem List Condition Effective Dates Status Health Status Informant Acute Active pain(Confirmed) At risk for Active falls(Confirmed)1 At risk for unstable Active blood glucose level(Confirmed)2 Bowel Active dysfunction(Confirme d)3 Diabetes(Confirmed) Active patient Hypertension(Confirm Active patient ed) Impaired skin Active integrity(Confirmed) 4 Rectal Active cancer(Confirmed) 1This problem was added by Discern Expert. 2Problem added automatically by system based on initiation of At Risk for Unstable Blood Glucose Plan of Care 3Problem added automatically by system based on initiation of Bowel Dysfunction Plan of Care 4Problem added automatically by system based on initiation of Impaired Skin Integrity Plan of Care Allergies, Adverse Reactions, Alerts No Known Medication Allergies Medications amLODIPine 5 mg, Oral, Daily, 0 Refill(s) Start Date: 11/14/16 Status: Ordered aspirin 81 mg oral tablet mg tabs, Oral, Daily, 0 Refill(s) Start Date: 07/25/16 Status: Ordered glyBURIDE 2.5 mg oral tablet 2.5 mg 1 tabs, Oral, BID, 0 Refill(s) Start Date: 07/25/16 Status: Ordered hydrochlorothiazide 25 mg, Oral, Daily, 0 Refill(s) Start Date: 07/25/16 Status: Ordered Janumet 50 mg-1000 mg oral tablet 1 tabs, Oral, Daily, # 60 tabs, 0 Refill(s) Start Date: 07/25/16 Status: Ordered lisinopril 40 mg oral tablet mg tabs, Oral, Daily, 0 Refill(s) Start Date: 07/25/16 Status: Ordered metFORMIN 500 mg oral tablet 500 mg 1 tabs, Oral, Daily, 0 Refill(s) Start Date: 07/25/16 Status: Ordered metoprolol succinate 200 mg oral tablet, extended release mg tabs, Oral, Daily, 0 Refill(s) Start Date: 07/25/16 Status: Ordered Carpenter 5 mg-325 mg oral tablet 1 tabs, Oral, q4hr, Pain Moderate (4-6), 0 Refill(s) Start Date: 11/20/16 Status: Ordered pantoprazole 40 mg oral delayed release tablet mg tabs, Oral, Daily, 0 Refill(s) Start Date: 07/25/16 Status: Ordered Results Hematology Most recent to 1 oldest [Reference Range]: WBC [4.8-10.8 4.2 10*3/uL 10*3/uL] *LOW* (11/20/16 6:43 AM) RBC [4.60-6.20] 3.70 *LOW* (11/20/16 6:43 AM) Hgb [14.0-18.0 11.3 gm/dL gm/dL] *LOW* (11/20/16 6:43 AM) Hct [42.0-52.0 %] 34.2 % *LOW* (11/20/16 6:43 AM) MCV [82.0-99.0 fL] 92.4 fL (11/20/16 6:43 AM) MCH [27.0-32.0 pg] 30.5 pg (11/20/16 6:43 AM) MCHC [32.0-36.0 33.0 gm/dL gm/dL] (11/20/16 6:43 AM) RDW [11.5-14.5 %] 12.9 % (11/20/16 6:43 AM) Platelet [150-400 123 10*3/uL 10*3/uL] *LOW* (11/20/16 6:43 AM) MPV [9.4-12.3 fL] 9.6 fL (11/20/16 6:43 AM) Chemistry Most recent to 1 oldest [Reference Range]: Sodium Lvl [136-144 138 mEq/L mEq/L] (11/20/16:43 AM) Potassium Lvl 4.2 mEq/L [3.6-5.1 mEq/L] (11/20/16 6:43 AM) Chloride [99-109 104 mEq/L mEq/L] (11/20/16 6:43 AM) CO2 [22-32 mEq/L] 25 mEq/L (11/20/16:43 AM) AGAP [3-20 mEq/L] 9 mEq/L (11/20/16 6:43 AM) BUN [4-20 mg/dL] 15 mg/dL (11/20/16 6:43 AM) Glucose Lvl [70-100 169 mg/dL mg/dL] *HI* (11/20/16 6:43 AM) Creatinine Lvl 1.03 mg/dL [0.64-1.27 mg/dL] (11/20/16 6:43 AM) eGFR [>60 mL/min] >60 mL/min 1 (11/20/16:43 AM) Calcium Lvl 8.9 mg/dL [8.6-10.0 mg/dL] (11/20/16 6:43 AM) Blood Glucose, 303 mg/dL Capillary [70-100 *HI* mg/dL] (11/20/16 10:35 AM) Blood Glucose, High Capillary Out of (11/17/16 11:33 AM) Range 1Result Comment: Multiply eGFR results by 1.21 for race. Immunizations No data available for this section Procedures Procedure Date Related Diagnosis Body Site Resection Colon Low Anterior Laparoscopic 11/16/16 Robotic1 Colonoscopy 06/22/16 Appendectomy Hand2 1auto-populated from documented surgical case 2cut an artery--right Social History Social History Type Response Smoking Status Never smoker entered on: 11/14/16 Assessment and Plan No data available for this section
--- OUTSIDE RECORDS SUMMARY | 2017-07-08 13:35 | XMS REPORT | Referral Summary ---
Author Author [facility] Organization [facility] Address Unknown Phone Unavailable Care Team Providers Care Tele Grout Sewer Line Repairer Name Role Phone Chelsie Lucia PCP Encounter VC Date(s): 04/18/17 - 04/20/[address] [facility] [address] [place] [address] [phone] Discharge Disposition: 01-Home or Self Care Attending Physician: Elian Joel MD Admitting Physician: Elian Joel MD Vital Signs Most recent to 1 oldest [Reference Range]: Temperature Oral 36.8 degC [35.8-37.3 degC] (04/20/17 4:42 PM) Peripheral Pulse 89 bpm Rate [60-100 bpm] (04/20/17 4:42 PM) Respiratory Rate 18 br/min [14-20 br/min] (04/20/17 4:42 PM) Blood Pressure 134/79 mmHg [90-140/60-90 mmHg] (04/20/17 4:42 PM) SpO2 99 % (04/20/17 4:42 PM) Problem List Condition Effective Dates Status [...] Reactions, Alerts No Known Medication Allergies Medications aspirin 81 mg oral tablet 81 mg 1 tabs, Oral, Daily, 0 Refill(s) Start Date: 07/25/16 Status: Ordered capecitabine 500 mg oral tablet 1,500 mg 3 tabs, Oral, qPM, last dose due 04/18 then off x 7 days, 0 Refill(s) Start Date: 04/18/17 Status: Ordered capecitabine 500 mg oral tablet 1,000 mg 2 tabs, Oral, qAM, last dose 04/18 then off for 7 days, 0 Refill(s) Start Date: 04/18/17 Status: Ordered Flomax 0.4 mg oral capsule 0.4 mg 1 caps, Oral, Daily, 0 Refill(s) Start Date: 01/02/17 Status: Ordered glyBURIDE 2.5 mg oral tablet 2.5 mg 1 tabs, Oral, BID, 0 Refill(s) Start Date: 07/25/16 Status: Ordered hydrochlorothiazide 25 mg, Oral, Daily, 0 Refill(s) Start Date: 07/25/16 Status: Ordered Janumet 50 mg-1000 mg oral tablet 1 tabs, Oral, BID, # 60 tabs, 0 Refill(s) Start Date: 04/18/17 Status: Ordered lisinopril 40 mg oral tablet 40 mg 1 tabs, Oral, Daily, 0 Refill(s) Start Date: 07/25/16 Status: Ordered magnesium oxide 400 mg (241.3 mg elemental magnesium) oral tablet 400 mg 1 tabs, Oral, Daily, 0 Refill(s) Start Date: 04/18/17 Status: Ordered metFORMIN 500 mg oral tablet 500 mg 1 tabs, Oral, With Breakfast, 0 Refill(s) Start Date: 07/25/16 Status: Ordered metoprolol succinate 200 mg oral tablet, extended release 200 mg 1 tabs, Oral, Bedtime (once a day), 0 Refill(s) Start Date: 07/25/16 Status: Ordered pantoprazole 40 mg oral delayed release tablet 40 mg 1 tabs, Oral, Daily, 0 Refill(s) Start Date: 07/25/16 Status: Ordered SSD 1% topical cream 1 chelsy, Topical, BID, apply to right foot on toe, 0 Refill(s) Start Date: 04/18/17 Status: Ordered stopped med; cephalexin 500mg stopped med; cephalexin 500mg, 500mg oral three times daily x 7 days stopped 04/12 , 0 Refill(s) Start Date: 04/18/17 Status: Ordered Results Hematology Most recent to 1 oldest [Reference Range]: WBC [4.8-10.8 4.2 10*3/uL 10*3/uL] *LOW* (04/20/17 4:40 AM) RBC [4.60-6.20] 3.34 *LOW* (04/20/17 4:40 AM) Hgb [14.0-18.0 10.5 gm/dL gm/dL] *LOW* (04/20/17 4:40 AM) Hct [42.0-52.0 %] 31.0 % *LOW* (04/20/17 4:40 AM) MCV [82.0-99.0 fL] 92.8 fL (04/20/17 4:40 AM) MCH [27.0-32.0 pg] 31.4 pg (04/20/17 4:40 AM) MCHC [32.0-36.0 33.9 gm/dL gm/dL] (04/20/17 4:40 AM) RDW [11.5-14.5 %] 17.7 % *HI* (04/20/17 4:40 AM) Platelet [150-400 106 10*3/uL 10*3/uL] *LOW* (04/20/17 4:40 AM) MPV [9.4-12.3 fL] 8.7 fL *LOW* (04/20/17 4:40 AM) Immature 0.2 % Granulocytes (04/20/17 4:40 AM) [0.0-1.0 %] Neutrophils [51-75 68 % %] (04/20/17 4:40 AM) Lymphocytes [20-46 20 % %] (04/20/17 4:40 AM) Monocytes [4-11 %] 10 % (04/20/17 4:40 AM) Eosinophils [0-4 %] 2 % (04/20/17 4:40 AM) Basophils [0-2 %] 0 % (04/20/17 4:40 AM) Neutro Absolute 2.87 [1.90-7.00] (04/20/17 4:40 AM) Lymph Absolute 0.83 [0.80-3.30] (04/20/17 4:40 AM) [place] Absolute 0.42 [0.30-1.00] (04/20/17 4:40 AM) Eos Absolute 0.07 [0.00-0.50] (04/20/17 4:40 AM) Baso Absolute 0.01 [0.00-0.20] (04/20/17 4:40 AM) Nucleated RBC 0.0 /100 WBC Automated [0 /100 (04/20/17 4:40 AM) WBC] Chemistry Most recent to 1 oldest [Reference Range]: Sodium Lvl [136-144 141 mEq/L mEq/L] (04/20/17 4:40 AM) Potassium Lvl 5.0 mEq/L [3.6-5.1 mEq/L] (04/20/17 4:40 AM) Chloride [99-109 109 mEq/L mEq/L] (04/20/17 4:40 AM) CO2 [22-32 mEq/L] 25 mEq/L (04/20/17 4:40 AM) AGAP [3-20 mEq/L] 7 mEq/L (04/20/17 4:40 AM) BUN [4-20 mg/dL] 20 mg/dL (04/20/17 4:40 AM) Glucose Lvl [70-100 77 mg/dL mg/dL] (04/20/17 4:40 AM) Creatinine Lvl 1.13 mg/dL [0.64-1.27 mg/dL] (04/20/17 4:40 AM) eGFR [>60 mL/min] >60 mL/min 1 (04/20/17 4:40 AM) Calcium Lvl 9.1 mg/dL [8.6-10.0 mg/dL] (04/20/17 4:40 AM) Albumin Lvl [3.5-4.8 3.3 gm/dL gm/dL] *LOW* (04/19/17 8:26 AM) Magnesium Lvl 1.7 mg/dL [1.8-2.5 mg/dL] *LOW* (04/20/17 4:40 AM) Phosphorus [2.4-4.7 3.9 mg/dL 2 mg/dL] (04/19/17 8:26 AM) Blood Glucose, 141 mg/dL Capillary [70-100 *HI* mg/dL] (04/20/17 12:40 PM) 1Result Comment: Multiply eGFR results by 1.21 for race. 2Result Comment: High dosages of liposomal Amphotericin B (AmBisome) therapy or other drug preparations that use a liposomal envelope to facilitate drug delivery may cause falsely elevated results for phosphorus. Immunizations No data available for this section Procedures Procedure Date Related Diagnosis Body Site Status Cholecystectomy Laparoscopic1 01/02/17 Completed Resection Colon Low Anterior Laparoscopic 11/16/16 Completed Robotic2 Colonoscopy 06/22/16 Completed Appendectomy Completed Coronary stent patent Completed Hand3 Completed Pacemaker catheter Completed PORT, INDWELLING, IMP Completed 1auto-populated from documented surgical case 2auto-populated from documented surgical case 3cut an artery--right Social History Social History Type Response Smoking Status Never smoker entered on: 11/14/16 Assessment and Plan No data available for this section
--- OUTSIDE RECORDS SUMMARY | 2017-07-08 13:35 | XMS REPORT | Referral Summary ---
Author Author [facility] Organization [facility] Address Unknown Phone Unavailable Care Team Providers Care Spiritual Minister Name Role Phone Chelsie Lucia PCP Encounter VC Date(s): 07/05/17 - 07/06/17 [facility] [address] [place] [address] Encounter Diagnosis Rectal cancer (Discharge Diagnosis) - 07/06/17 Discharge Disposition: 01-Home or Self Care Attending Physician: Elian Joel MD Admitting Physician: Elian Joel MD Vital Signs Most recent to 1 oldest [Reference Range]: Temperature Oral 36.9 degC [35.8-37.3 degC] (07/06/17 9:04 AM) Temperature Temporal 36.6 degC Artery [36.3-37.8 (07/05/17 1:31 PM) degC] Peripheral Pulse 91 bpm Rate [60-100 bpm] (07/06/17 9:04 AM) Heart Rate Monitored 91 bpm [60-100 bpm] (07/05/17 2:45 PM) Respiratory Rate 18 br/min [14-20 br/min] (07/06/17 9:04 AM) Blood Pressure 145/78 mmHg [90-140/60-90 mmHg] *HI* (07/06/17 9:04 AM) Mean Arterial 88 mmHg Pressure, Cuff (07/05/17 2:45 PM) SpO2 93 % (07/06/17 9:04 AM) Problem List Condition Effective Dates Status [...] No Known Medication Allergies Medications amLODIPine 5 mg oral tablet 5 mg 1 tabs, Oral, Daily, # 30 tabs, 0 Refill(s) Start Date: 07/05/17 Status: Ordered aspirin 81 mg oral tablet 81 mg 1 tabs, Oral, Daily, 0 Refill(s) Start Date: 07/25/16 Status: Ordered Eliquis 5 mg oral tablet 5 mg 1 tabs, Oral, BID, # 60 tabs, 0 Refill(s) Start Date: 07/05/17 Status: Ordered Flomax 0.4 mg oral capsule 0.4 mg 1 caps, Oral, Daily, 0 Refill(s) Start Date: 01/02/17 Status: Ordered glyBURIDE 2.5 mg oral tablet 2.5 mg 1 tabs, Oral, BID, 0 Refill(s) Start Date: 07/25/16 Status: Ordered linezolid 600 mg, Oral, q12hr, 0 Refill(s) Start Date: 07/05/17 Status: Ordered metoprolol succinate 200 mg oral tablet, extended release 200 mg 1 tabs, Oral, Bedtime (once a day), 0 Refill(s) Start Date: 07/25/16 Status: Ordered oxyCODONE 5 mg oral tablet 5 mg 1 tabs, Oral, q4hr, Pain, 0 Refill(s) Start Date: 07/06/17 Status: Ordered pantoprazole 40 mg oral delayed release tablet 40 mg 1 tabs, Oral, Daily, 0 Refill(s) Start Date: 07/25/16 Status: Ordered SSD 1% topical cream 1 chelsy, Topical, BID, apply to right foot on toe, 0 Refill(s) Start Date: 04/18/17 Status: Ordered Results Hematology Most recent to 1 oldest [Reference Range]: WBC [4.8-10.8 4.8 10*3/uL 10*3/uL] (07/05/17 9:29 AM) RBC [4.60-6.20] 3.99 *LOW* (07/05/17 9:29 AM) Hgb [14.0-18.0 12.1 gm/dL gm/dL] *LOW* (07/05/17 9:29 AM) Hct [42.0-52.0 %] 35.2 % *LOW* (07/05/17: AM) MCV [82.0-99.0 fL] 88.2 fL (07/05/17 9:29 AM) MCH [27.0-32.0 pg] 30.3 pg (07/05/17 9: AM) MCHC [32.0-36.0 34.4 gm/dL gm/dL] (07/05/17 9:29 AM) RDW [11.5-14.5 %] 12.7 % (07/05/17 9: AM) Platelet [150-400 71 10*3/uL 10*3/uL] *LOW* (07/05/17 9:29 AM) MPV [9.4-12.3 fL] 8.8 fL *LOW* (07/05/17 9:29 AM) Chemistry Most recent to 1 oldest [Reference Range]: Sodium Lvl [136-144 135 mEq/L mEq/L] *LOW* (07/05/17 9:29 AM) Potassium Lvl 4.6 mEq/L [3.6-5.1 mEq/L] (07/05/17 9:29 AM) Chloride [99-109 106 mEq/L mEq/L] (07/05/17 9:29 AM) CO2 [22-32 mEq/L] 21 mEq/L *LOW* (07/05/17 9:29 AM) AGAP [3-20 mEq/L] 8 mEq/L (07/05/17 9:29 AM) BUN [4-20 mg/dL] 27 mg/dL *HI* (07/05/17 9:29 AM) Glucose Lvl [70-100 197 mg/dL mg/dL] *HI* (07/05/17 9:29 AM) Creatinine Lvl 1.25 mg/dL [0.64-1.27 mg/dL] (07/05/17 9:29 AM) eGFR [>60 mL/min] 58 mL/min 1 *ABN* (07/05/17 9:29 AM) Calcium Lvl 9.0 mg/dL [8.6-10.0 mg/dL] (07/05/17 9:29 AM) Blood Glucose, 194 mg/dL Capillary [70-100 *HI* mg/dL] (07/06/17 11:53 AM) 1Result Comment: Multiply eGFR results by 1.21 for race. Immunizations No data available for this section Procedures Procedure Date Related Diagnosis Body Site Status Closure Ileostomy1 07/05/17 Completed Cholecystectomy Laparoscopic2 01/02/17 Completed Resection Colon Low Anterior Laparoscopic 11/16/16 Completed Robotic3 Colonoscopy 06/22/16 Completed Appendectomy Completed Coronary stent patent Completed Hand4 Completed Pacemaker catheter Completed PORT, INDWELLING, IMP Completed 1auto-populated from documented surgical case 2auto-populated from documented surgical case 3auto-populated from documented surgical case 4cut an artery--right Social History Social History Type Response Smoking Status Never smoker entered on: 11/14/16 Assessment and Plan No data available for this section
--- OUTSIDE RECORDS SUMMARY | 2017-07-08 13:35 | XMS REPORT | Referral Summary ---
Author Author [facility] Organization [facility] Address Unknown Phone Unavailable Care Team Providers Care Transport Aide Name Role Phone Chelsie Lucia PCP Encounter VC Date(s): 10/10/16 - 10/10/16 [facility] [address] [place], [place] [address] Discharge Diagnosis: Rectal cancer Discharge Disposition: 01-Home or Self Care Attending Physician: Elian Joel MD Admitting Physician: Elian Joel MD Vital Signs Most recent to 1 oldest [Reference Range]: Peripheral Pulse 94 bpm Rate [60-100 bpm] (10/10/16 1:16 PM) SpO2 93 % (10/10/16 1:16 PM) Problem List Condition Effective Dates Status Health Status Informant Rectal Active cancer(Confirmed) Allergies, Adverse Reactions, Alerts No Known Medication Allergies Medications aspirin 81 mg oral tablet mg tabs, Oral, Daily, 0 Refill(s) Start Date: 07/25/16 Status: Ordered glyBURIDE 2.5 mg oral tablet mg tabs, Oral, Daily, 0 Refill(s) Start Date: 07/25/16 Status: Ordered hydrochlorothiazide Oral, Daily, 0 Refill(s) Start Date: 07/25/16 Status: Ordered Janumet 50 mg-1000 mg oral tablet 1 tabs, Oral, BID, # 60 tabs, 0 Refill(s) Start Date: 07/25/16 Status: Ordered lisinopril 40 mg oral tablet mg tabs, Oral, Daily, 0 Refill(s) Start Date: 07/25/16 Status: Ordered metFORMIN 500 mg oral tablet mg tabs, Oral, BID, 0 Refill(s) Start Date: 07/25/16 Status: Ordered metoprolol succinate 200 mg oral tablet, extended release mg tabs, Oral, Daily, 0 Refill(s) Start Date: 07/25/16 Status: Ordered pantoprazole 40 mg oral delayed release tablet mg tabs, Oral, Daily, 0 Refill(s) Start Date: 07/25/16 Status: Ordered Results No data available for this section Immunizations No data available for this section Procedures Procedure Date Related Diagnosis Body Site Colonoscopy 06/22/16 Social History Social History Type Response Smoking Status Former smoker; Date Last Use: 2013; entered on: 07/25/16 Assessment and Plan No data available for this section
--- OUTSIDE RECORDS SUMMARY | 2017-07-08 13:36 | XMS REPORT | Referral Summary ---
Author Author [facility] Organization [facility] Address Unknown Phone Unavailable Care Team Providers Care Aoc Aadc Operations Staff Officer Name Role Phone Chelsie Lucia PCP Encounter VC Date(s): 07/04/17 - 07/04/17 [facility] [address] [place], [place] [address] Discharge Disposition: 01-Home or Self Care Attending Physician: Elian Joel MD Admitting Physician: Elian Joel MD Referring Physician: Chelsie Lucia DO Vital Signs No data available for this [...] Refill(s) Start Date: 04/18/17 Status: Ordered Results No data available for [...]
--- OUTSIDE RECORDS SUMMARY | 2017-07-08 13:36 | XMS REPORT | Referral Summary ---
Author Author [facility] Organization [facility] Address Unknown Phone Unavailable Care Team Providers Care Garage Construction Equipment Mechanic Name Role Phone Chelsie uLcia PCP Encounter VC Date(s): 11/29/16 - 11/29/16 [facility] [address] [place], [place] [address] Discharge Diagnosis: Rectal cancer Discharge Disposition: 01-Home or Self Care Attending Physician: Elian Joel MD Admitting Physician: Elian Joel MD Vital Signs Most recent to 1 oldest [Reference Range]: Peripheral Pulse 92 bpm Rate [60-100 bpm] (11/29/16 1:07 PM) Respiratory Rate 20 br/min [14-20 br/min] (11/29/16 1:07 PM) Blood Pressure 110/58 mmHg [90-140/60-90 mmHg] (11/29/16 1:07 PM) SpO2 98 % (11/29/16 1:07 PM) Problem List Condition Effective Dates Status [...] 0 Refill(s) Start Date: 07/25/16 Status: Ordered bethanechol 25 mg oral tablet 25 mg 1 tabs, Oral, QIDACHS, 0 Refill(s) Start Date: 11/29/16 Status: Ordered Flomax 0.4 mg oral capsule 0.4 mg 1 caps, Oral, Daily, # 30 caps, 3 Refill(s), Pharmacy: [facility] , 1 caps Oral Daily Start Date: 11/21/16 Status: Ordered glyBURIDE 2.5 mg oral tablet [...] 0 Refill(s) Start Date: 07/25/16 Status: Ordered Nov[place] 5 mg-325 mg oral tablet 1 tabs, Oral, q4hr, Pain Moderate (4-6), 0 Refill(s) Start Date: 11/20/16 Status: Ordered pantoprazole 40 mg oral delayed release tablet 40 mg 1 tabs, Oral, Daily, 0 Refill(s) Start Date: 07/25/16 Status: Ordered phenazopyridine 97.5 mg oral tablet 195 mg 2 tabs, Oral, TID, as needed for urinary discomfort, Prior to meals, 0 Refill(s) Start Date: 11/29/16 Status: Ordered Results No data available for [...] Visit Note Author: Elian Joel MD Date: 11/29/16 Rectal cancer He has not done as well as I would expect. In fact, he is feeling worse and not better. Given his complaints and findings, I'm going to readmit him to the hospital. We will obtain laboratory work. I also believe he needs a CT scan of his chest, abdomen and pelvis. He is experiencing some shortness of breath. An intra-abdominal abscess and possibly a pulmonary embolus are within the differential diagnosis. Further recommendations will follow. Ordered: Postoperative Est [id number]
--- OUTSIDE RECORDS SUMMARY | 2017-07-08 13:36 | XMS REPORT | Referral Summary ---
Author Author [facility] Organization [facility] Address Unknown Phone Unavailable Care Team Providers Care National Service Officer Name Role Phone Chelsie Lucia PCP Encounter VC Date(s): 01/02/17 - 01/05/17 [facility] [address] [place] [address] Discharge Disposition: 01-Home or Self Care Attending Physician: Elian Joel MD Admitting Physician: Elian Joel MD Vital Signs Most recent to 1 2 oldest [Reference Range]: Temperature Oral 36.7 degC [35.8-37.3 degC] (01/05/17 3:15 AM) Temperature Temporal 36.8 degC Artery [36.3-37.8 (01/02/17 9:45 PM) degC] Peripheral Pulse 100 bpm Rate [60-100 bpm] (01/05/17 8:28 AM) Heart Rate Monitored 100 bpm 81 bpm [60-100 bpm] (01/03/17 8:34 AM) (01/03/17 8:34 AM) Respiratory Rate 20 br/min [14-20 br/min] (01/05/17 3:15 AM) Blood Pressure 143/81 mmHg [90-140/60-90 mmHg] *HI* (01/05/17 8:28 AM) Mean Arterial 88 mmHg Pressure, Cuff (01/04/17 5:00 AM) SpO2 92 % (01/05/17 3:15 AM) Blood Pressure Left arm Location (01/05/17 3:15 AM) Problem List Condition Effective Dates Status [...] oral tablet 400 mg 1 tabs, Oral, TID, # 6 tabs, 0 Refill(s), Pharmacy: [facility], 1 tabs Oral TID Start Date: 01/04/17 Stop Date: 01/06/17 Status: Ordered metFORMIN 500 mg oral tablet [...] Refill(s) Start Date: 01/02/17 Status: Ordered Results Hematology Most recent to 1 oldest [Reference Range]: WBC [4.8-10.8 7.1 10*3/uL 10*3/uL] (01/04/17 7:47 AM) RBC [4.60-6.20] 3.12 *LOW* (01/04/17 7:47 AM) Hgb [14.0-18.0 9.0 gm/dL gm/dL] *LOW* (01/04/17 7:47 AM) Hct [42.0-52.0 %] 27.3 % *LOW* (01/04/17 7:47 AM) MCV [82.0-99.0 fL] 87.5 fL (01/04/17 7:47 AM) MCH [27.0-32.0 pg] 28.8 pg (01/04/17 7:47 AM) MCHC [32.0-36.0 33.0 gm/dL gm/dL] (01/04/17 7:47 AM) RDW [11.5-14.5 %] 13.5 % (01/04/17 7:47 AM) Platelet [150-400 145 10*3/uL 10*3/uL] *LOW* (01/04/17 7:47 AM) MPV [9.4-12.3 fL] 8.8 fL *LOW* (01/04/17 7:47 AM) Chemistry Most recent to 1 oldest [Reference Range]: Sodium Lvl [136-144 131 mEq/L mEq/L] *LOW* (01/04/17 7:47 AM) Potassium Lvl 4.1 mEq/L [3.6-5.1 mEq/L] (01/04/17 7:47 AM) Chloride [99-109 101 mEq/L mEq/L] (01/04/17 7:47 AM) CO2 [22-32 mEq/L] 23 mEq/L (01/04/17 7:47 AM) AGAP [3-20 mEq/L] 7 mEq/L (01/04/17 7:47 AM) BUN [4-20 mg/dL] 17 mg/dL (01/04/17 7:47 AM) Glucose Lvl [70-100 158 mg/dL mg/dL] *HI* (01/04/17 7:47 AM) Creatinine Lvl 1.02 mg/dL [0.64-1.27 mg/dL] (01/04/17 7:47 AM) eGFR [>60 mL/min] >60 mL/min 1 (01/04/17 7:47 AM) Calcium Lvl 8.2 mg/dL [8.6-10.0 mg/dL] *LOW* (01/04/17 7:47 AM) Albumin Lvl [3.5-4.8 2.5 gm/dL gm/dL] *LOW* (01/04/17 7:47 AM) Magnesium Lvl 1.5 mg/dL [1.8-2.5 mg/dL] *LOW* (01/05/17 7:21 AM) Phosphorus [2.4-4.7 2.7 mg/dL 2 mg/dL] (01/04/17 7:47 AM) Blood Glucose, 186 mg/dL Capillary [74-106 *HI* mg/dL] (01/05/17 5:57 AM) 1Result Comment: Multiply eGFR results by [...]
--- OUTSIDE RECORDS SUMMARY | 2017-07-08 13:36 | XMS REPORT | Referral Summary ---
Author Author [facility] Organization [facility] Address Unknown Phone Unavailable Care Team Providers Care Automotive Manager Name Role Phone Chelsie Lucia PCP Encounter VC Date(s): 01/02/17 - 01/02/17 [facility] [address] [place], [place] [address] Discharge Diagnosis: Symptomatic cholelithiasis Discharge Disposition: 01-Home or Self Care Attending [...]
--- OUTSIDE RECORDS SUMMARY | 2017-07-08 13:36 | XMS REPORT | Referral Summary ---
Author Author [facility] Organization [facility] Address Unknown Phone Unavailable Care Team Providers Care Shook Machine Operator Name Role Phone Chelsie Lucia PCP Encounter VC Date(s): 11/29/16 - 12/01/16 [facility] [address] [place] [address] Discharge Disposition: 01-Home or Self Care Attending Physician: Elian Joel MD Admitting Physician: Elian Joel MD Vital Signs Most recent to 1 oldest [Reference Range]: Temperature Oral 36.6 degC [35.8-37.3 degC] (12/01/16 3:00 AM) Peripheral Pulse 114 bpm Rate [60-100 bpm] *HI* (12/01/16 9:55 AM) Respiratory Rate 18 br/min [14-20 br/min] (12/01/16 3:00 AM) Blood Pressure 130/70 mmHg [90-140/60-90 mmHg] (12/01/16 9:55 AM) Mean Arterial 84 mmHg Pressure, Cuff (11/29/16 6:00 PM) SpO2 97 % (12/01/16 3:00 AM) Problem List Condition Effective Dates Status [...] Daily, # 30 caps, 3 Refill(s), Pharmacy: [facility] , 1 caps Oral Daily Start Date: [...] 0 Refill(s) Start Date: 07/25/16 Status: Ordered [place] 5 mg-325 mg oral tablet 1 tabs, [...] Refill(s) Start Date: 11/29/16 Status: Ordered Results Hematology Most recent to 1 oldest [Reference Range]: WBC [4.8-10.8 6.7 10*3/uL 10*3/uL] (12/01/16 6:27 AM) RBC [4.60-6.20] 3.87 *LOW* (12/01/16 6:27 AM) Hgb [14.0-18.0 11.8 gm/dL gm/dL] *LOW* (12/01/16 6:27 AM) Hct [42.0-52.0 %] 35.0 % *LOW* (12/01/16 6:27 AM) MCV [82.0-99.0 fL] 90.4 fL (12/01/16 6:27 AM) MCH [27.0-32.0 pg] 30.5 pg (12/01/16 6:27 AM) MCHC [32.0-36.0 33.7 gm/dL gm/dL] (12/01/16 6:27 AM) RDW [11.5-14.5 %] 12.3 % (12/01/16 6:27 AM) Platelet [150-400 294 10*3/uL 10*3/uL] (12/01/16 6:27 AM) MPV [9.4-12.3 fL] 8.8 fL *LOW* (12/01/16 6:27 AM) Chemistry Most recent to 1 oldest [Reference Range]: Sodium Lvl [136-144 134 mEq/L mEq/L] *LOW* (12/01/16 6:27 AM) Potassium Lvl 4.9 mEq/L [3.6-5.1 mEq/L] (12/01/16 6:27 AM) Chloride [99-109 103 mEq/L mEq/L] (12/01/16 6:27 AM) CO2 [22-32 mEq/L] 24 mEq/L (12/01/16 6:27 AM) AGAP [3-20 mEq/L] 7 mEq/L (12/01/16 6:27 AM) BUN [4-20 mg/dL] 16 mg/dL (12/01/16 6:27 AM) Glucose Lvl [70-100 131 mg/dL mg/dL] *HI* (12/01/16 6:27 AM) Creatinine Lvl 0.97 mg/dL [0.64-1.27 mg/dL] (12/01/16 6:27 AM) eGFR [>60 mL/min] >60 mL/min 1 (12/01/16 6:27 AM) Calcium Lvl 9.0 mg/dL [8.6-10.0 mg/dL] (12/01/16 6:27 AM) Albumin Lvl [3.5-4.8 3.1 gm/dL gm/dL] *LOW* (12/01/16 6:27 AM) Total Protein 7.3 gm/dL [6.1-7.9 gm/dL] (11/29/16 6:22 PM) Globulin [1.9-4.3 4.1 gm/dL gm/dL] (11/29/16 6:22 PM) ALT [17-63 U/L] 40 U/L (11/29/16 6:22 PM) AST [15-41 U/L] 34 U/L (11/29/16 6:22 PM) Alk Phos [26-104 133 U/L U/L] *HI* (11/29/16 6:22 PM) Bili Total [0.2-1.2 0.7 mg/dL 2 mg/dL] (11/29/16 6:22 PM) Magnesium Lvl 1.8 mg/dL [1.8-2.5 mg/dL] (12/01/16 6:27 AM) Phosphorus [2.4-4.7 3.4 mg/dL 3 mg/dL] (12/01/16 6:27 AM) Blood Glucose, 129 mg/dL Capillary [70-100 *HI* mg/dL] (12/01/16 6:04 AM) 1Result Comment: Multiply eGFR results by 1.21 for race. 2Result Comment: Naproxen, specifically the metabolite O-desmethylnaproxen, may cause spurious elevation in Total Bilirubin levels. 3Result Comment: High dosages of liposomal Amphotericin B (AmBisome) therapy or other drug preparations that use a liposomal envelope to facilitate drug delivery may cause falsely elevated results for phosphorus. Urinalysis Most recent to 1 oldest [Reference Range]: UA Color Whitney *ABN* (11/29/16 8:14 PM) UA Appear Sl Cloudy (11/29/16 8:14 PM) UA pH [5.0-8.0] 5.0 (11/29/16 8:14 PM) UA Leuk Est Negative [Negative] (11/29/16 8:14 PM) UA Nitrite Positive [Negative] *ABN* (11/29/16 8:14 PM) UA Protein Negative [Negative] (11/29/16 8:14 PM) UA Glucose Pos 1+ [Negative] *ABN* (11/29/16 8:14 PM) UA Ketones Negative [Negative] (11/29/16 8:14 PM) UA Urobilinogen 2.0 mg/dL [<1.0 mg/dL] *ABN* (11/29/16 8:14 PM) UA Bili [Negative] Negative (11/29/16 8:14 PM) UA Blood [Negative] Pos 2+ *ABN* (11/29/16 8:14 PM) UA Spec Grav 1.015 [1.003-1.030] (11/29/16 8:14 PM) Type Clean Catch (11/29/16 8:14 PM) UA WBC [0-4] 10-20 *ABN* (11/29/16 8:14 PM) UA RBC [0-2] 2-5 (11/29/16 8:14 PM) Epithelial Cells 0-2 (11/29/16 8:14 PM) UA Bacteria Numerous *ABN* (11/29/16 8:14 PM) UA Hyal Cast [0-3 >12 [LPF] [LPF]] *ABN* (11/29/16 8:14 PM) UA Mucous Present (11/29/16 8:14 PM) Microbiology Reports TEST: Urine Culture STATUS: Auth (Verified) BODY SITE: SOURCE: Urine COLLECTED DATE/TIME: 11/29/16 8:14 PM Urine Culture - - - - - - - Positive urine culture (even if >100,000 cfu/ml) without presence of symptoms does not require antibiotic treatment unless the patient is or undergoing urinary surgery. Please document as bacteriuria. - Enterobacter cloacae >100,000 cfu/ml ORGANISM:Enterobacter cloacae Immunizations No data available for this section Procedures Procedure Date Related Diagnosis Body Site Resection Colon Low Anterior Laparoscopic 11/16/16 Robotic1 Colonoscopy 06/22/16 Appendectomy Hand2 1auto-populated from documented surgical case 2cut an artery--right Social History Social History Type Response Smoking Status Never smoker entered on: 11/14/16 Assessment and Plan No data available for this section
--- OUTSIDE RECORDS SUMMARY | 2017-07-08 13:37 | XMS REPORT | Referral Summary ---
Author Author [facility] Organization [facility] Address Unknown Phone Unavailable Care Team Providers Care Hotel Assistant General Manager Name Role Phone Chelsie Lucia PCP Encounter VC Date(s): 04/17/17 - 04/17/17 [facility] [address] [place] [address] Discharge Disposition: 01-Home or Self Care Attending Physician: Elian Joel MD Vital Signs No [...] Completed Robotic2 Colonoscopy 06/22/16 Completed Appendectomy Completed Hand3 Completed 1auto-populated from documented surgical case 2auto-populated from documented surgical case 3cut an artery--right Social History Social History Type Response Smoking Status Never smoker entered on: 11/14/16 Assessment and Plan No data available for this section
--- OUTSIDE RECORDS SUMMARY | 2017-07-08 13:37 | XMS REPORT | Referral Summary ---
Author Author [facility] Organization [facility] Address Unknown Phone Unavailable Care Team Providers Care Excelsior Machine Feeder Name Role Phone Chelsie Lucia PCP Encounter VC Date(s): 07/25/16 - 07/25/16 [facility] [address] [place], [place] [address] Discharge Diagnosis: Rectal cancer Discharge Disposition: 01-Home or Self Care Attending Physician: Elian Joel MD Admitting Physician: Elian Joel MD Vital Signs Most recent to 1 oldest [Reference Range]: Blood Pressure 128/80 mmHg [90-140/60-90 mmHg] (07/25/16 11:46 AM) Problem List No data available for this section Allergies, Adverse Reactions, Alerts No Known Medication [...] Procedures Procedure Date Related Diagnosis Body Site Sigmoidoscopy, flexible; diagnostic, 07/25/16 including collection of specimen(s) by brushing or washing, when performed (separate procedure) Social History Social History Type Response Smoking Status Former smoker; Date Last Use: 2013 Assessment and Plan Extracted from: Title: Office Visit Note Author: Elian Joel MD Date: 07/25/16 Assessment/Plan Rectal cancer I do agree that neoadjuvant chemoradiation is the way to ago with this cancer. We had about a discussion about the rationale for neoadjuvant chemoradiation. We discussed the benfits of a decrease local recurrence, further facilitating a sphincter preserving operation, and perhaps even an increase in survival. We did discuss how a sphincter preserving surgery can likely be done. I think he is a good candidate for a robotic low anterior colon resection, with anastomosis, and a diverting loop ileostomy. I've asked him to follow-up with me 4 weeks after his last radiation dose. We will further discuss surgery that point in time. All of his questions have been addressed. Ordered: Office Visit Level 4 New [id number] sigmoidoscopy flx dx w/wo collj specimens [id number]
[2017-07-08] MEDS ORDERED: fentaNYL INJECTION 100 MCG/2 ML AMP IVP ONE ×2 (15:00→17:45)
[2017-07-08] MEDS ORDERED: PIPERACILLIN SODIUM/TAZOBACTAM 4.5 GM in NS (IVPB) 100 ML IV ONE (15:00)
[2017-07-08] MEDS ORDERED: IOHEXOL 350 MG/ML 100 ML (OMNIPAQUE 350) VIAL IV ONE (15:00)
[2017-07-08] MEDS ORDERED: DIATRIZOATE MEGLUM/SODIUM 37% 120 ML (GASTROGRAFIN) PO ONE (15:00)
[2017-07-08] MEDS ORDERED: NS IV 1000 ML 2,000 ML IV PRN (15:00)
[2017-07-08] MEDS ORDERED: ONDANSETRON 4 MG/2 ML (SDV) Z0FRAN IVP PRN ×2 (15:00→19:45)
[2017-07-08] MEDS ORDERED: NS 100 ML (IVPB) BAG IV ONE (15:00)
--- NOTE | 2017-07-08 15:00 | ED Abdominal Pain ---
General Chief Complaint: Abdominal/GI Problems Stated Complaint: SEVERE ADB PAIN, [facility] Nursing Triage Note: pt brought to ed by . pt had reverse ileostomy last . pt c/o diarrhea and abdominal pain that started on Sunday. pt states he took a percocet at approximately 1300 today. Sepsis Screen: No Definite Risk Source of Information: Patient, Spouse Exam Limitations: No Limitations History of Present Illness Date Seen by Provider: Jul 08, 2017 Time Seen by Provider: 14:40 Initial Comments The patient presents to the ER by private conveyance with his significant other and a chief complaint that 3 days ago he had ileostomy takedown by Dr. Joel, colon rectal surgery at [place], [place]. Afterwards he was feeling very well but 2 days ago he started having progressively worsening abdominal pain around the site of his previous ileostomy as well as diarrhea and black, red, tarry stools and nausea with vomiting. He's gotten weaker and weaker feels like he is getting dehydrated. He has not been able to keep food down. His ileostomy was originally placed after the removed 8 inches of colon for colorectal cancer and he underwent chemotherapy as well as radiation therapy but is done with that and considered in remission. After 7 months he had his ileostomy taken down. He is not having any dysuria, cough, shortness of breath or fevers. He has been using his Percocet and he says it helps with the pain for about 2-3 hours only. Allergies and Home Medications Allergies Coded Allergies: No Known Drug Allergies (Unverified , 02/14/17) Home Medications Amlodipine Besylate 5 Mg Tablet, 5 MG PO DAILY Prescribed by: SYED LEE on 06/09/17 1052 Aspirin 81 Mg Tab.chew, 81 MG PO HS, (Reported) Ceftriaxone Na/Dextrose,Iso 2 Gm/50 Ml Froz.piggy, 2 GM IV DAILY Prescribed by: SYED LEE on 04/30/17 0944 Glyburide 2.5 Mg Tablet, 2.5 MG PO BID, (Reported) Metoprolol Succinate 200 Mg Tab.er.24h, 200 MG PO HS, (Reported) Ondansetron 4 Mg Tab.rapdis, 4 MG PO Q4H PRN for NAUSEA/VOMITING-1ST LINE, ( Reported) Pantoprazole Sodium 40 Mg Tablet.dr, 40 MG PO DAILY, (Reported) Silver Sulfadiazine 25 Gm Cream..g., TOP BID, (Reported) APPLY TO TOE Tamsulosin HCl 0.4 Mg Cap.er.24h, 0.4 MG PO DAILY, (Reported) Patient Home Medication List Home Medication List Reviewed: Yes Review of Systems Constitutional: No chills, No diaphoresis, No fever; malaise, weakness EENTM: No Blurred Vision, No Double Vision Respiratory: Denies Cough, Denies Shortness of Air Cardiovascular: Denies Chest Pain, Denies Edema Gastrointestinal: Denies Constipated; Diarrhea, Nausea, Poor Appetite, Poor Fluid Intake, Rectal Bleeding, Vomiting Genitourinary: Denies Burning, Denies Discharge, Denies Drainage Musculoskeletal: No back pain, No joint pain Skin: No pruritus, No rash Psychiatric/Neurological: Denies Headache, Denies Numbness Past Jeaguvn-Lsincu-Iikobm Hx Patient Social History Alcohol Use: Denies Use Recreational Drug Use: No 2nd Hand Smoke Exposure: No Recent Foreign Travel: No Contact w/Someone Who Travel: No Recent Infectious Disease Expo: No Recent Hopitalizations: Yes (Dec-GALLBLADDER, NOV 29 BLADDER INFECTION) Immunizations Up To Date Tetanus Booster (TDap): Unknown PED Vaccines UTD: No Seasonal Allergies Seasonal Allergies: No Past Medical History Surgeries: Yes (ILEOSTOMY/COLECTOMY 11/16/16 IN [place] FOR RECTAL CANCER) Abdominal, Appendectomy, Bowel Surgery, Cardiac, Coronary Stent, Gallbladder, Pacemaker Respiratory: Yes Sleep Apnea Currently Using CPAP: No (unable to tolerate) Currently Using BIPAP: No Cardiac: Yes (CARDIAC CATH--STENT) Coronary Artery Disease, High Cholesterol, Hypertension Neurological: Yes Neuropathy Reproductive Disorders: No Sexually Transmitted Disease: No HIV/AIDS: No Genitourinary: Yes (urinary retention following colon surgery) Bladder Infection, Kidney Stones Gastrointestinal: Yes (RECTAL CANCER--S/P COLECTOMY AND ILEOSTOMY) Musculoskeletal: Yes Arthritis Endocrine: Yes Diabetes, Non-Insulin dep HEENT: No Loss of Vision: Bilateral Hearing Impairment: Denies Cancer: Yes Rectal, Colon Did You Recieve Any Treatments: Yes What Type of Treatment Did You: Chemotherapy, Radiation, Surgical Intervention Psychosocial: No Depression Integumentary: No Recent Skin Changes Blood Disorders: No Adverse Reaction/Blood Tranf: No (N/A) Family Medical History Alzheimer's disease 19 FATHER ( at 89) 19 MOTHER ( 93) No Pertinent Family Hx, CAD Over 55 Years Old, Diabetes, Hypertension Physical Exam Vital Signs Vital Signs - First Documented 07/08/17 14:15 Temp 98.4 Pulse 132 Resp 20 B/P (MAP) 141/94 (110) O2 Delivery Room Air Capillary Refill : Less Than 3 Seconds General Appearance: WD/WN, mild distress Respiratory: no respiratory distress, no accessory muscle use Cardiovascular: normal peripheral pulses, regular rate, rhythm, no murmur Peripheral Pulses: 2+ Radial Pulses (R), 2+ Radial Pulses (L) Gastrointestinal: normal bowel sounds, no organomegaly, tenderness (inf to ileostomy wound), other (firm, indurated, erythematous skin inferior to the wound in his right lower quadrant.) Extremities: normal range of motion, normal inspection, no pedal edema, no calf tenderness, normal capillary refill Neurologic/Psychiatric: alert, normal mood/affect, oriented x 3 Skin: normal color, warm/dry, other (erythematous, indurated skin inferior to the stomal surgical site.) Focused Exam Lactate Level 07/08/17 15:10: Lactic Acid Level 2.39*H Lactic Acid Level Laboratory Tests Test 07/08/17 15:10 Lactic Acid Level 2.39 MMOL/L (0.50-2.00) *H Progress/Results/Core Measures Results/Orders Lab Results Laboratory Tests Test 07/08/17 14:50 07/08/17 15:10 Range/Units White Blood Count 7.1 4.3-11.0 10^3/uL Red Blood Count 3.68 L 4.35-5.85 10^6/uL Hemoglobin 11.2 L 13.3-17.7 G/DL Hematocrit 32 L 40-54 % Mean Corpuscular Volume 87 80-99 FL Mean Corpuscular Hemoglobin 30 25-34 PG Mean Corpuscular Hemoglobin Concent 35 32-36 G/DL Red Cell Distribution Width 12.9 10.0-14.5 % Platelet Count 94 L 130-400 10^3/uL Mean Platelet Volume 9.0 7.4-10.4 FL Neutrophils (%) (Auto) 83 H 42-75 % Lymphocytes (%) (Auto) 10 L 12-44 % Monocytes (%) (Auto) 7 0-12 % Eosinophils (%) (Auto) 1 0-10 % Basophils (%) (Auto) 0 0-10 % Neutrophils # (Auto) 5.9 1.8-7.8 X 10^3 Lymphocytes # (Auto) 0.7 L 1.0-4.0 X 10^3 Monocytes # (Auto) 0.5 0.0-1.0 X 10^3 Eosinophils # (Auto) 0.1 0.0-0.3 10^3/uL Basophils # (Auto) 0.0 0.0-0.1 10^3/uL Prothrombin Time 15.2 H 12.2-14.7 SEC INR Comment 1.2 0.8-1.4 Activated Partial Thromboplast Time 36 H 24-35 SEC Sodium Level 135 135-145 MMOL/L Potassium Level 4.4 3.6-5.0 MMOL/L Chloride Level 102 98-107 MMOL/L Carbon Dioxide Level 20 L 21-32 MMOL/L Anion Gap 13 5-14 MMOL/L Blood Urea Nitrogen 37 H 7-18 MG/DL Creatinine 1.21 0.60-1.30 MG/DL Estimat Glomerular Filtration Rate > 60 BUN/Creatinine Ratio 31 Glucose Level 195 H 70-105 MG/DL Calcium Level 9.2 8.5-10.1 MG/DL Total Bilirubin 0.7 0.1-1.0 MG/DL Aspartate Amino Transf (AST/SGOT) 15 5-34 U/L Alanine Aminotransferase (ALT/SGPT) 22 0-55 U/L Alkaline Phosphatase 101 40-136 U/L Total Protein 6.8 6.4-8.2 GM/DL Albumin 3.5 3.2-4.5 GM/DL Urine Color YELLOW Urine Clarity CLEAR Urine pH 5 5-9 Urine Specific Stacy 1.015 L 1.016-1.022 Urine Protein 2+ H NEGATIVE Urine Glucose (UA) NEGATIVE NEGATIVE Urine Ketones 2+ H NEGATIVE Urine Nitrite NEGATIVE NEGATIVE Urine Bilirubin NEGATIVE NEGATIVE Urine Urobilinogen NORMAL NORMAL MG/DL Urine Leukocyte Esterase 1+ H NEGATIVE Urine RBC (Auto) 3+ H NEGATIVE Urine RBC 2-5 H /HPF Urine WBC 0-2 /HPF Urine Squamous Epithelial Cells RARE /HPF Urine Crystals NONE /LPF Urine Bacteria TRACE /HPF Urine Casts PRESENT /LPF Urine Granular Casts 10-25 H /LPF Urine Mucus NEGATIVE /LPF Urine Culture Indicated NO Lactic Acid Level 2.39 *H 0.50-2.00 MMOL/L My Orders Orders - ALEXANDRA CHO Cbc With Automated Diff (07/08/17 14:47) Comprehensive Metabolic Panel (07/08/17 14:47) Lactic Acid Analyzer (07/08/17 14:47) Blood Culture (07/08/17 14:47) Sputum Culture (07/08/17 14:47) Ua Culture If Indicated (07/08/17 14:47) Protime With Inr (07/08/17 14:47) Partial Thromboplastin Time (07/08/17 14:47) Chest 1 View, Ap/Pa Only (07/08/17 14:47) Ondansetron Injection (Zofran Injectio (07/08/17 15:00) Saline Lock/Iv-Start (07/08/17 14:47) Saline Lock/Iv-Start (07/08/17 14:47) Piperacillin Sodium/Tazobactam (Zosyn Vi (07/08/17 15:00) Vital Signs Adult Sepsis Patie Q1H (07/08/17 14:47) Remove Rings In Anticipation O (07/08/17 14:47) Saline Lock/Iv-Start (07/08/17 14:47) Ns Iv 1000 Ml (Sodium Chloride 0.9%) (07/08/17 15:00) Ct Abdomen/Pelvis W (07/08/17 14:47) Fentanyl Injection (Sublimaze Injection (07/08/17 15:00) Diatrizoate Meglum/Sodium 37% (Gastrogra (07/08/17 15:00) Iohexol Injection (Omnipaque 350 Mg/Ml 1 (07/08/17 15:00) Ns (Ivpb) (Sodium Chloride 0.9% Ivpb Bag (07/08/17 15:00) Medications Given in ED Current Medications Medications Dose Ordered Sig/Marie Route Start Time Stop Time Status Last Admin Dose Admin Fentanyl Citrate 50 mcg ONCE ONCE IVP 07/08/17 15:00 07/08/17 15:01 DC 07/08/17 15:16 50 MCG Iohexol 100 ml ONCE ONCE IV 07/08/17 15:00 07/08/17 15:01 DC 07/08/17 15:58 100 ML Ondansetron HCl 4 mg ONCE PRN IVP 6/3/18 15:00 07/08/17 15:30 DC 07/08/17 15:18 4 MG Piperacillin Sod/ Tazobactam Sod 4.5 gm/Sodium Chloride 100 ml @ 200 mls/hr ONCE ONCE IV 07/08/17 15:00 07/08/17 15:29 DC 07/08/17 15:26 200 MLS/HR Sodium Chloride 100 ml ONCE ONCE IV 07/08/17 15:00 07/08/17 15:01 DC 07/08/17 15:58 100 ML Sodium Chloride 2,000 ml @ 2,000 mls/hr PRN PRN IV 07/08/17 15:00 07/08/17 15:21 2,000 MLS/HR Vital Signs/I&O 07/08/17 14:15 Temp 98.4 Pulse 132 Resp 20 B/P (MAP) 141/94 (110) O2 Delivery Room Air Blood Pressure Mean: 110 Progress Progress Note : Time: 15:00 Progress Note Septic workup, CT abdomen pelvis with oral and IV contrast. Concern for wound infection, anastomosis leakage, obstruction, etc. we'll start him on Zosyn and 20 mils per kilogram of fluids. Blood pressure is good; heart rates in the 130s on arrival. Nausea medicine and fentanyl Diagnostic Imaging Diagonstic Imaging: Xray Plain Films/CT/US/NM/MRI: chest (1v) Comments No acute infiltrates, cardiopulmonary processes. Reviewed: Reviewed by Me Diagonstic Imaging: CT (with oral and IV contrast) Plain Films/CT/US/NM/MRI: abdomen, pelvis Comments Air-fluid levels in the small bowel with some thickened enteritis and inflammation surrounding it. [facility] [place], [place] NAME: HAI DOLL [facility] REC#: [id number] PT STATUS: REG ER : 1955 PHYSICIAN: ALEXANDRA CHO MD ADMIT DATE: 07/08/17/ER Draft Date of Exam:07/08/17 CT ABDOMEN/PELVIS W PROCEDURE: CT abdomen and pelvis with contrast. TECHNIQUE: Multiple contiguous axial images were obtained through the abdomen and pelvis after administration of intravenous contrast. INDICATION: Right lower quadrant pain. COMPARISON: June 08, 2017. FINDINGS: The visualized lung bases are clear. Pacer leads are partially visualized. The liver is unremarkable. Calcified splenic granuloma. Otherwise, the spleen is unremarkable. The adrenal glands are unremarkable. The pancreas is unremarkable. Diverticulum arising from the third portion of the duodenum without adjacent inflammatory stranding. The kidneys and bilateral ureters are unremarkable. Previously identified left ureterovesicular junction calculus is no longer seen and there has been interval resolution of previously seen left hydroureteronephrosis. Scattered vascular calcifications. No aneurysmal dilatation of the abdominal aorta. The urinary bladder is unremarkable. Interval reversal of previously identified right-sided ostomy. A persistent 3.3 cm gas and fluid collection is identified within the subcutaneous tissues of the right anterior abdomen at the site of prior ostomy. Anastomosis is identified within the right mid abdomen. Loops of small bowel are at the upper limits of normal in size measuring near 3 cm. Fluid and semi-formed stool is identified within the small bowel. However, fluid is identified within the colon without significant solid stool within the colon. No discrete focal transition point, though gradual tapering noted near the anastomosis within the right abdomen. Fat stranding is noted within the subcutaneous tissues anteriorly, particularly about the prior ostomy site. Small amount of free fluid identified throughout the abdomen and pelvis. Mild fat stranding is seen within the right abdomen. A few punctate locules of gas are identified within the anterior upper abdomen, including on series 2, image 38. Scattered osseous degenerative changes without acute osseous abnormality. IMPRESSION: 1. Multiple loops of small bowel at the upper limits of normal in size though small bowel demonstrates semi-formed stool. No discrete transition point is identified, though mild tapering is noted near the anastomosis within the right abdomen. Therefore, findings could relate to a low-grade small bowel obstruction versus developing ileus. 2. Ovoid focal gas and fluid collection measuring 3.3 cm within the subcutaneous tissues at the site of prior ostomy. This may relate to a small abscess. Additional postsurgical fluid collection such as hematoma or seroma would be an additional consideration. 3. Few punctate locules of free air within the abdomen. This may be postsurgical in nature. Recommend correlation with timing of patient's most recent surgery. Alternatively, anastomotic leak would be an additional consideration. 4. Small amount of free fluid throughout the abdomen and pelvis. 5. Fluid throughout the colon, likely related to a diarrhea state. 6. Interval passage of previously noted left ureterovesicular junction calculus with resolution of left-sided hydroureteronephrosis. 7. Additional findings as above. Dictated on workstation # [id number] Dict: 07/08/17 1623 Trans: 07/08/17 1645 [facility] [id number] Interpreted by: ANGEL RICHARDSON MD Electronically signed by: Reviewed: Reviewed by Me Departure Communication (Admissions) Time/Spoke to Admitting Phy: 17:00 Dr. Guzman Discussed case lab imaging findings and he agrees this likely is just ileus and postoperative changes seen on CT leading to nausea vomiting and dehydration. He recommends holding the antibiotics and continuing IV fluids and symptom medics support. He would like medical consult. Time/Spoke to Consulting Phy: 17:10 Discussed case lab imaging findings with Dr. Barnes and she agrees to see the patient. Impression Primary Impression: Ileus following gastrointestinal surgery Additional Impressions: Nausea & vomiting Qualified Codes: R11.2 - Nausea with vomiting, unspecified History of ileostomy Disposition: ADMITTED INPATIENT Condition: Improved Admissions Decision to Admit Reason: Admit from ER (General) Decision to Admit/Date: Jul 08, 2017 Time/Decision to Admit Time: 17:14 Departure-Patient Inst. Referrals: SYED LEE DO (PCP/Family) Primary Care Physician Copy Copies To 1: SYED LEE TITUS J Jul 08, 2017 15:00
[2017-07-08 15:03] LABS: BASOPHILS % (AUTO) 0 % (0-10); EOSINOPHILS # (AUTO) 0.1 10^3/uL (0.0-0.3); EOSINOPHILS % (AUTO) 1 % (0-10); HEMATOCRIT 32 % (40-54); HEMOGLOBIN 11.2 G/DL (13.3-17.7); LYMPHOCYTES # (AUTO) 0.7 X 10^3 (1.0-4.0); LYMPHOCYTES % (AUTO) 10 % (12-44); MEAN CORPUSCULAR HEMOGLOBIN 30 PG (25-34); MEAN CORPUSCULAR HGB CONC 35 G/DL (32-36); MEAN CORPUSCULAR VOLUME 87 FL (80-99); MONOCYTES # (AUTO) 0.5 X 10^3 (0.0-1.0); MONOCYTES % (AUTO) 7 % (0-12); NEUTROPHILS # (AUTO) 5.9 X 10^3 (1.8-7.8); NEUTROPHILS % (AUTO) 83 % (42-75); PLATELET COUNT 94 10^3/uL (130-400); RED BLOOD COUNT 3.68 10^6/uL (4.35-5.85); RED CELL DISTRIBUTION WIDTH 12.9 % (10.0-14.5); WHITE BLOOD COUNT 7.1 10^3/uL (4.3-11.0)
[2017-07-08 15:13] LABS: INR 1.2 (0.8-1.4); PROTHROMBIN TIME PATIENT 15.2 SEC (12.2-14.7)
[2017-07-08 15:20] LABS: BILIRUBIN,URINE NEGATIVE (NEGATIVE); CLARITY,URINE CLEAR; COLOR,URINE YELLOW; GLUCOSE, URINE (UA) NEGATIVE (NEGATIVE); KETONES,URINE 2+ (NEGATIVE); LEUKOCYTE ESTERASE ,URINE 1+ (NEGATIVE); NITRITE,URINE NEGATIVE (NEGATIVE); PH,URINE 5 (5-9); PROTEIN,URINE 2+ (NEGATIVE); UROBILINOGEN,URINE NORMAL (NORMAL)
[2017-07-08 15:22] LABS: ALANINE AMINOTRANSFERASE 22 U/L (0-55); ALBUMIN 3.5 GM/DL (3.2-4.5); ALKALINE PHOSPHATASE 101 U/L (40-136); BILIRUBIN,TOTAL 0.7 MG/DL (0.1-1.0); BUN/CREATININE RATIO 31; CALCIUM 9.2 MG/DL (8.5-10.1); CARBON DIOXIDE 20 MMOL/L (21-32); CHLORIDE 102 MMOL/L (98-107); CREATININE SERUM 1.21 MG/DL (0.60-1.30); GFR ESTIMATED > 60; GLUCOSE 195 MG/DL (70-105); POTASSIUM 4.4 MMOL/L (3.6-5.0); SODIUM 135 MMOL/L (135-145); TOTAL PROTEIN 6.8 GM/DL (6.4-8.2)
[2017-07-08 15:28] LABS: BACTERIA,URINE TRACE /HPF; SQUAMOUS EPITHELIAL CELL,UR RARE /HPF; WBC,URINE 0-2 /HPF
--- NOTE | 2017-07-08 16:45 | Diagnostic Imaging Report ---
PROCEDURE: CT abdomen and pelvis with contrast. TECHNIQUE: Multiple contiguous axial images were obtained through the abdomen and pelvis after administration of intravenous contrast. INDICATION: Right lower quadrant pain. COMPARISON: June 08, 2017. FINDINGS: The visualized lung bases are clear. Pacer leads are partially visualized. The liver is unremarkable. Calcified splenic granuloma. Otherwise, the spleen is unremarkable. The adrenal glands are unremarkable. The pancreas is unremarkable. Diverticulum arising from the third portion of the duodenum without adjacent inflammatory stranding. The kidneys and bilateral ureters are unremarkable. Previously identified left ureterovesicular junction calculus is no longer seen and there has been interval resolution of previously seen left hydroureteronephrosis. Scattered vascular calcifications. No aneurysmal dilatation of the abdominal aorta. The urinary bladder is unremarkable. Interval reversal of previously identified right-sided ostomy. A persistent 3.3 cm gas and fluid collection is identified within the subcutaneous tissues of the right anterior abdomen at the site of prior ostomy. Anastomosis is identified within the right mid abdomen. Loops of small bowel are at the upper limits of normal in size measuring near 3 cm. Fluid and semi-formed stool is identified within the small bowel. However, fluid is identified within the colon without significant solid stool within the colon. No discrete focal transition point, though gradual tapering noted near the anastomosis within the right abdomen. Fat stranding is noted within the subcutaneous tissues anteriorly, particularly about the prior ostomy site. Small amount of free fluid identified throughout the abdomen and pelvis. Mild fat stranding is seen within the right abdomen. A few punctate locules of gas are identified within the anterior upper abdomen, including on series 2, image 38. Scattered osseous degenerative changes without acute osseous abnormality. IMPRESSION: 1. Multiple loops of small bowel at the upper limits of normal in size though small bowel demonstrates semi-formed stool. No discrete transition point is identified, though mild tapering is noted near the anastomosis within the right abdomen. Therefore, findings could relate to a low-grade small bowel obstruction versus developing ileus. 2. Ovoid focal gas and fluid collection measuring 3.3 cm within the subcutaneous tissues at the site of prior ostomy. This may relate to a small abscess. Additional postsurgical fluid collection such as hematoma or seroma would be an additional consideration. 3. Few punctate locules of free air within the abdomen. This may be postsurgical in nature. Recommend correlation with timing of patient's most recent surgery. Alternatively, anastomotic leak would be an additional consideration. 4. Small amount of free fluid throughout the abdomen and pelvis. 5. Fluid throughout the colon, likely related to a diarrhea state. 6. Interval passage of previously noted left ureterovesicular junction calculus with resolution of left-sided hydroureteronephrosis. 7. Additional findings as above. Dictated by: Dictated on workstation # [id number]
--- NOTE | 2017-07-08 16:56 | Diagnostic Imaging Report ---
PA chest at 4:16 p.m. INDICATION: Diarrhea, abdominal pain, cardiac disease. FINDINGS: The heart size is within normal limits and stable when compared to 08/27/12. In the interval since the prior exam, a left-sided defibrillator device has been inserted. Also, since the previous exam, a Port-A-Cath has been inserted on the right. The tip of the catheter overlies the distal superior vena cava and seems to be in good position. The lungs are clear. There is no sign of failure, pneumonia or pleural effusion. The small calcified granuloma overlying the right upper lobe seen previously is again evident and no different. Mediastinum is not widened. The osseous structures are intact. IMPRESSION: 1. There is no evidence for an acute cardiopulmonary abnormality. 2. There has been interval insertion of left-sided defibrillator device and a Port-A-Cath on the right. Dictated by: Dictated on workstation # [id number]
[2017-07-08 19:09] VITALS: BP 121/86
[2017-07-08] MEDS ORDERED: fentaNYL INJECTION 100 MCG/2 ML AMP IVP PRN (19:45)
[2017-07-08] MEDS: 1/2 NS W/KCL 20 MEQ/L 1,000 ML IV SCH (19:58)
--- OUTSIDE RECORDS SUMMARY | 2017-07-08 20:00 | XMS REPORT | Clinical Summary ---
Author Author [facility] Organization [facility] Address Unknown Phone Unavailable Care Team Providers Care Field Applications Specialist Name Role Phone Sara Tee Unavailable Unavailable Viraj Calles MD PCP Enriqueta Martino RN Unavailable Unavailable Source Comments Some departments are not documenting in the electronic medical record. If you do not see the information that you expected, contact Release of Information in the Health Information Management department at [phone] for further assistance in locating additional records.[facility] Allergies Active Allergy Reactions Severity [...] of SCD DM2 (diabetes mellitus, type 2) ([facility]) 12/23/2012 Overview: Metformin Ischemic cardiomyopathy 12/23/2012 CAD (coronary artery disease) 12/06/2012 Overview: A. 08/19/12. Abnormal Myoview Treadmill Stress Test, Via [facility]. Left ventricular hypokinesis, EF 22%. Document sent to OP medical records to be scanned to patient record. B. 08/27/12. [facility], ANA MARÍA to LAD. C. 12/03/12. Echocardiogram-EF 30% Dilated LV with diffuse LV hypokinesia, anterior wall, anterior septum. Mild mitral and tricuspid regurgitation. Insufficient doppler signal to evaluate pulmonary artery pressure. COPD (chronic obstructive pulmonary disease) ([facility]) 12/06/2012 CHF (congestive heart failure) ([facility]) 12/06/2012 SADA (obstructive sleep apnea) 12/06/2012 S/P coronary artery stent placement 12/06/2012 Overview: 08/27/12. [facility], [address] [place], [place]. 95% proximal LAD stenosis. 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
[2017-07-08] MEDS ORDERED: PROMETHAZINE INJ 25 MG/ML (PHENERGAN) AMP IVP PRN (20:15)
[2017-07-08] MEDS: MELATONIN 3 MG TABLET PO SCH (20:46)
[2017-07-08] MEDS: meTOprolol SUCCINATE 100 MG (TOPROL XL) TAB PO SCH (20:47)
[2017-07-08] MEDS: PIPERACILLIN SODIUM/TAZOBACTAM 4.5 GM in D5W 100 ML IVPB 100 ML IV SCH (20:48)
[2017-07-08] MEDS: oxyCODONE/APAP 10/325MG (PERCOCET 10) TABLET PO PRN (21:08)
[2017-07-08 23:36] VITALS: BP 112/70
[2017-07-09 00:47] VITALS: BP 115/73
[2017-07-09] MEDS: 1/2 NS W/KCL 20 MEQ/L 1,000 ML IV SCH ×3 (00:49→11:26)
[2017-07-09 04:00] VITALS: BP 130/67
[2017-07-09] MEDS: PIPERACILLIN SODIUM/TAZOBACTAM 4.5 GM in D5W 100 ML IVPB 100 ML IV SCH ×3 (04:04→20:59)
[2017-07-09] MEDS: inSUlin ASPART (NovoLOG) 1 UNIT/0.01 ML (CHARGE PER UNIT) SC SCH ×4 (06:15→21:24)
[2017-07-09] MEDS: oxyCODONE/APAP 10/325MG (PERCOCET 10) TABLET PO PRN (06:20)
[2017-07-09 06:24] LABS: BASOPHILS % (AUTO) 0 % (0-10); EOSINOPHILS # (AUTO) 0.1 10^3/uL (0.0-0.3); EOSINOPHILS % (AUTO) 2 % (0-10); HEMATOCRIT 28 % (40-54); HEMOGLOBIN 9.8 G/DL (13.3-17.7); LYMPHOCYTES # (AUTO) 0.9 X 10^3 (1.0-4.0); LYMPHOCYTES % (AUTO) 13 % (12-44); MEAN CORPUSCULAR HEMOGLOBIN 31 PG (25-34); MEAN CORPUSCULAR HGB CONC 35 G/DL (32-36); MEAN CORPUSCULAR VOLUME 88 FL (80-99); MEAN PLATELET VOLUME 9.5 FL (7.4-10.4); MONOCYTES # (AUTO) 0.6 X 10^3 (0.0-1.0); MONOCYTES % (AUTO) 9 % (0-12); NEUTROPHILS # (AUTO) 5.2 X 10^3 (1.8-7.8); NEUTROPHILS % (AUTO) 76 % (42-75); PLATELET COUNT 100 10^3/uL (130-400); RED BLOOD COUNT 3.16 10^6/uL (4.35-5.85); RED CELL DISTRIBUTION WIDTH 12.6 % (10.0-14.5); WHITE BLOOD COUNT 6.9 10^3/uL (4.3-11.0)
[2017-07-09 06:39] LABS: BUN/CREATININE RATIO 23; CALCIUM 8.2 MG/DL (8.5-10.1); CARBON DIOXIDE 20 MMOL/L (21-32); CHLORIDE 107 MMOL/L (98-107); GFR ESTIMATED > 60; GLUCOSE 147 MG/DL (70-105); POTASSIUM 4.1 MMOL/L (3.6-5.0); SODIUM 136 MMOL/L (135-145)
[2017-07-09 08:00] VITALS: BP 127/74
[2017-07-09] MEDS ORDERED: meTOprolol SUCCINATE 100 MG (TOPROL XL) TAB PO SCH ×2 (09:00)
--- NOTE | 2017-07-09 10:10 | Consultation-Hospitalist ---
HPI History of Present Illness: HPI/Chief Complaint CC: Medical management of DM and CAD in patient with ileus HPI: This is a 61-year-old white male clinic patient of [facility] with a past medical history of diabetes mellitus insulin-dependent, CAD with ischemic cardiomyopathy managed by Dr. Ravi with pacemaker placement in the past and rectal carcinoma diagnosed one year ago status post resection and diverting colostomy placement in [place] by rectal surgeons status post chemotherapy that presents to the ER with complaints of abdominal pain and nausea and vomiting that workup revealed postop ileus from colostomy takedown procedure on 07/05/17 in [place]. He had an uncomplicated surgery felt well enough to be discharged the next day on 07/06/17 but began feeling worse to the weekend and Dr. Guzman is been consulted considering Dr. Salazar is off call schedule currently. I review home meds which patient is currently nothing by mouth except for meds and have slowed IV fluid down from 200 mL an hour to 1 20 mL an hour and reviewed labs and patient reports the pain medication as helping with the pain and overall feeling much better. Source: patient Exam Limitations: clinical condition Date Seen 07/09/17 Attending Physician Thiago Guzman DO PCP Chelsie Lee DO Referring Physician Date of Admission Jul 08, 2017 at 17:15 Home Medications & Allergies Home Medications Reviewed patient Home Medication Reconciliation performed by pharmacy medication reconciliations cardiac technician and/or nursing. Patients Allergies have been reviewed. Allergies Allergies Coded Allergies No Known Drug Allergies (Unverified02/14/17) Past Hpwpsul-Lvzaub-Omouse Hx Past Med/Social Hx: Reviewed Nursing Past Med/Soc Hx, Reviewed and Corrections made Patient Social History Marrital Status: Employed/Student: retired ([email or web address]) Alcohol Use: Denies Use Recreational Drug Use: No Smoking Status: Never a Smoker 2nd Hand Smoke Exposure: No Physical Abuse Screen: No Sexual Abuse: No Recent Foreign Travel: No Contact w/other who traveled: No Recent Hopitalizations: Yes (Dec-GALLBLADDER, NOV 29 BLADDER INFECTION) Recent Infectious Disease Expo: No Immunizations Up To Date Tetanus Booster (TDap): Unknown Pediatric: No Seasonal Allergies Seasonal Allergies: No Past Medical History Surgeries: Abdominal, Appendectomy, Bowel Surgery, Cardiac, Coronary Stent, Gallbladder, Pacemaker Respiratory: Asthma, Sleep Apnea Currently Using CPAP: No (unable to tolerate) Currently Using BIPAP: No Cardiac: Coronary Artery Disease, High Cholesterol, Hypertension Neurological: Neuropathy Reproductive: No Sexually Transmitted Disease: No HIV/AIDS: No Genitourinary: Bladder Infection, Kidney Stones Musculoskeletal: Arthritis Endocrine: Diabetes, Non-Insulin dep Loss of Vision: Bilateral Hearing Impairment: Denies Cancer: Rectal, Colon Did You Recieve Any Treatments: Yes What Type of Treatment Did You: Chemotherapy, Radiation, Surgical Intervention Psychosocial: Depression Skin/Integumentary: Recent Skin Changes History of Blood Disorders: No Adverse Reaction to Blood Bergeron: No (N/A) Family History Alzheimer's disease 19 FATHER ( at 89) 19 MOTHER ( 93) No Pertinent Family Hx, CAD Over 55 Years Old, Diabetes, Hypertension Review of Systems Constitutional: see HPI, dizziness, malaise, weakness EENTM: no symptoms reported Respiratory: no symptoms reported Cardiovascular: no symptoms reported Gastrointestinal: loss of appetite, melena, nausea Genitourinary: no symptoms reported Musculoskeletal: no symptoms reported Skin: no symptoms reported Psychiatric/Neurological: No Symptoms Reported All Other Systems Reviewed Negative Unless Noted: Yes Physical Exam Physical Exam Vital Signs Vital Signs - First Documented 07/08/17 07/08/17 14:15 18:40 Temp 98.4 Pulse 132 Resp 20 B/P (MAP) 141/94 (110) Pulse Ox 96 O2 Delivery Room Air Capillary Refill : Less Than 3 Seconds General Appearance: No Apparent Distress, WD/WN, Chronically ill Eyes: Bilateral Eye Normal Inspection, Bilateral Eye PERRL HEENT: PERRL/EOMI, Normal ENT Inspection, Pharynx Normal Neck: Full Range of Motion, Normal Inspection, Non Tender, Supple, Carotid Bruit Respiratory: Chest Non Tender, Lungs Clear, Normal Breath Sounds, No Accessory Muscle Use, No Respiratory Distress Cardiovascular: Regular Rate, Rhythm, No Edema, No Gallop, No JVD, No Murmur, Normal Peripheral Pulses Gastrointestinal: Normal Bowel Sounds, No Organomegaly, No Pulsatile Mass, Abnormal Bowel Sounds, Distended, Tenderness Back: Normal Inspection, No CVA Tenderness, No Vertebral Tenderness Extremity: Normal Capillary Refill, Normal Inspection, Normal Range of Motion, Non Tender, No Calf Tenderness, No Pedal Edema Neurologic/Psychiatric: Alert, Oriented x3, No Motor/Sensory Deficits, Normal Mood/Affect Skin: Normal Color, Warm/Dry Lymphatic: No Adenopathy Results Results/Procedures Labs Laboratory Tests 07/08/17 14:50 07/09/17 06:15 Patient resulted labs reviewed. Assessment/Plan Assessment and Plan Assess & Plan/Chief Complaint Assessment: Postop ileus Diabetes mellitus CAD Ischemic heart myopathy Hypertension Hyperlipidemia Peripheral vascular disease Right great toe diabetic ulcer managed by Dr. Arvizu Renal stones Plan: Nothing by mouth except for meds Slowdown IV fluids Appreciate Dr. Guzman's expertise in managing ileus Diagnosis/Problems Diagnosis/Problems (1) Ileus following gastrointestinal surgery Status: Acute (2) Nausea & vomiting Status: Acute Qualifiers: Vomiting type: unspecified Vomiting Intractability: intractable Qualified Codes: R11.2 - Nausea with vomiting, unspecified (3) Diabetes mellitus Status: Chronic Qualifiers: Diabetes mellitus type: type 2 Diabetes mellitus long term care social worker insulin use: with long term care social worker use Diabetes mellitus complication status: with circulatory complication Diabetes mellitus complication detail: with other circulatory complications Qualified Codes: E11.59 - Type 2 diabetes mellitus with other circulatory complications; Z79.4 - buttermaker continuous churn (current) use of insulin (4) left ureteral stone Status: Chronic (5) Renal failure (ARF), acute on chronic Status: Chronic Qualifiers: Acute renal failure type: unspecified Chronic kidney disease stage: stage 2 (mild) Qualified Codes: N17.9 - Acute kidney failure, unspecified; N18.2 - Chronic kidney disease, stage 2 (mild) (6) Rectal carcinoma Status: Chronic Clinical Quality Measures DVT/VTE Risk/Contraindication: Risk Factor Score Per Nursin RFS Level Per Nursing on Admit: 4+=Very High CHELSIE LEE DO Jul 09, 2017 10:10
[2017-07-09 12:00] VITALS: BP 124/74
[2017-07-09] MEDS ORDERED: OXYC-529 PO (13:39)
[2017-07-09] MEDS ORDERED: LINE600T7 PO (13:39)
[2017-07-09 15:38] VITALS: BP 116/56
[2017-07-09] MEDS: TAMSULOSIN 0.4 MG (FLOMAX) CAP PO SCH (17:38)
[2017-07-09 19:14] VITALS: BP 130/61
--- NOTE | 2017-07-09 20:53 | History & Physical-Surgical ---
History of Present Illness History of Present Illness Reason for visit/HPI Chief complaint: Abdominal pain at ileostomy site Patient is a 61-year-old male who last underwent loop ileostomy takedown at [facility] in [facility]. Patient has history of rectal cancer had diverting loop ileostomy and just underwent ileostomy takedown. Patient states is doing well but then began having some pain around the ileostomy site. He states that he's had decreased oral intake. He has been feeling a little bit weaker. Patient has been having diarrhea stools. He called the [facility] which he was then instructed to be evaluated by the emergency department. Patient is not had any fevers sweats chills shortness of breath or chest pain. Patient has CT scan which are reviewed which had small fluid collection at the ileostomy site could be seroma or abscess. He does have a lot of free air within the abdomen and also some upper limit normal small bowel diameter. All this could be postoperative ileus and postoperative changes. Date of Admission Jul 08, 2017 at 17:15 Date Seen by Provider: Jul 09, 2017 Time Seen by Provider: 10:35 I consulted on this patient on 07/09/17 20:48 Attending Physician Becca Keene DO Admitting Physician Chelsie Lee DO Consult Allergies and Home Medications Allergies Coded Allergies: No Known Drug Allergies (Unverified , 02/14/17) Home Medications Amlodipine Besylate 5 Mg Tablet, 5 MG PO DAILY Prescribed by: CHELSIE LEE on 06/09/17 1052 Aspirin 81 Mg Tab.chew, 81 MG PO HS, (Reported) Glyburide 2.5 Mg Tablet, 2.5 MG PO BID, (Reported) Linezolid 600 Mg Tablet, 600 MG PO BID, (Reported) Metoprolol Succinate 200 Mg Tab.er.24h, 200 MG PO HS, (Reported) Oxycodone HCl 5 Mg Tablet, 5 MG PO Q4H PRN for PAIN-MODERATE TO SEVERE, ( Reported) Pantoprazole Sodium 40 Mg Tablet.dr, 40 MG PO DAILY, (Reported) Silver Sulfadiazine 25 Gm Cream..g., TOP DAILY, (Reported) APPLY TO TOE Tamsulosin HCl 0.4 Mg Cap.er.24h, 0.4 MG PO DAILY, (Reported) Patient Home Medication List Home Medication List Reviewed: Yes Past Calapml-Pjyfui-Bjhapr Hx Patient Social History Alcohol Use: Denies Use Recreational Drug Use: No Smoking Status: Never a Smoker 2nd Hand Smoke Exposure: No Recent Foreign Travel: No Contact w/Someone Who Travel: No Recent Infectious Disease Expo: No Recent Hopitalizations: Yes (Dec-GALLBLADDER, NOV 29 BLADDER INFECTION) Physical Abuse Screen: No Sexual Abuse: No Immunizations Up To Date Tetanus Booster (TDap): Unknown PED Vaccines UTD: No Seasonal Allergies Seasonal Allergies: No Surgeries History of Surgeries: Yes (ILEOSTOMY/COLECTOMY 11/16/16 IN [place] FOR RECTAL CANCER;ILEOSTOMY TAKEDOW) Surgeries: Abdominal, Appendectomy, Bowel Surgery, Cardiac, Coronary Stent, Gallbladder, Pacemaker Respiratory History of Respiratory Disorde: Yes Respiratory Disorders: Sleep Apnea Cardiovascular History of Cardiac Disorders: Yes (CARDIAC CATH--STENT) Cardiac Disorders: Coronary Artery Disease, High Cholesterol, Hypertension Neurological History of Neurological Disord: Yes Neurological Disorders: Neuropathy Reproductive System Hx Reproductive Disorders: No Sexually Transmitted Disease: No HIV/AIDS: No Genitourinary History of Genitourinary Disor: Yes (urinary retention following colon surgery) Genitourinary Disorders: Bladder Infection, Kidney Stones Gastrointestinal History of Gastrointestinal Di: Yes (RECTAL CANCER--S/P COLECTOMY AND ILEOSTOMY ; ILEOSTOMY TAKEDOWN ) Musculoskeletal History of Musculoskeletal Dis: Yes Musculoskeletal Disorders: Arthritis Endocrine History of Endocrine Disorders: Yes Endocrine Disorders: Diabetes, Non-Insulin dep HEENT History of HEENT Disorders: No Loss of Vision: Bilateral Hearing Impairment: Denies Cancer History of Cancer: Yes Cancer: Rectal, Colon Psychosocial History of Psychiatric Problem: No Behavioral Health Disorders: Depression Integumentary History of Skin or Integumenta: No Skin/Integumentary Disorders: Recent Skin Changes Blood Transfusions History of Blood Disorders: No Adverse Reaction to a Blood Tr: No (N/A) Family Medical History Significant Family History: No Pertinent Family Hx, CAD Over 55 Years Old, Diabetes, Hypertension Family Medial History: Alzheimer's disease 19 FATHER ( at 89) 19 MOTHER ( 93) Constitutional: no symptoms reported EENTM: no symptoms reported Respiratory: no symptoms reported Cardiovascular: no symptoms reported Gastrointestinal: see HPI Genitourinary: no symptoms reported Musculoskeletal: no symptoms reported Skin: no symptoms reported Psychiatric/Neurological: No Symptoms Reported Physical Exam Vital Signs Vital Signs - First Documented 07/08/17 07/08/17 14:15 18:40 Temp 98.4 Pulse 132 Resp 20 B/P (MAP) 141/94 (110) Pulse Ox 96 O2 Delivery Room Air Capillary Refill : Less Than 3 Seconds General Appearance: No Apparent Distress HEENT: PERRL/EOMI, Normal ENT Inspection Neck: Normal Inspection Respiratory: No Accessory Muscle Use, No Respiratory Distress Cardiovascular: Regular Rate, Rhythm Gastrointestinal: Soft (Slight tenderness at previous ostomy site no signs of infection) Rectal: Deferred Back: Normal Inspection Extremity: Non Tender, No Calf Tenderness Neurologic/Psychiatric: Alert, Oriented x3, No Motor/Sensory Deficits, Normal Mood/Affect, hospital security officer II-XII Norm as Tested Skin: Normal Color, Warm/Dry Lymphatic: No Adenopathy Data Review Labs Laboratory Tests 07/09/17 06:15: White Blood Count 6.9, Red Blood Count 3.16L, Hemoglobin 9.8L, Hematocrit 28L, Mean Corpuscular Volume 88, Mean Corpuscular Hemoglobin 31, Mean Corpuscular Hemoglobin Concent 35, Red Cell Distribution Width 12.6, Platelet Count 100L, Mean Platelet Volume 9.5, Neutrophils (%) (Auto) 76H, Lymphocytes (%) (Auto) 13 , Monocytes (%) (Auto) 9, Eosinophils (%) (Auto) 2, Basophils (%) (Auto) 0, Neutrophils # (Auto) 5.2, Lymphocytes # (Auto) 0.9L, Monocytes # (Auto) 0.6, Eosinophils # (Auto) 0.1, Basophils # (Auto) 0.0, Sodium Level 136, Potassium Level 4.1, Chloride Level 107, Carbon Dioxide Level 20L, Anion Gap 9, Blood Urea Nitrogen 25H, Creatinine 1.10, Estimat Glomerular Filtration Rate > 60, BUN /Creatinine Ratio 23, Glucose Level 147H, Calcium Level 8.2L 07/09/17 11:31: Glucometer 160H 07/09/17 15:40: Glucometer 126H Microbiology 07/08/17 Blood Culture - Preliminary, Resulted No growth Assessment/Plan Assessment/Plan Admission Diagonsis Status post loop ileostomy reversal performed in [facility] Postoperative ileus versus partial small bowel obstruction Admission Status: Inpatient Order (span 2 midnights) Reason for Inpatient Admission: Patient being admitted for postoperative ileus. Needs continue following with fluid resuscitation and need return of bowel function. Assessment/Plan Status post loop ileostomy reversal performed in [facility] Postoperative ileus versus partial small bowel obstruction Fluid collection at previous ostomy site likely seroma could be infectious and also some small areas of free air in the abdomen likely just postsurgical changes. Patient on Zosyn which would cover any infectious portion Patient on clear liquids and see if tolerates. No surgical intervention at this time. I did discuss with Dr. Joel. Clinical Quality Measures DVT/VTE Risk/Contraindication: Risk Factor Score Per Nursin RFS Level Per Nursing on Admit: 4+=Very High BECCA KEENE DO Jul 09, 2017 20:53
[2017-07-09] MEDS: MELATONIN 3 MG TABLET PO SCH (20:59)
[2017-07-09] MEDS: meTOprolol SUCCINATE 100 MG (TOPROL XL) TAB PO SCH (21:00)
[2017-07-10] VITALS: BP 117/59
[2017-07-10] MEDS: 1/2 NS W/KCL 20 MEQ/L 1,000 ML IV SCH ×3 (04:59→18:23)
[2017-07-10] MEDS: inSUlin ASPART (NovoLOG) 1 UNIT/0.01 ML (CHARGE PER UNIT) SC SCH ×4 (06:37→21:11)
[2017-07-10] MEDS: PIPERACILLIN SODIUM/TAZOBACTAM 4.5 GM in D5W 100 ML IVPB 100 ML IV SCH ×3 (06:42→20:57)
[2017-07-10 08:30] VITALS: BP 138/66
--- NOTE | 2017-07-10 10:22 | Progress Note-Hospitalist ---
Subjective HPI/CC On Admission Date Seen by Provider: Jul 10, 2017 Time Seen by Provider: 10:17 CC: Medical management of DM and CAD in patient with ileus HPI: This is a 61-year-old white male clinic patient of [facility] with a past medical history of diabetes mellitus insulin-dependent, CAD with ischemic cardiomyopathy managed by Dr. Ravi with pacemaker placement in the past and rectal carcinoma diagnosed one year ago status post resection and diverting colostomy placement in [place] by rectal surgeons status post chemotherapy that presents to the ER with complaints of abdominal pain and nausea and vomiting that workup revealed postop ileus from colostomy takedown procedure on 07/05/17 in [place]. He had an uncomplicated surgery felt well enough to be discharged the next day on 07/06/17 but began feeling worse to the weekend and Dr. Guzman is been consulted considering Dr. Salazar is off call schedule currently. I review home meds which patient is currently nothing by mouth except for meds and have slowed IV fluid down from 200 mL an hour to 1 20 mL an hour and reviewed labs and patient reports the pain medication as helping with the pain and overall feeling much better. Subjective/Events-last exam Patient denies any further chills or fever. He is passing some gas but still feeling pretty weak. Abdominal pain around his surgical site is improving as well but he still does feel little distended. He is tolerating liquids but not yet feeling hungry. He was able take a shower without the need for assistance of been managing IV lines. Focused Exam Lactate Level 07/08/17 15:10: Lactic Acid Level 2.39*H 07/08/17 17:34: Lactic Acid Level 1.19 Objective Exam Vital Signs Vital Signs Date Time Temp Pulse Resp B/P (MAP) Pulse Ox O2 Delivery O2 Flow Rate FiO2 07/10/17 08:30 99.3 88 20 138/66 (90) 95 Room Air Capillary Refill : Less Than 3 Seconds General Appearance: No Apparent Distress, Chronically ill Respiratory: Chest Non Tender, Lungs Clear, Normal Breath Sounds, No Accessory Muscle Use, No Respiratory Distress Cardiovascular: Regular Rate, Rhythm, No Edema, No Gallop, No JVD, No Murmur, Normal Peripheral Pulses Gastrointestinal: Other (Abdomen is distended but bowel sounds are positive. There is an area of induration with mild tenderness and some mild erythema around the stoma takedown site in the right lower quadrant of the abdomen. No organomegaly is noted no other masses are noted. There is no rebound or guarding.) Results/Procedures Lab Patient resulted labs reviewed. Assessment/Plan Assessment and Plan Assess & Plan/Chief Complaint A/P 1. Considering the patient is 5 days out from surgery has had infectious type symptoms with Reiger's and a 3.3 cm fluid collection at the stoma site would favor abscess over seroma. While his white count isn't elevated he does have a left shift and there is mild thrombocytopenia. This morning do not see underlying sinusitis suspect sepsis but will discuss incision and drainage with Dr. Guzman. 2. Ileus possibly due to number 1 resolving patient passing gas underlying bowel obstruction less likely. 3. Diabetes mellitus continue glucose monitoring. 4. Past history of rectal carcinoma with resection and diverting ileostomy which was taken down last . Clinical Quality Measures DVT/VTE Risk/Contraindication: Risk Factor Score Per Nursin RFS Level Per Nursing on Admit: 4+=Very High JUDITH STEWART MD Jul 10, 2017 10:22
[2017-07-10 10:40] LABS: BASOPHILS % (AUTO) 0 % (0-10); EOSINOPHILS # (AUTO) 0.1 10^3/uL (0.0-0.3); EOSINOPHILS % (AUTO) 2 % (0-10); HEMATOCRIT 24 % (40-54); HEMOGLOBIN 8.1 G/DL (13.3-17.7); LYMPHOCYTES # (AUTO) 0.7 X 10^3 (1.0-4.0); LYMPHOCYTES % (AUTO) 15 % (12-44); MEAN CORPUSCULAR HEMOGLOBIN 30 PG (25-34); MEAN CORPUSCULAR HGB CONC 34 G/DL (32-36); MEAN CORPUSCULAR VOLUME 88 FL (80-99); MONOCYTES # (AUTO) 0.4 X 10^3 (0.0-1.0); MONOCYTES % (AUTO) 8 % (0-12); NEUTROPHILS # (AUTO) 3.4 X 10^3 (1.8-7.8); NEUTROPHILS % (AUTO) 76 % (42-75); PLATELET COUNT 78 10^3/uL (130-400); RED BLOOD COUNT 2.72 10^6/uL (4.35-5.85); RED CELL DISTRIBUTION WIDTH 12.5 % (10.0-14.5); WHITE BLOOD COUNT 4.5 10^3/uL (4.3-11.0)
[2017-07-10 11:01] LABS: BUN/CREATININE RATIO 16; CALCIUM 8.2 MG/DL (8.5-10.1); CARBON DIOXIDE 20 MMOL/L (21-32); CHLORIDE 108 MMOL/L (98-107); CREATININE SERUM 0.93 MG/DL (0.60-1.30); GFR ESTIMATED > 60; GLUCOSE 133 MG/DL (70-105); POTASSIUM 3.7 MMOL/L (3.6-5.0); SODIUM 137 MMOL/L (135-145)
[2017-07-10 15:59] VITALS: BP 152/76
--- NOTE | 2017-07-10 16:34 | Progress Note ---
Subjective Date Seen by Provider: Jul 10, 2017 Time Seen by Provider: 08:11 Subjective/Events-last exam Patient states pain improving at ileostomy site. Tolerating liquids. Having liquid stools. Denies blood. Denies n/v fever sweats chills shortness of breath or chest pain. Focused Exam Lactate Level 07/08/17 15:10: Lactic Acid Level 2.39*H 07/08/17 17:34: Lactic Acid Level 1.19 Objective Exam Vital Signs Date Time Temp Pulse Resp B/P (MAP) Pulse Ox O2 Delivery O2 Flow Rate FiO2 07/10/17 15:59 97.8 79 14 152/76 (101) 100 Room Air 07/10/17 08:30 99.3 88 20 138/66 (90) 95 Room Air 07/10/17 00:00 99.4 90 17 117/59 (78) 93 Room Air 07/09/17 19:14 99.3 99 16 130/61 (84) 97 Room Air I & O 07/10/17 07:00 Intake Total 2362 ml Output Total 2 ml Balance 2360 ml Capillary Refill : Less Than 3 Seconds General Appearance: No Apparent Distress, Chronically ill HEENT: PERRL/EOMI, Normal ENT Inspection Neck: Normal Inspection Respiratory: Chest Non Tender, Lungs Clear, Normal Breath Sounds, No Accessory Muscle Use, No Respiratory Distress Cardiovascular: Regular Rate, Rhythm, No Edema, No Gallop, No JVD, No Murmur, Normal Peripheral Pulses Peripheral Pulses: 2+ Radial Pulses (R), 2+ Radial Pulses (L) Gastrointestinal: normal bowel sounds, no organomegaly, tenderness (minimal around ileostomy site no significant erythema), other (firm, indurated, erythematous skin inferior to the wound in his right lower quadrant.) Extremity: Non Tender, No Calf Tenderness Neurologic/Psychiatric: Alert, Oriented x3, No Motor/Sensory Deficits, Normal Mood/Affect, photography assistant II-XII Norm as Tested Skin: Normal Color, Warm/Dry Lymphatic: No Adenopathy Results Lab Laboratory Tests 07/09/17 20:24: Glucometer 255H 07/10/17 05:35: Glucometer 112H 07/10/17 10:30: White Blood Count 4.5, Red Blood Count 2.72L, Hemoglobin 8.1L, Hematocrit 24L, Mean Corpuscular Volume 88, Mean Corpuscular Hemoglobin 30, Mean Corpuscular Hemoglobin Concent 34, Red Cell Distribution Width 12.5, Platelet Count 78L, Mean Platelet Volume 9.0, Neutrophils (%) (Auto) 76H, Lymphocytes (%) (Auto) 15 , Monocytes (%) (Auto) 8, Eosinophils (%) (Auto) 2, Basophils (%) (Auto) 0, Neutrophils # (Auto) 3.4, Lymphocytes # (Auto) 0.7L, Monocytes # (Auto) 0.4, Eosinophils # (Auto) 0.1, Basophils # (Auto) 0.0, Sodium Level 137, Potassium Level 3.7, Chloride Level 108H, Carbon Dioxide Level 20L, Anion Gap 9, Blood Urea Nitrogen 15, Creatinine 0.93, Estimat Glomerular Filtration Rate > 60, BUN/ Creatinine Ratio 16, Glucose Level 133H, Calcium Level 8.2L 07/10/17 11:10: Glucometer 141H 07/10/17 16:03: Glucometer 135H Microbiology 07/08/17 Blood Culture - Preliminary, Resulted No growth Assessment/Plan Assessment/Plan Assessment/Plan Status post loop ileostomy reversal performed in [facility] Postoperative ileus versus partial small bowel obstruction Fluid collection at previous ostomy site likely seroma could be infectious and also some small areas of free air in the abdomen likely just postsurgical changes. Patient on Zosyn which would cover any infectious portion continue wit IV Abx no surgical intervention hgb down to to 8.1 follow Clinical Quality Measures DVT/VTE Risk/Contraindication: Risk Factor Score Per Nursin RFS Level Per Nursing on Admit: 4+=Very High BECCA KEENE DO Jul 10, 2017 16:34
[2017-07-10] MEDS: TAMSULOSIN 0.4 MG (FLOMAX) CAP PO SCH (17:58)
[2017-07-10] MEDS: meTOprolol SUCCINATE 100 MG (TOPROL XL) TAB PO SCH (20:57)
[2017-07-10] MEDS: MELATONIN 3 MG TABLET PO SCH (20:57)
[2017-07-11] VITALS: BP 140/70
[2017-07-11] MEDS: PIPERACILLIN SODIUM/TAZOBACTAM 4.5 GM in D5W 100 ML IVPB 100 ML IV SCH (03:31)
[2017-07-11] MEDS: 1/2 NS W/KCL 20 MEQ/L 1,000 ML IV SCH (03:33)
[2017-07-11] MEDS: inSUlin ASPART (NovoLOG) 1 UNIT/0.01 ML (CHARGE PER UNIT) SC SCH ×2 (05:46→11:17)
[2017-07-11 06:55] LABS: BASOPHILS % (AUTO) 0 % (0-10); EOSINOPHILS # (AUTO) 0.1 10^3/uL (0.0-0.3); EOSINOPHILS % (AUTO) 3 % (0-10); HEMATOCRIT 22 % (40-54); LYMPHOCYTES # (AUTO) 0.6 X 10^3 (1.0-4.0); LYMPHOCYTES % (AUTO) 15 % (12-44); MEAN CORPUSCULAR HEMOGLOBIN 31 PG (25-34); MEAN CORPUSCULAR HGB CONC 36 G/DL (32-36); MEAN CORPUSCULAR VOLUME 88 FL (80-99); MEAN PLATELET VOLUME 8.7 FL (7.4-10.4); MONOCYTES # (AUTO) 0.4 X 10^3 (0.0-1.0); MONOCYTES % (AUTO) 10 % (0-12); NEUTROPHILS % (AUTO) 72 % (42-75); PLATELET COUNT 91 10^3/uL (130-400); RED BLOOD COUNT 2.56 10^6/uL (4.35-5.85); RED CELL DISTRIBUTION WIDTH 12.3 % (10.0-14.5); WHITE BLOOD COUNT 4.1 10^3/uL (4.3-11.0)
[2017-07-11 07:08] LABS: BUN/CREATININE RATIO 11; CALCIUM 8.4 MG/DL (8.5-10.1); CARBON DIOXIDE 22 MMOL/L (21-32); CHLORIDE 109 MMOL/L (98-107); CREATININE SERUM 0.99 MG/DL (0.60-1.30); GFR ESTIMATED > 60; GLUCOSE 116 MG/DL (70-105); POTASSIUM 3.6 MMOL/L (3.6-5.0); SODIUM 140 MMOL/L (135-145)
[2017-07-11 07:15] LABS: ERYTHROCYTE SEDIMENTATION RATE 71 MM/HR (0-30)
[2017-07-11 08:00] VITALS: BP 167/79
[2017-07-11] MEDS ORDERED: AMLO5TAB2 PO (11:25)
--- NOTE | 2017-07-11 11:26 | Discharge Summary-Hospitalist ---
Diagnosis/Chief Complaint Date of Admission Jul 08, 2017 at 17:15 Date of Discharge Discharge Date: Jul 11, 2017 Discharge Diagnosis (1) Ileus following gastrointestinal surgery Status: Resolved (2) Nausea & vomiting Status: Resolved (3) Diabetes mellitus Status: Chronic (4) left ureteral stone Status: Chronic (5) Renal failure (ARF), acute on chronic Status: Chronic (6) Rectal carcinoma Status: Chronic (7) Seroma after procedure Status: Acute Discharge Summary Discharge Physical Exam Allergies: Coded Allergies: No Known Drug Allergies (Unverified , 02/14/17) Vitals & I&Os Vital Signs Date Time Temp Pulse Resp B/P (MAP) Pulse Ox O2 Delivery O2 Flow Rate FiO2 07/11/17 12:56 80 20 167/79 98 Room Air 07/11/17 08:00 98.5 General Appearance: Alert, Oriented X3, Cooperative Respiratory: Clear to Auscultation, Normal Air Movement Abdominal: Normal Bowel Sounds, Soft, No Tenderness Skin: No Rashes, No Breakdown Neuro: Normal Gait, Normal Speech, Strength at 5/5 X4 Ext Psych/Mental Status: Mental Status NL Hospital Course Hospital course: patient had an uncomplicated hospital course. He was admitted placed nothing by mouth placed on IV fluids and general surgery was consulted. There was a concern of a fluctuant mass at the colostomy takedown site so antibiotics were empirically placed. Home medication were held because of nothing by mouth status. Seroma was diagnosed and patient had return of bowel function patient was doing very well having bowel movements passing gas and felt well enough to go home. He will have close follow-up with me on Sunday and follow up with general surgery rectal surgery in [place] next Sunday. Labs (last 24 hrs) Laboratory Tests 07/10/17 21:07: Glucometer 210H 07/11/17 05:41: Glucometer 115H 07/11/17 06:41: White Blood Count 4.1L, Red Blood Count 2.56L, Hemoglobin 8.0L, Hematocrit 22L, Mean Corpuscular Volume 88, Mean Corpuscular Hemoglobin 31, Mean Corpuscular Hemoglobin Concent 36, Red Cell Distribution Width 12.3, Platelet Count 91L, Mean Platelet Volume 8.7, Neutrophils (%) (Auto) 72, Lymphocytes (%) (Auto) 15, Monocytes (%) (Auto) 10, Eosinophils (%) (Auto) 3, Basophils (%) (Auto) 0, Neutrophils # (Auto) 3.0, Lymphocytes # (Auto) 0.6L, Monocytes # (Auto) 0.4, Eosinophils # (Auto) 0.1, Basophils # (Auto) 0.0, Erythrocyte Sedimentation Rate 71H, Sodium Level 140, Potassium Level 3.6, Chloride Level 109H, Carbon Dioxide Level 22, Anion Gap 9, Blood Urea Nitrogen 11, Creatinine 0.99, Estimat Glomerular Filtration Rate > 60, BUN/Creatinine Ratio 11, Glucose Level 116H, Calcium Level 8.4L 07/11/17 11:09: Glucometer 161H Microbiology 07/08/17 Blood Culture - Preliminary, Resulted No growth Patient resulted labs reviewed. Pending Labs Discussion & Recommendations Discharge Planning: <30 minutes discharge planning Discharge Home Medications: Active Scripts Active Amlodipine Besylate 5 Mg Tablet 5 Mg PO DAILY Reported Oxycodone HCl 5 Mg Tablet 5 Mg PO Q4H PRN Ssd (Silver Sulfadiazine) 25 Gm Cream..g. TOP DAILY APPLY TO TOE Tamsulosin HCl 0.4 Mg Cap.er.24h 0.4 Mg PO DAILY Glyburide 2.5 Mg Tablet 2.5 Mg PO BID Pantoprazole Sodium 40 Mg Tablet.dr 40 Mg PO DAILY Aspirin 81 Mg Tab.chew 81 Mg PO HS Metoprolol Succinate 200 Mg Tab.er.24h 200 Mg PO HS Instructions to patient/family Please see electronic discharge instructions given to patient. Clinical Quality Measures DVT/VTE Risk/Contraindication: Risk Factor Score Per Nursin RFS Level Per Nursing on Admit: 4+=Very High Problem Qualifiers (1) Nausea & vomiting: Vomiting type: unspecified Vomiting Intractability: intractable Qualified Codes: R11.2 - Nausea with vomiting, unspecified (2) Diabetes mellitus: Diabetes mellitus type: type 2 Diabetes mellitus prison insulin use: with prison use Diabetes mellitus complication status: with circulatory complication Diabetes mellitus complication detail: with other circulatory complications Qualified Codes: E11.59 - Type 2 diabetes mellitus with other circulatory complications; 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
[2017-07-11 12:56] VITALS: BP 167/79
--- NOTE | 2017-07-11 22:25 | Progress Note ---
Subjective Date Seen by Provider: Jul 11, 2017 Time Seen by Provider: 08:40 Subjective/Events-last exam Feeling good today. Having bm and passing flatus. No blood per rectum. Tolerating liquids, wanting more. Denies n/v fever sweats chills shortness of breath or chest pain. Objective Exam Vital Signs Date Time Temp Pulse Resp B/P (MAP) Pulse Ox O2 Delivery O2 Flow Rate FiO2 07/11/17 12:56 80 20 167/79 98 Room Air 07/11/17 08:00 98.5 80 20 167/79 (108) 98 Room Air 07/11/17 00:00 98.4 76 16 140/70 (93) 96 Room Air I & O 07/11/17 07:00 Intake Total 3292 ml Balance 3292 ml Capillary Refill : Less Than 3 Seconds General Appearance: No Apparent Distress, Chronically ill HEENT: PERRL/EOMI, Normal ENT Inspection Neck: Normal Inspection Respiratory: Normal Breath Sounds, No Accessory Muscle Use, No Respiratory Distress Cardiovascular: Regular Rate, Rhythm Peripheral Pulses: 2+ Radial Pulses (R), 2+ Radial Pulses (L) Gastrointestinal: normal bowel sounds, no organomegaly, tenderness (minimal around ileostomy site no significant erythema, no fluctuance or drainage, slight firmness at ostomy site would expect postop), other Extremity: Non Tender, No Calf Tenderness Neurologic/Psychiatric: Alert, Oriented x3, No Motor/Sensory Deficits, Normal Mood/Affect, lining strap closer II-XII Norm as Tested Skin: Normal Color, Warm/Dry Lymphatic: No Adenopathy Results Lab Laboratory Tests 07/11/17 05:41: Glucometer 115H 07/11/17 06:41: White Blood Count 4.1L, Red Blood Count 2.56L, Hemoglobin 8.0L, Hematocrit 22L, Mean Corpuscular Volume 88, Mean Corpuscular Hemoglobin 31, Mean Corpuscular Hemoglobin Concent 36, Red Cell Distribution Width 12.3, Platelet Count 91L, Mean Platelet Volume 8.7, Neutrophils (%) (Auto) 72, Lymphocytes (%) (Auto) 15, Monocytes (%) (Auto) 10, Eosinophils (%) (Auto) 3, Basophils (%) (Auto) 0, Neutrophils # (Auto) 3.0, Lymphocytes # (Auto) 0.6L, Monocytes # (Auto) 0.4, Eosinophils # (Auto) 0.1, Basophils # (Auto) 0.0, Erythrocyte Sedimentation Rate 71H, Sodium Level 140, Potassium Level 3.6, Chloride Level 109H, Carbon Dioxide Level 22, Anion Gap 9, Blood Urea Nitrogen 11, Creatinine 0.99, Estimat Glomerular Filtration Rate > 60, BUN/Creatinine Ratio 11, Glucose Level 116H, Calcium Level 8.4L 07/11/17 11:09: Glucometer 161H Microbiology 07/08/17 Blood Culture - Preliminary, Resulted No growth Assessment/Plan Assessment/Plan Assessment/Plan Status post loop ileostomy reversal performed in [facility] Postoperative ileus Fluid collection at previous ostomy site likely seroma could be infectious and also some small areas of free air in the abdomen likely just postsurgical changes. Patient on Zosyn no surgical intervention hgb stable advance diet, if tolerates okaya to dc home from surgical standpoint Clinical Quality Measures DVT/VTE Risk/Contraindication: Risk Factor Score Per Nursin RFS Level Per Nursing on Admit: 4+=Very High BECCA KEENE DO Jul 11, 2017 22:25
== END 2017-07-11 12:25 | disposition home or self-care (01) | DRG 394 ==
LOC: EDUNIT# 13:28 → ER 13:30 → 4TH 17:15
PROVIDERS: ADMIT Surgery; ATTEND Surgery
DX: K91.89 Other postprocedural complications and disorders of digestive system (principal); K56.7 Ileus, unspecified; K91.872 Postprocedural seroma of a digestive system organ or structure following a digestive system procedure; N20.1 Calculus of ureter; N17.9 Acute kidney failure, unspecified; E11.51 Type 2 diabetes mellitus with diabetic peripheral angiopathy without gangrene; E11.621 Type 2 diabetes mellitus with foot ulcer; L97.519 Non-pressure chronic ulcer of other part of right foot with unspecified severity; E86.0 Dehydration; G47.30 Sleep apnea, unspecified; I25.10 Atherosclerotic heart disease of native coronary artery without angina pectoris; I12.9 Hypertensive chronic kidney disease with stage 1 through stage 4 chronic kidney disease, or unspecified chronic kidney disease; N18.2 Chronic kidney disease, stage 2 (mild); E78.00 Pure hypercholesterolemia, unspecified; E11.40 Type 2 diabetes mellitus with diabetic neuropathy, unspecified; I25.5 Ischemic cardiomyopathy; F32.9 Major depressive disorder, single episode, unspecified; M19.91 Primary osteoarthritis, unspecified site; Z85.038 Personal history of other malignant neoplasm of large intestine; Z85.048 Personal history of other malignant neoplasm of rectum, rectosigmoid junction, and anus; Z92.3 Personal history of irradiation; Z92.21 Personal history of antineoplastic chemotherapy; Z95.5 Presence of coronary angioplasty implant and graft; Z95.0 Presence of cardiac pacemaker; Z79.4 Long term (current) use of insulin
CPT/HCPCS: 36415; 71045; 74177; 80048; 80053; 81000; 82962; 83605; 85025; 85610; 85652; 85730; 87040; 96361; 96365; 96375; 96376

== ENCOUNTER 2017-07-14 18:14 | Emergency (ER) | payer BC ==
[~2017-07-14] VITALS: Ht 182.9 cm; Wt 90.7 kg
[~2017-07-14 18:14] MED LIST changes: +LINE600T7 PO; +OXYC-529 PO
--- OUTSIDE RECORDS SUMMARY | 2017-07-14 18:19 | XMS REPORT | Clinical Summary ---
Author Author [facility] Organization [facility] Address Unknown Phone Unavailable Care Team Providers Care Hogshead Head Matcher Name Role Phone Sara Tee Unavailable Unavailable Viraj Calles MD PCP Enriqueta Martino RN Unavailable Unavailable Source Comments Some departments are not documenting in the electronic medical record. If you do not see the information that you expected, contact Release of Information in the Health Information Management department at [phone] for further assistance in locating additional records.[facility] Allergies Active Allergy Reactions Severity Noted [...] of SCD DM2 (diabetes mellitus, type 2) ([facility]) 12/23/2012 Overview: Metformin Ischemic cardiomyopathy 12/23/2012 CAD (coronary artery disease) 12/06/2012 Overview: A. 08/19/12. Abnormal Myoview Treadmill Stress Test, Via [facility]. Left ventricular hypokinesis, EF 22%. Document sent to OP medical records to be scanned to patient record. B. 08/27/12. [facility], ANA MARÍA to LAD. C. 12/03/12. Echocardiogram-EF 30% Dilated LV with diffuse LV hypokinesia, anterior wall, anterior septum. Mild mitral and tricuspid regurgitation. Insufficient doppler signal to evaluate pulmonary artery pressure. COPD (chronic obstructive pulmonary disease) ([facility]) 12/06/2012 CHF (congestive heart failure) ([facility]) 12/06/2012 SADA (obstructive sleep apnea) 12/06/2012 S/P coronary artery stent placement 12/06/2012 Overview: 08/27/12. [facility], [place]. 95% proximal LAD stenosis. 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
[2017-07-14] MEDS ORDERED: KETOROLAC 30 MG/ML VIAL IVP STA (18:22)
[2017-07-14] MEDS ORDERED: LACTATED RINGERS 1,000 ML IV ONE (18:22)
[2017-07-14] MEDS ORDERED: fentaNYL INJECTION 100 MCG/2 ML AMP IVP STA (18:22)
[2017-07-14] MEDS ORDERED: ONDANSETRON 4 MG/2 ML (SDV) Z0FRAN IVP ONE (18:30)
[2017-07-14 18:39] LABS: BASOPHILS % (AUTO) 0 % (0-10); EOSINOPHILS # (AUTO) 0.1 10^3/uL (0.0-0.3); EOSINOPHILS % (AUTO) 2 % (0-10); HEMATOCRIT 26 % (40-54); HEMOGLOBIN 8.7 G/DL (13.3-17.7); LYMPHOCYTES # (AUTO) 0.7 X 10^3 (1.0-4.0); LYMPHOCYTES % (AUTO) 12 % (12-44); MEAN CORPUSCULAR HGB CONC 34 G/DL (32-36); MEAN CORPUSCULAR VOLUME 88 FL (80-99); MEAN PLATELET VOLUME 8.7 FL (7.4-10.4); MONOCYTES # (AUTO) 0.3 X 10^3 (0.0-1.0); MONOCYTES % (AUTO) 6 % (0-12); NEUTROPHILS # (AUTO) 4.4 X 10^3 (1.8-7.8); NEUTROPHILS % (AUTO) 81 % (42-75); PLATELET COUNT 183 10^3/uL (130-400); RED BLOOD COUNT 2.95 10^6/uL (4.35-5.85); RED CELL DISTRIBUTION WIDTH 13.3 % (10.0-14.5); WHITE BLOOD COUNT 5.4 10^3/uL (4.3-11.0)
[2017-07-14 18:40] LABS: MEAN CORPUSCULAR HEMOGLOBIN 29 PG (25-34)
--- NOTE | 2017-07-14 18:54 | ED Abdominal Pain ---
General Chief Complaint: Abdominal/GI Problems Stated Complaint: POSS KIDNEY STONES Source of Information: Patient Exam Limitations: No Limitations History of Present Illness Date Seen by Provider: Jul 14, 2017 Time Seen by Provider: 18:17 Initial Comments PT ARRIVES VIA POV FROM HOME THINKS HE IS PASSING A KIDNEY STONE BEGAN HAVING SEVERE PAIN IN RIGHT FLANK, RADIATING TO RIGHT MID AND LOWER ABDOMEN--BEGAN AROUND 1500 TODAY. NO RELIEF WITH PERCOCET X 1 AT 1600. PAIN WAXES AND WANES IN INTENSITY, BUT DOES NOT GO AWAY C/O NAUSEA, NO VOMITING. DOES NOT HAVE NAUSEA MEDICATION AT HOME NO FEVER NO PROBLEMS URINATING OR GROSS HEMATURIA PT HAS PASSED MULTIPLE KIDNEY STONES IN THE PAST--ALWAYS HAS BEEN ON LEFT SIDE, AND STATES HE WOULD PASS MANY 25 AT A TIME. HAS NEVER HAD TO HAVE THEM SURGICALLY REMOVED. LAST EPISODE WAS 2 WEEKS AGO PT ALSO HAD SURGERY LAST Sunday07/04/17 FOR ILEOSTOMY TAKEDOWN, BY DR. THAKKAR IN [place]. WAS DISMISSED TO HOME THE NEXT DAY. PT HAD POST OP ILEUS AND A SEROMA--ADMITTED HERE 07/08-07/11-THOSE SYMPTOMS HAVE RESOLVED. PAIN IS AROUND HIS SURGICAL INCISION WELL PT HAS HAD BOWEL INCONTINENCE SINCE SURGERY --GOES EVERY 2 HOURS, SUDDENLY HAS URGE AND THEN CANNOT CONTROL IT. WORSE EVERY TIME HE EATS OR DRINKS ANYTHING PT WAS DX WITH RECTAL CANCER 06/2016. HAS HAD SURGERY, CHEMO AND RADIATION PCP: DR. LEE UROLOGIST: DR. MENDOZA ONCOLOGIST: DR. AGUAYO Allergies and Home Medications Allergies Coded Allergies: No Known Drug Allergies (Unverified , 02/14/17) Home Medications Ketorolac Tromethamine 10 Mg Tablet, 10 MG PO Q6H Prescribed by: MELONY BETANCOURT on 07/14/171946 Nitrofurantoin Monohyd/M-Cryst 100 Mg Capsule, 100 MG PO BID Prescribed by: MELONY BETANCOURT on 07/14/171939 Ondansetron 4 Mg Tab.rapdis, 4 MG PO Q4H Prescribed by: MELONY BETANCOURT on 07/14/171939 Oxycodone HCl/Acetaminophen 1 Each Tablet, 1 EACH PO Q4H Prescribed by: MELONY BETANCOURT on 07/14/171940 Patient Home Medication List Home Medication List Reviewed: Yes Review of Systems Constitutional: no symptoms reported Respiratory: No Symptoms Reported Cardiovascular: No Symptoms Reported Gastrointestinal: See HPI, Abdominal Pain, Diarrhea, Nausea; Denies Vomiting Genitourinary: Denies Burning, Denies Frequency; Flank Pain; Denies Incontinence, Denies Pain, Denies Urgency Musculoskeletal: see HPI, back pain Skin: no symptoms reported Psychiatric/Neurological: No Symptoms Reported Endocrine: No Symptoms Reported Hematologic/Lymphatic: No Symptoms Reported Past Uuwzzct-Kqgzwd-Uqurjm Hx Patient Social History 2nd Hand Smoke Exposure: No Recent Foreign Travel: No Contact w/Someone Who Travel: No Recent Hopitalizations: Yes (Dec-GALLBLADDER, NOV 29 BLADDER INFECTION) Immunizations Up To Date Tetanus Booster (TDap): Unknown PED Vaccines UTD: No Seasonal Allergies Seasonal Allergies: No Past Medical History Surgeries: Yes (ILEOSTOMY/COLECTOMY 11/16/16 IN [place] FOR RECTAL CANCER; ILEOSTOMY TAKEDOWN 07/04/17; PORT RIGHT CHEST) Abdominal, Appendectomy, Bowel Surgery, Cardiac, Coronary Stent, Gallbladder, Pacemaker Respiratory: Yes Sleep Apnea Currently Using CPAP: No (unable to tolerate) Currently Using BIPAP: No Cardiac: Yes (CARDIAC CATH--STENT; PACEMAKER) Coronary Artery Disease, High Cholesterol, Hypertension Neurological: Yes Neuropathy Reproductive Disorders: No Sexually Transmitted Disease: No HIV/AIDS: No Genitourinary: Yes (urinary retention following colon surgery) Bladder Infection, Kidney Stones Gastrointestinal: Yes (RECTAL CANCER--S/P COLECTOMY AND ILEOSTOMY; ILEOSTOMY TAKEDOWN ) Musculoskeletal: Yes Arthritis Endocrine: Yes Diabetes, Non-Insulin dep HEENT: No Loss of Vision: Bilateral Hearing Impairment: Denies Cancer: Yes (DX 06/2016) Rectal, Colon Did You Recieve Any Treatments: Yes (28 ROUNDS OF ORAL CHEMO + 28 ROUNDS OF RADIATION 08/03/16-09/12/16, THEN PARTIAL COLECTOMY WITH ILEOSTOMY 11/16/16. ILEOSTOMY TAKEDOWN 07/04/17) What Type of Treatment Did You: Chemotherapy, Radiation, Surgical Intervention Psychosocial: No Depression Integumentary: No Recent Skin Changes Blood Disorders: No Adverse Reaction/Blood Tranf: No (N/A) Family Medical History Alzheimer's disease 19 FATHER ( at 89) 19 MOTHER ( 93) CAD Over 55 Years Old, Diabetes, Hypertension Physical Exam Vital Signs Vital Signs - First Documented 07/14/17 18:15 Temp 98.0 Pulse 85 Resp 18 B/P (MAP) 145/74 (97) Pulse Ox 100 O2 Delivery Room Air Capillary Refill : General Appearance: WD/WN, other (LOOKS UNCOMFORTABLER) Respiratory: normal breath sounds, no respiratory distress, no accessory muscle use Cardiovascular: regular rate, rhythm, no murmur Gastrointestinal: normal bowel sounds, soft, no organomegaly; No distended, No guarding, No rebound; tenderness (RIGHT FLANK/ RIGHT MID AND LOWER ABDOMEN), other (SURGICAL WOUND TO RIGHT ABDOMEN HEALING, SCANT AMOUT OF DRIED BLOOD ) Back: CVA tenderness (R) Neurologic/Psychiatric: 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 nml as tested, no motor/sensory deficits, alert, oriented x 3 Skin: normal color, warm/dry Progress/Results/Core Measures Results/Orders Lab Results Laboratory Tests Test 07/14/17 18:30 07/14/17 19:35 Range/Units White Blood Count 5.4 4.3-11.0 10^3/uL Red Blood Count 2.95 L 4.35-5.85 10^6/uL Hemoglobin 8.7 L 13.3-17.7 G/DL Hematocrit 26 L 40-54 % Mean Corpuscular Volume 88 80-99 FL Mean Corpuscular Hemoglobin 29 25-34 PG Mean Corpuscular Hemoglobin Concent 34 32-36 G/DL Red Cell Distribution Width 13.3 10.0-14.5 % Platelet Count 183 130-400 10^3/uL Mean Platelet Volume 8.7 7.4-10.4 FL Neutrophils (%) (Auto) 81 H 42-75 % Lymphocytes (%) (Auto) 12 12-44 % Monocytes (%) (Auto) 6 0-12 % Eosinophils (%) (Auto) 2 0-10 % Basophils (%) (Auto) 0 0-10 % Neutrophils # (Auto) 4.4 1.8-7.8 X 10^3 Lymphocytes # (Auto) 0.7 L 1.0-4.0 X 10^3 Monocytes # (Auto) 0.3 0.0-1.0 X 10^3 Eosinophils # (Auto) 0.1 0.0-0.3 10^3/uL Basophils # (Auto) 0.0 0.0-0.1 10^3/uL Sodium Level 139 135-145 MMOL/L Potassium Level 3.6 3.6-5.0 MMOL/L Chloride Level 107 98-107 MMOL/L Carbon Dioxide Level 21 21-32 MMOL/L Anion Gap 11 5-14 MMOL/L Blood Urea Nitrogen 15 7-18 MG/DL Creatinine 1.20 0.60-1.30 MG/DL Estimat Glomerular Filtration Rate > 60 BUN/Creatinine Ratio 13 Glucose Level 136 H 70-105 MG/DL Calcium Level 8.1 L 8.5-10.1 MG/DL Total Bilirubin 0.4 0.1-1.0 MG/DL Aspartate Amino Transf (AST/SGOT) 25 5-34 U/L Alanine Aminotransferase (ALT/SGPT) 24 0-55 U/L Alkaline Phosphatase 132 40-136 U/L Total Protein 6.1 L 6.4-8.2 GM/DL Albumin 3.4 3.2-4.5 GM/DL Amylase Level 71 25-125 U/L Lipase 43 8-78 U/L Urine Color YELLOW Urine Clarity CLEAR Urine pH 5 5-9 Urine Specific [place] 1.020 1.016-1.022 Urine Protein 1+ H NEGATIVE Urine Glucose (UA) NEGATIVE NEGATIVE Urine Ketones NEGATIVE NEGATIVE Urine Nitrite NEGATIVE NEGATIVE Urine Bilirubin NEGATIVE NEGATIVE Urine Urobilinogen NORMAL NORMAL MG/DL Urine Leukocyte Esterase NEGATIVE NEGATIVE Urine RBC (Auto) 2+ H NEGATIVE Urine RBC 2-5 H /HPF Urine WBC 0-2 /HPF Urine Squamous Epithelial Cells RARE /HPF Urine Renal Epithelial Cells NONE /HPF Urine Crystals PRESENT H /LPF Urine Uric Acid Crystals RARE H /LPF Urine Bacteria NEGATIVE /HPF Urine Casts PRESENT /LPF Urine Hyaline Casts 0-2 H /LPF Urine Mucus SMALL H /LPF Urine Culture Indicated NO My Orders Orders - MELONY BETANCOURT DO Saline Lock/Iv-Start (07/14/17 18:22) Ct Abd/Pelvis Wo(Kidney Stone) (07/14/17 18:22) Amylase (07/14/17 18:22) Cbc With Automated Diff (07/14/17 18:22) Comprehensive Metabolic Panel (07/14/17 18:22) Lipase (07/14/17 18:22) Ua Culture If Indicated (07/14/17 18:22) Acute Abd Series (07/14/17 18:22) Saline Lock/Iv-Start (07/14/17 18:22) Lactated Ringers (Lr 1000 Ml Iv Solution (07/14/17 18:22) Ondansetron Injection (Zofran Injectio (07/14/17 18:30) Fentanyl Injection (Sublimaze Injection (07/14/17 18:22) Ketorolac Injection (Toradol Injection) (07/14/17 18:22) Rx-Ondansetron Po (Rx-Zofran Po) (07/14/17 19:46) Medications Given in ED Current Medications Medications Dose Ordered Sig/Marie Route Start Time Stop Time Status Last Admin Dose Admin Lactated Ringer's 1,000 ml @ 0 mls/hr Q0M ONCE IV 07/14/17 18:22 07/14/17 18:26 DC 07/14/17 18:39 1,000 MLS/HR Ondansetron HCl 8 mg ONCE ONCE IVP 07/14/17 18:30 07/14/17 18:31 DC 07/14/17 18:39 8 MG Vital Signs/I&O 07/14/17 07/14/17 18:15 19:57 Temp 98.0 98.0 Pulse 85 85 Resp 18 18 B/P (MAP) 145/74 (97) 145/74 (97) Pulse Ox 100 100 O2 Delivery Room Air Progress Progress Note : Progress Note ALL SYMPTOMS COMPLETELY RESOLVED WITH MEDICATIONS OFFERED ADMIT FOR PAIN CONTROL AND PT DECLINES PT HAS PERCOCET AND FLOMAX AT HOME Diagnostic Imaging Comments CT ABDOMEN/PELVIS--SMALL STONE AT RIGHT UVJ WITH MODERATE RIGHT HYDRONEPHROSIS/ HYDROURETER. 1-2 SMALL STONES IN LEFT MID URETER, WITHOUT OBSTRUCTION. POST SURGICAL CHANGES--PER RADIOLOGIST REPORT @ 192 ACUTE ABDOMEN XRAYS--POSSIBLE MILD ILEUS AND POST OP CHANGES, NO OBVIOUS URINARY STONES--PER RADIOLOGIST REPORT @ 1999 Reviewed: Reviewed by Me Departure Impression Primary Impression: Bilateral ureteral calculi Additional Impressions: S/P ILEOSTOMY TAKEDOWN Chronic anemia Disposition: HOME, SELF-CARE Condition: Improved Departure-Patient Inst. Referrals: SYED LEE DO (PCP/Family) Primary Care Physician CAM MENDOZA MD Patient Instructions: Kidney Stones (DC) Add. Discharge Instructions: STRAIN ALL URINE TAKE YOUR REGULAR MEDICATIONS PRESCRIBED, INCLUDING PERCOCET AND FLOMAX LOTS OF CLEAR LIQUIDS FOLLOW UP WITH DR. MENDOZA ON SUNDAY FOR FURTHER CARE. RETURN TO ER IF WORSE All discharge instructions reviewed with patient and/or family. Voiced understanding. Scripts Ketorolac Tromethamine (Ketorolac Tromethamine) 10 Mg Tablet 10 MG PO Q6H for Pain, #15 TAB Prov: MELONY BETANCOURT DO 07/14/17 Oxycodone HCl/Acetaminophen (Percocet 10-325 mg Tablet) 1 Each Tablet 1 EACH PO Q4H for Pain, #30 TAB Prov: MELONY BETANCOURT DO 07/14/17 Ondansetron (Zofran Odt) 4 Mg Tab.rapdis 4 MG PO Q4H for Nausea/Vomiting, #10 TAB Prov: MELONY BETANCOURT DO 07/14/17 Nitrofurantoin Monohyd/M-Cryst (Macrobid 100 mg Capsule) 100 Mg Capsule 100 MG PO BID, #20 CAP Prov: MELONY BETANCOURT DO 07/14/17 MELONY BETANCOURT DO Jul 14, 2017 18:54
[2017-07-14 18:59] LABS: ALANINE AMINOTRANSFERASE 24 U/L (0-55); ALBUMIN 3.4 GM/DL (3.2-4.5); ALKALINE PHOSPHATASE 132 U/L (40-136); AMYLASE 71 U/L (25-125); BILIRUBIN,TOTAL 0.4 MG/DL (0.1-1.0); BUN/CREATININE RATIO 13; CALCIUM 8.1 MG/DL (8.5-10.1); CARBON DIOXIDE 21 MMOL/L (21-32); CHLORIDE 107 MMOL/L (98-107); GFR ESTIMATED > 60; GLUCOSE 136 MG/DL (70-105); LIPASE 43 U/L (8-78); POTASSIUM 3.6 MMOL/L (3.6-5.0); SODIUM 139 MMOL/L (135-145); TOTAL PROTEIN 6.1 GM/DL (6.4-8.2)
--- NOTE | 2017-07-14 19:17 | Diagnostic Imaging Report ---
PROCEDURE: CT urinary tract, rule out kidney stone. TECHNIQUE: Multiple contiguous axial images were obtained through the abdomen and pelvis without the use of intravenous contrast. INDICATION: Right-sided flank pain for approximately four hours. History of stones. History of colorectal cancer. CORRELATION STUDY: 07/08/2017 FINDINGS: There is moderate right-sided obstructive uropathy including engorgement of the right kidney and perinephric stranding along with periureteric stranding. This is owing to a rather small, approximately 2-3 mm, stone at the left UVJ, it is passing into the urinary bladder. There is an approximately 3 mm calcification within the mid left ureter. There may actually be two small stones in this area. There is slight periureteric thickening but without overt hydronephrosis. Left kidney otherwise unremarkable. Lung bases are clear. Heart size is upper limits of normal with presence of coronary artery calcification and pacemaker lead. EG junction is unremarkable. Stomach distended with gas. Surgical changes of apparent right hemicolectomy. Surgical changes of the anterior abdominal wall are noted. Slight thickening of the skin and inflammatory changes of the subcutaneous fat is present. Small fluid collection and gas bubble is noted in this area. No gastrointestinal obstruction. Surgical changes at the level of the rectum. Prevertebral soft tissue prominence, unchanged. The unenhanced liver and spleen are unremarkable, apart from granulomas. The pancreas is unremarkable. Gallbladder is markedly contracted or absent. No clips in the fossa. Renal glands are unremarkable. Abdominal aorta with moderate wall calcification. The urinary bladder is relatively decompressed. Prostate gland is enlarged, lobulated and contains calcifications. Osseous structures are unremarkable. IMPRESSION: 1. At least moderate severity right-sided obstructive uropathy owing to an approximately 2-3 mm stone at the right ureterovesical junction. Right kidney engorgement and perinephric stranding is present. 2. There are also appears to be likely two small 2-3 mm stones within the distal left ureter but without overt hydronephrosis at this time. 3. Surgical changes of a partial colectomy, including a low resection at the level of the rectum. No bowel obstruction. Soft tissue thickening in the presacral region is generally stable. Colonic diverticulosis without acute diverticulitis. Dictated by: Dictated on workstation # [id number]
[2017-07-14] MEDS ORDERED: NITR-65 PO (19:40)
[2017-07-14] MEDS ORDERED: ONDA4TAB8 PO (19:40)
[2017-07-14] MEDS ORDERED: OXYC-202 PO (19:41)
[2017-07-14 19:43] LABS: BILIRUBIN,URINE NEGATIVE (NEGATIVE); CLARITY,URINE CLEAR; COLOR,URINE YELLOW; GLUCOSE, URINE (UA) NEGATIVE (NEGATIVE); KETONES,URINE NEGATIVE (NEGATIVE); LEUKOCYTE ESTERASE ,URINE NEGATIVE (NEGATIVE); NITRITE,URINE NEGATIVE (NEGATIVE); PH,URINE 5 (5-9); PROTEIN,URINE 1+ (NEGATIVE); UROBILINOGEN,URINE NORMAL (NORMAL)
--- NOTE | 2017-07-14 19:44 | Diagnostic Imaging Report ---
INDICATION: Right-sided flank pain x 4 hours. TECHNIQUE: Single view chest with supine and upright radiographs of the abdomen. CORRELATION STUDY: Chest from 07/08/2017. FINDINGS: Right-sided Sflvoa-j-Flrn catheter and left-sided pacemaker are stable. Heart size and mediastinum are unchanged in their prominence. Vasculature overall is within normal limits. Calcified granuloma in the right upper lobe. No infiltrate. A few gas-filled loops of small bowel are noted and may be reflective of mild ileus pattern. No evidence for overt obstruction. Surgery changes of a suture line in the right mid abdomen as well as midline of the low pelvis. No definitive calcification over the renal silhouette and/or expected course of either ureter as demonstrate on renal colic CT. IMPRESSION: 1. Negative for acute cardiopulmonary abnormality. 2. A few gas-filled loops of bowel may be reflective of mild ileus pattern and multiple surgical changes. No evidence for a high degree of obstruction. 2. The known renal stones cannot be well appreciated on this abdominal series examination. Dictated by: Dictated on workstation # [id number]
[2017-07-14] MEDS ORDERED: RX-ONDANSETRON 4 MG ODT (ZOFRAN) PPK #4 PO STA (19:46)
[2017-07-14] MEDS ORDERED: KETO10TA PO (19:47)
[2017-07-14 19:53] LABS: BACTERIA,URINE NEGATIVE /HPF; HYALINE CASTS, URINE 0-2 /LPF; SQUAMOUS EPITHELIAL CELL,UR RARE /HPF; URIC ACID CRYSTALS,URINE RARE /LPF; WBC,URINE 0-2 /HPF
[2017-07-14 19:57] VITALS: BP 145/74
== END 2017-07-14 19:58 | disposition home or self-care (01) ==
LOC: EDUNIT# 18:14 → ER 18:15
DX: N20.1 Calculus of ureter (principal); D64.9 Anemia, unspecified; G47.30 Sleep apnea, unspecified; I25.10 Atherosclerotic heart disease of native coronary artery without angina pectoris; E78.00 Pure hypercholesterolemia, unspecified; I10 Essential (primary) hypertension; Z87.442 Personal history of urinary calculi; E11.40 Type 2 diabetes mellitus with diabetic neuropathy, unspecified; F32.9 Major depressive disorder, single episode, unspecified; Z98.890 Other specified postprocedural states; Z90.49 Acquired absence of other specified parts of digestive tract; Z95.5 Presence of coronary angioplasty implant and graft; Z95.0 Presence of cardiac pacemaker; Z85.038 Personal history of other malignant neoplasm of large intestine; Z92.21 Personal history of antineoplastic chemotherapy; Z92.3 Personal history of irradiation; Z85.048 Personal history of other malignant neoplasm of rectum, rectosigmoid junction, and anus
CPT/HCPCS: 36415; 74022; 74176; 80053; 81000; 82150; 83690; 85025; 96374; 96375

== ENCOUNTER → 2017-07-23 | Outpatient (CLI) | payer BC ==
[~2017-07-23] MED LIST changes: +KETO10TA PO; +NITR-65 PO; +OXYC-202 PO
== END ==
LOC: WOUNDCARE 11:02
PROVIDERS: ATTEND Surgery
DX: E11.621 Type 2 diabetes mellitus with foot ulcer (principal); L97.512 Non-pressure chronic ulcer of other part of right foot with fat layer exposed; E11.42 Type 2 diabetes mellitus with diabetic polyneuropathy
CPT/HCPCS: 11042; 87070; 87075; 87077; 87186; 87205

== ENCOUNTER → 2017-08-06 | Outpatient (CLI) | payer BC ==
[~2017-08-06] MED LIST changes: +LINE600T33 PO; -LINE600T7 PO
== END ==
LOC: WOUNDCARE 12:52
PROVIDERS: ATTEND Surgery
DX: E11.621 Type 2 diabetes mellitus with foot ulcer (principal); E11.42 Type 2 diabetes mellitus with diabetic polyneuropathy; L97.512 Non-pressure chronic ulcer of other part of right foot with fat layer exposed
CPT/HCPCS: 15275

== ENCOUNTER → 2017-08-09 | Outpatient (CLI) | payer BC | LOC: WOUNDCARE 14:07 | PROVIDERS: ATTEND Surgery | DX: E11.621 Type 2 diabetes mellitus with foot ulcer (principal); E11.42 Type 2 diabetes mellitus with diabetic polyneuropathy; L97.512 Non-pressure chronic ulcer of other part of right foot with fat layer exposed | CPT/HCPCS: 29445 ==

== ENCOUNTER → 2017-08-13 | Outpatient (CLI) | payer BC | LOC: WOUNDCARE 12:24 | PROVIDERS: ATTEND Surgery | DX: E11.621 Type 2 diabetes mellitus with foot ulcer (principal); L97.512 Non-pressure chronic ulcer of other part of right foot with fat layer exposed; E11.42 Type 2 diabetes mellitus with diabetic polyneuropathy | CPT/HCPCS: 11042; 87070; 87075; 87205 ==

== ENCOUNTER 2017-08-15 07:59 | Outpatient (RCR) | payer BC ==
[~2017-08-15 07:59] MED LIST changes: -AMLO5TAB2 PO; +AMLO5TAB7 PO; +METF-397 PO; -METF500T5 PO; -OXYC-197 PO; -OXYC-202 PO; +OXYC1TAB12 PO; +OXYC1TAB87 PO
== END 2017-09-04 | disposition home or self-care (01) ==
LOC: WOUNDCARE 07:59
PROVIDERS: ATTEND Surgery
DX: E11.621 Type 2 diabetes mellitus with foot ulcer (principal); L97.512 Non-pressure chronic ulcer of other part of right foot with fat layer exposed
CPT/HCPCS: 82962; 99183

== ENCOUNTER → 2017-08-15 | Outpatient (CLI) | payer BC ==
--- NOTE | 2017-08-15 09:47 | Diagnostic Imaging Report ---
INDICATION: Sudden shortness of breath. TIME OF EXAMINATION: 09:52 a.m. COMPARISON: Correlation is made with prior exam from 07/14/2017. FINDINGS: The heart size is stable. Cardiac defibrillator remains in place. Right chest wall port remains in place. There is calcified granuloma right upper lobe. The lungs are clear. No vascular congestion or evidence of pulmonary edema is identified. No effusion or pneumothorax is seen. IMPRESSION: No acute cardiopulmonary process is detected. Dictated by: Dictated on workstation # [id number]
== END ==
LOC: CARD 09:20
PROVIDERS: ATTEND Surgery
DX: R06.02 Shortness of breath (principal)
CPT/HCPCS: 71046; 93005

== ENCOUNTER → 2017-08-20 | Outpatient (CLI) | payer BC ==
[~2017-08-20] MED LIST changes: +AMLO5TAB2 PO; -AMLO5TAB7 PO; -METF-397 PO; +METF500T5 PO; +OXYC-197 PO; +OXYC-202 PO; -OXYC1TAB12 PO; -OXYC1TAB87 PO
== END ==
LOC: WOUNDCARE 10:22
PROVIDERS: ATTEND Surgery
DX: E11.621 Type 2 diabetes mellitus with foot ulcer (principal); L97.512 Non-pressure chronic ulcer of other part of right foot with fat layer exposed; E11.42 Type 2 diabetes mellitus with diabetic polyneuropathy
CPT/HCPCS: 11042

== ENCOUNTER → 2017-08-27 | Outpatient (CLI) | payer BC | LOC: WOUNDCARE 10:51 | PROVIDERS: ATTEND Surgery | DX: E11.621 Type 2 diabetes mellitus with foot ulcer (principal); L97.513 Non-pressure chronic ulcer of other part of right foot with necrosis of muscle; E11.42 Type 2 diabetes mellitus with diabetic polyneuropathy | CPT/HCPCS: 11043; 87070; 87075; 87077; 87186; 87205 ==

== ENCOUNTER → 2017-09-03 | Outpatient (CLI) | payer BC | LOC: WOUNDCARE 10:49 | PROVIDERS: ATTEND Surgery | DX: E11.621 Type 2 diabetes mellitus with foot ulcer (principal); L97.513 Non-pressure chronic ulcer of other part of right foot with necrosis of muscle; E11.42 Type 2 diabetes mellitus with diabetic polyneuropathy | CPT/HCPCS: 11042 ==

== ENCOUNTER → 2017-09-10 | Outpatient (CLI) | payer BC | LOC: WOUNDCARE 10:21 | PROVIDERS: ATTEND Surgery | DX: E11.621 Type 2 diabetes mellitus with foot ulcer (principal); L97.512 Non-pressure chronic ulcer of other part of right foot with fat layer exposed; E11.42 Type 2 diabetes mellitus with diabetic polyneuropathy | CPT/HCPCS: 11042 ==

== ENCOUNTER 2017-10-01 10:27 | Outpatient (RCR) | payer BC ==
[2017-08-13 09:14] LABS: BASOPHILS % (AUTO) 0 % (0-10); EOSINOPHILS # (AUTO) 0.1 10^3/uL (0.0-0.3); EOSINOPHILS % (AUTO) 1 % (0-10); HEMATOCRIT 29 % (40-54); HEMOGLOBIN 9.6 G/DL (13.3-17.7); LYMPHOCYTES # (AUTO) 0.7 X 10^3 (1.0-4.0); LYMPHOCYTES % (AUTO) 15 % (12-44); MEAN CORPUSCULAR HEMOGLOBIN 29 PG (25-34); MEAN CORPUSCULAR HGB CONC 33 G/DL (32-36); MEAN CORPUSCULAR VOLUME 87 FL (80-99); MEAN PLATELET VOLUME 8.5 FL (7.4-10.4); MONOCYTES # (AUTO) 0.3 X 10^3 (0.0-1.0); MONOCYTES % (AUTO) 7 % (0-12); NEUTROPHILS # (AUTO) 3.5 X 10^3 (1.8-7.8); NEUTROPHILS % (AUTO) 78 % (42-75); PLATELET COUNT 137 10^3/uL (130-400); RED BLOOD COUNT 3.36 10^6/uL (4.35-5.85); RED CELL DISTRIBUTION WIDTH 14.2 % (10.0-14.5); WHITE BLOOD COUNT 4.5 10^3/uL (4.3-11.0)
[2017-08-13 09:38] LABS: ALANINE AMINOTRANSFERASE 22 U/L (0-55); ALBUMIN 4.1 GM/DL (3.2-4.5); ALKALINE PHOSPHATASE 118 U/L (40-136); BILIRUBIN,TOTAL 0.8 MG/DL (0.1-1.0); BUN/CREATININE RATIO 17; CALCIUM 9.2 MG/DL (8.5-10.1); CARBON DIOXIDE 26 MMOL/L (21-32); CHLORIDE 105 MMOL/L (98-107); CREATININE SERUM 1.01 MG/DL (0.60-1.30); GFR ESTIMATED > 60; GLUCOSE 132 MG/DL (70-105); POTASSIUM 4.1 MMOL/L (3.6-5.0); SODIUM 138 MMOL/L (135-145); TOTAL PROTEIN 6.7 GM/DL (6.4-8.2)
[~2017-10-01 10:27] MED LIST changes: -AMLO5TAB2 PO; +AMLO5TAB7 PO; +METF-397 PO; -METF500T5 PO; -OXYC-197 PO; -OXYC-202 PO; +OXYC1TAB12 PO; +OXYC1TAB87 PO
[2017-10-15] MEDS ORDERED: ASPRIN PO (15:30)
[2017-10-15] MEDS ORDERED: AMLO5TAB7 PO (15:30)
[2017-10-15] MEDS ORDERED: FLOMAX PO (15:31)
[2017-10-15] MEDS ORDERED: PANT40TA3 PO (15:32)
[2017-10-15] MEDS ORDERED: LINE600T33 (15:32)
[2017-10-15] MEDS ORDERED: NF-MET200T PO (18:10)
[2017-10-15] MEDS ORDERED: GLYB2.5T4 PO (18:13)
[2017-10-15] MEDS ORDERED: POTA15TA9 PO (18:16)
[2017-10-16] MEDS ORDERED: ASPI-983 PO (10:19)
[2017-10-16] MEDS ORDERED: TAMS0.4C2 PO (10:19)
[2017-10-16] MEDS ORDERED: METO200T48 PO (10:19)
[2017-10-17] MEDS ORDERED: AMOX-358 PO (10:04)
[2017-10-17] MEDS ORDERED: ACID1TAB5 PO (10:04)
[2017-10-17] MEDS ORDERED: CHOL4PAC16 PO (10:04)
[2017-11-06 08:56] LABS: BASOPHILS % (AUTO) 0 % (0-10); EOSINOPHILS # (AUTO) 0.1 10^3/uL (0.0-0.3); EOSINOPHILS % (AUTO) 2 % (0-10); HEMATOCRIT 32 % (40-54); HEMOGLOBIN 10.7 G/DL (13.3-17.7); LYMPHOCYTES # (AUTO) 0.8 X 10^3 (1.0-4.0); LYMPHOCYTES % (AUTO) 14 % (12-44); MEAN CORPUSCULAR HEMOGLOBIN 28 PG (25-34); MEAN CORPUSCULAR HGB CONC 34 G/DL (32-36); MEAN CORPUSCULAR VOLUME 83 FL (80-99); MEAN PLATELET VOLUME 8.9 FL (7.4-10.4); MONOCYTES # (AUTO) 0.3 X 10^3 (0.0-1.0); MONOCYTES % (AUTO) 5 % (0-12); NEUTROPHILS # (AUTO) 4.4 X 10^3 (1.8-7.8); NEUTROPHILS % (AUTO) 79 % (42-75); PLATELET COUNT 173 10^3/uL (130-400); RED BLOOD COUNT 3.85 10^6/uL (4.35-5.85); RED CELL DISTRIBUTION WIDTH 13.8 % (10.0-14.5); WHITE BLOOD COUNT 5.5 10^3/uL (4.3-11.0)
[2017-11-06 09:26] LABS: ALANINE AMINOTRANSFERASE 24 U/L (0-55); ALBUMIN 3.9 GM/DL (3.2-4.5); ALKALINE PHOSPHATASE 131 U/L (40-136); BILIRUBIN,TOTAL 0.4 MG/DL (0.1-1.0); BUN/CREATININE RATIO 16; CALCIUM 8.9 MG/DL (8.5-10.1); CARBON DIOXIDE 22 MMOL/L (21-32); CHLORIDE 106 MMOL/L (98-107); GFR ESTIMATED > 60; GLUCOSE 151 MG/DL (70-105); SODIUM 138 MMOL/L (135-145)
== END 2017-11-06 08:35 | disposition home or self-care (01) ==
LOC: ONC 10:27
PROVIDERS: ATTEND Internal Medicine Hematology & Oncology
DX: C20 Malignant neoplasm of rectum (principal); E11.9 Type 2 diabetes mellitus without complications; I10 Essential (primary) hypertension; I25.10 Atherosclerotic heart disease of native coronary artery without angina pectoris; J44.9 Chronic obstructive pulmonary disease, unspecified; Z79.84 Long term (current) use of oral hypoglycemic drugs; Z79.899 Other long term (current) drug therapy; Z45.2 Encounter for adjustment and management of vascular access device
CPT/HCPCS: 36591; 80053; 82378; 85025; 96523

== ENCOUNTER 2017-10-15 14:03 | Inpatient (IN) | payer BC ==
[~2017-10-15] VITALS: Ht 193 cm; Wt 105.2 kg
--- NOTE | 2017-10-15 14:57 | ED Integumentary General ---
General Chief Complaint: Skin/Wound Problems Stated Complaint: DIABETIC WOUND Source: patient Exam Limitations: no limitations History of Present Illness Date Seen by Provider: Oct 15, 2017 Time Seen by Provider: 14:40 Initial Comments Patient is a 62-year-old male who presents to emergency room with complaints of a diabetic wound to his right great toe. He reports that since April she has been on outpatient antibiotics and has seen Dr. Arvizu for this wound and [facility] for wound care over the course of this time. He reports for the last 2 days has become reddened and painful spreading up into the top of his foot having increase in drainage. Denies fevers. Timing/Duration: changing over time, other (past 2 days) Associated Symptoms: denies symptoms Allergies and Home Medications Allergies Coded Allergies: No Known Drug Allergies (Unverified , 10/15/17) Home Medications Amlodipine Besylate 5 Mg Tablet, 5 MG PO DAILY, (Reported) Glyburide 2.5 Mg Tablet, 2.5 MG PO BID, (Reported) Metoprolol Succinate 200 Mg Tab, 200 MG PO DAILY, (Reported) Pantoprazole Sodium 40 Mg Tablet.dr, 40 MG PO DAILY, (Reported) Potassium Citrate 15 Meq Tab, 15 MEQ PO BID, (Reported) [Asprin ] 81 , 81 MG PO DAILY, (Reported) [Flomax] 0.4 , 0.4 MG PO DAILY, (Reported) Patient Home Medication List Home Medication List Reviewed: Yes Review of Systems Review of Systems Constitutional: see HPI; No chills, No fever Skin: see HPI, change in color (redness to right great toe), other (ulcer to the plantar surface of the right great toe.) All Other Systems Reviewed Negative Unless Noted: Yes Past Yumiudf-Ehbjng-Jvdskz Hx Past Med/Social Hx: Reviewed Nursing Past Med/Soc Hx Patient Social History Alcohol Use: Denies Use Recreational Drug Use: No Smoking Status: Never a Smoker 2nd Hand Smoke Exposure: No Recent Hopitalizations: Yes (Dec-GALLBLADDER, NOV 29 BLADDER INFECTION) Immunizations Up To Date Tetanus Booster (TDap): Unknown PED Vaccines UTD: No Seasonal Allergies Seasonal Allergies: No Past Medical History Surgeries: Yes Abdominal, Appendectomy, Bowel Surgery, Cardiac, Coronary Stent, Gallbladder, Pacemaker Respiratory: Yes Sleep Apnea Currently Using CPAP: No (unable to tolerate) Currently Using BIPAP: No Cardiac: Yes (CARDIAC CATH--STENT; PACEMAKER) Coronary Artery Disease, High Cholesterol, Hypertension Neurological: Yes Neuropathy Reproductive Disorders: No Sexually Transmitted Disease: No HIV/AIDS: No Genitourinary: Yes (urinary retention following colon surgery) Bladder Infection, Kidney Stones Gastrointestinal: Yes (RECTAL CANCER--S/P COLECTOMY AND ILEOSTOMY; ILEOSTOMY TAKEDOWN ) Musculoskeletal: Yes Arthritis Endocrine: Yes Diabetes, Non-Insulin dep HEENT: No Loss of Vision: Bilateral Hearing Impairment: Denies Cancer: Yes (DX 06/2016) Rectal, Colon Did You Recieve Any Treatments: Yes What Type of Treatment Did You: Chemotherapy, Radiation, Surgical Intervention Psychosocial: No Depression Integumentary: No Recent Skin Changes Blood Disorders: No Adverse Reaction/Blood Tranf: No (N/A) Family Medical History Reviewed Nursing Family Hx Alzheimer's disease 19 FATHER ( at 89) 19 MOTHER ( 93) CAD Over 55 Years Old, Diabetes, Hypertension Physical Exam Vital Signs Vital Signs - First Documented 10/15/17 14:48 Temp 98.5 Pulse 96 Resp 18 B/P (MAP) 131/97 (108) Pulse Ox 98 O2 Delivery Room Air Capillary Refill : General Appearance: WD/WN, no apparent distress Cardiovascular: normal peripheral pulses, regular rate, rhythm, no edema, no gallop, no JVD, no murmur Respiratory: chest non-tender, lungs clear, normal breath sounds, no respiratory distress, no accessory muscle use Neurologic/Psychiatric: alert, normal mood/affect, oriented x 3 Skin: normal color, warm/dry Skin Problem Location: other (right great toe) Skin Problem Character: erythema (erythema to the right great toe that extends into the dorsal surface of the foot.), other (ulceration to the palmar surface of the right great toe approximately 2 cm in diameter.) Progress/Results/Core Measures Results/Orders Lab Results Laboratory Tests Test 10/15/17 14:50 Range/Units White Blood Count 6.2 4.3-11.0 10^3/uL Red Blood Count 3.91 L 4.35-5.85 10^6/uL Hemoglobin 10.9 L 13.3-17.7 G/DL Hematocrit 33 L 40-54 % Mean Corpuscular Volume 84 80-99 FL Mean Corpuscular Hemoglobin 28 25-34 PG Mean Corpuscular Hemoglobin Concent 33 32-36 G/DL Red Cell Distribution Width 14.2 10.0-14.5 % Platelet Count 186 130-400 10^3/uL Mean Platelet Volume 9.5 7.4-10.4 FL Neutrophils (%) (Auto) 79 H 42-75 % Lymphocytes (%) (Auto) 14 12-44 % Monocytes (%) (Auto) 6 0-12 % Eosinophils (%) (Auto) 1 0-10 % Basophils (%) (Auto) 0 0-10 % Neutrophils # (Auto) 4.9 1.8-7.8 X 10^3 Lymphocytes # (Auto) 0.9 L 1.0-4.0 X 10^3 Monocytes # (Auto) 0.3 0.0-1.0 X 10^3 Eosinophils # (Auto) 0.1 0.0-0.3 10^3/uL Basophils # (Auto) 0.0 0.0-0.1 10^3/uL Prothrombin Time 14.3 12.2-14.7 SEC INR Comment 1.1 0.8-1.4 Activated Partial Thromboplast Time 29 24-35 SEC Sodium Level 137 135-145 MMOL/L Potassium Level 4.1 3.6-5.0 MMOL/L Chloride Level 103 98-107 MMOL/L Carbon Dioxide Level 26 21-32 MMOL/L Anion Gap 8 5-14 MMOL/L Blood Urea Nitrogen 19 H 7-18 MG/DL Creatinine 1.10 0.60-1.30 MG/DL Estimat Glomerular Filtration Rate > 60 BUN/Creatinine Ratio 17 Glucose Level 282 H 70-105 MG/DL Lactic Acid Level 1.54 0.50-2.00 MMOL/L Calcium Level 8.9 8.5-10.1 MG/DL Corrected Calcium 9.1 8.5-10.1 MG/DL Total Bilirubin 0.6 0.1-1.0 MG/DL Aspartate Amino Transf (AST/SGOT) 18 5-34 U/L Alanine Aminotransferase (ALT/SGPT) 19 0-55 U/L Alkaline Phosphatase 134 40-136 U/L C-Reactive Protein High Sensitivity 2.91 H 0.00-0.50 MG/DL Total Protein 6.9 6.4-8.2 GM/DL Albumin 3.8 3.2-4.5 GM/DL Micro Results Microbiology 10/15/17 Gram Stain, Resulted Pending 10/15/17 Wound Culture - Preliminary, Resulted Sent To [facility] My Orders Orders - SAHIL ARELLANO Hs C Reactive Protein (10/15/17 14:41) Cbc With Automated Diff (10/15/17 14:41) Comprehensive Metabolic Panel (10/15/17 14:41) Blood Culture (10/15/17 14:41) Protime With Inr (10/15/17 14:41) Partial Thromboplastin Time (10/15/17 14:41) Saline Lock/Iv-Start (10/15/17 14:41) Wound Culture (10/15/17 14:41) Lactic Acid Analyzer (10/15/17 14:41) Foot, Right, 3 View (10/15/17 14:41) Vital Signs/I&O 10/15/17 14:48 Temp 98.5 Pulse 96 Resp 18 B/P (MAP) 131/97 (108) Pulse Ox 98 O2 Delivery Room Air Progress Progress Note : Time: 16:00 Progress Note I spoke to Dr. Arvizu and discussed the patient's care with him. He states that he can continue the patient in outpatient setting on Sunday or admit to the hospital. I called Dr. Camejo for plans of admission to the hospital, he agrees and recommends IV Zosyn and vancomycin and a bone scan in the morning. I did inform the patient of plans for admission and they agree. Departure Communication (Admissions) Time/Spoke to Admitting Phy: 16:00 Bashir Impression Primary Impression: Osteomyelitis of toe of right foot Disposition: HOME, SELF-CARE Condition: Stable/Unchanged Admissions Decision to Admit Reason: Admit from ER (General) Decision to Admit/Date: Oct 15, 2017 Time/Decision to Admit Time: 16:21 Departure-Patient Inst. Referrals: SYED LEE DO (PCP/Family) Primary Care Physician SAHIL ARELLANO Oct 15, 2017 14:57
[2017-10-15 15:10] LABS: BASOPHILS % (AUTO) 0 % (0-10); EOSINOPHILS # (AUTO) 0.1 10^3/uL (0.0-0.3); EOSINOPHILS % (AUTO) 1 % (0-10); HEMATOCRIT 33 % (40-54); HEMOGLOBIN 10.9 G/DL (13.3-17.7); LYMPHOCYTES # (AUTO) 0.9 X 10^3 (1.0-4.0); LYMPHOCYTES % (AUTO) 14 % (12-44); MEAN CORPUSCULAR HEMOGLOBIN 28 PG (25-34); MEAN CORPUSCULAR HGB CONC 33 G/DL (32-36); MEAN CORPUSCULAR VOLUME 84 FL (80-99); MEAN PLATELET VOLUME 9.5 FL (7.4-10.4); MONOCYTES # (AUTO) 0.3 X 10^3 (0.0-1.0); MONOCYTES % (AUTO) 6 % (0-12); NEUTROPHILS # (AUTO) 4.9 X 10^3 (1.8-7.8); NEUTROPHILS % (AUTO) 79 % (42-75); PLATELET COUNT 186 10^3/uL (130-400); RED BLOOD COUNT 3.91 10^6/uL (4.35-5.85); RED CELL DISTRIBUTION WIDTH 14.2 % (10.0-14.5); WHITE BLOOD COUNT 6.2 10^3/uL (4.3-11.0)
[2017-10-15 15:24] LABS: INR 1.1 (0.8-1.4); PROTHROMBIN TIME PATIENT 14.3 SEC (12.2-14.7)
--- OUTSIDE RECORDS SUMMARY | 2017-10-15 15:26 | XMS REPORT | Clinical Summary ---
Author Author [facility] Organization [facility] Address Unknown Phone Unavailable Care Team Providers Care Fiber Analyst Name Role Phone Sara Tee Unavailable Unavailable Viraj Calles MD PCP Enriqueta Martino RN Unavailable Unavailable Source Comments Some departments are not documenting in the electronic medical record. If you do not see the information that you expected, contact Release of Information in the Health Information Management department at [phone] for further assistance in locating additional records.[facility] Allergies Active Allergy Reactions Severity [...] of SCD DM2 (diabetes mellitus, type 2) ([facility]) 12/23/2012 Overview: Metformin Ischemic cardiomyopathy 12/23/2012 CAD (coronary artery disease) 12/06/2012 Overview: A. 08/19/12. Abnormal Myoview Treadmill Stress Test, [facility]. Left ventricular hypokinesis, EF 22%. Document sent to OP medical records to be scanned to patient record. B. 08/27/12. [facility], ANA MARÍA to LAD. C. 12/03/12. Echocardiogram-EF 30% Dilated LV with diffuse LV hypokinesia, anterior wall, anterior septum. Mild mitral and tricuspid regurgitation. Insufficient doppler signal to evaluate pulmonary artery pressure. COPD (chronic obstructive pulmonary disease) ([facility]) 12/06/2012 CHF (congestive heart failure) ([facility]) 12/06/2012 SADA (obstructive sleep apnea) 12/06/2012 S/P coronary artery stent placement 12/06/2012 Overview: 08/27/12. [facility], [place], [place]. 95% proximal LAD stenosis. Successful balloon [...] 36.3 C (97.4 F) 12/24/2012 8:20 AM [facility] Respiratory Rate - - Oxygen Saturation 96% 12/24/2012 8:20 AM [facility] Inhaled Oxygen - - Concentration Weight 116.3 [...] VACCINE 1970 COLORECTAL CANCER 09/09/2003 SCREENING SHINGLES RECOMBINANT 09/09/2003 VACCINE (1 of 2) INFLUENZA VACCINE 11/05/2017 Results Not on filefrom Last 3 Months
--- OUTSIDE RECORDS SUMMARY | 2017-10-15 15:26 | XMS REPORT | Referral Summary ---
Author Author [facility] Organization [facility] Address Unknown Phone Unavailable Care Team Providers Care Automobile Taillight Assembler Name Role Phone Chelsie Lucia PCP Encounter VC Date(s): 09/20/17 - 09/20/17 [facility] [address] [place] [address] Encounter Diagnosis Diabetic toe ulcer (Discharge Diagnosis) - 09/20/17 Discharge Disposition: 01-Home or Self Care Attending Physician: Chelsie Lucia DO Vital Signs No [...] Most recent to 1 oldest [Reference Range]: Sed Rate [0-15] 16 *HI* (09/20/17 3:36 PM) Immunizations No data available for this section [...]
--- OUTSIDE RECORDS SUMMARY | 2017-10-15 15:26 | XMS REPORT | Referral Summary ---
Author Author [facility] Organization [facility] Address Unknown Phone Unavailable Care Team Providers Care Gear Coding Machine Operator Name Role Phone Chelsie Lucia PCP Encounter VC Date(s): 09/13/17 - 09/13/17 [facility] [address] [place] [address] [phone] Encounter Diagnosis DM foot ulcer (Discharge Diagnosis) - 09/13/17 Discharge Disposition: 01-Home or Self Care Attending [...] Refill(s) Start Date: 04/18/17 Status: Ordered Results Microbiology Reports TEST: Tissue Culture and Smear STATUS: Order in Progress BODY SITE: SOURCE: Tissue COLLECTED DATE/TIME: 09/13/17 4:52 PM Gram Smear Rare (0-1/OIF) white blood cells No microorganisms observed OIF=Oil Immersion Field LPF=Low Power Field Immunizations No data available for this section [...]
--- OUTSIDE RECORDS SUMMARY | 2017-10-15 15:26 | XMS REPORT | Referral Summary ---
Author Author [facility] Organization [facility] Address Unknown Phone Unavailable Care Team Providers Care Landfill Gas Technician Name Role Phone Chelsie Lucia PCP Encounter VC Date(s): 10/04/17 - 10/04/17 [facility] [address] [place] [address] Discharge Disposition: 01-Home or Self Care Attending [...]
--- OUTSIDE RECORDS SUMMARY | 2017-10-15 15:26 | XMS REPORT | Referral Summary ---
Author Author [facility] Organization [facility] Address Unknown Phone Unavailable Care Team Providers Care Glue Maker Bone Name Role Phone Chelsie Lucia PCP Encounter VC Date(s): 07/25/17 - 07/25/17 [facility] [address], [place] [address] Encounter Diagnosis Rectal cancer (Discharge Diagnosis) - 07/25/17 Discharge Disposition: 01-Home or Self Care Attending Physician: Elian Joel MD Admitting Physician: Elian Joel MD Vital Signs Most recent to 1 oldest [Reference Range]: Peripheral Pulse 76 bpm Rate [60-100 bpm] (07/25/17 12:51 PM) Respiratory Rate 18 br/min [14-20 br/min] (07/25/17 12:51 PM) SpO2 98 % (07/25/17 12:51 PM) Problem List Condition Effective Dates Status [...] Visit Note Author: Elian Joel MD Date: 07/25/17 Rectal cancer He is doing well. All of his questions have been addressed. As discussed above, I advised fiber supplementation with Metamucil to help with his fragmentation of stools. He is due for colonoscopy before the year is over. He plans on scheduling this in its . Ordered: Postoperative Est [id number]
[2017-10-15] MEDS ORDERED: AMLO5TAB7 PO (15:30)
[2017-10-15] MEDS ORDERED: ASPRIN PO (15:30)
[2017-10-15 15:31] LABS: ALANINE AMINOTRANSFERASE 19 U/L (0-55); ALBUMIN 3.8 GM/DL (3.2-4.5); ALKALINE PHOSPHATASE 134 U/L (40-136); BILIRUBIN,TOTAL 0.6 MG/DL (0.1-1.0); BUN/CREATININE RATIO 17; CALCIUM 8.9 MG/DL (8.5-10.1); CARBON DIOXIDE 26 MMOL/L (21-32); CHLORIDE 103 MMOL/L (98-107); GFR ESTIMATED > 60; GLUCOSE 282 MG/DL (70-105); POTASSIUM 4.1 MMOL/L (3.6-5.0); SODIUM 137 MMOL/L (135-145); TOTAL PROTEIN 6.9 GM/DL (6.4-8.2)
[2017-10-15] MEDS ORDERED: FLOMAX PO (15:31)
[2017-10-15] MEDS ORDERED: PANT40TA3 PO (15:32)
[2017-10-15] MEDS ORDERED: LINE600T33 (15:32)
--- NOTE | 2017-10-15 15:49 | Diagnostic Imaging Report ---
Indication: Diabetic foot ulcer involving the great toe. AP, oblique and lateral views of the great toe are obtained. Comparison is made to the study of 09/20/2017. Swelling is again noted at the level of the great toe. Surgical pins are present in the distal first metatarsal and within the first proximal phalanx. Rather advanced degenerative changes are again noted at the first metatarsophalangeal joint. There is questionable demineralization at the level of the distal phalanx however no focal destruction or periosteal reaction is identified. There appears to be rather advanced degenerative change also present at the fifth proximal interphalangeal joint. Impression: Advanced degenerative findings at the first metatarsophalangeal joint with previous surgical residue. Otherwise, no definite bone destruction is identified however MRI has greater sensitivity for early evidence of osteomyelitis. There is irregularity at the fifth proximal interphalangeal joint and clinical correlation and possible pain at this site would be useful. Dictated by: Dictated on workstation # [id number]
[2017-10-15 17:30] VITALS: BP 144/79
[2017-10-15] MEDS ORDERED: NF-MET200T PO (18:10)
[2017-10-15] MEDS ORDERED: GLYB2.5T4 PO (18:13)
[2017-10-15] MEDS ORDERED: PIPERACILLIN/TAZO 4.5 GM/NS 100 ML IV NR ×2 (18:15)
[2017-10-15] MEDS ORDERED: POTA15TA9 PO (18:16)
[2017-10-15] MEDS ORDERED: CATHETER FLUSH 10 ML SYR IV PRN ×2 (18:30→18:45)
[2017-10-15] MEDS ORDERED: VANCOMYCIN 1,750 MG/NS 500 ML IVPB IV NR ×2 (18:30)
--- NOTE | 2017-10-15 19:33 | Wound Care Assessment ---
Wound Care Assessment Date Seen by Provider: Oct 15, 2017 Time Seen by Provider: 19:28 Chief Complaint Painful, swollen R great toe. HPI The patient is a 62 year old male known to me from a previous episode of care for his R great toe ulcer. He presents with a complaint of a progressive pain and swelling of the R great toe, extending onto the dorsum of the R foot. X- ray shows degenerative changes in the bone of the 1st MP joint with previous surgical hardware present. The patient has a pacemaker in place. A triple phase bone scan is ordered to R/O osteomyelitis. Past Medical History: Admits Diabetes Type II, Admits Heart Disease, Admits Myocardial Infarction, Admits Peripheral Artery Disease Smoking Status: Never a Smoker Recreational Drug Use: No Alcohol Use: Denies Use Review of Systems General: Fatigue Pulmonary: No Dyspnea Cardiovascular: No: Chest Pain Gastrointestinal: No: Vomiting Exam Vital Signs Date Time Temp Pulse Resp B/P (MAP) Pulse Ox O2 Delivery O2 Flow Rate FiO2 10/15/17 17:08 90 18 131/76 96 10/15/17 14:48 98.5 Room Air Capillary Refill : Less Than 3 Seconds General Appearance: WD/WN Respiratory: no respiratory distress Skin: other (R ;great toe - 1.2 x 0.9 x 0.3 cm, base 50% slough, 50% granulation, periwound macerated. Marked erythema.) Results Laboratory Tests 10/15/17 14:50: White Blood Count 6.2, Red Blood Count 3.91L, Hemoglobin 10.9L, Hematocrit 33L, Mean Corpuscular Volume 84, Mean Corpuscular Hemoglobin 28, Mean Corpuscular Hemoglobin Concent 33, Red Cell Distribution Width 14.2, Platelet Count 186, Mean Platelet Volume 9.5, Neutrophils (%) (Auto) 79H, Lymphocytes (%) (Auto) 14 , Monocytes (%) (Auto) 6, Eosinophils (%) (Auto) 1, Basophils (%) (Auto) 0, Neutrophils # (Auto) 4.9, Lymphocytes # (Auto) 0.9L, Monocytes # (Auto) 0.3, Eosinophils # (Auto) 0.1, Basophils # (Auto) 0.0, Prothrombin Time 14.3, INR Comment 1.1, Activated Partial Thromboplast Time 29, Sodium Level 137, Potassium Level 4.1, Chloride Level 103, Carbon Dioxide Level 26, Anion Gap 8, Blood Urea Nitrogen 19H, Creatinine 1.10, Estimat Glomerular Filtration Rate > 60, BUN/Creatinine Ratio 17, Glucose Level 282H, Lactic Acid Level 1.54, Calcium Level 8.9, Corrected Calcium 9.1, Total Bilirubin 0.6, Aspartate Amino Transf (AST/SGOT) 18, Alanine Aminotransferase (ALT/SGPT) 19, Alkaline Phosphatase 134, C-Reactive Protein High Sensitivity 2.91H, Total Protein 6.9, Albumin 3.8 Microbiology 10/15/17 Gram Stain, Resulted Pending 10/15/17 Wound Culture - Preliminary, [facility]ed [facility] Microbiology 10/15/17 Gram Stain, Resulted Pending 10/15/17 Wound Culture - Preliminary, Resulted Sent To [facility] Assessment/Plan/Dx 1. R great toe ulcer, [place] grade 3. 2. R/O osteomyelitis. Plan: Will obtain triple phase bone scan to R/O osteomyelitis. Consider podiatric consultation in regards to chronic draining wound and the presence of metal foreign body. CECELIA MILLER MD Oct 15, 2017 19:33
[2017-10-15 20:01] VITALS: BP 144/75
[2017-10-15] MEDS: CATHETER FLUSH 10 ML SYR IV SCH (22:14)
[2017-10-16 00:08] VITALS: BP 141/67
[2017-10-16] MEDS: PIPERACILLIN/TAZO 4.5 GM/NS 100 ML IV SCH ×6 (01:19→17:26)
[2017-10-16 04:43] VITALS: BP 136/71
[2017-10-16] MEDS: CATHETER FLUSH 10 ML SYR IV SCH ×3 (05:55→22:48)
[2017-10-16 06:04] LABS: BASOPHILS % (AUTO) 0 % (0-10); EOSINOPHILS # (AUTO) 0.1 10^3/uL (0.0-0.3); EOSINOPHILS % (AUTO) 1 % (0-10); HEMATOCRIT 31 % (40-54); HEMOGLOBIN 10.4 G/DL (13.3-17.7); LYMPHOCYTES # (AUTO) 0.9 X 10^3 (1.0-4.0); LYMPHOCYTES % (AUTO) 15 % (12-44); MEAN CORPUSCULAR HEMOGLOBIN 28 PG (25-34); MEAN CORPUSCULAR HGB CONC 33 G/DL (32-36); MEAN CORPUSCULAR VOLUME 84 FL (80-99); MONOCYTES # (AUTO) 0.4 X 10^3 (0.0-1.0); MONOCYTES % (AUTO) 6 % (0-12); NEUTROPHILS # (AUTO) 4.9 X 10^3 (1.8-7.8); NEUTROPHILS % (AUTO) 78 % (42-75); PLATELET COUNT 156 10^3/uL (130-400); RED CELL DISTRIBUTION WIDTH 14.2 % (10.0-14.5); WHITE BLOOD COUNT 6.3 10^3/uL (4.3-11.0)
[2017-10-16 06:22] LABS: ALANINE AMINOTRANSFERASE 21 U/L (0-55); ALBUMIN 3.7 GM/DL (3.2-4.5); ALKALINE PHOSPHATASE 114 U/L (40-136); BILIRUBIN,TOTAL 0.9 MG/DL (0.1-1.0); BUN/CREATININE RATIO 17; CALCIUM 8.9 MG/DL (8.5-10.1); CARBON DIOXIDE 24 MMOL/L (21-32); CHLORIDE 103 MMOL/L (98-107); CREATININE SERUM 0.92 MG/DL (0.60-1.30); GFR ESTIMATED > 60; GLUCOSE 97 MG/DL (70-105); POTASSIUM 3.8 MMOL/L (3.6-5.0); SODIUM 138 MMOL/L (135-145); TOTAL PROTEIN 6.4 GM/DL (6.4-8.2)
[2017-10-16 06:36] LABS: ERYTHROCYTE SEDIMENTATION RATE 37 MM/HR (0-30)
[2017-10-16] MEDS: VANCOMYCIN 1500 MG/NS 500 ML IVPB IV SCH ×4 (06:52→20:38)
[2017-10-16 08:00] VITALS: BP 125/55
[2017-10-16] MEDS ORDERED: NON-FORMULARY MEDICATION 1 EA EA (Potassium Citrate (Potassium Citrate ER) 15 MEQ) PO SCH (09:00)
[2017-10-16] MEDS: TAMSULOSIN 0.4 MG (FLOMAX) CAP PO SCH (09:03)
[2017-10-16] MEDS: amLODIPine 5 MG (NORVASC) TAB PO SCH (09:03)
[2017-10-16] MEDS: glyBURIDE 2.5 MG (MICRONASE) TAB PO SCH ×2 (09:03→17:27)
[2017-10-16] MEDS: meTOprolol SUCCINATE 100 MG (TOPROL XL) TAB PO SCH (09:03)
[2017-10-16] MEDS: ASPIRIN 81 MG CHEW (CHILDREN'S ASA) PO SCH (09:03)
[2017-10-16] MEDS: PANTOPRAZOLE 40 MG (PROTONIX) TAB PO SCH (09:03)
--- NOTE | 2017-10-16 09:27 | History & Physical-Hospitalist ---
DAGOBERTO NORMAN MED STUDENT 10/16/17 0927: History of Present Illness HPI/Chief Complaint CC R Great Toe Pain and Redness HPI 62 year old male presented to the emergency department yesterday with increased redness and pain surrounding a diabetic foot ulcer on the plantar surface of his right great toe Previously taking antibiotics at home, since he ran out the ulcer has worsened labs revealed elevated CRP of 2.91 and neutrophils 78% he was admitted by Dr. Camejo and started on zosyn and vancomycin wound culture pending xray was taken and showed degenerative changes to the bone and hardware (pins from previous surgery) still in place bone scan scheduled for today to confirm osteomyelitis consulted orthopedic foot surgery patient is awake, alert, and a good historian he reports no pain today and is able to ambulate without assistance Source: patient Exam Limitations: no limitations Date Seen 10/16/17 Time Seen by Provider: 08:00 Attending Physician Tae Camejo MD PCP Chelsie Lee DO Referring Physician Date of Admission Oct 15, 2017 at 16:05 Home Medications & Allergies Home Medications Reviewed patient Home Medication Reconciliation performed by pharmacy medication reconciliations television production technician and/or nursing. Patients Allergies have been reviewed. Allergies Allergies Coded Allergies No Known Drug Allergies (Unverified10/15/17) Past Yxxdfei-Dxclhh-Nhbjbl Hx Past Med/Social Hx: Reviewed Nursing Past Med/Soc Hx Patient Social History Marrital Status: Number of Children: 2 Employed/Student: retired Alcohol Use: Denies Use Recreational Drug Use: No Smoking Status: Never a Smoker 2nd Hand Smoke Exposure: No Physical Abuse Screen: No Sexual Abuse: No Recent Foreign Travel: No Contact w/other who traveled: No Recent Hopitalizations: Yes (Dec-GALLBLADDER, NOV 29 BLADDER INFECTION) Recent Infectious Disease Expo: No Immunizations Up To Date Tetanus Booster (TDap): Unknown Pediatric: No Seasonal Allergies Seasonal Allergies: No Past Medical History Surgeries: Abdominal, Appendectomy, Bowel Surgery, Cardiac, Coronary Stent, Gallbladder, Pacemaker Respiratory: Asthma, Sleep Apnea Currently Using CPAP: No (unable to tolerate) Currently Using BIPAP: No Cardiac: Coronary Artery Disease, High Cholesterol, Hypertension Neurological: Neuropathy Reproductive: No Sexually Transmitted Disease: No HIV/AIDS: No Genitourinary: Bladder Infection, Kidney Stones Musculoskeletal: Arthritis Endocrine: Diabetes, Non-Insulin dep Hearing Impairment: Denies Cancer: Rectal, Colon Did You Recieve Any Treatments: Yes What Type of Treatment Did You: Chemotherapy, Radiation, Surgical Intervention Psychosocial: Depression Skin/Integumentary: Recent Skin Changes History of Blood Disorders: No Adverse Reaction to Blood Bergeron: No (N/A) Family History Reviewed Nursing Family Hx Alzheimer's disease 19 FATHER ( at 89) 19 MOTHER ( 93) CAD Over 55 Years Old, Diabetes, Hypertension Review of Systems Constitutional: no symptoms reported; No fever EENTM: no symptoms reported Respiratory: no symptoms reported Gastrointestinal: other (still adjusting to bowel changes since his colostomy reversal in July) Genitourinary: no symptoms reported Skin: see HPI, other (diabetic ulcer R great toe associated with swelling and erythema) Psychiatric/Neurological: No Symptoms Reported Physical Exam Physical Exam Vital Signs Vital Signs - First Documented 10/15/17 14:48 Temp 98.5 Pulse 96 Resp 18 B/P (MAP) 131/97 (108) Pulse Ox 98 O2 Delivery Room Air Capillary Refill : Less Than 3 SecondsLess Than 3 Seconds Height, Weight, BMI Height: 6'4.00" Weight: 232lbs. 0.0oz. 105.451597ur; 28.2 BMI Method:Stated General Appearance: No Apparent Distress, WD/WN Respiratory: Chest Non Tender, Lungs Clear, Normal Breath Sounds, No Accessory Muscle Use, No Respiratory Distress Cardiovascular: Regular Rate, Rhythm, No Gallop, No JVD, No Murmur Extremity: Non Tender, Inflammation (R foot swelling beginning at great toe extending to level of ankle) Neurologic/Psychiatric: Alert, Oriented x3, Normal Mood/Affect Skin: Normal Color Results Results/Procedures Labs Laboratory Tests 10/15/17 14:50 10/16/17 05:55 Patient resulted labs reviewed. Assessment/Plan Admission Diagnosis diabetic foot ulcer Right great toe Assessment and Plan 62 yo male hx of diabetes admitted for diabetic foot ulcer of the right great toe erythema and swelling consistent with infection xray showed degenerative changes to bone and hardware (pins) still in place bone scan pending wound culture pending consulted surgery continue with IV vancomycin and zosyn Diagnosis/Problems Diagnosis/Problems (1) History of colostomy reversal Status: Chronic (2) Ulcer of right great toe due to diabetes mellitus Status: Acute (3) Anemia Status: Chronic Qualifiers: Anemia type: unspecified type Qualified Codes: D64.9 - Anemia, unspecified (4) Cellulitis and abscess of foot Status: Acute (5) At risk for deep venous thrombosis Status: Acute (6) Renal insufficiency Status: Resolved (7) Diabetes mellitus Status: Chronic Qualifiers: Diabetes mellitus type: type 2 Diabetes mellitus care home insulin use: without local intermodal truck driver use Diabetes mellitus complication status: with circulatory complication Diabetes mellitus complication detail: with other circulatory complications Qualified Codes: E11.59 - Type 2 diabetes mellitus with other circulatory complications (8) Rectal cancer Status: Resolved (9) Hypertension Status: Chronic Qualifiers: Hypertension type: essential hypertension Qualified Codes: I10 - Essential (primary) hypertension (10) Diabetes mellitus Status: Chronic Qualifiers: Diabetes mellitus type: type 2 Diabetes mellitus complication status: with skin complications Diabetes mellitus complication detail: with foot ulcer (11) Rectal carcinoma Status: Resolved (12) Renal failure (ARF), acute on chronic Status: Chronic Qualifiers: Acute renal failure type: unspecified Chronic kidney disease stage: unspecified stage Qualified Codes: N17.9 - Acute kidney failure, unspecified; N18.9 - Chronic kidney disease, unspecified (13) Anemia Status: Acute (14) History of ileostomy Status: Resolved (15) Colorectal cancer Status: Resolved Clinical Quality Measures DVT/VTE Risk/Contraindication: Risk Factor Score Per Nursin RFS Level Per Nursing on Admit: 4+=Very High JESUSCHELSIE DO 10/16/17 1155: History of Present Illness HPI/Chief Complaint CC: Right foot edema and erythema HPI: This is a 62yoWM clinic patient of [facility] with a complex PMH including rectal CA s/p resection with colostomy then colostomy take down after chemotherapy completed and right DM toe ulcer who presents to the ER after finding edema and erythema of his right toe. He has participated in wound care since this started earlier this year and had attained wound healing but then the wound appeared again and has worsened rapidly. Patient is comfortable right now and has no pain Reviewed and reconciled home meds Checked labs Spoke to Dr Mari podiatry and he will see the patient and may need surgery Lovenox for DVT Px Source: patient, RN/MD Exam Limitations: no limitations Time Seen by Provider: 08:30 Home Medications & Allergies Home Medications Reviewed Past Kvhsnfp-Spuwsd-Wkpvrp Hx Past Med/Social Hx: Reviewed Nursing Past Med/Soc Hx, Reviewed and Corrections made Patient Social History Marrital Status: Employed/Student: retired ([employer]) Smoking Status: Never a Smoker Past Medical History Surgeries: Abdominal, Appendectomy, Bowel Surgery, Cardiac, Coronary Stent, Eye Surgery, Pacemaker Respiratory: Asthma Cardiac: Coronary Artery Disease, High Cholesterol, Hypertension Neurological: Neuropathy Genitourinary: Bladder Infection, Kidney Stones Musculoskeletal: Arthritis Endocrine: Diabetes, Non-Insulin dep Hearing Impairment: Denies Cancer: Rectal, Colon What Type of Treatment Did You: Chemotherapy, Radiation, Surgical Intervention Family History Alzheimer's disease 19 FATHER ( at 89) 19 MOTHER ( 93) Review of Systems Constitutional: see HPI, chills, dizziness, weakness EENTM: no symptoms reported Respiratory: no symptoms reported Cardiovascular: no symptoms reported Gastrointestinal: no symptoms reported Genitourinary: no symptoms reported Musculoskeletal: joint pain Skin: no symptoms reported Psychiatric/Neurological: No Symptoms Reported All Other Systems Reviewed Negative Unless Noted: Yes Physical Exam Physical Exam General Appearance: No Apparent Distress, WD/WN, Chronically ill Eyes: Bilateral Eye Normal Inspection, Bilateral Eye PERRL HEENT: PERRL/EOMI, TMs Normal, Normal ENT Inspection, Pharynx Normal Neck: Full Range of Motion, Normal Inspection, Non Tender, Supple, Carotid Bruit Respiratory: Chest Non Tender, Lungs Clear, Normal Breath Sounds, No Accessory Muscle Use, No Respiratory Distress Cardiovascular: Regular Rate, Rhythm, No Edema, No Gallop, No JVD, No Murmur, Normal Peripheral Pulses Gastrointestinal: Normal Bowel Sounds, No Organomegaly, No Pulsatile Mass, Non Tender, Soft Back: Normal Inspection, No CVA Tenderness, No Vertebral Tenderness Extremity: Normal Capillary Refill, Normal Inspection, Normal Range of Motion, Non Tender, No Calf Tenderness, No Pedal Edema, Inflammation (right foot with dressing intact) Neurologic/Psychiatric: Alert, Oriented x3, No Motor/Sensory Deficits, Normal Mood/Affect Skin: Normal Color, Warm/Dry Lymphatic: No Adenopathy Assessment/Plan Admission Diagnosis Right diabetic foot ulcer DM h/o rectal CA s/p treatment and resection then colostomy takedown HTN CHF CAD PVD IV abx Dr Mari consult Admission Status: Inpatient Order (span 2 midnights) Reason for Inpatient Admission: Osteomyelitis will need more than 2 midnights for IV abx and likely debridement Diagnosis/Problems Diagnosis/Problems (1) Ulcer of right great toe due to diabetes mellitus Status: Acute (2) Cellulitis and abscess of foot Status: Acute (3) History of colostomy reversal Status: Chronic (4) Anemia Status: Chronic Qualifiers: Anemia type: unspecified type Qualified Codes: D64.9 - Anemia, unspecified (5) At risk for deep venous thrombosis Status: Acute (6) Renal insufficiency Status: Resolved (7) Diabetes mellitus Status: Chronic Qualifiers: Diabetes mellitus type: type 2 Diabetes mellitus local intermodal truck driver insulin use: without local intermodal truck driver use Diabetes mellitus complication status: with circulatory complication Diabetes mellitus complication detail: with other circulatory complications Qualified Codes: E11.59 - Type 2 diabetes mellitus with other circulatory complications (8) Rectal cancer Status: Resolved (9) Hypertension Status: Chronic Qualifiers: Hypertension type: essential hypertension Qualified Codes: I10 - Essential (primary) hypertension (10) Diabetes mellitus Status: Chronic Qualifiers: Diabetes mellitus type: type 2 Diabetes mellitus complication status: with skin complications Diabetes mellitus complication detail: with foot ulcer (11) Rectal carcinoma Status: Resolved (12) Renal failure (ARF), acute on chronic Status: Chronic Qualifiers: Acute renal failure type: unspecified Chronic kidney disease stage: unspecified stage Qualified Codes: N17.9 - Acute kidney failure, unspecified; N18.9 - Chronic kidney disease, unspecified (13) History of ileostomy Status: Resolved (14) Colorectal cancer Status: Resolved DAGOBERTO ONRMAN STUDENT Oct 16, 2017 09:27 CHELSIE LEE DO Oct 16, 2017 11:55
[2017-10-16] MEDS ORDERED: ASPI-983 PO (10:19)
[2017-10-16] MEDS ORDERED: TAMS0.4C2 PO (10:19)
[2017-10-16] MEDS ORDERED: METO200T48 PO (10:19)
[2017-10-16 12:00] VITALS: BP 122/63
[2017-10-16] MEDS ORDERED: ENOXAPARIN 40 MG/0.4 ML (LOVENOX) SYR SC NR (12:00)
--- NOTE | 2017-10-16 14:33 | Diagnostic Imaging Report ---
Three-phase bone scan. Indication: Chronic wound to great toe. This study was performed following administration of 25.8 mCi of 99M technetium MDP. Blood pool, blood flow and delayed images of both feet were obtained. The previous plain film examination of the right foot performed on 04/27/2017 noted post surgical changes of the right great toe. Specifically, there are 2 orthopedic fixation wires extending obliquely through the proximal phalanx and a single orthopedic fixation wire extending longitudinally through the first metatarsal head. The subsequent nuclear medicine bone scan of 04/30/2017 did suggest osteomyelitis of the great toe. Plain film examination of the right foot performed on 10/15/2017 again revealed the postsurgical changes involving the proximal phalanx and the head of the first metatarsal but failed to show any sign of an acute bony abnormality or bony destruction. On this exam however there is still persistent abnormal uptake of the radiotracer in the region of the right great toe. There does seem to be greater uptake of the radiotracer by the proximal and distal phalanges than noted on the prior exam. The recent plain film exam also raises the question of irregularity of the proximal interphalangeal joint of the fifth digit. There is no abnormal uptake in that area on this exam. No other abnormal uptake is seen to suggest osteomyelitis. There is slightly increased uptake about the right hindfoot. This is of uncertain etiology but unlikely to be related to osteomyelitis. Impression: There is greater uptake of radiotracer by the proximal and distal phalanges of the great toe on the right than seen previously. This appearance does suggest osteomyelitis. Clinical followup is recommended. Dictated by: Dictated on workstation # [id number]
[2017-10-16 15:50] VITALS: BP 137/67
[2017-10-16 20:40] VITALS: BP 131/72
--- NOTE | 2017-10-16 21:15 | Consultation ---
History of Present Illness History of Present Illness Patient Consulted On(tim/time) 10/16/17 21:10 Time Seen by Provider: 17:15 Reason for Visit: Osteomyelitis Right Great Toe History of Present Illness 6mo history of wound to the right great toe, failed 6 week course of IV abx. Now has increased redness, swelling and drainage to the right great toe. Allergies and Home Medications Allergies Coded Allergies: No Known Drug Allergies (Unverified , 10/15/17) Home Medications Amlodipine Besylate 5 Mg Tablet, 5 MG PO DAILY, (Reported) Aspirin 81 Mg Tablet.dr, 81 MG PO DAILY, (Reported) Glyburide 2.5 Mg Tablet, 2.5 MG PO BID, (Reported) Metoprolol Succinate 200 Mg Tab.er.24h, 200 MG PO DAILY, (Reported) Pantoprazole Sodium 40 Mg Tablet.dr, 40 MG PO DAILY, (Reported) Potassium Citrate 15 Meq Tab, 15 MEQ PO BID, (Reported) Tamsulosin HCl 0.4 Mg Cap.er.24h, 0.4 MG PO DAILY, (Reported) Patient Home Medication List Home Medication List Reviewed: Yes Past Tyvnonn-Mchymt-Clwera Hx Past Med/Social Hx: Reviewed Nursing Past Med/Soc Hx, Reviewed and Corrections made Patient Social History Alcohol Use: Denies Use Recreational Drug Use: No Smoking Status: Never a Smoker 2nd Hand Smoke Exposure: No Recent Foreign Travel: No Contact w/Someone Who Travel: No Recent Infectious Disease Expo: No Recent Hopitalizations: Yes (Dec-GALLBLADDER, NOV 29 BLADDER INFECTION) Immunizations Up To Date Tetanus Booster (TDap): Unknown PED Vaccines UTD: No Seasonal Allergies Seasonal Allergies: No Past Medical History Surgeries: Yes Abdominal, Appendectomy, Bowel Surgery, Cardiac, Coronary Stent, Eye Surgery, Pacemaker Respiratory: Yes Sleep Apnea Currently Using CPAP: No (unable to tolerate) Currently Using BIPAP: No Cardiac: Yes (CARDIAC CATH--STENT; PACEMAKER) Coronary Artery Disease, High Cholesterol, Hypertension Neurological: Yes Neuropathy Reproductive Disorders: No Sexually Transmitted Disease: No HIV/AIDS: No Genitourinary: Yes (urinary retention following colon surgery) Bladder Infection, Kidney Stones Gastrointestinal: Yes (RECTAL CANCER--S/P COLECTOMY AND ILEOSTOMY; ILEOSTOMY TAKEDOWN ) Musculoskeletal: Yes Arthritis Endocrine: Yes Diabetes, Non-Insulin dep HEENT: No Hearing Impairment: Denies Cancer: Yes (DX 06/2016) Rectal, Colon Did You Recieve Any Treatments: Yes What Type of Treatment Did You: Chemotherapy, Radiation, Surgical Intervention Psychosocial: No Depression Integumentary: No Recent Skin Changes Blood Disorders: No Adverse Reaction/Blood Tranf: No (N/A) Family Medical History Reviewed Nursing Family Hx Alzheimer's disease 19 FATHER ( at 89) 19 MOTHER ( 93) CAD Over 55 Years Old, Diabetes, Hypertension Review of Systems-General Constitutional: No no symptoms reported, No see HPI, No chills, No diaphoresis , No dizziness, No fever, No malaise, No weakness, No weight gain, No weight loss, No other Respiratory: No no symptoms reported, No see HPI, No cough, No dyspnea on exertion, No hemoptysis, No orthopnea, No phlegm, No short of breath, No stridor , No wheezing, No other Physical Exam-General Problems Physical Exam Vital Signs Vital Signs - First Documented 10/15/17 14:48 Temp 98.5 Pulse 96 Resp 18 B/P (MAP) 131/97 (108) Pulse Ox 98 O2 Delivery Room Air Capillary Refill : Less Than 3 SecondsLess Than 3 Seconds Extremities: other (+ swelling and erythema to the right great toe, +3mm wound to the right great toe, mild serous drainage noted, +probe to bone, calves supple nontender, gross sensation deminished to the RLE) Assessment/Plan Assessment/Plan Admission Diagnosis/Plan Osteomyelitis to the Right great toe Admission Status: Inpatient Order (span 2 midnights) Reason for Inpatient Admission: Osteomyelitis Clinical Quality Measures DVT/VTE Risk/Contraindication: Risk Factor Score Per Nursin RFS Level Per Nursing on Admit: 4+=Very High KATI ROLDAN DPM Oct 16, 2017 21:15
[2017-10-17] VITALS: BP 144/65
[2017-10-17] MEDS: PIPERACILLIN/TAZO 4.5 GM/NS 100 ML IV SCH ×4 (00:05→08:16)
[2017-10-17 04:00] VITALS: BP 134/63
[2017-10-17] MEDS: CATHETER FLUSH 10 ML SYR IV SCH ×2 (06:00→08:21)
[2017-10-17] MEDS ORDERED: TROUGH ORDER-PHARMACY XX NR (06:00)
[2017-10-17 06:11] LABS: BASOPHILS % (AUTO) 0 % (0-10); EOSINOPHILS # (AUTO) 0.1 10^3/uL (0.0-0.3); EOSINOPHILS % (AUTO) 2 % (0-10); HEMATOCRIT 30 % (40-54); LYMPHOCYTES # (AUTO) 0.7 X 10^3 (1.0-4.0); LYMPHOCYTES % (AUTO) 14 % (12-44); MEAN CORPUSCULAR HEMOGLOBIN 28 PG (25-34); MEAN CORPUSCULAR HGB CONC 33 G/DL (32-36); MEAN CORPUSCULAR VOLUME 84 FL (80-99); MONOCYTES # (AUTO) 0.4 X 10^3 (0.0-1.0); MONOCYTES % (AUTO) 7 % (0-12); NEUTROPHILS % (AUTO) 77 % (42-75); PLATELET COUNT 161 10^3/uL (130-400); RED BLOOD COUNT 3.58 10^6/uL (4.35-5.85); RED CELL DISTRIBUTION WIDTH 14.1 % (10.0-14.5); WHITE BLOOD COUNT 5.2 10^3/uL (4.3-11.0)
[2017-10-17 06:46] LABS: ALANINE AMINOTRANSFERASE 17 U/L (0-55); ALBUMIN 3.5 GM/DL (3.2-4.5); ALKALINE PHOSPHATASE 100 U/L (40-136); BILIRUBIN,TOTAL 0.5 MG/DL (0.1-1.0); BUN/CREATININE RATIO 14; CALCIUM 8.9 MG/DL (8.5-10.1); CARBON DIOXIDE 25 MMOL/L (21-32); CHLORIDE 105 MMOL/L (98-107); CREATININE SERUM 0.97 MG/DL (0.60-1.30); GFR ESTIMATED > 60; GLUCOSE 111 MG/DL (70-105); POTASSIUM 3.9 MMOL/L (3.6-5.0); SODIUM 138 MMOL/L (135-145); TOTAL PROTEIN 6.2 GM/DL (6.4-8.2)
[2017-10-17 06:52] LABS: VANCOMYCIN,TROUGH 16.2 UG/ML (10.0-20.0)
[2017-10-17] MEDS: VANCOMYCIN 1500 MG/NS 500 ML IVPB IV SCH ×2 (06:58)
[2017-10-17] MEDS: glyBURIDE 2.5 MG (MICRONASE) TAB PO SCH (06:59)
[2017-10-17 08:00] VITALS: BP 147/79
[2017-10-17] MEDS: meTOprolol SUCCINATE 100 MG (TOPROL XL) TAB PO SCH (08:15)
[2017-10-17] MEDS: PANTOPRAZOLE 40 MG (PROTONIX) TAB PO SCH (08:15)
[2017-10-17] MEDS: TAMSULOSIN 0.4 MG (FLOMAX) CAP PO SCH (08:15)
[2017-10-17] MEDS: ASPIRIN 81 MG CHEW (CHILDREN'S ASA) PO SCH (08:15)
[2017-10-17] MEDS: amLODIPine 5 MG (NORVASC) TAB PO SCH (08:15)
[2017-10-17] MEDS ORDERED: AMOX-358 PO (10:04)
[2017-10-17] MEDS ORDERED: CHOL4PAC16 PO (10:04)
[2017-10-17] MEDS ORDERED: ACID1TAB5 PO (10:04)
--- NOTE | 2017-10-17 10:51 | Discharge Summary-Hospitalist ---
DAGOBERTO NORMAN MED STUDENT 10/17/17 1051: Diagnosis/Chief Complaint Date of Admission Oct 15, 2017 at 16:05 Date of Discharge Discharge Date: Oct 17, 2017 Admission Diagnosis Right diabetic foot ulcer DM h/o rectal CA s/p treatment and resection then colostomy takedown HTN CHF CAD PVD IV abx Dr Mari consult Discharge Diagnosis (1) Ulcer of right great toe due to diabetes mellitus Status: Acute (2) Cellulitis and abscess of foot Status: Acute (3) History of colostomy reversal Status: Chronic (4) Anemia Status: Chronic (5) At risk for deep venous thrombosis Status: Acute (6) Renal insufficiency Status: Resolved (7) Diabetes mellitus Status: Chronic (8) Rectal cancer Status: Resolved (9) Hypertension Status: Chronic (10) Diabetes mellitus Status: Chronic (11) Rectal carcinoma Status: Resolved (12) Renal failure (ARF), acute on chronic Status: Chronic (13) History of ileostomy Status: Resolved (14) Colorectal cancer Status: Resolved Discharge Summary Procedures/Consulations right great toe amputation to be performed by dr. Mari Discharge Physical Exam Allergies: Coded Allergies: No Known Drug Allergies (Unverified , 10/15/17) Vitals & I&Os Vital Signs Date Time Temp Pulse Resp B/P (MAP) Pulse Ox O2 Delivery O2 Flow Rate FiO2 10/17/17 08:00 98.5 80 20 147/79 (101) 98 Room Air General Appearance: No Apparent Distress, WD/WN Respiratory: Chest Non Tender, Lungs Clear, Normal Breath Sounds, No Accessory Muscle Use, No Respiratory Distress Cardiovascular: Regular Rate, Rhythm, No Gallop, No JVD, No Murmur, Normal Peripheral Pulses Extremity: Inflammation (R foot), Swelling (R foot) Skin: Erythema (R great toe) Neurologic/Psychiatric: Alert, Oriented x3, No Motor/Sensory Deficits, Normal Mood/Affect Hospital Course patient was admitted for diabetic ulcer on right great toe xray and bone scan showed degenerative changes to bone consistent with osteomyelitis patient was started on IV vancomycin and zosyn wound culture positive for group b strep, e coli, and staph aureus vital signs have remained stable throughout hospital stay consult podiatric surgery dr Mari who recommends amputation of the great toe sunday10/19/17 probiotic and antibiotics sent to pharmacy instructed patient to take oral medications at home until surgery Labs (last 24 hrs) Laboratory Tests 10/17/17 06:00: White Blood Count 5.2, Red Blood Count 3.58L, Hemoglobin 10.0L, Hematocrit 30L, Mean Corpuscular Volume 84, Mean Corpuscular Hemoglobin 28, Mean Corpuscular Hemoglobin Concent 33, Red Cell Distribution Width 14.1, Platelet Count 161, Mean Platelet Volume 9.0, Neutrophils (%) (Auto) 77H, Lymphocytes (%) (Auto) 14 , Monocytes (%) (Auto) 7, Eosinophils (%) (Auto) 2, Basophils (%) (Auto) 0, Neutrophils # (Auto) 4.0, Lymphocytes # (Auto) 0.7L, Monocytes # (Auto) 0.4, Eosinophils # (Auto) 0.1, Basophils # (Auto) 0.0, Sodium Level 138, Potassium Level 3.9, Chloride Level 105, Carbon Dioxide Level 25, Anion Gap 8, Blood Urea Nitrogen 14, Creatinine 0.97, Estimat Glomerular Filtration Rate > 60, BUN/ Creatinine Ratio 14, Glucose Level 111H, Calcium Level 8.9, Corrected Calcium 9.3, Total Bilirubin 0.5, Aspartate Amino Transf (AST/SGOT) 16, Alanine Aminotransferase (ALT/SGPT) 17, Alkaline Phosphatase 100, Total Protein 6.2L, Albumin 3.5, Vancomycin Level Trough 16.2 Microbiology 10/15/17 Blood Culture - Preliminary, Resulted No growth 10/15/17 Gram Stain - Final, Resulted 10/15/17 Wound Culture - Preliminary, Resulted Strep agalactiae Group B Staphylococcus aureus Escherichia coli See Report Patient resulted labs reviewed. Pending Labs Laboratory Tests 10/17/17 06:00: White Blood Count 5.2, Red Blood Count 3.58, Hemoglobin 10.0, Hematocrit 30, Mean Corpuscular Volume 84, Mean Corpuscular Hemoglobin 28, Mean Corpuscular Hemoglobin Concent 33, Red Cell Distribution Width 14.1, Platelet Count 161, Mean Platelet Volume 9.0, Neutrophils (%) (Auto) 77, Lymphocytes (%) (Auto) 14, Monocytes (%) (Auto) 7, Eosinophils (%) (Auto) 2, Basophils (%) (Auto) 0, Neutrophils # (Auto) 4.0, Lymphocytes # (Auto) 0.7, Monocytes # (Auto) 0.4, Eosinophils # (Auto) 0.1, Basophils # (Auto) 0.0, Sodium Level 138, Potassium Level 3.9, Chloride Level 105, Carbon Dioxide Level 25, Anion Gap 8, Blood Urea Nitrogen 14, Creatinine 0.97, Estimat Glomerular Filtration Rate > 60, BUN/ Creatinine Ratio 14, Glucose Level 111, Calcium Level 8.9, Corrected Calcium 9.3 , Total Bilirubin 0.5, Aspartate Amino Transf (AST/SGOT) 16, Alanine Aminotransferase (ALT/SGPT) 17, Alkaline Phosphatase 100, Total Protein 6.2, Albumin 3.5, Vancomycin Level Trough 16.2 Discharge Home Medications: Active Scripts Active Lactinex Chewable Tablet (L. Acidophilus/Bulgaricus) 1 Each Tab.chew 1 Each PO ACHS Questran Packet (Cholestyramine (with Sugar)) 4 Gm Powd.pack 4 Gm PO ACHS PRN Augmentin 875-125 Tablet (Amoxicillin/Potassium Clav) 1 Each Tablet 1 Each PO BID Reported Tamsulosin HCl 0.4 Mg Cap.er.24h 0.4 Mg PO DAILY Metoprolol Succinate 200 Mg Tab.er.24h 200 Mg PO DAILY Aspirin EC (Aspirin) 81 Mg Tablet.dr 81 Mg PO DAILY Potassium Citrate ER (Potassium Citrate) 15 Meq Tab 15 Meq PO BID Glyburide 2.5 Mg Tablet 2.5 Mg PO BID Pantoprazole Sodium 40 Mg Tablet.dr 40 Mg PO DAILY Amlodipine Besylate 5 Mg Tablet 5 Mg PO DAILY Instructions to patient/family Please see electronic discharge instructions given to patient. Clinical Quality Measures Admission Status Admission Dx diabetic ulcer osteomyelitis right great toe DVT/VTE Risk/Contraindication: Risk Factor Score Per Nursin RFS Level Per Nursing on Admit: 4+=Very High SYED LEE DO 10/17/17 1110: Diagnosis/Chief Complaint Discharge Diagnosis (1) Cellulitis and abscess of foot Status: Acute (2) Ulcer of right great toe due to diabetes mellitus Status: Acute (3) Diabetes mellitus Status: Chronic (4) Anemia Status: Chronic (5) Hypertension Status: Chronic (6) Rectal carcinoma Status: Resolved (7) Osteomyelitis of toe of right foot Status: Acute Discharge Summary Discharge Physical Exam Allergies: Coded Allergies: No Known Drug Allergies (Unverified , 10/15/17) General Appearance: No Apparent Distress, WD/WN, Chronically ill Respiratory: Chest Non Tender, Lungs Clear, Normal Breath Sounds, No Accessory Muscle Use, No Respiratory Distress Cardiovascular: Regular Rate, Rhythm, No Edema, No Gallop, No JVD, No Murmur, Normal Peripheral Pulses Neurologic/Psychiatric: Alert, Oriented x3, No Motor/Sensory Deficits, Normal Mood/Affect Hospital Course Patient had an uncomplicated hospital course, placed on empiric abx and consulted Dr Arvizu and Dr Mari who agreed after reviewing bone scan that the right great toe needed amputation so that will be arranged for Sunday by Dr Mari and surgery arrangements will be made by Dr Mari's office. Augmentin was Rxed at [facility] and he was able to ambulate and increase activity and for DVT prophylaxis and also considering surgery Sunday less than 48 hours precluding any other medication addition due to bleeding risk. Discussion & Recommendations Discharge Planning: <30 minutes discharge planning Problem Qualifiers (1) Anemia: Anemia type: unspecified type Qualified Codes: D64.9 - Anemia, unspecified (2) Diabetes mellitus: Diabetes mellitus type: type 2 Diabetes mellitus penitentiary insulin use: without penitentiary use Diabetes mellitus complication status: with circulatory complication Diabetes mellitus complication detail: with other circulatory complications Qualified Codes: E11.59 - Type 2 diabetes mellitus with other circulatory complications (3) Hypertension: Hypertension type: essential hypertension Qualified Codes: I10 - Essential ( primary) hypertension (4) Diabetes mellitus: Diabetes mellitus type: type 2 Diabetes mellitus complication status: with skin complications Diabetes mellitus complication detail: with foot ulcer (5) Renal failure (ARF), acute on chronic: Acute renal failure type: unspecified Chronic kidney disease stage: unspecified stage Qualified Codes: N17.9 - Acute kidney failure, unspecified; N18.9 - Chronic kidney disease, unspecified DAGOBERTO NORMAN MED STUDENT Oct 17, 2017 10:51 SYED LEE DO Oct 17, 2017 11:10
[2017-10-17] MEDS ORDERED: ENOXAPARIN 40 MG/0.4 ML (LOVENOX) SYR SC SCH (12:00)
[2017-10-17 12:10] VITALS: BP 147/79
== END 2017-10-17 12:10 | disposition home or self-care (01) | DRG 638 ==
LOC: EDUNIT# 14:03 → ER 14:04 → 4TH 16:05
PROVIDERS: ADMIT Internal Medicine; ATTEND Internal Medicine
DX: E11.69 Type 2 diabetes mellitus with other specified complication (principal); M86.9 Osteomyelitis, unspecified; E11.621 Type 2 diabetes mellitus with foot ulcer; L97.526 Non-pressure chronic ulcer of other part of left foot with bone involvement without evidence of necrosis; E11.40 Type 2 diabetes mellitus with diabetic neuropathy, unspecified; L03.031 Cellulitis of right toe; I13.0 Hypertensive heart and chronic kidney disease with heart failure and stage 1 through stage 4 chronic kidney disease, or unspecified chronic kidney disease; B95.1 Streptococcus, group B, as the cause of diseases classified elsewhere; B96.20 Unspecified Escherichia coli [E. coli] as the cause of diseases classified elsewhere; B95.7 Other staphylococcus as the cause of diseases classified elsewhere; N18.9 Chronic kidney disease, unspecified; I50.9 Heart failure, unspecified; D64.9 Anemia, unspecified; I25.10 Atherosclerotic heart disease of native coronary artery without angina pectoris; E78.00 Pure hypercholesterolemia, unspecified; G47.30 Sleep apnea, unspecified; Z95.5 Presence of coronary angioplasty implant and graft; Z95.0 Presence of cardiac pacemaker; Z85.038 Personal history of other malignant neoplasm of large intestine
CPT/HCPCS: 36415; 73630; 78315; 80053; 80202; 83605; 85025; 85610; 85652; 85730; 86141; 87040; 87070; 87077; 87186; 87205

== ENCOUNTER 2017-12-12 05:38 | Outpatient (CLI) | payer BC ==
[~2017-12-12] VITALS: Ht 193 cm; Wt 105.2 kg
[~2017-12-12 05:38] MED LIST changes: +ACID1TAB5 PO; +AMOX-358 PO; +ASPI-983 PO; +ASPRIN PO; +CHOL4PAC16 PO; +FLOMAX PO; +LINE600T33; +NF-MET200T PO; +POTA15TA9 PO
== END 2017-12-12 15:51 | disposition home or self-care (01) ==
LOC: PREOP 05:38
PROVIDERS: ATTEND Surgery
DX: Z01.818 Encounter for other preprocedural examination (principal)

== ENCOUNTER 2017-12-19 06:44 | Day surgery (SDC) | payer BC ==
[~2017-12-19] VITALS: Ht 193 cm; Wt 105.2 kg
--- OUTSIDE RECORDS SUMMARY | 2017-12-19 06:49 | XMS REPORT | Clinical Summary ---
Author Author [facility] Organization [facility] Address Unknown Phone Unavailable Care Team Providers Care Trial [employer] Justice Name Role Phone Sara Tee Unavailable Unavailable Viraj Calles MD PCP Enriqueta Martino RN Unavailable Unavailable Source Comments Some departments are not documenting in the electronic medical record. If you do not see the information that you expected, contact Release of Information in the Health Information Management department at [phone] for further assistance in locating additional records.[facility] Allergies Active Allergy Reactions Severity Noted Date [...] of SCD DM2 (diabetes mellitus, type 2) ([facility]) 12/23/2012 Overview: Metformin Ischemic cardiomyopathy 12/23/2012 CAD (coronary artery disease) 12/06/2012 Overview: A. 08/19/12. Abnormal Myoview Treadmill Stress Test, Via [facility]. Left ventricular hypokinesis, EF 22%. Document sent to OP medical records to be scanned to patient record. B. 08/27/12. [facility], ANA MARÍA to LAD. C. 12/03/12. Echocardiogram-EF 30% Dilated LV with diffuse LV hypokinesia, anterior wall, anterior septum. Mild mitral and tricuspid regurgitation. Insufficient doppler signal to evaluate pulmonary artery pressure. COPD (chronic obstructive pulmonary disease) ([facility]) 12/06/2012 CHF (congestive heart failure) ([facility]) 12/06/2012 SADA (obstructive sleep apnea) 12/06/2012 S/P coronary artery stent placement 12/06/2012 Overview: 08/27/12. [facility], [address] [place], [place]. 95% proximal LAD stenosis. 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
[2017-12-19] MEDS ORDERED: LACTATED RINGERS 1,000 ML IV ONE (06:56)
[2017-12-19] MEDS ORDERED: LACTATED RINGERS 1,000 ML IV STA (07:33)
[2017-12-19 07:36] VITALS: BP 128/84
[2017-12-19] MEDS ORDERED: PROPOFOL INJECTION 50 ML IV ONE (07:46)
[2017-12-19] MEDS ORDERED: MIDAZOLAM 2 MG/2 ML (VERSED) VIAL ONE (07:46)
--- NOTE | 2017-12-19 08:16 | Progress Note-Pre Operative ---
Pre-Operative Progress Note H&P Reviewed The H&P was reviewed, patient examined and no changes noted. Time Seen by Provider: 08:11 Date H&P Reviewed: Dec 19, 2017 Time H&P Reviewed: 08:12 Pre-Operative Diagnosis: surveillance colonoscopy KASSY DURAN DO Dec 19, 2017 08:16
--- NOTE | 2017-12-19 08:41 | Progress Note-Post Operative ---
Post-Operative Progess Note Surgeon (s)/Manager Oncology (s) Surgeon KASSY DURAN DO Manager Oncology: none Pre-Operative Diagnosis surveillance colonoscopy Post-Operative Diagnosis Diverticula Procedure & Operative Findings Date of Procedure 12/19/17 Procedure Performed/Findings colonoscopy Anesthesia Type IV sedation by MANAGER CLINICAL APPLICATIONS Estimated Blood Loss Estimated blood loss (mL): none Specimens/Packing Specimens Removed none KASSY DURAN DO Dec 19, 2017 08:41
--- NOTE | 2017-12-19 08:43 | Endoscopy Discharge Instruct ---
Endo Procedure/Findings Findings 1.: Diverticulosis Discharge Instructions - Activity: You might feel a little sleepy until tomorrow. This is due to the medicine you received to relax you. Until tomorrow, you should: NOT drive a car, operate machinery or power tools. NOT drink any alcoholic beverages. NOT make any important decisions or sign importortant papers. Do not return to work until tomorrow, unless otherwise instructed. Resume previous activities tomorrow. Diet: Start by taking liquids. If you tolerate liquids, advance to solid food. Make an appointment for a week. Notify Physician - If you experience excessive bleeding, unusual abdominal pain, fever, or chest pain, contact your doctor immediately. Follow-Up: - I have received and understand the above instructions and will call my doctor if I have any further questions. Patient Signature Date Nurse Signature Other (Relationship) KASSY DURAN DO Dec 19, 2017 08:43
[2017-12-19 08:50] VITALS: BP 101/55
[2017-12-19 09:20] VITALS: BP 108/64
[2017-12-19 09:35] VITALS: BP 108/64
--- NOTE | 2017-12-19 11:10 | Anesthesia-General Post-Op ---
MAC Patient Condition Mental Status/LOC: Same as Preop Cardiovascular: Satisfactory Nausea/Vomiting: Absent Respiratory: Satisfactory Pain: Controlled Complications: Absent Post Op Complications Complications None Follow Up Care/Instructions Patient Instructions None needed. Anesthesiology Discharge Order Discharge Order Patient is doing well, no complaints, stable vital signs, no apparent adverse anesthesia problems. No complications reported per nursing. MAISHA JOHNSON CRNA Dec 19, 2017 11:10
--- NOTE | 2017-12-19 14:46 | OPERATIVE REPORT ---
DATE OF SERVICE: 12/19/2017 PREOPERATIVE DIAGNOSIS: Surveillance colonoscopy. POSTOPERATIVE DIAGNOSES: Diverticula, internal hemorrhoids. PROCEDURE PERFORMED: Colonoscopy. SURGEON: Amado Salazar DO. ADVERTISING WRITER: None. ANESTHESIA: IV sedation by the COTTON PICKING MACHINE OPERATOR. SPECIMENS: None. BLOOD LOSS: None. FLUIDS: Per Anesthesia. POSTOPERATIVE CONDITION: Stable. INDICATION FOR PROCEDURE: The patient is a 62-year-old male with a history of rectal cancer status post a low anterior resection, needed a surveillance colonoscopy. FINDINGS: The patient had some small diverticula, not really any internal hemorrhoids because the anastomosis was so low. PROCEDURE NOTE: After informed consent was obtained, the patient was brought to the endoscopy suite and placed in the left lateral decubitus position. He was administered IV sedation by the COTTON PICKING MACHINE OPERATOR who then monitored his vitals the entire time, heart rate, blood pressure, and pulse ox. A scope was inserted. Immediately upon entry, noted the 2 lumens, one was a blind pouch and then the other lumen of the colon pushed up the colon all the way to the appendiceal orifice. Took a picture of appendiceal orifice and the ileocecal valve and then slowly withdrew the scope insufflating to look circumferentially at the moreland looking at the cecum up the ascending colon to the hepatic flexure, then down the transverse colon to the splenic flexure, into the descending colon and then into the sigmoid, saw some diverticula, took picture of this, took a picture of the anastomosis at the base, small staple poking out and then pulled the scope out. The patient tolerated procedure. He was recovered in endoscopy suite. Job ID: [id number] DocumentID: [id number] Dictated Date: 12/19/2017 11:10:55 Flat Grinder Operator Date: 12/19/2017 14:45:52 Dictated By: AMADO SALAZAR DO
== END 2017-12-19 09:35 | disposition home or self-care (01) ==
LOC: ENDO 06:44
PROVIDERS: ATTEND Surgery
DX: Z08 Encounter for follow-up examination after completed treatment for malignant neoplasm (principal); Z85.048 Personal history of other malignant neoplasm of rectum, rectosigmoid junction, and anus; K57.30 Diverticulosis of large intestine without perforation or abscess without bleeding; K64.8 Other hemorrhoids; E11.9 Type 2 diabetes mellitus without complications; I11.0 Hypertensive heart disease with heart failure; I50.9 Heart failure, unspecified; I25.10 Atherosclerotic heart disease of native coronary artery without angina pectoris; J44.9 Chronic obstructive pulmonary disease, unspecified; E78.5 Hyperlipidemia, unspecified; G47.33 Obstructive sleep apnea (adult) (pediatric); Z79.84 Long term (current) use of oral hypoglycemic drugs; Z79.899 Other long term (current) drug therapy; Z98.0 Intestinal bypass and anastomosis status; Z95.0 Presence of cardiac pacemaker; Z95.5 Presence of coronary angioplasty implant and graft
CPT/HCPCS: 82962

== ENCOUNTER 2018-01-31 08:40 | Outpatient (RCR) | payer BC ==
[2018-01-31 09:09] LABS: BASOPHILS % (AUTO) 0 % (0-10); EOSINOPHILS # (AUTO) 0.1 10^3/uL (0.0-0.3); EOSINOPHILS % (AUTO) 1 % (0-10); HEMATOCRIT 36 % (40-54); HEMOGLOBIN 12.3 G/DL (13.3-17.7); LYMPHOCYTES % (AUTO) 21 % (12-44); MEAN CORPUSCULAR HEMOGLOBIN 27 PG (25-34); MEAN CORPUSCULAR HGB CONC 34 G/DL (32-36); MEAN CORPUSCULAR VOLUME 81 FL (80-99); MEAN PLATELET VOLUME 9.3 FL (7.4-10.4); MONOCYTES # (AUTO) 0.3 X 10^3 (0.0-1.0); MONOCYTES % (AUTO) 7 % (0-12); NEUTROPHILS # (AUTO) 3.5 X 10^3 (1.8-7.8); NEUTROPHILS % (AUTO) 71 % (42-75); PLATELET COUNT 138 10^3/uL (130-400); RED BLOOD COUNT 4.48 10^6/uL (4.35-5.85); RED CELL DISTRIBUTION WIDTH 14.9 % (10.0-14.5); WHITE BLOOD COUNT 4.9 10^3/uL (4.3-11.0)
[2018-01-31 09:29] LABS: ALANINE AMINOTRANSFERASE 23 U/L (0-55); ALBUMIN 4.1 GM/DL (3.2-4.5); ALKALINE PHOSPHATASE 121 U/L (40-136); BILIRUBIN,TOTAL 0.6 MG/DL (0.1-1.0); BUN/CREATININE RATIO 23; CALCIUM 9.1 MG/DL (8.5-10.1); CARBON DIOXIDE 24 MMOL/L (21-32); CHLORIDE 103 MMOL/L (98-107); CREATININE SERUM 0.99 MG/DL (0.60-1.30); GFR ESTIMATED > 60; GLUCOSE 133 MG/DL (70-105); POTASSIUM 4.3 MMOL/L (3.6-5.0); SODIUM 137 MMOL/L (135-145); TOTAL PROTEIN 7.1 GM/DL (6.4-8.2)
== END 2018-02-04 | disposition home or self-care (01) ==
LOC: ONC 08:40
PROVIDERS: ATTEND Internal Medicine Hematology & Oncology
DX: C20 Malignant neoplasm of rectum (principal); E11.9 Type 2 diabetes mellitus without complications; I10 Essential (primary) hypertension; I25.10 Atherosclerotic heart disease of native coronary artery without angina pectoris; J44.9 Chronic obstructive pulmonary disease, unspecified; Z79.84 Long term (current) use of oral hypoglycemic drugs; Z79.899 Other long term (current) drug therapy
CPT/HCPCS: 36591; 80053; 82378; 85025; 99213

== ENCOUNTER → 2018-02-12 | Outpatient (CLI) | payer BC ==
[~2018-02-12] MED LIST changes: +BARIUM SUSPENSION 2.1% (VANILLA SILQ) 450 ML PO ONE; +IOHEXOL 350 MG/ML 100 ML (OMNIPAQUE 350) VIAL IV ONE; +NS 100 ML (IVPB) BAG IV ONE; +RECEIVED CONTRAST (Hold Metformin) IV SCH
--- NOTE | 2018-02-12 14:37 | Diagnostic Imaging Report ---
PROCEDURE: CT chest, abdomen, and pelvis with contrast. TECHNIQUE: Multiple contiguous axial images were obtained through the chest, abdomen, and pelvis after the administration of intravenous contrast. INDICATION: Colorectal carcinoma, restaging. COMPARISON: Comparison is made with prior CT abdomen and pelvis study from 07/14/2017. CT CHEST: A right chest wall port and left chest wall cardiac pacemaker is in place. No axillary lymphadenopathy is seen. No definite hilar or mediastinal lymphadenopathy is identified. There are coronary arterial calcifications present. No pericardial or pleural fluid is identified. No pulmonary mass. Noncalcified nodule is seen apart from a tiny subpleural nodule posteriorly in the superior segment right lower lobe measuring 5 mm. There is a calcified granuloma in the right upper lobe. There are no infiltrates detected. IMPRESSION: 1. No evidence of thoracic lymphadenopathy or pulmonary metastatic disease. There is a subpleural micronodule in the superior segment of the right lower lobe, as described and indeterminate. Followup CT chest could be performed in six months to confirm stability. CT ABDOMEN AND PELVIS: No discrete liver mass is identified. Gallbladder appears to be surgically absent. No biliary ductal dilatation is seen. Pancreas and spleen are unremarkable. No adrenal mass is detected. Kidneys are unremarkable. Aorta is calcified but nonaneurysmal. No central retroperitoneal or mesenteric lymphadenopathy is identified. The visualized bowel loops are normal in caliber. No obstruction is seen. Postsurgical changes at the level of the rectum are again noted. Bladder is unremarkable. Presacral soft tissue thickening appears stable. There is some diverticular disease of the sigmoid but no evidence of acute diverticulitis. No definite pelvic lymphadenopathy is seen. Bony structures are nonacute. IMPRESSION: Postsurgical changes to the abdomen. There is no acute feature. No abdominal or pelvic lymphadenopathy is identified. No findings to suggest metastatic disease are seen. Dictated by: Dictated on workstation # [id number]
== END ==
LOC: RAD 08:47
PROVIDERS: ATTEND Internal Medicine Hematology & Oncology
DX: C19 Malignant neoplasm of rectosigmoid junction (principal); R91.8 Other nonspecific abnormal finding of lung field; Z98.890 Other specified postprocedural states
CPT/HCPCS: 71260; 74177

== ENCOUNTER 2018-06-03 14:56 | Outpatient (RCR) | payer BC ==
[2018-04-24 08:59] LABS: BASOPHILS % (AUTO) 0 % (0-10); EOSINOPHILS # (AUTO) 0.1 10^3/uL (0.0-0.3); EOSINOPHILS % (AUTO) 1 % (0-10); HEMATOCRIT 37 % (40-54); HEMOGLOBIN 12.6 G/DL (13.3-17.7); LYMPHOCYTES % (AUTO) 21 % (12-44); MEAN CORPUSCULAR HEMOGLOBIN 28 PG (25-34); MEAN CORPUSCULAR HGB CONC 34 G/DL (32-36); MEAN CORPUSCULAR VOLUME 83 FL (80-99); MEAN PLATELET VOLUME 9.4 FL (7.4-10.4); MONOCYTES # (AUTO) 0.4 X 10^3 (0.0-1.0); MONOCYTES % (AUTO) 8 % (0-12); NEUTROPHILS # (AUTO) 3.3 X 10^3 (1.8-7.8); NEUTROPHILS % (AUTO) 70 % (42-75); PLATELET COUNT 151 10^3/uL (130-400); RED CELL DISTRIBUTION WIDTH 14.4 % (10.0-14.5); WHITE BLOOD COUNT 4.8 10^3/uL (4.3-11.0)
[2018-04-24 09:21] LABS: ALANINE AMINOTRANSFERASE 28 U/L (0-55); ALBUMIN 4.2 GM/DL (3.2-4.5); ALKALINE PHOSPHATASE 135 U/L (40-136); BILIRUBIN,TOTAL 0.6 MG/DL (0.1-1.0); BUN/CREATININE RATIO 22; CARBON DIOXIDE 24 MMOL/L (21-32); CHLORIDE 104 MMOL/L (98-107); CREATININE SERUM 0.97 MG/DL (0.60-1.30); GFR ESTIMATED > 60; GLUCOSE 161 MG/DL (70-105); POTASSIUM 4.6 MMOL/L (3.6-5.0); SODIUM 137 MMOL/L (135-145)
[~2018-06-03 14:56] MED LIST changes: -AMLO5TAB7 PO; +AMLO5TAB9 PO; -BARIUM SUSPENSION 2.1% (VANILLA SILQ) 450 ML PO ONE; -IOHEXOL 350 MG/ML 100 ML (OMNIPAQUE 350) VIAL IV ONE; -NS 100 ML (IVPB) BAG IV ONE; -RECEIVED CONTRAST (Hold Metformin) IV SCH
== END 2018-07-23 | disposition home or self-care (01) ==
LOC: ONC 14:56
PROVIDERS: ATTEND Internal Medicine Hematology & Oncology
DX: C20 Malignant neoplasm of rectum (principal); E11.9 Type 2 diabetes mellitus without complications; I10 Essential (primary) hypertension; I25.10 Atherosclerotic heart disease of native coronary artery without angina pectoris; J44.9 Chronic obstructive pulmonary disease, unspecified; M86.9 Osteomyelitis, unspecified; Z79.84 Long term (current) use of oral hypoglycemic drugs; Z79.899 Other long term (current) drug therapy; Z92.3 Personal history of irradiation; Z92.23 Personal history of estrogen therapy; Z45.2 Encounter for adjustment and management of vascular access device
CPT/HCPCS: 36591; 80053; 82378; 85025; 96523

== ENCOUNTER → 2018-09-10 | Outpatient (CLI) | payer MEDICARE ==
[~2018-09-10] MED LIST changes: +LINE600T15; +LINE600T15 PO; -LINE600T33; -LINE600T33 PO
[2018-09-10 09:27] LABS: BUN/CREATININE RATIO 19; GFR ESTIMATED > 60
--- NOTE | 2018-09-10 13:54 | Diagnostic Imaging Report ---
PROCEDURE: CT chest with contrast, CT abdomen and pelvis with and without contrast. INDICATION: Rectal cancer, followup. TECHNIQUE: Pre and post intravenous contrast axial imaging of the abdomen and pelvis and post-contrast axial imaging of the chest were performed. Auto Exposure Controls were utilized during the CT exam to meet ALARA standards for radiation dose reduction. CORRELATION STUDY: CT chest, abdomen, and pelvis 02/12/2018. FINDINGS: CT CHEST: Left-sided unipolar pacemaker with tip near the right ventricular apex as well as a right-sided central line tip at the cavoatrial junction are present. Heart size is within normal limits. Scattered at least moderate severity coronary artery calcification is present. No pericardial effusion. No pathologically enlarged mediastinal and/or hilar lymph nodes. Gastroesophageal junction is unremarkable. Lung price demonstrate no significant infiltrate. Calcified granuloma in the right upper lobe. CT ABDOMEN and PELVIS: Liver and spleen are borderline enlarged. Calcifications within the spleen. Gallbladder not visualized. No bile duct dilatation. The pancreas and adrenal glands are unremarkable. Kidneys show normal enhancement. No obstruction. Abdominal aorta is normal in caliber with very mild wall calcification. No pathologically enlarged central retroperitoneal lymph nodes. The gastrointestinal tract demonstrates stomach to be decompressed with gastric wall thickening. Probable duodenal diverticulum. Small bowel unremarkable. Postoperative changes of low distal colon resection. A few colonic diverticula. Urinary bladder decompressed. Prostate gland mildly prominent. Presacral soft tissues are unremarkable. Right mid abdominal wall hernia defect containing fat. IMPRESSION: CT CHEST: 1. Negative for acute abnormality in the chest. No findings to suggest thoracic metastatic disease. CT ABDOMEN and PELVIS: 1. Borderline hepatosplenomegaly. 2. Postoperative changes in the distal colon. 3. No findings to suggest abdominal or pelvic metastatic disease. Dictated by: Dictated on workstation # [id number]
== END ==
LOC: RAD 08:48
PROVIDERS: ATTEND Internal Medicine Hematology & Oncology
DX: C20 Malignant neoplasm of rectum (principal); Z98.890 Other specified postprocedural states
CPT/HCPCS: 36415; 71260; 74178; 82565; 84520

== ENCOUNTER 2018-12-04 09:47 | Outpatient (RCR) | payer MEDICARE ==
[2018-09-12 13:12] LABS: BASOPHILS % (AUTO) 0 % (0-10); EOSINOPHILS # (AUTO) 0.1 10^3/uL (0.0-0.3); EOSINOPHILS % (AUTO) 1 % (0-10); HEMATOCRIT 39 % (40-54); HEMOGLOBIN 13.4 G/DL (13.3-17.7); LYMPHOCYTES # (AUTO) 1.1 X 10^3 (1.0-4.0); LYMPHOCYTES % (AUTO) 23 % (12-44); MEAN CORPUSCULAR HEMOGLOBIN 29 PG (25-34); MEAN CORPUSCULAR HGB CONC 34 G/DL (32-36); MEAN CORPUSCULAR VOLUME 83 FL (80-99); MEAN PLATELET VOLUME 9.4 FL (7.4-10.4); MONOCYTES # (AUTO) 0.3 X 10^3 (0.0-1.0); MONOCYTES % (AUTO) 6 % (0-12); NEUTROPHILS # (AUTO) 3.4 X 10^3 (1.8-7.8); NEUTROPHILS % (AUTO) 69 % (42-75); PLATELET COUNT 132 10^3/uL (130-400); RED CELL DISTRIBUTION WIDTH 13.6 % (10.0-14.5); WHITE BLOOD COUNT 4.9 10^3/uL (4.3-11.0)
[2018-09-12 13:34] LABS: ALANINE AMINOTRANSFERASE 49 U/L (0-55); ALBUMIN 4.1 GM/DL (3.2-4.5); ALKALINE PHOSPHATASE 131 U/L (40-136); BILIRUBIN,TOTAL 0.8 MG/DL (0.1-1.0); BUN/CREATININE RATIO 19; CALCIUM 9.2 MG/DL (8.5-10.1); CARBON DIOXIDE 25 MMOL/L (21-32); CHLORIDE 102 MMOL/L (98-107); CREATININE SERUM 1.09 MG/DL (0.60-1.30); GFR ESTIMATED > 60; GLUCOSE 215 MG/DL (70-105); POTASSIUM 4.4 MMOL/L (3.6-5.0); SODIUM 136 MMOL/L (135-145); TOTAL PROTEIN 7.2 GM/DL (6.4-8.2)
[2018-12-04 10:10] LABS: BASOPHILS % (AUTO) 0 % (0-10); EOSINOPHILS # (AUTO) 0.1 10^3/uL (0.0-0.3); EOSINOPHILS % (AUTO) 1 % (0-10); HEMATOCRIT 40 % (40-54); HEMOGLOBIN 13.5 G/DL (13.3-17.7); LYMPHOCYTES % (AUTO) 20 % (12-44); MEAN CORPUSCULAR HEMOGLOBIN 28 PG (25-34); MEAN CORPUSCULAR HGB CONC 34 G/DL (32-36); MEAN CORPUSCULAR VOLUME 83 FL (80-99); MEAN PLATELET VOLUME 9.4 FL (7.4-10.4); MONOCYTES # (AUTO) 0.3 X 10^3 (0.0-1.0); MONOCYTES % (AUTO) 6 % (0-12); NEUTROPHILS # (AUTO) 3.8 X 10^3 (1.8-7.8); NEUTROPHILS % (AUTO) 72 % (42-75); PLATELET COUNT 131 10^3/uL (130-400); RED CELL DISTRIBUTION WIDTH 13.2 % (10.0-14.5); WHITE BLOOD COUNT 5.2 10^3/uL (4.3-11.0)
[2018-12-04 10:30] LABS: ALANINE AMINOTRANSFERASE 38 U/L (0-55); ALBUMIN 4.1 GM/DL (3.2-4.5); ALKALINE PHOSPHATASE 193 U/L (40-136); BILIRUBIN,TOTAL 0.5 MG/DL (0.1-1.0); BUN/CREATININE RATIO 17; CARBON DIOXIDE 25 MMOL/L (21-32); CHLORIDE 102 MMOL/L (98-107); CREATININE SERUM 1.17 MG/DL (0.60-1.30); GFR ESTIMATED > 60; GLUCOSE 280 MG/DL (70-105); SODIUM 137 MMOL/L (135-145); TOTAL PROTEIN 7.1 GM/DL (6.4-8.2)
== END 2018-12-11 | disposition home or self-care (01) ==
LOC: ONC 09:47
PROVIDERS: ATTEND Internal Medicine Hematology & Oncology
DX: C20 Malignant neoplasm of rectum (principal); E11.9 Type 2 diabetes mellitus without complications; I10 Essential (primary) hypertension; I25.10 Atherosclerotic heart disease of native coronary artery without angina pectoris; J44.9 Chronic obstructive pulmonary disease, unspecified; M86.9 Osteomyelitis, unspecified; Z79.84 Long term (current) use of oral hypoglycemic drugs; Z79.899 Other long term (current) drug therapy; Z92.3 Personal history of irradiation; Z92.23 Personal history of estrogen therapy
CPT/HCPCS: 36415; 36591; 80053; 82378; 85025; 96523

== ENCOUNTER 2019-04-09 11:22 | Outpatient (RCR) | payer MEDICARE ==
[2019-02-26 09:57] LABS: BASOPHILS % (AUTO) 0 % (0-10); EOSINOPHILS # (AUTO) 0.1 10^3/uL (0.0-0.3); EOSINOPHILS % (AUTO) 1 % (0-10); HEMATOCRIT 41 % (40-54); HEMOGLOBIN 13.9 G/DL (13.3-17.7); LYMPHOCYTES # (AUTO) 1.1 X 10^3 (1.0-4.0); LYMPHOCYTES % (AUTO) 24 % (12-44); MEAN CORPUSCULAR HEMOGLOBIN 29 PG (25-34); MEAN CORPUSCULAR HGB CONC 34 G/DL (32-36); MEAN CORPUSCULAR VOLUME 84 FL (80-99); MEAN PLATELET VOLUME 9.5 FL (7.4-10.4); MONOCYTES # (AUTO) 0.3 X 10^3 (0.0-1.0); MONOCYTES % (AUTO) 6 % (0-12); NEUTROPHILS # (AUTO) 3.1 X 10^3 (1.8-7.8); NEUTROPHILS % (AUTO) 69 % (42-75); PLATELET COUNT 119 10^3/uL (130-400); RED CELL DISTRIBUTION WIDTH 13.4 % (10.0-14.5); WHITE BLOOD COUNT 4.5 10^3/uL (4.3-11.0)
[2019-02-26 10:14] LABS: ALANINE AMINOTRANSFERASE 40 U/L (0-55); ALKALINE PHOSPHATASE 144 U/L (40-136); BILIRUBIN,TOTAL 0.5 MG/DL (0.1-1.0); BUN/CREATININE RATIO 19; CALCIUM 9.3 MG/DL (8.5-10.1); CARBON DIOXIDE 23 MMOL/L (21-32); CHLORIDE 102 MMOL/L (98-107); CREATININE SERUM 1.16 MG/DL (0.60-1.30); GFR ESTIMATED > 60; GLUCOSE 261 MG/DL (70-105); POTASSIUM 4.7 MMOL/L (3.6-5.0); SODIUM 135 MMOL/L (135-145); TOTAL PROTEIN 6.9 GM/DL (6.4-8.2)
[~2019-04-09 11:22] MED LIST changes: -LINE600T15; -LINE600T15 PO; +LNZ600T; +LNZ600T PO; -TAMS0.4C98 PO; +TMSL.4C PO
== END 2019-04-15 | disposition home or self-care (01) ==
LOC: ONC 11:22
PROVIDERS: ATTEND Internal Medicine Hematology & Oncology
DX: Z45.2 Encounter for adjustment and management of vascular access device (principal); C20 Malignant neoplasm of rectum; E11.9 Type 2 diabetes mellitus without complications; I10 Essential (primary) hypertension; I25.10 Atherosclerotic heart disease of native coronary artery without angina pectoris; M86.9 Osteomyelitis, unspecified; J44.9 Chronic obstructive pulmonary disease, unspecified; Z79.84 Long term (current) use of oral hypoglycemic drugs; Z92.3 Personal history of irradiation; Z92.23 Personal history of estrogen therapy; Z79.899 Other long term (current) drug therapy
CPT/HCPCS: 36591; 80053; 82378; 85025; 96523

== ENCOUNTER 2019-08-19 09:27 | Outpatient (RCR) | payer MEDICARE ==
[2019-05-22 10:08] LABS: BASOPHILS % (AUTO) 0 % (0-10); EOSINOPHILS # (AUTO) 0.1 10^3/uL (0.0-0.3); EOSINOPHILS % (AUTO) 1 % (0-10); HEMATOCRIT 40 % (40-54); HEMOGLOBIN 13.8 G/DL (13.3-17.7); LYMPHOCYTES # (AUTO) 1.1 X 10^3 (1.0-4.0); LYMPHOCYTES % (AUTO) 22 % (12-44); MEAN CORPUSCULAR HEMOGLOBIN 29 PG (25-34); MEAN CORPUSCULAR HGB CONC 35 G/DL (32-36); MEAN CORPUSCULAR VOLUME 83 FL (80-99); MEAN PLATELET VOLUME 9.3 FL (7.4-10.4); MONOCYTES # (AUTO) 0.3 X 10^3 (0.0-1.0); MONOCYTES % (AUTO) 6 % (0-12); NEUTROPHILS # (AUTO) 3.6 X 10^3 (1.8-7.8); NEUTROPHILS % (AUTO) 71 % (42-75); PLATELET COUNT 129 10^3/uL (130-400); RED CELL DISTRIBUTION WIDTH 13.5 % (10.0-14.5)
[2019-05-22 10:29] LABS: ALANINE AMINOTRANSFERASE 38 U/L (0-55); ALKALINE PHOSPHATASE 151 U/L (40-136); BILIRUBIN,TOTAL 0.6 MG/DL (0.1-1.0); BUN/CREATININE RATIO 18; CALCIUM 8.8 MG/DL (8.5-10.1); CARBON DIOXIDE 20 MMOL/L (21-32); CHLORIDE 101 MMOL/L (98-107); CREATININE SERUM 1.04 MG/DL (0.60-1.30); GFR ESTIMATED > 60; GLUCOSE 290 MG/DL (70-105); POTASSIUM 4.6 MMOL/L (3.6-5.0); SODIUM 134 MMOL/L (135-145); TOTAL PROTEIN 7.2 GM/DL (6.4-8.2)
[~2019-08-19 09:27] MED LIST changes: -OXYC-529 PO; +OXYC5TAB96 PO
[2019-08-19 09:45] LABS: BASOPHILS % (AUTO) 0 % (0-10); EOSINOPHILS # (AUTO) 0.1 10^3/uL (0.0-0.3); EOSINOPHILS % (AUTO) 1 % (0-10); HEMATOCRIT 40 % (40-54); LYMPHOCYTES % (AUTO) 20 % (12-44); MEAN CORPUSCULAR HEMOGLOBIN 30 PG (25-34); MEAN CORPUSCULAR HGB CONC 35 G/DL (32-36); MEAN CORPUSCULAR VOLUME 85 FL (80-99); MEAN PLATELET VOLUME 9.5 FL (7.4-10.4); MONOCYTES # (AUTO) 0.3 X 10^3 (0.0-1.0); MONOCYTES % (AUTO) 5 % (0-12); NEUTROPHILS # (AUTO) 3.6 X 10^3 (1.8-7.8); NEUTROPHILS % (AUTO) 73 % (42-75); PLATELET COUNT 124 10^3/uL (130-400); RED CELL DISTRIBUTION WIDTH 13.1 % (10.0-14.5); WHITE BLOOD COUNT 4.9 10^3/uL (4.3-11.0)
[2019-08-19 10:03] LABS: ALANINE AMINOTRANSFERASE 44 U/L (0-55); ALKALINE PHOSPHATASE 162 U/L (40-136); BILIRUBIN,TOTAL 0.6 MG/DL (0.1-1.0); BUN/CREATININE RATIO 18; CALCIUM 8.9 MG/DL (8.5-10.1); CARBON DIOXIDE 25 MMOL/L (21-32); CHLORIDE 103 MMOL/L (98-107); GFR ESTIMATED > 60; GLUCOSE 228 MG/DL (70-105); SODIUM 138 MMOL/L (135-145)
== END 2019-08-20 | disposition home or self-care (01) ==
LOC: ONC 09:27
PROVIDERS: ATTEND Internal Medicine Hematology & Oncology
DX: Z45.2 Encounter for adjustment and management of vascular access device (principal); C20 Malignant neoplasm of rectum; E11.9 Type 2 diabetes mellitus without complications; I10 Essential (primary) hypertension; I25.10 Atherosclerotic heart disease of native coronary artery without angina pectoris; M86.9 Osteomyelitis, unspecified; J44.9 Chronic obstructive pulmonary disease, unspecified; Z79.84 Long term (current) use of oral hypoglycemic drugs; Z92.3 Personal history of irradiation; Z92.23 Personal history of estrogen therapy; Z79.899 Other long term (current) drug therapy
CPT/HCPCS: 80053; 82378; 85025; G0463; 36591; 96523

== ENCOUNTER 2019-11-08 07:23 | Emergency (ER) | payer MEDICARE ==
[~2019-11-08] VITALS: Ht 193 cm; Wt 100.0 kg
[~2019-11-08 07:23] MED LIST changes: +ASPI-1238 PO; -ASPI-983 PO; +OXC5T PO; -OXYC5TAB96 PO; -PANT40TA3 PO; +PANT40TA52 PO
[2019-11-08] MEDS ORDERED: CHOL4PAC3 PO (07:37)
[2019-11-08] MEDS ORDERED: LISI-552 PO (07:37)
[2019-11-08] MEDS ORDERED: METF-865 PO (07:37)
[2019-11-08] MEDS ORDERED: DIPH1TAB PO (07:37)
--- NOTE | 2019-11-08 08:31 | ED Lower Extremity ---
General Chief Complaint: Lower Extremity Stated Complaint: L 2ND TOE SWELLING Nursing Triage Note: pt c/o left 2nd toe blister after rubbing on boot. he is a type 2 diabetic. hx of right great toe amputation. Nursing Sepsis Screen: No Definite Risk (JAMIA HOLCOMB,MED STUDENT) History of Present Illness Date Seen by Provider: Nov 08, 2019 Time Seen by Provider: 08:03 Initial Comments 64yo male presents to ED with concern for infection of L second toe. He reports wearing a new pair of boots and getting a blister on the top of his L 2nd toe a week ago. The blister has since ruptured and he now has a non painfully, non draining circular lesion that where the blister was located. He is worried for osteomyelitis because he is a T2DM and had it 2yrs ago in his right hallux and had to have it amputated. He says that he has been keeping the wound moist by putting triple antibiotic ointment and a band-aid on it. Onset: last week Severity: mild Pain/Injury Location: left 2nd toe Method of Injury: other (rubbing on boot ) Associated Symptoms: denies (JAMIA HOLOCMB,MED STUDENT) Allergies and Home Medications Allergies Coded Allergies: No Known Drug Allergies (Unverified , 10/15/17) Home Medications Amlodipine Besylate 5 Mg Tablet, 5 MG PO DAILY, (Reported) Aspirin 81 Mg Tablet.dr, 81 MG PO DAILY, (Reported) Cholestyramine/Aspartame 4 Gm Powd.pack, 4 GM PO DAILY, (Reported) Diphenoxylate HCl/Atropine 1 Each Tablet, 1 EACH PO TID, (Reported) Glyburide 2.5 Mg Tablet, 5 MG PO BID, (Reported) L. Acidophilus/Bulgaricus 1 Each Tab.chew, 1 EACH PO ACHS Prescribed by: SYED LEE on 10/17/17 1004 Lisinopril 20 Mg Tablet, 20 MG PO DAILY, (Reported) Metformin HCl 500 Mg Tab.er.24h, 500 MG PO HS, (Reported) Metoprolol Succinate 200 Mg Tab.er.24h, 200 MG PO DAILY, (Reported) Mupirocin 22 Gm Oint...g., 22 GM TP BID Applied to affected area twice daily Prescribed by: NARAYAN AMEZCUA on 11/08/19 0849 Pantoprazole Sodium 40 Mg Tablet.dr, 40 MG PO DAILY, (Reported) Sulfamethoxazole/Trimethoprim 1 Each Tablet, 1 EACH PO BID Prescribed by: NARAYAN AMEZCUA on 11/08/19 0078 Patient Home Medication List Home Medication List Reviewed: Yes (NARAYAN AMEZCUA MD) Review of Systems Constitutional: No chills, No diaphoresis, No fever, No malaise, No weakness Respiratory: No cough, No dyspnea on exertion Cardiovascular: No chest pain; Hx of Intervention; No palpitations Skin: lesions (over L 2nd toes ), other (les) (JAMIA HOLCOMB MED STUDENT) Constitutional: No chills, No fever Musculoskeletal: joint pain, muscle pain Skin: change in color, lesions (over L 2nd toes ) (NARAYAN AMEZCUA MD) All Other Systems Reviewed Negative Unless Noted: No (NARAYAN AMEZCUA MD) Past Ppplxkk-Ihkaeb-Hedxcc Hx Past Med/Social Hx: Reviewed Nursing Past Med/Soc Hx (NARAYAN AMEZCUA MD) Patient Social History Alcohol Use: Denies Use Recreational Drug Use: No Smoking Status: Never a Smoker 2nd Hand Smoke Exposure: No Recent Foreign Travel: No Contact w/Someone Who Travel: No Recent Infectious Disease Expo: No Recent Hopitalizations: No (JAMIA HOLCOMB MED STUDENT) Immunizations Up To Date Tetanus Booster (TDap): Unknown PED Vaccines UTD: No (JAMIA HOLCOMB MED STUDENT) Seasonal Allergies Seasonal Allergies: No (JAMIA HOLCOMB MED STUDENT) Past Medical History Surgeries: Yes (ILEOSTOMY/COLECTOMY, Right big toe amputated) Abdominal, Amputation, Appendectomy, Bowel Surgery, Cardiac, Coronary Stent, Eye Surgery, Gallbladder, Pacemaker Respiratory: Yes Sleep Apnea Currently Using CPAP: No (unable to tolerate) Currently Using BIPAP: No Cardiac: Yes (CARDIAC CATH--STENT; PACEMAKER-meditronic) Coronary Artery Disease, High Cholesterol, Hypertension Neurological: Yes Neuropathy (diabetic neuropathy ) Reproductive Disorders: No Sexually Transmitted Disease: No HIV/AIDS: No Genitourinary: Yes (urinary retention following colon surgery) Bladder Infection, Kidney Stones Gastrointestinal: Yes (RECTAL CANCER--S/P COLECTOMY AND ILEOSTOMY; ILEOSTOMY TAKEDOWN ) Musculoskeletal: Yes Arthritis Endocrine: Yes Diabetes, Non-Insulin dep HEENT: No Loss of Vision: Bilateral Hearing Impairment: Denies Cancer: Yes (DX 06/2016) Rectal, Colon Did You Recieve Any Treatments: Yes What Type of Treatment Did You: Chemotherapy, Radiation, Surgical Intervention Psychosocial: Yes Depression Integumentary: No Recent Skin Changes Blood Disorders: No Adverse Reaction/Blood Tranf: No (N/A) (JAMIA HOLCOMB MED STUDENT) Family Medical History Reviewed Nursing Family Hx (NARAYAN AMEZCUA MD) Alzheimer's disease 19 FATHER ( at 89) 19 MOTHER ( 93) CAD Over 55 Years Old, Diabetes, Hypertension (JAMIA HOLCOMB MED STUDENT) Physical Exam Vital Signs Vital Signs - First Documented 11/08/19 07:30 Temp 35.9 Pulse 81 Resp 16 B/P (MAP) 177/94 (121) Pulse Ox 99 O2 Delivery Room Air (NARAYAN AMEZCUA MD) Vital Signs Capillary Refill : Less Than 3 Seconds (JAMIA HOLCOMB MED STUDENT) Height, Weight, BMI Height: 6'4.00" Weight: 232lbs. 0.0oz. 105.029273aw; 26.00 BMI Method:Stated General Appearance: WD/WN, no apparent distress HEENT: PERRL/EOMI; No scleral icterus (R), No scleral icterus (L) Cardiovascular: regular rate, rhythm, no edema, no gallop, no JVD, no murmur Respiratory: chest non-tender, lungs clear, normal breath sounds, no respiratory distress, no accessory muscle use Feet: bilateral foot non-tender; left foot abrasions/lacerations (1cm diameter lesion on top of 2nd toe ); bilateral foot deformity (L hallux valgus, right hallux amputated ); left foot infection (erythema of without drainage or purulent dischange on 2nd toe ); bilateral foot nodule, bilateral foot pain, bilateral foot soft tissue tenderness, bilateral foot swelling, bilateral foot other Skin: warm/dry, pallor (JAMIA HOLCOMB MED STUDENT) General Appearance: WD/WN, no apparent distress Cardiovascular: regular rate, rhythm, no murmur Respiratory: lungs clear, normal breath sounds Feet: left foot abrasions/lacerations (1cm diameter lesion on top of 2nd toe ); bilateral foot deformity (L hallux valgus, right hallux amputated ); left foot infection (erythema of without drainage or purulent dischange on 2nd toe ); bilateral foot nodule, bilateral foot pain, bilateral foot soft tissue tenderness, bilateral foot swelling, bilateral foot other (Left 2nd toe with erythema and wound as described. No significant red streaks up foot. ) Skin: warm/dry, other (skin changes as noted above) (NARAYAN AMEZCUA MD) Progress/Results/Core Measures Results/Orders My Orders Orders - NARAYAN AMEZCUA MD Ceftriaxone For Im Use (Rocephin For Im (11/08/19 09:00) Lidocaine 1% Inj 20 Ml (Xylocaine 1% Inj (11/08/19 09:00) Lidocaine 1% Inj 20 Ml (Xylocaine 1% Inj (11/08/19 08:50) Ceftriaxone For Im Use (Rocephin For Im (11/08/19 08:50) (NARAYAN AMEZCUA MD) Medications Given in ED Current Medications Medications Dose Ordered Sig/Marie Route Start Time Stop Time Status Last Admin Dose Admin Ceftriaxone Sodium 1,000 mg ONCE ONCE IM 11/08/19 09:00 11/08/19 09:01 DC 11/08/19 09:05 1,000 MG Lidocaine HCl 2.1 ml ONCE ONCE INJ 11/08/19 09:00 11/08/19 09:01 DC 11/08/19 09:05 2.1 ML (NARAYAN AMEZCUA MD) Vital Signs/I&O 11/08/19 07:30 Temp 35.9 Pulse 81 Resp 16 B/P (MAP) 177/94 (121) Pulse Ox 99 O2 Delivery Room Air (NARAYAN AMEZCUA MD) Blood Pressure Mean: 121 Progress Progress Note : Progress Note I have seen and evaluated the patient and agree with above except as indicated. I have directed the plan of care. Patient is here with wound to the second toe of the left foot after pressure blister formed from wearing new boots. He has been using antibiotic ointment and dressing without success. Does have history of amputation to the great toe of the other foot. He is worried about infection. Denies fever or chills. Evaluation as above. Review of records shows that he does have both MSSA and MRSA to the wound on the other foot. We will initiate Bactrim DS twice a day. He is going on a trip to [place] and leaves tomorrow morning. Given his history and that he is fixing to leave on a trip, we will go ahead and give Rocephin 1 g IM now. I did give him return precautions related to the wound and follow-up as well as what to seek immediate medical attention for wall he is on his trip. Patient verbalize understanding. Discharged home with return precautions. Patient verbalize understanding of the precautions and agreement with plan. (NARAYAN AMEZCUA MD) Departure Impression Primary Impression: Cellulitis of toe of left foot Disposition: HOME, SELF-CARE Condition: Stable Departure-Patient Inst. Decision time for Depature: 08:49 (NARAYAN AMEZCUA MD) Referrals: SYED LEE DO (PCP/Family) Primary Care Physician Patient Instructions: Cellulitis (Skin Infection), Adult (DC) Add. Discharge Instructions: All discharge instructions reviewed with patient and/or family. Voiced understanding. Take medications as directed. Use antibiotic ointment over wound twice daily and cover with Band-Aid. Protect from increased pressure to the area of concern. Monitor for worsening symptoms, foul-smelling drainage or red streaks. If these occur then you need to seek medical attention immediately. Otherwise follow-up with your Dr. when you returned from your trip for recheck and further evaluation. Scripts Mupirocin (Mupirocin) 22 Gm Oint...g. 22 GM TP BID, #1 TUBE 1 Refill Applied to affected area twice daily Prov: NARAYAN AMEZCUA MD 11/08/19 Sulfamethoxazole/Trimethoprim (Bactrim Ds Tablet) 1 Each Tablet 1 EACH PO BID, #20 TAB 0 Refills Prov: NARAYAN AMEZCUA MD 11/08/19 JAMIA HOLCOMB,MED STUDENT Nov 08, 2019 08:31 NARAYAN AMEZCUA MD Nov 08, 2019 08:51
[2019-11-08] MEDS ORDERED: MUPI22OI2 TP (08:49)
[2019-11-08] MEDS ORDERED: SULF1TAB35 PO (08:49)
[2019-11-08] MEDS ORDERED: LIDOCAINE 1% INJ 20 ML 20 ML VIAL ONE (08:50)
[2019-11-08] MEDS ORDERED: cefTRIAXone 1,000 MG/2.86 ml vial (IM ONLY) ONE (08:50)
[2019-11-08] MEDS ORDERED: LIDOCAINE 1% INJ 20 ML 20 ML VIAL INJ ONE (09:00)
[2019-11-08] MEDS ORDERED: cefTRIAXone 1,000 MG/2.86 ml vial (IM ONLY) IM ONE (09:00)
[2019-11-08 09:25] VITALS: BP 170/90
== END 2019-11-08 09:25 | disposition home or self-care (01) ==
LOC: EDUNIT# 07:23 → ER 07:24
DX: L03.032 Cellulitis of left toe (principal); I25.10 Atherosclerotic heart disease of native coronary artery without angina pectoris; E11.9 Type 2 diabetes mellitus without complications; I10 Essential (primary) hypertension; E78.00 Pure hypercholesterolemia, unspecified; Z82.49 Family history of ischemic heart disease and other diseases of the circulatory system; Z83.3 Family history of diabetes mellitus; Z85.048 Personal history of other malignant neoplasm of rectum, rectosigmoid junction, and anus; Z85.038 Personal history of other malignant neoplasm of large intestine; Z79.84 Long term (current) use of oral hypoglycemic drugs; Z79.82 Long term (current) use of aspirin; Z95.0 Presence of cardiac pacemaker; Z95.5 Presence of coronary angioplasty implant and graft; Z95.9 Presence of cardiac and vascular implant and graft, unspecified
CPT/HCPCS: 99284

== ENCOUNTER 2019-12-03 10:51 | Outpatient (RCR) | payer MEDICARE ==
[~2019-12-03 10:51] MED LIST changes: +AMLO-250 PO; -AMLO5TAB9 PO; +CHOL4PAC3 PO; +DIPH1TAB PO; +LISI-552 PO; +METF-865 PO; +MUPI22OI2 TP; +SULF1TAB35 PO
[2019-12-03 11:17] LABS: BASOPHILS % (AUTO) 0 % (0-10); EOSINOPHILS # (AUTO) 0.1 10^3/uL (0.0-0.3); EOSINOPHILS % (AUTO) 2 % (0-10); HEMATOCRIT 40 % (40-54); HEMOGLOBIN 13.8 g/dL (13.3-17.7); LYMPHOCYTES # (AUTO) 1.2 10^3/uL (1.0-4.0); LYMPHOCYTES % (AUTO) 24 % (12-44); MEAN CORPUSCULAR HEMOGLOBIN 30 pg (25-34); MEAN CORPUSCULAR HGB CONC 34 g/dL (32-36); MEAN CORPUSCULAR VOLUME 87 fL (80-99); MEAN PLATELET VOLUME 9.2 fL (9.0-12.2); MONOCYTES # (AUTO) 0.3 10^3/uL (0.0-1.0); MONOCYTES % (AUTO) 6 % (0-12); NEUTROPHILS # (AUTO) 3.4 10^3/uL (1.8-7.8); NEUTROPHILS % (AUTO) 67 % (42-75); PLATELET COUNT 116 10^3/uL (130-400)
[2019-12-03 11:45] LABS: ALANINE AMINOTRANSFERASE 41 U/L (0-55); ALBUMIN 4.1 GM/DL (3.2-4.5); ALKALINE PHOSPHATASE 132 U/L (40-136); BILIRUBIN,TOTAL 0.7 MG/DL (0.1-1.0); BUN/CREATININE RATIO 23; CARBON DIOXIDE 24 MMOL/L (21-32); CHLORIDE 104 MMOL/L (98-107); CREATININE SERUM 1.04 MG/DL (0.60-1.30); GFR ESTIMATED > 60; GLUCOSE 231 MG/DL (70-105); POTASSIUM 4.4 MMOL/L (3.6-5.0); SODIUM 137 MMOL/L (135-145)
== END 2019-12-29 | disposition home or self-care (01) ==
LOC: ONC 10:51
PROVIDERS: ATTEND Internal Medicine Hematology & Oncology
DX: Z45.2 Encounter for adjustment and management of vascular access device (principal); C20 Malignant neoplasm of rectum; I25.10 Atherosclerotic heart disease of native coronary artery without angina pectoris; E11.40 Type 2 diabetes mellitus with diabetic neuropathy, unspecified; I11.0 Hypertensive heart disease with heart failure; I50.9 Heart failure, unspecified; M86.9 Osteomyelitis, unspecified; K81.0 Acute cholecystitis; E78.5 Hyperlipidemia, unspecified; J44.9 Chronic obstructive pulmonary disease, unspecified; Z79.84 Long term (current) use of oral hypoglycemic drugs; Z92.3 Personal history of irradiation; Z92.23 Personal history of estrogen therapy; Z79.899 Other long term (current) drug therapy; Z98.890 Other specified postprocedural states; Z92.21 Personal history of antineoplastic chemotherapy
CPT/HCPCS: 36591; 80053; 82378; 85025; 96523

== ENCOUNTER 2020-01-15 10:35 | Outpatient (RCR) | payer MEDICARE | END 2020-02-13 15:03 | disposition home or self-care (01) | LOC: ONC 10:35 | PROVIDERS: ATTEND Internal Medicine Hematology & Oncology | DX: Z45.2 Encounter for adjustment and management of vascular access device (principal); C20 Malignant neoplasm of rectum; I25.10 Atherosclerotic heart disease of native coronary artery without angina pectoris; E11.40 Type 2 diabetes mellitus with diabetic neuropathy, unspecified; I11.0 Hypertensive heart disease with heart failure; I50.9 Heart failure, unspecified; M86.9 Osteomyelitis, unspecified; K81.0 Acute cholecystitis; E78.5 Hyperlipidemia, unspecified; J44.9 Chronic obstructive pulmonary disease, unspecified; Z79.84 Long term (current) use of oral hypoglycemic drugs; Z92.3 Personal history of irradiation; Z92.23 Personal history of estrogen therapy; Z79.899 Other long term (current) drug therapy; Z98.890 Other specified postprocedural states; Z92.21 Personal history of antineoplastic chemotherapy | CPT/HCPCS: 96523 ==

== ENCOUNTER 2020-05-20 09:22 | Outpatient (RCR) | payer MEDICARE ==
[~2020-05-20 09:22] MED LIST changes: +GLBR2.5T PO; -GLYB2.5T4 PO; -LISI-552 PO; +LISI20TA26 PO; -LISI40TA PO; +LISI40TA9 PO
[2020-05-20 09:44] LABS: BASOPHILS % (AUTO) 0 % (0-10); EOSINOPHILS # (AUTO) 0.1 10^3/uL (0.0-0.3); EOSINOPHILS % (AUTO) 2 % (0-10); HEMATOCRIT 43 % (40-54); HEMOGLOBIN 14.4 g/dL (13.3-17.7); LYMPHOCYTES # (AUTO) 1.2 10^3/uL (1.0-4.0); LYMPHOCYTES % (AUTO) 24 % (12-44); MEAN CORPUSCULAR HEMOGLOBIN 29 pg (25-34); MEAN CORPUSCULAR HGB CONC 34 g/dL (32-36); MEAN CORPUSCULAR VOLUME 86 fL (80-99); MEAN PLATELET VOLUME 9.4 fL (9.0-12.2); MONOCYTES # (AUTO) 0.4 10^3/uL (0.0-1.0); MONOCYTES % (AUTO) 8 % (0-12); NEUTROPHILS # (AUTO) 3.3 10^3/uL (1.8-7.8); NEUTROPHILS % (AUTO) 66 % (42-75); PLATELET COUNT 155 10^3/uL (130-400)
[2020-05-20 10:05] LABS: ALANINE AMINOTRANSFERASE 31 U/L (0-55); ALBUMIN 4.1 GM/DL (3.2-4.5); ALKALINE PHOSPHATASE 126 U/L (40-136); BILIRUBIN,TOTAL 0.6 MG/DL (0.1-1.0); BUN/CREATININE RATIO 17; CALCIUM 8.9 MG/DL (8.5-10.1); CARBON DIOXIDE 22 MMOL/L (21-32); CHLORIDE 101 MMOL/L (98-107); CREATININE SERUM 1.03 MG/DL (0.60-1.30); GFR ESTIMATED > 60; GLUCOSE 224 MG/DL (70-105); POTASSIUM 4.6 MMOL/L (3.6-5.0); SODIUM 134 MMOL/L (135-145); TOTAL PROTEIN 7.2 GM/DL (6.4-8.2)
== END 2020-05-26 | disposition home or self-care (01) ==
LOC: ONC 09:22
PROVIDERS: ATTEND Internal Medicine Hematology & Oncology
DX: Z45.2 Encounter for adjustment and management of vascular access device (principal); C20 Malignant neoplasm of rectum; I25.10 Atherosclerotic heart disease of native coronary artery without angina pectoris; E11.40 Type 2 diabetes mellitus with diabetic neuropathy, unspecified; I11.0 Hypertensive heart disease with heart failure; I50.9 Heart failure, unspecified; M86.9 Osteomyelitis, unspecified; E78.2 Mixed hyperlipidemia; K81.0 Acute cholecystitis; J44.9 Chronic obstructive pulmonary disease, unspecified; Z79.84 Long term (current) use of oral hypoglycemic drugs; Z92.3 Personal history of irradiation; Z92.23 Personal history of estrogen therapy; Z79.899 Other long term (current) drug therapy; Z98.890 Other specified postprocedural states; Z92.21 Personal history of antineoplastic chemotherapy
CPT/HCPCS: 36591; 80053; 82378; 85025; 96523

== ENCOUNTER 2020-10-01 11:24 | Outpatient (RCR) | payer MEDICARE ==
[~2020-10-01 11:24] MED LIST changes: -SULF1TAB35 PO; +SULF1TAB38 PO
== END 2020-10-05 | disposition home or self-care (01) ==
LOC: ONC 11:24
PROVIDERS: ATTEND Internal Medicine Hematology & Oncology
DX: Z45.2 Encounter for adjustment and management of vascular access device (principal); C20 Malignant neoplasm of rectum; I25.10 Atherosclerotic heart disease of native coronary artery without angina pectoris; E11.40 Type 2 diabetes mellitus with diabetic neuropathy, unspecified; I11.0 Hypertensive heart disease with heart failure; I50.22 Chronic systolic (congestive) heart failure; M86.9 Osteomyelitis, unspecified; E78.2 Mixed hyperlipidemia; K81.0 Acute cholecystitis; J44.9 Chronic obstructive pulmonary disease, unspecified; Z79.84 Long term (current) use of oral hypoglycemic drugs; Z92.3 Personal history of irradiation; Z92.23 Personal history of estrogen therapy; Z79.899 Other long term (current) drug therapy; Z98.890 Other specified postprocedural states; Z92.21 Personal history of antineoplastic chemotherapy; Z93.2 Ileostomy status
CPT/HCPCS: 96523

== ENCOUNTER 2021-01-27 10:42 | Outpatient (RCR) | payer MEDICARE ==
[2020-12-16 10:10] LABS: BASOPHILS % (AUTO) 0 % (0-10); EOSINOPHILS # (AUTO) 0.1 10^3/uL (0.0-0.3); EOSINOPHILS % (AUTO) 2 % (0-10); HEMATOCRIT 45 % (40-54); HEMOGLOBIN 15.5 g/dL (13.3-17.7); LYMPHOCYTES # (AUTO) 1.5 10^3/uL (1.0-4.0); LYMPHOCYTES % (AUTO) 26 % (12-44); MEAN CORPUSCULAR HEMOGLOBIN 30 pg (25-34); MEAN CORPUSCULAR HGB CONC 35 g/dL (32-36); MEAN CORPUSCULAR VOLUME 86 fL (80-99); MEAN PLATELET VOLUME 9.3 fL (9.0-12.2); MONOCYTES # (AUTO) 0.3 10^3/uL (0.0-1.0); MONOCYTES % (AUTO) 6 % (0-12); NEUTROPHILS # (AUTO) 3.9 10^3/uL (1.8-7.8); NEUTROPHILS % (AUTO) 67 % (42-75); PLATELET COUNT 160 10^3/uL (130-400); WHITE BLOOD COUNT 5.9 10^3/uL (4.3-11.0)
[2020-12-16 10:30] LABS: ALBUMIN 4.3 GM/DL (3.2-4.5); BILIRUBIN,TOTAL 0.9 MG/DL (0.1-1.0); CALCIUM 9.3 MG/DL (8.5-10.1); CREATININE SERUM 1.01 MG/DL (0.60-1.30); POTASSIUM 4.4 MMOL/L (3.6-5.0); TOTAL PROTEIN 7.5 GM/DL (6.4-8.2)
== END 2021-02-04 | disposition home or self-care (01) ==
LOC: ONC 10:42
PROVIDERS: ATTEND Internal Medicine Hematology & Oncology
DX: Z45.2 Encounter for adjustment and management of vascular access device (principal); C20 Malignant neoplasm of rectum; I25.10 Atherosclerotic heart disease of native coronary artery without angina pectoris; E11.40 Type 2 diabetes mellitus with diabetic neuropathy, unspecified; I11.0 Hypertensive heart disease with heart failure; I50.22 Chronic systolic (congestive) heart failure; M86.9 Osteomyelitis, unspecified; E78.2 Mixed hyperlipidemia; K81.0 Acute cholecystitis; J44.9 Chronic obstructive pulmonary disease, unspecified; Z79.84 Long term (current) use of oral hypoglycemic drugs; Z92.3 Personal history of irradiation; Z92.23 Personal history of estrogen therapy; Z79.899 Other long term (current) drug therapy; Z98.890 Other specified postprocedural states; Z92.21 Personal history of antineoplastic chemotherapy; Z93.2 Ileostomy status
CPT/HCPCS: 36591; 80053; 82378; 85025; 96523

== ENCOUNTER → 2021-06-21 | Outpatient (CLI) | payer MEDICARE ==
[~2021-06-21] VITALS: Ht 193 cm; Wt 100.0 kg
== END | disposition home or self-care (01) ==
LOC: PREOP 05:29
PROVIDERS: ATTEND Surgery
DX: Z01.818 Encounter for other preprocedural examination (principal)

== ENCOUNTER 2021-06-23 07:11 | Day surgery (SDC) | payer MEDICARE ==
[~2021-06-23] VITALS: Ht 193 cm; Wt 100.0 kg
[2021-06-23] VITALS (7 sets, daily range): BP systolic 115–153; BP diastolic 72–89
[2021-06-23] MEDS ORDERED: NS (IVPB) 0 ML ONE (07:54)
[2021-06-23] MEDS ORDERED: ceFAZolin 2 GM IV Premixed 50 ML ONE (07:54)
--- NOTE | 2021-06-23 08:17 | Progress Note-Pre Operative ---
Pre-Operative Progress Note H&P Reviewed The H&P was reviewed, patient examined and no changes noted. Time Seen by Provider: 08:14 Date H&P Reviewed: June 23, 2021 Time H&P Reviewed: 08:14 Pre-Operative Diagnosis: emerald-cath removal, venous insufficiency KASSY DURAN DO June 23, 2021 08:17
[2021-06-23] MEDS ORDERED: LIDOCAINE/EPI 1%-1:200,000 (XYLOCAINE) 30 ML VIAL ONE (08:22)
[2021-06-23] MEDS ORDERED: LACTATED RINGERS 1,000 ML IV PRN (09:00)
[2021-06-23] MEDS ORDERED: ceFAZolin 2 GM IV Premixed 50 ML IV ONE (09:00)
[2021-06-23] MEDS ORDERED: MIDAZOLAM 2 MG/2 ML (VERSED) VIAL ONE (09:49)
[2021-06-23] MEDS ORDERED: PROPOFOL INJECTION 50 ML IV ONE (10:06)
--- NOTE | 2021-06-23 10:25 | Progress Note-Post Operative ---
Post-Operative Progess Note Surgeon (s)/Underwriting Specialist (s) Surgeon KASSY DURAN DO Underwriting Specialist: none Pre-Operative Diagnosis emerald-cath removal, venous insufficiency Post-Operative Diagnosis same Procedure & Operative Findings Date of Procedure 06/23/21 Procedure Performed/Findings PROCEDURE: Removal of port COMPLICATIONS: None. INDICATIONS: The patient is a 65 year-old male who had a port previously placed. Patient is ok to have port removed. The patient was explained risk and benefits of the procedure and wished to proceed with procedure. Consent was signed on the chart. PROCEDURE: The patient was taken to the operating suite and was prepped and draped in sterile fashion. A surgical pause was performed. Local anesthetic was infiltrated to the area around the port. A #15 blade was used to make an incision. Cautery was used to dissect down to the port which was then grasped and then dissected around. The catheter was removed in its entirety. The port was then able to be dissected out of the pocket and elevated. The wound was then irrigated with copious amounts of irrigation. Hemostasis had been achieved. The subcutaneous tissues were then reapproximated using 3-0 Vicryl. Skin was then closed using 4-0 Vicryl in a running fashion. The area was then washed and dried and Skin Affix placed over the incision. The patient tolerated the procedure well without complication and was taken to recovery room in stable condition. Anesthesia Type IV sedation by CATALOG LIBRARY ASSISTANT Estimated Blood Loss Estimated blood loss (mL): scant Specimens/Packing Specimens Removed port KASSY DURAN DO June 23, 2021 10:25
--- NOTE | 2021-06-23 10:26 | Discharge Inst-Surgical ---
Discharge Inst-Surgical Depart Medication/Instructions New, Converted or Re-Newed RX: Other (use home meds) Patient Instructions Follow up Appt: Make appointment for 12 days. [phone] Instructions: May shower in 24 hours, no tub bath or soaking. Use incentive spirometer at home as directed. No Smoking Skin/Wound Care: May remove bandages in am. You need to leave the Dermabond on incision it will fall off on it's own. Symptoms to Report: Appetite Changes, Extremity Discoloration, Numbness/Tingling, Swelling Increased, Bleeding Excessive, Eyesight Changes, Pain Increased, Urine Color Change, Constipation(Persistent), Fever over 101 degree F, Pain/Pressure in chest, Urinating Difficulty, Cough Up/Vomit Blood, Heart Beat Irreg/Pounding, Pain/Pressure in jaw, Cramps in feet or legs, Lightheadedness, Pain/Pressure in shoulder, Diarrhea(Persistent), Memory Changes Suddenly, Questions/Concerns, Weight gain consecutive days, Dizziness/Fainting, Nausea/Vomiting, Shortness of Breath, Weight gain over 2 pounds If questions or concerns contact your physician Or seek help at emergency department. Activity Activity as Tolerated: Yes Activity Instructions: Avoid Stress to Incision Driving Instructions: You May Drive Diet Discharge Diet: No Restrictions If Any Problems/Questions/Issu: Contact Your Physician, Go to Emergency Room Skin/Wound Care Infection Signs and Symptoms: Increased Redness, Foul Odor of Wound, Increased Drainage, Skin Itchy or Has a Rash, Increased Swelling, Temperature Above 101 F Bathing Instructions: Shower Stitches/Marj/Dermabond Dis: KASSY Kemp DO June 23, 2021 10:26
--- NOTE | 2021-06-23 10:31 | Anesthesia-General Post-Op ---
MAC Patient Condition Mental Status/LOC: Same as Preop Cardiovascular: Satisfactory Nausea/Vomiting: Absent Respiratory: Satisfactory Pain: Controlled Complications: Absent Post Op Complications Complications None Follow Up Care/Instructions Patient Instructions None needed. Anesthesiology Discharge Order Discharge Order Patient is doing well, no complaints, stable vital signs, no apparent adverse anesthesia problems. No complications reported per nursing. CAITY MAC CRNA June 23, 2021 10:31
--- NOTE | 2021-06-23 12:39 | Anesthesia-Procedure Note ---
Procedures/Interventions Procedure Start/Stop/Diagnosis Date of Procedure: June 23, 2021 Start Time: 11:20 Brief History Received phone call from [employer] rep who assessed pacer/icd interrogation results. Rep reports no issues and all seems to be functioning properly post operative. Stop Time: 11:21 CAITY MAC CRNA June 23, 2021 12:39
== END 2021-06-23 11:14 ==
LOC: SDC 07:11
PROVIDERS: ATTEND Surgery
DX: Z45.2 Encounter for adjustment and management of vascular access device (principal); I87.2 Venous insufficiency (chronic) (peripheral); E66.9 Obesity, unspecified; G47.33 Obstructive sleep apnea (adult) (pediatric); Z68.26 Body mass index [BMI] 26.0-26.9, adult; Z99.89 Dependence on other enabling machines and devices; Z87.891 Personal history of nicotine dependence; Z85.038 Personal history of other malignant neoplasm of large intestine
CPT/HCPCS: 82947; 87081

== ENCOUNTER → 2021-06-24 | Outpatient (CLI) | payer MEDICARE | LOC: CARD 09:20 | PROVIDERS: ATTEND Internal Medicine Cardiovascular Disease | DX: I11.9 Hypertensive heart disease without heart failure (principal); I35.1 Nonrheumatic aortic (valve) insufficiency; I25.10 Atherosclerotic heart disease of native coronary artery without angina pectoris | CPT/HCPCS: 93306 ==

== ENCOUNTER → 2021-07-20 | Outpatient (CLI) | payer MEDICARE ==
[~2021-07-20] MED LIST changes: +REGADENOSON 0.4 MG/5 ML SYR (LEXISCAN) IV ONE
[2021-07-20] MEDS: CATHETER FLUSH 10 ML SYR IVP PRN ×2 (11:02→12:59)
[2021-07-20 12:59] VITALS: BP 166/92
[2021-07-20 13:46] LABS: ALBUMIN 4.2 GM/DL (3.2-4.5); CALCIUM 9.4 MG/DL (8.5-10.1); CREATININE SERUM 0.89 MG/DL (0.60-1.30); POTASSIUM 4.1 MMOL/L (3.6-5.0); TOTAL PROTEIN 7.4 GM/DL (6.4-8.2)
== END ==
LOC: CARD 11:30
PROVIDERS: ATTEND Internal Medicine Cardiovascular Disease
DX: I50.22 Chronic systolic (congestive) heart failure (principal); I25.10 Atherosclerotic heart disease of native coronary artery without angina pectoris; I10 Essential (primary) hypertension; I65.23 Occlusion and stenosis of bilateral carotid arteries; E78.2 Mixed hyperlipidemia
CPT/HCPCS: 78452; 80053; 80061; 93017; A9502; 36415

== ENCOUNTER 2021-08-01 06:55 | Day surgery (SDC) | payer MEDICARE ==
[2021-08-01] VITALS (8 sets, daily range): BP systolic 121–160; BP diastolic 69–90
[~2021-08-01] VITALS: Ht 190 cm; Wt 101.9 kg
[~2021-08-01 06:55] MED LIST changes: -REGADENOSON 0.4 MG/5 ML SYR (LEXISCAN) IV ONE
[2021-08-01] MEDS ORDERED: NS IV 1000 ML 1,000 ML IV SCH ×2 (07:15→10:00)
[2021-08-01] MEDS ORDERED: NS IV 1000 ML 1,000 ML ONE (07:18)
[2021-08-01] MEDS ORDERED: LIDOCAINE 1% INJ 20 ML VIAL ONE (07:18)
[2021-08-01] MEDS ORDERED: HEParin (CATH LAB) 2,000 ML IV ONE (07:18)
--- NOTE | 2021-08-01 07:44 | Diagnostic Imaging Report ---
INDICATION: Heart disease. Comparison is made with prior examination 07/08/2017. FINDINGS: Heart size is normal. Lungs are clear. There is no pleural effusion or pneumothorax. Mediastinum is unremarkable. Pacemaker overlies left hemithorax. IMPRESSION: No acute cardiopulmonary abnormality. Dictated by: Dictated on workstation # [id number]
[2021-08-01 08:04] LABS: HEMOGLOBIN 14.9 g/dL (13.3-17.7); MEAN PLATELET VOLUME 9.9 fL (9.0-12.2); WHITE BLOOD COUNT 5.7 10^3/uL (4.3-11.0)
[2021-08-01 08:19] LABS: ALBUMIN 4.1 GM/DL (3.2-4.5); BILIRUBIN,TOTAL 0.9 MG/DL (0.1-1.0); CALCIUM 8.9 MG/DL (8.5-10.1); CREATININE SERUM 0.88 MG/DL (0.60-1.30); TOTAL PROTEIN 7.2 GM/DL (6.4-8.2)
[2021-08-01] MEDS ORDERED: DICY10CA12 PO (08:19)
[2021-08-01] MEDS ORDERED: INSU100I10 SQ (08:20)
[2021-08-01] MEDS ORDERED: DULA0.75 SQ (08:21)
[2021-08-01 08:33] LABS: PROTHROMBIN TIME PATIENT 13.5 SEC (12.2-14.7)
[2021-08-01] MEDS ORDERED: VERAPAMIL 5 MG/2 ML (CALAN) VIAL IV ONE (08:50)
[2021-08-01] MEDS ORDERED: NITRO DRIP 25000 MCG/D5W 250 ML IV ONE (08:51)
[2021-08-01] MEDS ORDERED: MIDAZOLAM 5 MG/5 ML (VERSED) VIAL ONE (08:51)
[2021-08-01] MEDS ORDERED: fentaNYL INJ 100 MCG/2 ML AMP ONE (08:51)
[2021-08-01] MEDS ORDERED: HEParin 1000 UNIT/ML (10ML VIAL) FOR BOLUS ONE (08:51)
--- NOTE | 2021-08-01 08:58 | Conscious Sedation/ASA ---
Conscious Sedation Pre-Proced Time 08:57 ASA Score 3 For ASA 3 and 4: Consider anesthesia and medical clearance. Also, for patients with a history of failed moderate sedation consider anesthesia. Airway Lungs Heart ASA score ASA 1: a normal healthy patient ASA 2: a patient with a mild systemic disease (mid diabetes, controlled hypertension, obesity ASA 3: a patient with a severe systemic disease that limits activity (angina, COPD, prior Myocardial infarction) ASA 4: a patient with an incapacitating disease that is a constant threat to life (CHF, renal failure) ASA 5: a moribund patient not expected to survive 24 hrs. (ruptured aneurysm) ASA 6: a declared brain- patient whose organs are being harvested. For emergent operations, add the letter E after the classification Mallampati Classification Grade 3 Sedation Plan Analgesia, Amnesia, Plan communicated to team members, Discussed options with patient/fam, Discussed risks with patient/fam The patient is an appropriate candidate to undergo the planned procedure, sedation, and anesthesia. The patient immediately re-assessed prior to indication. MOHAMUD WAN MD Aug 01, 2021 08:58
--- NOTE | 2021-08-01 10:00 | Discharge Inst-Post CATH ---
Discharge Inst-CATH/EP Problems Reviewed?: Yes Post Cardiac Cath/EP D/C Inst Follow Up/Plan Appointment with Dr. Ravi's office in 2 to 4 weeks <b>CARDIAC CATH/EP PROCEDURE DISCHARGE INSTRUCTIONS</b> ACTIVITY * Go Home directly and rest. * Limit activity of the leg (or wrist if it was used) for 7 days including aer obics, swimming, jogging, bicycling, etc. * Restrict stair-climbing for 7 days if possible, if not, climb up with your non-cath leg, then bring together on the same step. * Avoid lifting, pushing, pulling or excessive movement of the affected extremi ty for 7 days. * Customary sexual activity may be resumed after 2 days-use caution not to use a position that strains or causes pain to the affected extremity. * No driving for 24 hours. * NO SMOKING. * Avoid straining for bowel movements for 7 days. * Gentle walking on level ground is allowed. * Returning to work will depend on the type of procedure and the results. Your doctor will discuss this with you. CALL YOUR DOCTOR FOR ANY OF THE FOLLOWING: *If bleeding from the puncture site occurs- Apply gentle pressure to site with clean cloth and call your doctor or EMS. * If a knot or lump forms under the skin, increases in size, or causes pain. * If bruising appears to be worsening or moving further down your leg instead of disappearing. * Temperature above 101 F. CARE OF YOUR GROIN INCISION; * Bruising or purple discoloration of the skin near the puncture site is common. * You may shower only, no bathtub bathing for 5 days. Be careful to avoid slipping as your leg may feel stiff. * If a closure device was used on your femoral artery, please see the attached guide regarding care of the device and your leg. * Leave dressing on FOR 24 hours. CARE OF YOUR WRIST INCISION; * Bruising or purple discoloration of the skin near the puncture site is common. * You may shower. * DO NOT submerge wrist. * Leave dressing on FOR 24 hours. MOHAMUD RAVI MD Aug 01, 2021 10:00
--- NOTE | 2021-08-01 10:04 | Cardiac Cath Report ---
Cardiac Cath Report Physician (s)/Nuclear Test Technician (s) Physician MOHAMUD WAN MD Pre-Procedure Diagnosis Pre-Procedure Diagnosis: Coronary artery disease Post-Procedure Note Procedure Start Date: Aug 01, 2021 Name of Procedure: Left heart catheterization Findings/Procedure Note PROCEDURE NOTE: 65 years old gentleman with history of coronary artery disease, hypertension and hyperlipidemia, had an abnormal stress test, scheduled for cardiac catheterization possible PTCA. After explaining the procedure to the patient, all pros and cons were explained, all questions were answered. The patient signed the consent and then he was placed on the cardiac catheterization laboratory. Groin was prepped SL fashion local anesthesia was used. Sheath placed in the right radial artery, [place] catheter was advanced to the left ventricular cavity, pressure was measured, pullback LV to aorta was done, I was unable to engage the right or the left coronary system, exchanged the catheter and used Derian right catheter, I engaged the right coronary artery and angiogram was done. I tried with the Derian left catheter without success I was able to use EBU 3.5 guide with the support of the wire to redirected to the left coronary system. Engage the left main coronary artery and angiogram was done. At the end of the procedure the sheath was removed. Vascular band was used FINDINGS: Hemodynamics LV 114/10, end-diastolic pressure of 10 Aorta 110/66 mean of 84 ANATOMY: Left Main is free of obstructive disease Left Anterior Descending is moderately calcified, stent in the proximal LAD is patent, mild to moderate disease at the mid LAD nonobstructive disease Left Circumflex is moderate in size with mild disease nonobstructive disease Right Coronary Artery is dominant artery with mild to moderate disease in the mid right coronary artery nonobstructive disease LV Gram was not done, pressure was measured CONCLUSION: 1. Patent stent in the proximal LAD, calcified LAD with mild to moderate di sease nonobstructive disease 2. Dominant right coronary artery with mild to moderate disease, mild disease in the circumflex system 3. Normal left ventricular end-diastolic pressure DISCUSSION AND RECOMMENDATION: Continue maximizing medical therapy, abnormal stress test is probably due to small vessel disease Anesthesia Type: Conscious Sedation Estimated blood loss (mL): 25 ml Contrast Amount: 85 ml Total Radiation Dose: 925 mGy Post-Procedure Diagnosis Post-operative diagnosis: Coronary artery disease Hypertension Hyperlipidemia Diabetes mellitus MOHAMUD WAN MD Aug 01, 2021 10:04
== END 2021-08-01 12:30 | disposition home or self-care (01) ==
LOC: CATH 06:55 → SDC 10:12 → CATH 12:30
PROVIDERS: ATTEND Internal Medicine Cardiovascular Disease
DX: I25.10 Atherosclerotic heart disease of native coronary artery without angina pectoris (principal); I11.0 Hypertensive heart disease with heart failure; I50.22 Chronic systolic (congestive) heart failure; E78.5 Hyperlipidemia, unspecified; E66.9 Obesity, unspecified; I65.23 Occlusion and stenosis of bilateral carotid arteries; E11.40 Type 2 diabetes mellitus with diabetic neuropathy, unspecified; J44.9 Chronic obstructive pulmonary disease, unspecified; G47.33 Obstructive sleep apnea (adult) (pediatric); E78.2 Mixed hyperlipidemia; Z68.28 Body mass index [BMI] 28.0-28.9, adult; Z79.82 Long term (current) use of aspirin
CPT/HCPCS: 36430; 71045; 80053; 85027; 85610; 85730; 87081; 93005; 93458; C1769; C1887; C1894; 36415

== ENCOUNTER 2022-09-04 09:19 | Day surgery (SDC) | payer MEDICARE ==
[~2022-09-04] VITALS: Ht 190 cm; Wt 102.1 kg
[~2022-09-04 09:19] MED LIST changes: +ACYC-108 PO; +ATOR20TA66 PO; +DICY10CA12 PO; +DULA0.75 SQ; +DULA1.5P2 SQ; +INSU100I10 SQ
[2022-09-04] MEDS ORDERED: LACTATED RINGERS 1,000 ML IV STA (09:22)
[2022-09-04 09:52] VITALS: BP 115/73
--- NOTE | 2022-09-04 10:03 | Progress Note-Pre Operative ---
Pre-Operative Progress Note Date of Available H&P: Aug 22, 2022 Date H&P Reviewed: Sep 04, 2022 Time H&P Reviewed: 10:00 History & Physical: H&P Reviewed, Patient Examed, No changes noted Pre-Operative Diagnosis: Hx of Colon CA KASSY DURAN DO Sep 04, 2022 10:03
[2022-09-04] MEDS ORDERED: PROPOFOL INJECTION 50 ML IV ONE (10:16)
[2022-09-04 10:40] VITALS: BP 82/50
--- NOTE | 2022-09-04 10:43 | Progress Note-Post Operative ---
Post-Operative Progess Note Surgeon (s)/Supervisor Facepiece Line (s) Surgeon KASSY DURAN DO Supervisor Facepiece Line: none Pre-Operative Diagnosis Hx of Colon CA Post-Operative Diagnosis Polyp Diverticula Int hemorrhoids Procedure & Operative Findings Date of Procedure 09/04/22 Procedure Performed/Findings Colonoscopy with snare polypectomy PROCEDURE NOTE: After informed consent was obtained, the patient was brought to the endoscopy suite, placed in bed in left lateral decubitus position. He was administered IV sedation by the RESPIRATORY THERAPY TECHNICIAN who then monitored his vitals the entire time, heart rate, blood pressure and pulse ox and the scope was inserted, pushed all the way to about 120 cm and pushed into the cecum, took a picture of appendiceal orifice and noted the ileocecal valve. Just outside the cecal cap I found a small polyp and removed it with the snare. Then slowly withdrew the scope insufflating to look circumferentially at the [place] starting in the cecum, up the ascending colon to the hepatic fl exure, then down the transverse colon to the splenic flexure, into the descending colon down and then into the remaineder of the rectum. I took a picture of the anastomosis and resected limb of colon. He had large diverticula throughout the left colon. Took a picture of the internal hemorrhoids as I pulled the scope out. The patient tolerated the procedure. He was recovered in endoscopy suite. Recommended for repeat colonoscopy in 5 years. Anesthesia Type IV sedation by RESPIRATORY THERAPY TECHNICIAN Estimated Blood Loss Estimated blood loss (mL): scant Specimens/Packing Specimens Removed cecal polyp KASSY DURAN DO Sep 04, 2022 10:43
--- NOTE | 2022-09-04 10:44 | Endoscopy Discharge Instruct ---
Endo Procedure/Findings Findings 1.: Polyp 2.: Diverticulosis 3.: Internal Hemorrhoids Discharge Instructions - Activity: You might feel a little sleepy until tomorrow. This is due to the medicine you received to relax you. Until tomorrow, you should: NOT drive a car, operate machinery or power tools. NOT drink any alcoholic beverages. NOT make any important decisions or sign importortant papers. Do not return to work until tomorrow, unless otherwise instructed. Resume previous activities tomorrow. Diet: Start by taking liquids. If you tolerate liquids, advance to solid food. 1.: Colonscopy in 5 years Notify Physician - If you experience excessive bleeding, unusual abdominal pain, fever, or chest pain, contact your doctor immediately. Follow-Up: Other Follow up in my office in one week KASSY DURAN DO Sep 04, 2022 10:44
[2022-09-04 10:45] VITALS: BP 83/50
[2022-09-04 11:05] VITALS: BP 83/50
--- NOTE | 2022-09-04 12:16 | Anesthesia-General Post-Op ---
MAC Patient Condition Mental Status/LOC: Same as Preop Cardiovascular: Satisfactory Nausea/Vomiting: Absent Respiratory: Satisfactory Pain: Controlled Complications: Absent Post Op Complications Complications None Follow Up Care/Instructions Patient Instructions None needed. Anesthesiology Discharge Order Discharge Order Patient is doing well, no complaints, stable vital signs, no apparent adverse anesthesia problems. No complications reported per nursing. CAITY MAC CRNA Sep 04, 2022 12:16
== END 2022-09-04 11:05 | disposition home or self-care (01) ==
LOC: ENDO 09:19
PROVIDERS: ATTEND Surgery
DX: Z12.11 Encounter for screening for malignant neoplasm of colon (principal); D12.0 Benign neoplasm of cecum; K57.30 Diverticulosis of large intestine without perforation or abscess without bleeding; K64.8 Other hemorrhoids; Z85.038 Personal history of other malignant neoplasm of large intestine; E11.9 Type 2 diabetes mellitus without complications; Z79.4 Long term (current) use of insulin; Z95.5 Presence of coronary angioplasty implant and graft; Z95.810 Presence of automatic (implantable) cardiac defibrillator; Z79.85 Long-term (current) use of injectable non-insulin antidiabetic drugs; G47.33 Obstructive sleep apnea (adult) (pediatric); Z91.199 Patient's noncompliance with other medical treatment and regimen due to unspecified reason
CPT/HCPCS: 82947